=== PATIENT | male | born 1985 | race American Indian/Alaskan Native ===

== ENCOUNTER 2020-08-27 08:36 | Inpatient (IN) | payer MEDICAID ==
[2020-08-27] MEDS ORDERED: IBUPROFEN 800 MG TAB PO ONE (08:54)
[2020-08-27] MEDS ORDERED: ACETAMINOPHEN 500 MG TAB PO ONE (08:55)
[2020-08-27] MEDS ORDERED: cefTRIAXone/NS 2 GM/100 ML 2 GM/100 ML BAG IV ONE (09:49)
[2020-08-27] MEDS ORDERED: AZITHROMYCIN/NS 500 MG/250 ML 500 MG/250 ML BAG IV ONE (09:49)
[2020-08-27] MEDS ORDERED: SODIUM CHLORIDE 0.9% 1000 ML 1,000 ML IV ONE (09:51)
[2020-08-27] MEDS ORDERED: IPRATROPIUM/ALBUTEROL SULFATE 3 ML AMPUL.NEB IH ONE ×2 (10:02→11:16)
--- NOTE | 2020-08-27 10:07 | Emergency Department Report ---
HPI - General Chief Complaint: Dyspnea/Respdistress Time Seen by Provider: 08/27/20 09:49 - HPI HPI: 35-year-old male with no known past medical history presents complaining of 6 days of multiple symptoms including subjective fevers, cough productive of b loody mucus, generalized weakness, decreased appetite and decreased taste. He also feels as if he is wheezing and does not have a history of that. He says he has also been constipated and has not had a bowel movement in 6 days. He says he just drove here from [place] 10 days ago. He has had no recent surgery. He denies any headache, visual change, neck pain, back pain, abdominal pain, nausea/vomiting, dysuria, focal weakness, sensory changes, increased lower extremity swelling, or any other complaints. ED Past Medical Hx - Past Medical History Previous Medical History?: No - Surgical History Past Surgical History?: No ED Review of Systems ROS: Stated complaint: WHEEZING Other details as noted in HPI Constitutional: fever, malaise Eyes: denies: eye pain, vision change ENT: denies: throat pain, congestion Respiratory: cough, shortness of breath, wheezing Cardiovascular: denies: chest pain, palpitations, edema, syncope Gastrointestinal: constipation. denies: abdominal pain, nausea, vomiting Genitourinary: denies: dysuria, frequency Musculoskeletal: denies: back pain, joint swelling Skin: denies: rash Neurological: denies: headache, weakness, numbness, paresthesias Physical Exam - Physical Exam Vital Signs: Vital Signs 08/27/20 08:41 Temperature 103.1 F H Pulse Rate 138 H Respiratory 20 Rate Blood Pressure 144/90 O2 Sat by Pulse 95 Oximetry Physical Exam: GENERAL: Well developed and well nourished. In moderate respiratory distress. HEENT: Normocephalic. No obvious signs of trauma. Dry mucous membranes. EYES: Extraocular movements are intact. Pupils are equal round and reactive to light bilaterally NECK: Supple. Trachea is midline. LUNGS: In moderate respiratory distress with accessory muscle use. Equal chest rise bilaterally. Lung auscultation reveals scattered rales throughout the bilateral lung srinivasan as well as faint end expiratory wheezes. HEART/CARDIOVASCULAR: Tachycardic but with regular rhythm. No murmurs or rubs. VASCULAR: 2+ peripheral pulses. Cap refill < 2 seconds. 1+ pitting edema b/l ABDOMEN: Abdomen distended but soft. There is no significant tenderness, guarding or rebound. SKIN: Skin is warm and dry NEURO: Patient is awake, alert, and oriented. sausage wrapper II-XII grossly intact. No focal deficits. Normal motor and sensory exam throughout. Normal speech. MUSCULOSKELETAL: No obvious deformities. No significant tenderness. Normal ROM throughout. BACK/SPINE: No costovertebral angle tenderness. ED Course Vital Signs 08/27/20 08:41 Temperature 103.1 F H Pulse Rate 138 H Respiratory 20 Rate Blood Pressure 144/90 O2 Sat by Pulse 95 Oximetry ED Medical Decision Making - Lab Data Result diagrams: 08/27/20 11:56 08/27/20 11:56 Lab Results 08/27/20 08/27/20 08/27/20 Range/Units 11:56 11:56 11:56 WBC (4.5-11.0) K/mm3 RBC (3.65-5.03) M/mm3 Hgb (11.8-15.2) gm/dl Hct (35.5-45.6) % MCV (84-94) fl MCH (28-32) pg MCHC (32-34) % RDW (13.2-15.2) % Plt Count (140-440) K/mm3 Lymph % (Auto) (13.4-35.0) % Sunflower % (Auto) (0.0-7.3) % Eos % (Auto) (0.0-4.3) % Baso % (Auto) (0.0-1.8) % Lymph # (Auto) (1.2-5.4) K/mm3 Sunflower # (Auto) (0.0-0.8) K/mm3 Eos # (Auto) (0.0-0.4) K/mm3 Baso # (Auto) (0.0-0.1) K/mm3 Seg Neutrophils % (40.0-70.0) % Seg Neutrophils # (1.8-7.7) K/mm3 D-Dimer 291.43 H (0-234) ng/mlDDU Sodium (137-145) mmol/L Potassium (3.6-5.0) mmol/L Chloride (98-107) mmol/L Carbon Dioxide (22-30) mmol/L Anion Gap mmol/L BUN (9-20) mg/dL Creatinine (0.8-1.3) mg/dL Estimated GFR ml/min BUN/Creatinine Ratio % Glucose (75-100) mg/dL Lactic Acid (0.7-2.0) mmol/L Calcium (8.4-10.2) mg/dL Ferritin (30.0-300.0) ng/mL Total Bilirubin (0.1-1.2) mg/dL AST (5-40) units/L ALT (7-56) units/L Alkaline Phosphatase (35-129) units/L Lactate Dehydrogenase 313 H (91-180) units/L Troponin T < 0.010 (0.00-0.029) ng/mL C-Reactive Protein 4.40 H (0.00-1.30) mg/dL NT-Pro-B Natriuret Pep (0-450) pg/mL Total Protein (6.3-8.2) g/dL Albumin (3.9-5) g/dL Albumin/Globulin Ratio % Procalcitonin 0.09 (<0.15) ng/mL 08/27/20 08/27/20 08/27/20 Range/Units 11:56 11:56 11:56 WBC 6.6 (4.5-11.0) K/mm3 RBC 4.97 (3.65-5.03) M/mm3 Hgb 14.7 (11.8-15.2) gm/dl Hct 43.4 (35.5-45.6) % MCV 87 (84-94) fl MCH 30 (28-32) pg MCHC 34 (32-34) % RDW 13.6 (13.2-15.2) % Plt Count 173 (140-440) K/mm3 Lymph % (Auto) 10.3 L (13.4-35.0) % Sunflower % (Auto) 4.3 (0.0-7.3) % Eos % (Auto) 0.0 (0.0-4.3) % Baso % (Auto) 0.8 (0.0-1.8) % Lymph # (Auto) 0.7 L (1.2-5.4) K/mm3 Sunflower # (Auto) 0.3 (0.0-0.8) K/mm3 Eos # (Auto) 0.0 (0.0-0.4) K/mm3 Baso # (Auto) 0.1 (0.0-0.1) K/mm3 Seg Neutrophils % 84.6 H (40.0-70.0) % Seg Neutrophils # 5.6 (1.8-7.7) K/mm3 D-Dimer (0-234) ng/mlDDU Sodium 139 (137-145) mmol/L Potassium 3.4 L (3.6-5.0) mmol/L Chloride 102.7 (98-107) mmol/L Carbon Dioxide 22 (22-30) mmol/L Anion Gap 18 mmol/L BUN 15 (9-20) mg/dL Creatinine 1.3 (0.8-1.3) mg/dL Estimated GFR > 60 ml/min BUN/Creatinine Ratio 12 % Glucose 125 H (75-100) mg/dL Lactic Acid (0.7-2.0) mmol/L Calcium 8.5 (8.4-10.2) mg/dL Ferritin 572.3 H (30.0-300.0) ng/mL Total Bilirubin 0.40 (0.1-1.2) mg/dL AST 66 H (5-40) units/L ALT 37 (7-56) units/L Alkaline Phosphatase 90 (35-129) units/L Lactate Dehydrogenase (91-180) units/L Troponin T (0.00-0.029) ng/mL C-Reactive Protein (0.00-1.30) mg/dL NT-Pro-B Natriuret Pep (0-450) pg/mL Total Protein 7.2 (6.3-8.2) g/dL Albumin 3.9 (3.9-5) g/dL Albumin/Globulin Ratio 1.2 % Procalcitonin (<0.15) ng/mL 08/27/20 08/27/20 Range/Units 11:56 11:56 WBC (4.5-11.0) K/mm3 RBC (3.65-5.03) M/mm3 Hgb (11.8-15.2) gm/dl Hct (35.5-45.6) % MCV (84-94) fl MCH (28-32) pg MCHC (32-34) % RDW (13.2-15.2) % Plt Count (140-440) K/mm3 Lymph % (Auto) (13.4-35.0) % Sunflower % (Auto) (0.0-7.3) % Eos % (Auto) (0.0-4.3) % Baso % (Auto) (0.0-1.8) % Lymph # (Auto) (1.2-5.4) K/mm3 Sunflower # (Auto) (0.0-0.8) K/mm3 Eos # (Auto) (0.0-0.4) K/mm3 Baso # (Auto) (0.0-0.1) K/mm3 Seg Neutrophils % (40.0-70.0) % Seg Neutrophils # (1.8-7.7) K/mm3 D-Dimer (0-234) ng/mlDDU Sodium (137-145) mmol/L Potassium (3.6-5.0) mmol/L Chloride (98-107) mmol/L Carbon Dioxide (22-30) mmol/L Anion Gap mmol/L BUN (9-20) mg/dL Creatinine (0.8-1.3) mg/dL Estimated GFR ml/min BUN/Creatinine Ratio % Glucose (75-100) mg/dL Lactic Acid 1.10 (0.7-2.0) mmol/L Calcium (8.4-10.2) mg/dL Ferritin (30.0-300.0) ng/mL Total Bilirubin (0.1-1.2) mg/dL AST (5-40) units/L ALT (7-56) units/L Alkaline Phosphatase (35-129) units/L Lactate Dehydrogenase (91-180) units/L Troponin T (0.00-0.029) ng/mL C-Reactive Protein (0.00-1.30) mg/dL NT-Pro-B Natriuret Pep < 5 (0-450) pg/mL Total Protein (6.3-8.2) g/dL Albumin (3.9-5) g/dL Albumin/Globulin Ratio % Procalcitonin (<0.15) ng/mL - EKG Data -: EKG Interpreted by Nv - Radiology Data CHEST 1 VIEW INDICATION / CLINICAL INFORMATION: sepsis. COMPARISON: None available. FINDINGS: SUPPORT DEVICES: None. HEART / MEDIASTINUM: No significant abnormality. LUNGS / PLEURA: There are mild bibasilar pulmonary opacities. No pleural effusion. No pneumothorax. ADDITIONAL FINDINGS: No significant additional findings. IMPRESSION: 1. Mild bibasilar pulmonary opacities are favored to represent subsegmental atelectasis, though developing pneumonia is possible given the provided history of sepsis. Signer Name: Gill Sanchez MD Signed: 08/27/2020 9:33 AM Workstation Name: [id number] CTA CHEST WITH IV CONTRAST INDICATION: Sepsis CONTRAST: 100 cc Omnipaque 350 IV COMPARISON: Portable chest x-ray today Three-plane MIP reconstructions were produced. All CT scans at this location are performed using CT dose [facility] by means of automated exposure control. FINDINGS: No significant axillary or chest wall abnormalities are seen. No mediastinal or hilar masses are noted. No pleural effusions are seen. No pneumothorax or pneumomediastinum are noted. No obvious endobronchial lesions are seen. Views of the lung srinivasan show moderate bilateral atelectatic changes and increased interstitial markings. These are most prominent in the lung bases but also extends well into the upper lobes. Mild consolidation is seen in the lower lobes bilaterally. No discrete nodularity is seen though this background would make detection more difficult. Aorta shows no aneurysmal dilatation or evidence of dissection. Good opacification of the pulmonary arterial system was achieved. There is moderate motion artifact seen in the lung bases, particularly the lower lobes, making interpretation more difficult but I do not see convincing evidence of pulmonary thromboembolism. CT ABDOMEN AND PELVIS WITH CONTRAST INDICATION: Sepsis CONTRAST: 100 cc Omnipaque 350 IV COMPARISON: None available. All CT scans at this location are performed using CT dose reduction for ALARA by means of automated exposure control. FINDINGS: No pneumoperitoneum is seen. Fatty infiltration of the liver is noted without significant focal lesion. Liver is mildly enlarged and has a length of 18.6 cm. Spleen is not enlarged. I see no abnormalities of the gallbladder, bile ducts, pancreas, adrenals, or kidneys. No urinary obstructive changes are noted. No free fluid is seen. No lymphadenopathy is noted. Mild colonic diverticulosis is seen without evidence of diverticulitis. Appendix appears within normal limits no evidence of bowel obstruction is seen. No focal inflammatory changes are noted. No abnormal fluid collections are seen to suggest an abscess. IMPRESSION: 1. Bilateral moderate atelectatic changes and increased interstitial markings which certainly could include pneumonitis. This is most prominent in the lower lobes but is seen in all lobes. 2. No convincing evidence of pulmonary thromboembolism in a mildly limited study 3. No acute abnormalities are seen in the abdomen or pelvis Signer Name: Octavio Sanchez MD Signed: 08/27/2020 1:13 PM Workstation Name: [id number] - Medical Decision Making 35-year-old male with 6 days of subjective fevers, coughing up bloody mucus, generalized weakness and chest tightness. He also reports he has been constipated for the past 6 days. He does report he has decreased taste. He is not vaccinated against the coronavirus. He does say that he just drove from [place] 10 days ago and was in the car for long time. He has had no recent surgeries. He is febrile to 103 and tachycardic in the 120s. His oxygen saturation has hovered around 92 to 94%. On initial assessment, the patient is in moderate respiratory distress. He has dry mucous membranes. He has 1+ pitting edema bilaterally. Lung auscultation reveals scattered rales and faint end expiratory wheezes. His abdomen is distended but soft and nontender. Nonetheless, we will perform broad work-up including the COVID-19 order set. Given hemoptysis we will obtain CTA of the chest and given his 6 days of constipation we will include the abdomen and pelvis as well. We will give IV fluids, broad-spectrum ceftriaxone and azithromycin, and continue to monitor him closely. The sepsis order set was initiated with a full set of labs and cultures. On repeat assessment at 1115 after a breathing treatment, the patient reports that he feels better. He is no longer in respiratory distress. His tachycardia is improved. Lung auscultation reveals greatly improved air movement throughout. Labs have resulted and reveal no significant leukocytosis or anemia. Creatinine is 1.3. Potassium is 3.4 which we will replete. The patient has an elevated D-dimer of 291 as well as elevated inflammatory markers and LDH concerning for COVID-19 pneumonia. CTA of the chest/abdomen/pelvis reveals findings consistent with developing pneumonia and no acute findings in the abdomen. On repeat assessment again at 2:00, the patient's respiratory rate remains improved and he feels better. At 2:21 PM I spoke to Dr. Garcia, the on-call hospitalist regarding the case. He accepts the patient for admission and will assume care. The patient's COVID-19 test came back positive. I alerted the hospitalist, Dr. Garcia and asked whether he would like me to order steroids. He said that he would take care of it. The diagnosis was discussed with the patient along with our plan of management which includes hospitalization for supplemental oxygen and frequent breathing treatments as well as further medications. Critical Care Time: Yes Critical care time in (mins) excluding proc time.: 45 Critical care attestation.: If time is entered above; I have spent that time in minutes in the direct care of this critically ill patient, excluding procedure time. Critical care time was spent in the evaluation, assessment, work-up, and management of critical respiratory failure with hypoxia requiring supplemental oxygen as well as pneumonia requiring IV antibiotics and frequent reassessment breathing treatments. ED Disposition Clinical Impression: Pneumonia due to COVID-19 virus, Acute respiratory failure due to COVID-19, Hypokalemia Disposition: OP ADMIT IP TO THIS HOSP Is pt being admited?: Yes Condition: Fair
--- NOTE | 2020-08-27 10:38 | XRay Report ---
CHEST 1 VIEW INDICATION / CLINICAL INFORMATION: sepsis. COMPARISON: None available. FINDINGS: SUPPORT DEVICES: None. HEART / MEDIASTINUM: No significant abnormality. LUNGS / PLEURA: There are mild bibasilar pulmonary opacities. No pleural effusion. No pneumothorax. ADDITIONAL FINDINGS: No significant additional findings. IMPRESSION: 1. Mild bibasilar pulmonary opacities are favored to represent subsegmental atelectasis, though devel oping pneumonia is possible given the provided history of sepsis. Signer Name: Gill Sanchez MD Signed: 08/27/2020 10:33 AM Workstation Name: [id number]
[2020-08-27 12:28] LABS: Basophils # (Auto) 0.1 K/mm3 (0.0-0.1); Basophils % (Auto) 0.8 % (0.0-1.8); Hematocrit 43.4 % (35.5-45.6); Hemoglobin 14.7 gm/dl (11.8-15.2); Lymphocytes # (Auto) 0.7 K/mm3 (1.2-5.4); Lymphocytes % (Auto) 10.3 % (13.4-35.0); Mean Corpuscular HGB Conc 34 % (32-34); Mean Corpuscular Volume 87 fl (84-94); Monocytes # (Auto) 0.3 K/mm3 (0.0-0.8); Monocytes % (Auto) 4.3 % (0.0-7.3); Platelet Count 173 K/mm3 (140-440); Red Blood Count 4.97 M/mm3 (3.65-5.03); Red Cell Distribution Width 13.6 % (13.2-15.2)
[2020-08-27 12:41] LABS: Alanine Aminotransferase 37 units/L (7-56); Albumin 3.9 g/dL (3.9-5); BUN/Creatinine Ratio 12; Blood Urea Nitrogen 15 mg/dL (9-20); Calcium 8.5 mg/dL (8.4-10.2); Hemolysis Index 5
[2020-08-27] MEDS ORDERED: VANCOMYCIN 1,500 MG in SODIUM CHLORIDE 0.9% 500 ML 500 ML IV ONE (13:21)
--- NOTE | 2020-08-27 14:17 | Cat Scan Report ---
CTA CHEST WITH IV CONTRAST INDICATION: Sepsis CONTRAST: 100 cc Omnipaque 350 IV COMPARISON: Portable chest x-ray today Three-plane MIP reconstructions were produced. All CT scans at this location are performed using CT d ose reduction for ALARA by means of automated exposure control. FINDINGS: No significant axillary or chest wall abnormalities are seen. No mediastinal or hilar mil s are noted. No pleural effusions are seen. No pneumothorax or pneumomediastinum are noted. No obviou s endobronchial lesions are seen. Views of the lung srinivasan show moderate bilateral atelectatic change s and increased interstitial markings. These are most prominent in the lung bases but also extends we ll into the upper lobes. Mild consolidation is seen in the lower lobes bilaterally. No discrete nodul arity is seen though this background would make detection more difficult. Aorta shows no aneurysmal dilatation or evidence of dissection. Good opacification of the pulmonary arterial system was achieved. There is moderate motion artifact s een in the lung bases, particularly the lower lobes, making interpretation more difficult but I do no t see convincing evidence of pulmonary thromboembolism. CT ABDOMEN AND PELVIS WITH CONTRAST INDICATION: Sepsis CONTRAST: 100 cc Omnipaque 350 IV COMPARISON: None available. All CT scans at this location are performed using CT dose reduction for ALARA by means of automated e xposure control. FINDINGS: No pneumoperitoneum is seen. Fatty infiltration of the liver is noted without significant f ocal lesion. Liver is mildly enlarged and has a length of 18.6 cm. Spleen is not enlarged. I see no a bnormalities of the gallbladder, bile ducts, pancreas, adrenals, or kidneys. No urinary obstructive c hanges are noted. No free fluid is seen. No lymphadenopathy is noted. Mild colonic diverticulosis is seen without evidence of diverticulitis. Appendix appears within normal limits no evidence of bowel o bstruction is seen. No focal inflammatory changes are noted. No abnormal fluid collections are seen t o suggest an abscess. IMPRESSION: 1. Bilateral moderate atelectatic changes and increased interstitial markings which certainly could i nclude pneumonitis. This is most prominent in the lower lobes but is seen in all lobes. 2. No convincing evidence of pulmonary thromboembolism in a mildly limited study 3. No acute abnormalities are seen in the abdomen or pelvis Signer Name: Octavio Sanchez MD Signed: 08/27/2020 2:13 PM Workstation Name: [id number]
[2020-08-27] MEDS ORDERED: POTASSIUM CHLORIDE ER 20 MEQ TAB PO ONE (14:25)
--- NOTE | 2020-08-27 16:50 | History and Physical Report ---
History of Present Illness Date of examination: 08/27/20 Date of admission: 08/27/20 14:21 Chief complaint: Fever, body aches, shortness of breath, loss of taste for 6 days History of present illness: 35-year-old male with no known past medical history comes in for fever cough and generalized weakness. Also patient has decreased appetite and decreased taste sensation. Patient has not taken Covid vaccination. Patient has wheezing. No history of asthma. No bowel movement for [address] days[address] He drove into [place] from [place] 10 days ago. No recent surgery. Not sure about exposure to Covid virus. - Past Medical History Previous Medical History?: No - Surgical History Past Surgical History?: No -Family history Htn Social history no smoking/alcohol Review of Systems ROS: Constitutional fever generalized weakness and loss of taste, loss of appetite HEENT no sore throat no post nasal drip no diplopia Neck no neck stiffness no lymph gland enlargement Chest and lungs shortness of breath and wheezing present CVS no chest pain no diaphoresis no palpitations GI no nausea no vomiting no diarrhea Genitourinary system no dysuria no flank pain Musculoskeletal system no muscle pains no joint pains [employer] no syncope no seizures Skin no rash no itching Psychiatric no depression no homicidal or suicidal tendencies Hematologic no lymphedema or bruising Endocrine no polydipsia no polyuria no cold intolerance no heat intolerance Medications and Allergies Allergies Allergy/AdvReac Type Severity Reaction Status Date / Time No Known Allergies Allergy Unverified 08/27/20 08:39 Exam - Constitutional Vitals: Temp Pulse Resp BP Pulse Ox 98.8 F 115 H 18 118/85 97 08/27/20 12:55 08/27/20 13:30 08/27/20 13:44 08/27/20 13:30 08/27/20 13:44 General appearance: Present: mild distress, well-nourished - EENT Eyes: Present: PERRL ENT: hearing intact, clear oral mucosa - Neck Neck: Present: supple, normal ROM - Respiratory Respiratory effort: normal Respiratory: bilateral: CTA, wheezing (Scattered rhonchi) - Cardiovascular Heart rate: 98 Rhythm: regular Heart Sounds: Present: S1 & S2. Absent: rub, click - Extremities Extremities: pulses symmetrical, No edema Peripheral Pulses: within normal limits - Abdominal General gastrointestinal: Present: soft, non-tender, non-distended, normal bowel sounds Male genitourinary: Present: normal - Rectal Rectal Exam: deferred - Integumentary Integumentary: Present: clear, warm, dry - Musculoskeletal Musculoskeletal: gait normal, strength equal bilaterally - Psychiatric Psychiatric: appropriate mood/affect, intact judgment & insight - Neurologic Neurologic: CNII-XII intact, moves all extremities - Allied Health Allied health notes reviewed: nursing, case management HEART Score - HEART Score Troponin: Troponin T < 0.010 ng/mL (0.00-0.029) 08/27/20 11:56 Results - Labs CBC & Chem 7: 08/27/20 11:56 08/27/20 11:56 Labs: Laboratory Last Values WBC 6.6 K/mm3 (4.5-11.0) 08/27/20 11:56 RBC 4.97 M/mm3 (3.65-5.03) 08/27/20 11:56 Hgb 14.7 gm/dl (11.8-15.2) 08/27/20 11:56 Hct 43.4 % (35.5-45.6) 08/27/20 11:56 MCV 87 fl (84-94) 08/27/20 11:56 MCH 30 pg (28-32) 08/27/20 11:56 MCHC 34 % (32-34) 08/27/20 11:56 RDW 13.6 % (13.2-15.2) 08/27/20 11:56 Plt Count 173 K/mm3 (140-440) 08/27/20 11:56 Lymph % (Auto) 10.3 % (13.4-35.0) L 08/27/20 11:56 Dent % (Auto) 4.3 % (0.0-7.3) 08/27/20 11:56 Eos % (Auto) 0.0 % (0.0-4.3) 08/27/20 11:56 Baso % (Auto) 0.8 % (0.0-1.8) 08/27/20 11:56 Lymph # (Auto) 0.7 K/mm3 (1.2-5.4) L 08/27/20 11:56 Dent # (Auto) 0.3 K/mm3 (0.0-0.8) 08/27/20 11:56 Eos # (Auto) 0.0 K/mm3 (0.0-0.4) 08/27/20 11:56 Baso # (Auto) 0.1 K/mm3 (0.0-0.1) 08/27/20 11:56 Seg Neutrophils % 84.6 % (40.0-70.0) H 08/27/20 11:56 Seg Neutrophils # 5.6 K/mm3 (1.8-7.7) 08/27/20 11:56 D-Dimer 291.43 ng/mlDDU (0-234) H 08/27/20 11:56 Sodium 139 mmol/L (137-145) 08/27/20 11:56 Potassium 3.4 mmol/L (3.6-5.0) L 08/27/20 11:56 Chloride 102.7 mmol/L (98-107) 08/27/20 11:56 Carbon Dioxide 22 mmol/L (22-30) 08/27/20 11:56 Anion Gap 18 mmol/L 08/27/20 11:56 BUN 15 mg/dL (9-20) 08/27/20 11:56 Creatinine 1.3 mg/dL (0.8-1.3) 08/27/20 11:56 Estimated GFR > 60 ml/min 08/27/20 11:56 BUN/Creatinine Ratio 12 % 08/27/20 11:56 Glucose 125 mg/dL (75-100) H 08/27/20 11:56 Lactic Acid 1.10 mmol/L (0.7-2.0) 08/27/20 11:56 Calcium 8.5 mg/dL (8.4-10.2) 08/27/20 11:56 Ferritin 572.3 ng/mL (30.0-300.0) H 08/27/20 11:56 Total Bilirubin 0.40 mg/dL (0.1-1.2) 08/27/20 11:56 AST 66 units/L (5-40) H 08/27/20 11:56 ALT 37 units/L (7-56) 08/27/20 11:56 Alkaline Phosphatase 90 units/L (35-129) 08/27/20 11:56 Lactate Dehydrogenase 313 units/L (91-180) H 08/27/20 11:56 Troponin T < 0.010 ng/mL (0.00-0.029) 08/27/20 11:56 C-Reactive Protein 4.40 mg/dL (0.00-1.30) H 08/27/20 11:56 NT-Pro-B Natriuret Pep < 5 pg/mL (0-450) 08/27/20 11:56 Total Protein 7.2 g/dL (6.3-8.2) 08/27/20 11:56 Albumin 3.9 g/dL (3.9-5) 08/27/20 11:56 Albumin/Globulin Ratio 1.2 % 08/27/20 11:56 Procalcitonin 0.09 ng/mL (<0.15) 08/27/20 11:56 Coronavirus (PCR) Positive (Negative) A 08/27/20 Unknown Short CBC 08/27/20 Range/Units 11:56 WBC 6.6 (4.5-11.0) K/mm3 Hgb 14.7 (11.8-15.2) gm/dl Hct 43.4 (35.5-45.6) % Plt Count 173 (140-440) K/mm3 BMP 08/27/20 11:56 Sodium 139 Potassium 3.4 L Chloride 102.7 Carbon Dioxide 22 BUN 15 Creatinine 1.3 Glucose 125 H Calcium 8.5 Cardiac Enzymes 08/27/20 Range/Units 11:56 Troponin T < 0.010 (0.00-0.029) ng/mL Liver Function 08/27/20 Range/Units 11:56 Total Bilirubin 0.40 (0.1-1.2) mg/dL AST 66 H (5-40) units/L ALT 37 (7-56) units/L Alkaline Phosphatase 90 (35-129) units/L Albumin 3.9 (3.9-5) g/dL Urine 08/27/20 Range/Units Unknown Urine Color Kim (Yellow) Urine pH 5.0 (5.0-7.0) Ur Specific [place] 1.040 H (1.003-1.030) Urine Protein >500 (Negative) mg/dL Urine Glucose (UA) Neg (Negative) mg/dL Microbiology: Microbiology 08/27/20 11:56 Peripheral/Venous Blood Culture - Preliminary Culture in Progress 08/27/20 11:56 Peripheral/Venous Blood Culture - Preliminary Culture in Progress - Imaging and Cardiology Chest x-ray: report reviewed Imaging and Cardiology: Chest x-ray Mild bibasilar pulmonary opacities are favored to represent subsegmental atelectasis though developing pneumonia is possible given the provided history of sepsis Abdomen/pelvis CT scanning Bilateral moderate atelectatic changes and increased interstitial markings which certainly could include pneumonitis. This is most prominent in the lower lobes but is seen in all lobes. No convincing evidence of pulmonary thromboembolism and a mildly limited study. No acute abnormalities are seen in the abdomen or pelvis . Chest CTA No convincing evidence of pulmonary thromboembolism Assessment and Plan Advance Directives: Yes (Full code) Plan of care discussed with patient/family: Yes - Patient Problems (1) Acute respiratory failure with hypoxia Current Visit: Yes Status: Acute Plan to address problem: Oxygen supplementation as necessary Possible Covid virus infection Bilateral pneumonia (2) SIRS (systemic inflammatory response syndrome) Current Visit: Yes Status: Acute Plan to address problem: All inflammatory markers are elevated including LDH of 313 and CRP of 4.4 (3) Bilateral pneumonia Current Visit: Yes Status: Acute Plan to address problem: Patient initiated on IV Zithromax and IV Rocephin (4) Pneumonia due to COVID-19 virus Current Visit: Yes Status: Acute Plan to address problem: Coronavirus PCR positive IV Decadron 8 mg every 24 initiated ID consult requested, zinc sulfate, vitamin C and vitamin D added (5) Hypokalemia Current Visit: Yes Status: Acute Plan to address problem: Supplemented (6) DVT prophylaxis Current Visit: Yes Status: Acute Plan to address problem: On Lovenox and GI prophylaxis
[2020-08-27] MEDS ORDERED: IPRATROPIUM/ALBUTEROL SULFATE 3 ML AMPUL.NEB IH PRN (17:13)
[2020-08-27 17:23] LABS: Bilirubin,Urine NEG (Negative); Blood,Urine MOD (Negative); Color,Urine Amber (Yellow); Mucus,Urine 1+ /HPF; Urobilinogen,Urine < 2.0 mg/dL (<2.0)
[2020-08-27 17:25] LABS: Protein,Urine >500 mg/dL (Negative)
[2020-08-27] MEDS ORDERED: dexAMETHasone 4 MG/ML VIAL IV SCH (18:00)
[2020-08-27] MEDS ORDERED: AZITHROMYCIN/NS 500 MG/250 ML 500 MG/250 ML BAG IV SCH (18:00)
[2020-08-27] MEDS: ENOXAPARIN 40 MG/0.4 ML INJ SUB-Q SCH (18:50)
[2020-08-27] MEDS: ASCORBIC ACID 500 MG TAB PO SCH (23:01)
[2020-08-27] MEDS: HYDROmorphone 1 MG/1 ML INJ IV PRN (23:02)
[2020-08-27] MEDS: ZINC SULFATE 220 MG CAP PO SCH (23:02)
[2020-08-27] MEDS: FAMOTIDINE 20 MG TAB PO SCH (23:02)
[2020-08-28] MEDS: HYDROmorphone 1 MG/1 ML INJ IV PRN (07:18)
[2020-08-28 08:57] LABS: Alanine Aminotransferase 41 units/L (7-56); Albumin 4.2 g/dL (3.9-5); BUN/Creatinine Ratio 13; Blood Urea Nitrogen 12 mg/dL (9-20); Calcium 9.2 mg/dL (8.4-10.2); Hemolysis Index 6
[2020-08-28 09:26] LABS: Hematocrit 45.1 % (35.5-45.6); Hemoglobin 15.1 gm/dl (11.8-15.2); Lymphocytes # (Auto) 0.6 K/mm3 (1.2-5.4); Lymphocytes % (Auto) 9.7 % (13.4-35.0); Mean Corpuscular HGB Conc 33 % (32-34); Mean Corpuscular Volume 89 fl (84-94); Monocytes # (Auto) 0.3 K/mm3 (0.0-0.8); Monocytes % (Auto) 5.5 % (0.0-7.3); Platelet Count 172 K/mm3 (140-440); Red Blood Count 5.06 M/mm3 (3.65-5.03); Red Cell Distribution Width 13.8 % (13.2-15.2)
[2020-08-28] MEDS ORDERED: AZITHROMYCIN/NS 500 MG/250 ML 500 MG/250 ML BAG IV SCH (12:00)
[2020-08-28] MEDS ORDERED: cefTRIAXone/NS 2 GM/100 ML 2 GM/100 ML BAG IV SCH (12:00)
--- NOTE | 2020-08-28 12:36 | Progress Note ---
Assessment and Plan Assessment and plan: (1) Acute respiratory failure with hypoxia Current Visit: Yes Status: Acute Plan to address problem: Oxygen supplementation as necessary Possible Covid virus infection Bilateral pneumonia (2) SIRS (systemic inflammatory response syndrome) Current Visit: Yes Status: Acute Plan to address problem: All inflammatory markers are elevated including LDH of 313 and CRP of 4.4 (3) Bilateral pneumonia Current Visit: Yes Status: Acute Plan to address problem: Patient initiated on IV Zithromax and IV Rocephin (4) Pneumonia due to COVID-19 virus Current Visit: Yes Status: Acute Plan to address problem: Coronavirus PCR positive IV Decadron 8 mg every 24 initiated ID consult requested, zinc sulfate, vitamin C and vitamin D added (5) Hypokalemia Current Visit: Yes Status: Acute Plan to address problem: Supplemented (6) DVT prophylaxis Current Visit: Yes Status: Acute Plan to address problem: On Lovenox and GI prophylaxis 08/27/20 Patient with acute resp failure due to bilateral pneumonia from Covid-19 infection. He is on Rocephin, Zithromax, Decadron, Zinc and supplemental Oxygen. Continue Oxygen, now at 4 l/min NC. ID Physician to see. Will also consult Pulm History Interval history: Still having shortness of breath coughing Fever Hospitalist Physical - Physical exam Narrative exam: Gen: Not in acute distress, obese HEENT: Normocephalic, atraumatic Lungs: Bilateral rales, no wheeze Heart:S1 and S2 reg, no murmurs, rubs or gallop Abd: soft, non tender, non distended, normal bowel sounds, Ext: no edema, no clubbing, no cycanosis Neuro: AAO x 3, moves all extremities, no focal neuro signs - Constitutional Vitals: Temp Pulse Resp BP Pulse Ox 98.8 F 127 H 22 130/90 96 08/27/20 12:55 08/27/20 21:00 08/27/20 21:00 08/27/20 21:00 08/28/20 00:13 General appearance: Present: obese HEART Score - HEART Score Troponin: Troponin T < 0.010 ng/mL (0.00-0.029) 08/27/20 11:56 Results - Labs CBC & Chem 7: 08/28/20 07:55 08/28/20 07:55 Labs: Laboratory Last Values WBC 5.7 K/mm3 (4.5-11.0) 08/28/20 07:55 RBC 5.06 M/mm3 (3.65-5.03) H 08/28/20 07:55 Hgb 15.1 gm/dl (11.8-15.2) 08/28/20 07:55 Hct 45.1 % (35.5-45.6) 08/28/20 07:55 MCV 89 fl (84-94) 08/28/20 07:55 MCH 30 pg (28-32) 08/28/20 07:55 MCHC 33 % (32-34) 08/28/20 07:55 RDW 13.8 % (13.2-15.2) 08/28/20 07:55 Plt Count 172 K/mm3 (140-440) 08/28/20 07:55 Lymph % (Auto) 9.7 % (13.4-35.0) L 08/28/20 07:55 [place] % (Auto) 5.5 % (0.0-7.3) 08/28/20 07:55 Eos % (Auto) 0.0 % (0.0-4.3) 08/28/20 07:55 Baso % (Auto) 0.0 % (0.0-1.8) 08/28/20 07:55 Lymph # (Auto) 0.6 K/mm3 (1.2-5.4) L 08/28/20 07:55 [place] # (Auto) 0.3 K/mm3 (0.0-0.8) 08/28/20 07:55 Eos # (Auto) 0.0 K/mm3 (0.0-0.4) 08/28/20 07:55 Baso # (Auto) 0.0 K/mm3 (0.0-0.1) 08/28/20 07:55 Seg Neutrophils % 84.8 % (40.0-70.0) H 08/28/20 07:55 Seg Neutrophils # 4.9 K/mm3 (1.8-7.7) 08/28/20 07:55 D-Dimer 291.43 ng/mlDDU (0-234) H 08/27/20 11:56 Sodium 138 mmol/L (137-145) 08/28/20 07:55 Potassium 4.9 mmol/L (3.6-5.0) D 08/28/20 07:55 Chloride 101.3 mmol/L (98-107) 08/28/20 07:55 Carbon Dioxide 24 mmol/L (22-30) 08/28/20 07:55 Anion Gap 18 mmol/L 08/28/20 07:55 BUN 12 mg/dL (9-20) 08/28/20 07:55 Creatinine 0.9 mg/dL (0.8-1.3) 08/28/20 07:55 Estimated GFR > 60 ml/min 08/28/20 07:55 BUN/Creatinine Ratio 13 % 08/28/20 07:55 Glucose 125 mg/dL (75-100) H 08/28/20 07:55 Hemoglobin A1c 6.4 % (4-6) H 08/28/20 07:55 Lactic Acid 1.60 mmol/L (0.7-2.0) 08/27/20 16:51 Calcium 9.2 mg/dL (8.4-10.2) 08/28/20 07:55 Ferritin 572.3 ng/mL (30.0-300.0) H 08/27/20 11:56 Total Bilirubin 0.30 mg/dL (0.1-1.2) 08/28/20 07:55 AST 80 units/L (5-40) H 08/28/20 07:55 ALT 41 units/L (7-56) 08/28/20 07:55 Alkaline Phosphatase 92 units/L (35-129) 08/28/20 07:55 Lactate Dehydrogenase 313 units/L (91-180) H 08/27/20 11:56 Troponin T < 0.010 ng/mL (0.00-0.029) 08/27/20 11:56 C-Reactive Protein 4.40 mg/dL (0.00-1.30) H 08/27/20 11:56 NT-Pro-B Natriuret Pep < 5 pg/mL (0-450) 08/27/20 11:56 Total Protein 7.7 g/dL (6.3-8.2) 08/28/20 07:55 Albumin 4.2 g/dL (3.9-5) 08/28/20 07:55 Albumin/Globulin Ratio 1.2 % 08/28/20 07:55 Procalcitonin 0.09 ng/mL (<0.15) 08/27/20 11:56 Urine Color Kim (Yellow) 08/27/20 Unknown Urine Turbidity Clear (Clear) 08/27/20 Unknown Urine pH 5.0 (5.0-7.0) 08/27/20 Unknown Ur Specific [place] 1.040 (1.003-1.030) H 08/27/20 Unknown Urine Protein >500 mg/dL (Negative) 08/27/20 Unknown Urine Glucose (UA) Neg mg/dL (Negative) 08/27/20 Unknown Urine Ketones 20 mg/dL (Negative) 08/27/20 Unknown Urine Blood Mod (Negative) 08/27/20 Unknown Urine Nitrite Neg (Negative) 08/27/20 Unknown Urine Bilirubin Neg (Negative) 08/27/20 Unknown Urine Urobilinogen < 2.0 mg/dL (<2.0) 08/27/20 Unknown Ur Leukocyte Esterase Neg (Negative) 08/27/20 Unknown Urine WBC (Auto) 11.0 /HPF (0.0-6.0) H 08/27/20 Unknown Urine RBC (Auto) 2.0 /HPF (0.0-6.0) 08/27/20 Unknown U Epithel Cells (Auto) 1.0 /HPF (0-13.0) 08/27/20 Unknown Urine Mucus 1+ /HPF 08/27/20 Unknown Coronavirus (PCR) Positive (Negative) A 08/27/20 Unknown Microbiology: Microbiology 08/27/20 11:56 Peripheral/Venous Blood Culture - Preliminary NO GROWTH AFTER 24 HOURS 08/27/20 11:56 Peripheral/Venous Blood Culture - Preliminary NO GROWTH AFTER 24 HOURS Traore/IV: Voiding Method Toilet Active Medications - Current Medications Current Medications: Generic Name Dose Route Start Last Admin Trade Name Freq PRN Reason Stop Dose Admin Acetaminophen 650 mg 08/27/20 17:05 Acetaminophen 325 Mg Tab PO Q4H PRN Pain MILD(1-3)/Fever >100.5/JACOBS Albuterol/Ipratropium 1 ampul 08/27/20 17:13 Ipratropium/Albuterol Sulfate 3 Ml Ampul.Neb IH Q3H PRN Wheezing Ascorbic Acid 1,000 mg 08/27/20 22:00 08/27/20 23:01 Ascorbic Acid 500 Mg Tab PO 1,000 mg BID [facility] Administration Cholecalciferol 5,000 unit 08/27/20 18:00 Cholecalciferol (Vit D3) 5,000 Unit Tab PO DAILY [facility] Dexamethasone 8 mg 08/28/20 10:00 Dexamethasone 4 Mg/Ml Vial IV 09/05/20 10:01 Q24HR [facility] Enoxaparin Sodium 40 mg 08/27/20 18:00 08/27/20 18:50 Enoxaparin 40 Mg/0.4 Ml Inj SUB-Q Not Given QDAY [facility] Famotidine 20 mg 08/27/20 22:00 08/27/20 23:02 Famotidine 20 Mg Tab PO 20 mg BID [facility] Administration Hydromorphone HCl 0.5 mg 08/27/20 17:05 08/28/20 07:18 Hydromorphone 1 Mg/1 Ml Inj IV 0.5 mg Q3H PRN Administration Pain , Severe (7-10) Ceftriaxone Sodium 2 gm in 100 mls @ 200 mls/hr 08/28/20 12:00 Rocephin/Ns 2 Gm/100 Ml IV 08/31/20 14:59 Q24H [facility] Protocol Azithromycin 500 mg in 250 mls @ 250 mls/hr 08/28/20 12:00 Zithromax/Ns IV 08/31/20 12:59 Q24H [facility] Ondansetron HCl 4 mg 08/27/20 17:05 Ondansetron 4 Mg/2 Ml Inj IV Q3H PRN Nausea And Vomiting Oxycodone/Acetaminophen 1 tab 08/27/20 17:05 Oxycodone /Acetaminophen 5-325mg Tab PO Q6H PRN Pain, Moderate (4-6) Sodium Chloride 10 ml 08/27/20 22:00 08/27/20 23:19 Sodium Chloride 0.9% 10 Ml Flush Syringe IV 10 ml BID [facility] Administration Sodium Chloride 10 ml 08/27/20 17:05 Sodium Chloride 0.9% 10 Ml Flush Syringe IV PRN PRN LINE FLUSH Zinc Sulfate 220 mg 08/27/20 22:00 08/27/20 23:02 Zinc Sulfate 220 Mg Cap PO 220 mg BID [facility] Administration Nutrition/Malnutrition Assess - Dietary Evaluation Nutrition/Malnutrition Findings: Nutrition Notes Start: 08/28/20 12:26 Freq: Status: Active Protocol: Document 08/28/20 12:26 CW (Rec: 08/28/20 12:32 CW [email or web address]) Nutrition 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 No alonso score available. Skin is intact. Per notes, pt has been expressed poor appetite. Pt did not answer phone for nutritional interview. PO intakes unknown at this time. Burn Absent Trauma Absent GI Symptoms Constipation Minimum of two criteria No physical signs of malnutrition #1 Nutrition Diagnosis Predicted suboptimal energy intake Etiology acute illness - COVID 19 As Evidenced by Signs and Symptoms reports of loss of appetite Is patient on ventilator? No Is Patient Ambulatory and/or Out of Bed No REE-([facility]-confined to bed) 2495.064 Kcal/Kg value to use for calculation 15 Approximate Energy Requirements Using 1728 kcal/Kg Calculation Used for Recommendations Kcal/kg Additional Notes protein needs: 92 - 115g (0.8 - 1g/kgBW) fluid needs: 1 ml/kcal Nutrition Intervention Change Diet Order: Continue current diet as ordered Goal #1 Meet at least 75% of kcal and protein needs via PO Anticipated Discharge Needs: Regular diet Follow-Up By: 08/31/20 Additional Comments F/U for intakes and need for ONS
--- NOTE | 2020-08-28 13:07 | Consultation ---
History of Present Illness - Reason for Consult Consult date: 08/28/20 - History of Present Illness 35-year-old man with medical history presented to the hospital complaining of fevers, cough, weakness. He also notes dysgeusia. He reports not taking Covid vaccination. Recently traveled to [place] from [place]. Febrile to 103.1, tachycardic with a white count of 5.7. Covid PCR positive. Normal. Normal renal function. Blood cultures no growth so far. Currently on ceftriaxone azithromycin as well as dexamethasone. Impression reviewed: Chest CTA: Pneumonitis Review of systems: Deferred to reduce to the risk of transmission of COVID-19 Medications and Allergies Allergies Allergy/AdvReac Type Severity Reaction Status Date / Time No Known Allergies Allergy Unverified 08/27/20 08:39 Active Meds: Active Medications Acetaminophen (Acetaminophen 325 Mg Tab) 650 mg PO Q4H PRN PRN Reason: Pain MILD(1-3)/Fever >100.5/JACOBS Albuterol/Ipratropium (Ipratropium/Albuterol Sulfate 3 Ml Ampul.Neb) 1 ampul IH Q3H PRN PRN Reason: Wheezing Ascorbic Acid (Ascorbic Acid 500 Mg Tab) 1,000 mg PO BID [facility] Last Admin: 08/27/20 23:01 Dose: 1,000 mg Documented by: Cholecalciferol (Cholecalciferol (Vit D3) 5,000 Unit Tab) 5,000 unit PO DAILY [facility] Dexamethasone (Dexamethasone 4 Mg/Ml Vial) 8 mg IV Q24HR [facility] Stop: 09/05/20 10:01 Enoxaparin Sodium (Enoxaparin 40 Mg/0.4 Ml Inj) 40 mg SUB-Q QDAY [facility] Last Admin: 08/27/20 18:50 Dose: Not Given Documented by: Famotidine (Famotidine 20 Mg Tab) 20 mg PO BID [facility] Last Admin: 08/27/20 23:02 Dose: 20 mg Documented by: Guaifenesin (Guaifenesin 100 Mg/5 Ml Oral Liqd) 200 mg PO Q4H PRN PRN Reason: Cough Hydromorphone HCl (Hydromorphone 1 Mg/1 Ml Inj) 0.5 mg IV Q3H PRN PRN Reason: Pain , Severe (7-10) Last Admin: 08/28/20 07:18 Dose: 0.5 mg Documented by: Ceftriaxone Sodium (Rocephin/Ns 2 Gm/100 Ml) 2 gm in 100 mls @ 200 mls/hr IV Q24H [facility]; Protocol Stop: 08/31/20 14:59 Azithromycin (Zithromax/Ns) 500 mg in 250 mls @ 250 mls/hr IV Q24H [facility] Stop: 08/31/20 12:59 Ondansetron HCl (Ondansetron 4 Mg/2 Ml Inj) 4 mg IV Q3H PRN PRN Reason: Nausea And Vomiting Oxycodone/Acetaminophen (Oxycodone /Acetaminophen 5-325mg Tab) 1 tab PO Q6H PRN PRN Reason: Pain, Moderate (4-6) Sodium Chloride (Sodium Chloride 0.9% 10 Ml Flush Syringe) 10 ml IV BID [facility] Last Admin: 08/27/20 23:19 Dose: 10 ml Documented by: Sodium Chloride (Sodium Chloride 0.9% 10 Ml Flush Syringe) 10 ml IV PRN PRN PRN Reason: LINE FLUSH Zinc Sulfate (Zinc Sulfate 220 Mg Cap) 220 mg PO BID [facility] Last Admin: 08/27/20 23:02 Dose: 220 mg Documented by: Physical Examination - Physical Exam Narrative exam: Physical exam deferred to reduce risk of transmission of COVID-19. Please refer to primary team's note. - Constitutional Vitals: Vital Signs Temp Pulse Resp BP Pulse Ox 98.8 F 127 H 22 130/90 96 08/27/20 12:55 08/27/20 21:00 08/27/20 21:00 08/27/20 21:00 08/28/20 00:13 Results - Labs CBC & Chem 7: 08/28/20 07:55 08/28/20 07:55 Labs: Abnormal lab results 08/27/20 08/27/20 08/28/20 Range/Units Unknown Unknown 07:55 RBC 5.06 H (3.65-5.03) M/mm3 Lymph % (Auto) 9.7 L (13.4-35.0) % Lymph # (Auto) 0.6 L (1.2-5.4) K/mm3 Seg Neutrophils % 84.8 H (40.0-70.0) % Glucose (75-100) mg/dL Hemoglobin A1c (4-6) % AST (5-40) units/L Ur Specific [place] 1.040 H (1.003-1.030) Urine WBC (Auto) 11.0 H (0.0-6.0) /HPF Coronavirus (PCR) Positive A (Negative) 08/28/20 08/28/20 Range/Units 07:55 07:55 RBC (3.65-5.03) M/mm3 Lymph % (Auto) (13.4-35.0) % Lymph # (Auto) (1.2-5.4) K/mm3 Seg Neutrophils % (40.0-70.0) % Glucose 125 H (75-100) mg/dL Hemoglobin A1c 6.4 H (4-6) % AST 80 H (5-40) units/L Ur Specific [place] (1.003-1.030) Urine WBC (Auto) (0.0-6.0) /HPF Coronavirus (PCR) (Negative) Assessment and Plan Cultures: Blood culture no growth so far Covid PCR: Positive A/P: 35-year-old man past medical history morbid obesity presented to hospital with COVID-19 #COVID-19 pneumonia: Patient presented with a week of symptoms, chest x-ray with diffuse bilateral infiltrates, admission O2 sats 92% on room air. Inflammatory markers elevated #Morbid obesity: Dru comes with COVID-19 Recs: -Dexamethasone 8 mg daily, agree with higher dosing due to obesity -If patient becomes hypoxic requiring supplemental oxygen would start remdesivir -Obtain q48-72h inflammatory markers - ferritin, Ddimer, CRP, LDH -Stop antibiotics due to normal procalcitonin -Anticoagulation per hospital protocol -Proning as able Thank you for the consult, we will continue to follow. MD Chantel [facility] O: [phone] F: [phone]
[2020-08-28] MEDS: dexAMETHasone 4 MG/ML VIAL IV SCH (13:10)
[2020-08-28] MEDS: ACETAMINOPHEN 325 MG TAB PO PRN ×2 (13:10→21:36)
[2020-08-28] MEDS: ZINC SULFATE 220 MG CAP PO SCH ×2 (13:10→21:37)
[2020-08-28] MEDS: ASCORBIC ACID 500 MG TAB PO SCH ×2 (13:11→21:37)
[2020-08-28] MEDS: CHOLECALCIFEROL (VIT D3) 5,000 UNIT TAB PO SCH ×2 (13:12→13:21)
[2020-08-28] MEDS: ENOXAPARIN 40 MG/0.4 ML INJ SUB-Q SCH (13:13)
[2020-08-28] MEDS: FAMOTIDINE 20 MG TAB PO SCH ×2 (13:14→21:37)
[2020-08-28] MEDS: guaiFENesin 100 MG/5 ML ORAL LIQD PO PRN ×2 (14:04→18:50)
[2020-08-29] MEDS: ACETAMINOPHEN 325 MG TAB PO PRN ×2 (04:56→19:56)
[2020-08-29] MEDS: guaiFENesin 100 MG/5 ML ORAL LIQD PO PRN ×3 (04:56→19:55)
[2020-08-29] MEDS ORDERED: ALPRAZolam 0.25 MG TAB PO ONE (06:20)
[2020-08-29] MEDS ORDERED: FUROSEMIDE 20 MG/2 ML INJ IV NR (11:07)
[2020-08-29] MEDS: dexAMETHasone 4 MG/ML VIAL IV SCH (11:07)
[2020-08-29] MEDS: ENOXAPARIN 40 MG/0.4 ML INJ SUB-Q SCH (11:08)
[2020-08-29] MEDS: FAMOTIDINE 20 MG TAB PO SCH ×2 (11:08→21:42)
[2020-08-29] MEDS: ASCORBIC ACID 500 MG TAB PO SCH ×2 (11:08→21:41)
[2020-08-29] MEDS: CHOLECALCIFEROL (VIT D3) 5,000 UNIT TAB PO SCH (11:08)
[2020-08-29] MEDS: ZINC SULFATE 220 MG CAP PO SCH ×2 (11:08→21:41)
--- NOTE | 2020-08-29 11:13 | Consultation ---
History of Present Illness Consult date: 08/29/20 Requesting physician: ANGELICA VAZQUEZ Reason for consult: hypoxemia, other (COVID 19) History of present illness: 35 y/o male admitted with acute respiratory failure secondary to COVID 19. Currently on 2 liters NC with sats in the high 90's. STill febrile as he was 102.4 this am. Other vitals are stable. Medications and Allergies Allergies Allergy/AdvReac Type Severity Reaction Status Date / Time No Known Allergies Allergy Unverified 08/27/20 08:39 Home Medications Medication Instructions Recorded Confirmed Last Taken Type No Known Home Medications [No 08/28/20 08/28/20 Unknown History Reported Home Medications] Active Meds: Active Medications Acetaminophen (Acetaminophen 325 Mg Tab) 650 mg PO Q4H PRN PRN Reason: Pain MILD(1-3)/Fever >100.5/JACOBS Last Admin: 08/29/20 04:56 Dose: 650 mg Documented by: Albuterol/Ipratropium (Ipratropium/Albuterol Sulfate 3 Ml Ampul.Neb) 1 ampul IH Q3H PRN PRN Reason: Wheezing Last Admin: 08/29/20 06:04 Dose: 1 ampul Documented by: Ascorbic Acid (Ascorbic Acid 500 Mg Tab) 1,000 mg PO BID [facility] Last Admin: 08/29/20 11:08 Dose: 1,000 mg Documented by: Cholecalciferol (Cholecalciferol (Vit D3) 5,000 Unit Tab) 5,000 unit PO DAILY [facility] Last Admin: 08/29/20 11:08 Dose: 5,000 unit Documented by: Dexamethasone (Dexamethasone 4 Mg/Ml Vial) 8 mg IV Q24HR [facility] Stop: 09/05/20 10:01 Last Admin: 08/29/20 11:07 Dose: 8 mg Documented by: Enoxaparin Sodium (Enoxaparin 40 Mg/0.4 Ml Inj) 40 mg SUB-Q QDAY [facility] Last Admin: 08/29/20 11:08 Dose: 40 mg Documented by: Famotidine (Famotidine 20 Mg Tab) 20 mg PO BID [facility] Last Admin: 08/29/20 11:08 Dose: 20 mg Documented by: Furosemide (Furosemide 20 Mg/2 Ml Inj) 20 mg IV ONCE ONE Stop: 08/29/20 11:08 Guaifenesin (Guaifenesin 100 Mg/5 Ml Oral Liqd) 200 mg PO Q4H PRN PRN Reason: Cough Last Admin: 08/29/20 11:07 Dose: 200 mg Documented by: Hydromorphone HCl (Hydromorphone 1 Mg/1 Ml Inj) 0.5 mg IV Q3H PRN PRN Reason: Pain , Severe (7-10) Last Admin: 08/28/20 07:18 Dose: 0.5 mg Documented by: Ondansetron HCl (Ondansetron 4 Mg/2 Ml Inj) 4 mg IV Q3H PRN PRN Reason: Nausea And Vomiting Oxycodone/Acetaminophen (Oxycodone /Acetaminophen 5-325mg Tab) 1 tab PO Q6H PRN PRN Reason: Pain, Moderate (4-6) Sodium Chloride (Sodium Chloride 0.9% 10 Ml Flush Syringe) 10 ml IV BID [facility] Last Admin: 08/28/20 21:37 Dose: 10 ml Documented by: Sodium Chloride (Sodium Chloride 0.9% 10 Ml Flush Syringe) 10 ml IV PRN PRN PRN Reason: LINE FLUSH Zinc Sulfate (Zinc Sulfate 220 Mg Cap) 220 mg PO BID [facility] Last Admin: 08/29/20 11:08 Dose: 220 mg Documented by: Physical Examination Vital signs: Vital Signs Temp Pulse Resp BP Pulse Ox 103.1 F H 138 H 20 144/90 95 08/27/20 08:41 08/27/20 08:41 08/27/20 08:41 08/27/20 08:41 08/27/20 08:41 Results - Laboratory Findings CBC and BMP: 08/28/20 07:55 08/28/20 07:55 PT/INR, D-dimer D-Dimer 291.43 ng/mlDDU (0-234) H 08/27/20 11:56 Abnormal lab findings: Abnormal Labs 08/27/20 08/27/20 08/27/20 11:56 11:56 11:56 RBC Lymph % (Auto) Lymph # (Auto) Seg Neutrophils % D-Dimer 291.43 H Potassium Glucose Hemoglobin A1c Ferritin 572.3 H AST Lactate Dehydrogenase 313 H C-Reactive Protein 4.40 H Ur Specific [place] Urine WBC (Auto) Coronavirus (PCR) 08/27/20 08/27/20 08/27/20 11:56 11:56 Unknown RBC Lymph % (Auto) 10.3 L Lymph # (Auto) 0.7 L Seg Neutrophils % 84.6 H D-Dimer Potassium 3.4 L Glucose 125 H Hemoglobin A1c Ferritin AST 66 H Lactate Dehydrogenase C-Reactive Protein Ur Specific [place] Urine WBC (Auto) Coronavirus (PCR) Positive A 08/27/20 08/28/20 08/28/20 Unknown 07:55 07:55 RBC 5.06 H Lymph % (Auto) 9.7 L Lymph # (Auto) 0.6 L Seg Neutrophils % 84.8 H D-Dimer Potassium Glucose 125 H Hemoglobin A1c Ferritin AST 80 H Lactate Dehydrogenase C-Reactive Protein Ur Specific [place] 1.040 H Urine WBC (Auto) 11.0 H Coronavirus (PCR) 08/28/20 07:55 RBC Lymph % (Auto) Lymph # (Auto) Seg Neutrophils % D-Dimer Potassium Glucose Hemoglobin A1c 6.4 H Ferritin AST Lactate Dehydrogenase C-Reactive Protein Ur Specific [place] Urine WBC (Auto) Coronavirus (PCR) - Diagnostic Findings CT scan - chest: image reviewed Assessment and Plan 35 y/o male with acute respiratory failure secondary to COVID 19 pneumonia. IV steroids Stopped duonebs given nature of disease with concern for spread Lasix 20mg IV x1 today Prone during the day as tolerated and sleep prone at night Guarded prognosis.
--- NOTE | 2020-08-29 11:13 | Progress Note ---
Assessment and Plan Cultures: Blood culture no growth so far Covid PCR: Positive A/P: 35-year-old man past medical history morbid obesity presented to hospital with COVID-19 #COVID-19 pneumonia: Patient presented with a week of symptoms, chest x-ray with diffuse bilateral infiltrates, admission O2 sats 92% on room air. Inflammatory markers elevated #Morbid obesity: worse outcomes with COVID-19 Recs: -Dexamethasone 8 mg daily, agree with higher dosing due to obesity -If patient becomes hypoxic requiring supplemental oxygen would start remdesivir -Obtain q48-72h inflammatory markers - ferritin, Ddimer, CRP, LDH -Stopped antibiotics due to normal procalcitonin -Anticoagulation per hospital protocol -Proning as able Thank you for the consult, we will continue to follow. Sandi Blank MD [facility] ([facility] O: [phone] F: [phone] Subjective Date of service: 08/29/20 Interval history: Remains febrile to 102.4, white count 5.7. Cultures remain negative. Remains on room air. Objective - Exam Narrative Exam: Physical exam deferred to reduce risk of transmission of COVID-19. Please refer to primary team's note. - Constitutional Vitals: Vital Signs Temp Pulse Resp BP Pulse Ox 102.4 F H 105 H 22 133/91 95 08/29/20 04:26 08/29/20 06:05 08/29/20 06:05 08/29/20 03:53 08/29/20 03:53 Temperature -Last 24 Hours Temperature 102.4 F Temperature 101.1 F Temperature 100.6 F Temperature 102.7 F - Labs CBC & Chem 7: 08/28/20 07:55 08/28/20 07:55
--- NOTE | 2020-08-29 12:08 | Progress Note ---
Assessment and Plan Assessment and plan: (1) Acute respiratory failure with hypoxia Current Visit: Yes Status: Acute Plan to address problem: Due to Covid-19 Oxygen supplementation as necessary Bilateral pneumonia (2) SIRS (systemic inflammatory response syndrome) Current Visit: Yes Status: Acute Plan to address problem: All inflammatory markers are elevated including LDH of 313 and CRP of 4.4 (3) Bilateral pneumonia Current Visit: Yes Status: Acute Plan to address problem: Patient initiated on IV Zithromax and IV Rocephin (4) Pneumonia due to COVID-19 virus Current Visit: Yes Status: Acute Plan to address problem: Coronavirus PCR positive IV Decadron 8 mg every 24 initiated ID consult requested, zinc sulfate, vitamin C and vitamin D added (5) Hypokalemia Current Visit: Yes Status: Acute Plan to address problem: Supplemented (6) DVT prophylaxis Current Visit: Yes Status: Acute Plan to address problem: On Lovenox and GI prophylaxis 08/28/20 Patient with acute resp failure due to bilateral pneumonia from Covid-19 infection. He is on Rocephin, Zithromax, Decadron, Zinc and supplemental Oxygen. Continue Oxygen, now at 4 l/min NC. ID Physician to see. Will also consult Pulm 08/29/20 Patient with acute resp failure due to bilateral pneumonia from Covid-19 infection. Still has shortness of breath, still has a fever Tmax 102.7 ID Physician and Pulmonology following. History Interval history: Still having shortness of breath Still coughing Still having Fever Hospitalist Physical - Physical exam Narrative exam: Gen: Not in acute distress, obese HEENT: Normocephalic, atraumatic Lungs: Bilateral rales, no wheeze Heart:S1 and S2 reg, no murmurs, rubs or gallop Abd: soft, non tender, non distended, normal bowel sounds, Ext: no edema, no clubbing, no cycanosis Neuro: AAO x 3, moves all extremities, no focal neuro signs - Constitutional Vitals: Temp Pulse Resp BP Pulse Ox 102.4 F H 105 H 22 133/91 95 08/29/20 04:26 08/29/20 06:05 08/29/20 06:05 08/29/20 03:53 08/29/20 03:53 General appearance: Present: obese HEART Score - HEART Score Troponin: Troponin T < 0.010 ng/mL (0.00-0.029) 08/27/20 11:56 Results - Labs CBC & Chem 7: 08/28/20 07:55 08/28/20 07:55 Labs: Laboratory Last Values WBC 5.7 K/mm3 (4.5-11.0) 08/28/20 07:55 RBC 5.06 M/mm3 (3.65-5.03) H 08/28/20 07:55 Hgb 15.1 gm/dl (11.8-15.2) 08/28/20 07:55 Hct 45.1 % (35.5-45.6) 08/28/20 07:55 MCV 89 fl (84-94) 08/28/20 07:55 MCH 30 pg (28-32) 08/28/20 07:55 MCHC 33 % (32-34) 08/28/20 07:55 RDW 13.8 % (13.2-15.2) 08/28/20 07:55 Plt Count 172 K/mm3 (140-440) 08/28/20 07:55 Lymph % (Auto) 9.7 % (13.4-35.0) L 08/28/20 07:55 [place] % (Auto) 5.5 % (0.0-7.3) 08/28/20 07:55 Eos % (Auto) 0.0 % (0.0-4.3) 08/28/20 07:55 Baso % (Auto) 0.0 % (0.0-1.8) 08/28/20 07:55 Lymph # (Auto) 0.6 K/mm3 (1.2-5.4) L 08/28/20 07:55 [place] # (Auto) 0.3 K/mm3 (0.0-0.8) 08/28/20 07:55 Eos # (Auto) 0.0 K/mm3 (0.0-0.4) 08/28/20 07:55 Baso # (Auto) 0.0 K/mm3 (0.0-0.1) 08/28/20 07:55 Seg Neutrophils % 84.8 % (40.0-70.0) H 08/28/20 07:55 Seg Neutrophils # 4.9 K/mm3 (1.8-7.7) 08/28/20 07:55 D-Dimer 291.43 ng/mlDDU (0-234) H 08/27/20 11:56 Sodium 138 mmol/L (137-145) 08/28/20 07:55 Potassium 4.9 mmol/L (3.6-5.0) D 08/28/20 07:55 Chloride 101.3 mmol/L (98-107) 08/28/20 07:55 Carbon Dioxide 24 mmol/L (22-30) 08/28/20 07:55 Anion Gap 18 mmol/L 08/28/20 07:55 BUN 12 mg/dL (9-20) 08/28/20 07:55 Creatinine 0.9 mg/dL (0.8-1.3) 08/28/20 07:55 Estimated GFR > 60 ml/min 08/28/20 07:55 BUN/Creatinine Ratio 13 % 08/28/20 07:55 Glucose 125 mg/dL (75-100) H 08/28/20 07:55 Hemoglobin A1c 6.4 % (4-6) H 08/28/20 07:55 Lactic Acid 1.60 mmol/L (0.7-2.0) 08/27/20 16:51 Calcium 9.2 mg/dL (8.4-10.2) 08/28/20 07:55 Ferritin 572.3 ng/mL (30.0-300.0) H 08/27/20 11:56 Total Bilirubin 0.30 mg/dL (0.1-1.2) 08/28/20 07:55 AST 80 units/L (5-40) H 08/28/20 07:55 ALT 41 units/L (7-56) 08/28/20 07:55 Alkaline Phosphatase 92 units/L (35-129) 08/28/20 07:55 Lactate Dehydrogenase 313 units/L (91-180) H 08/27/20 11:56 Troponin T < 0.010 ng/mL (0.00-0.029) 08/27/20 11:56 C-Reactive Protein 4.40 mg/dL (0.00-1.30) H 08/27/20 11:56 NT-Pro-B Natriuret Pep < 5 pg/mL (0-450) 08/27/20 11:56 Total Protein 7.7 g/dL (6.3-8.2) 08/28/20 07:55 Albumin 4.2 g/dL (3.9-5) 08/28/20 07:55 Albumin/Globulin Ratio 1.2 % 08/28/20 07:55 Procalcitonin 0.09 ng/mL (<0.15) 08/27/20 11:56 Urine Color Kim (Yellow) 08/27/20 Unknown Urine Turbidity Clear (Clear) 08/27/20 Unknown Urine pH 5.0 (5.0-7.0) 08/27/20 Unknown Ur Specific [place] 1.040 (1.003-1.030) H 08/27/20 Unknown Urine Protein >500 mg/dL (Negative) 08/27/20 Unknown Urine Glucose (UA) Neg mg/dL (Negative) 08/27/20 Unknown Urine Ketones 20 mg/dL (Negative) 08/27/20 Unknown Urine Blood Mod (Negative) 08/27/20 Unknown Urine Nitrite Neg (Negative) 08/27/20 Unknown Urine Bilirubin Neg (Negative) 08/27/20 Unknown Urine Urobilinogen < 2.0 mg/dL (<2.0) 08/27/20 Unknown Ur Leukocyte Esterase Neg (Negative) 08/27/20 Unknown Urine WBC (Auto) 11.0 /HPF (0.0-6.0) H 08/27/20 Unknown Urine RBC (Auto) 2.0 /HPF (0.0-6.0) 08/27/20 Unknown U Epithel Cells (Auto) 1.0 /HPF (0-13.0) 08/27/20 Unknown Urine Mucus 1+ /HPF 08/27/20 Unknown Coronavirus (PCR) Positive (Negative) A 08/27/20 Unknown Microbiology: Microbiology 08/27/20 11:56 Peripheral/Venous Blood Culture - Preliminary NO GROWTH AFTER 24 HOURS 08/27/20 11:56 Peripheral/Venous Blood Culture - Preliminary NO GROWTH AFTER 24 HOURS [place]/IV: Voiding Method Urinal Active Medications - Current Medications Current Medications: Generic Name Dose Route Start Last Admin Trade Name Freq PRN Reason Stop Dose Admin Acetaminophen 650 mg 08/27/20 17:05 08/29/20 04:56 Acetaminophen 325 Mg Tab PO 650 mg Q4H PRN Administration Pain MILD(1-3)/Fever >100.5/JACOBS Ascorbic Acid 1,000 mg 08/27/20 22:00 08/29/20 11:08 Ascorbic Acid 500 Mg Tab PO 1,000 mg BID [place] Administration Cholecalciferol 5,000 unit 08/27/20 18:00 08/29/20 11:08 Cholecalciferol (Vit D3) 5,000 Unit Tab PO 5,000 unit DAILY [place] Administration Dexamethasone 8 mg 08/28/20 10:00 08/29/20 11:07 Dexamethasone 4 Mg/Ml Vial IV 09/05/20 10:01 8 mg Q24HR [facility] Administration Enoxaparin Sodium 40 mg 08/27/20 18:00 08/29/20 11:08 Enoxaparin 40 Mg/0.4 Ml Inj SUB-Q 40 mg QDAY [facility] Administration Famotidine 20 mg 08/27/20 22:00 08/29/20 11:08 Famotidine 20 Mg Tab PO 20 mg BID [facility] Administration Furosemide 20 mg 08/29/20 11:07 Furosemide 20 Mg/2 Ml Inj IV 08/29/20 14:00 ONCE NR Guaifenesin 200 mg 08/28/20 12:50 08/29/20 11:07 Guaifenesin 100 Mg/5 Ml Oral Liqd PO 200 mg Q4H PRN Administration Cough Hydromorphone HCl 0.5 mg 08/27/20 17:05 08/28/20 07:18 Hydromorphone 1 Mg/1 Ml Inj IV 0.5 mg Q3H PRN Administration Pain , Severe (7-10) Ondansetron HCl 4 mg 08/27/20 17:05 Ondansetron 4 Mg/2 Ml Inj IV Q3H PRN Nausea And Vomiting Oxycodone/Acetaminophen 1 tab 08/27/20 17:05 Oxycodone /Acetaminophen 5-325mg Tab PO Q6H PRN Pain, Moderate (4-6) Sodium Chloride 10 ml 08/27/20 22:00 08/29/20 11:09 Sodium Chloride 0.9% 10 Ml Flush Syringe IV 10 ml BID [facility] Administration Sodium Chloride 10 ml 08/27/20 17:05 Sodium Chloride 0.9% 10 Ml Flush Syringe IV PRN PRN LINE FLUSH Zinc Sulfate 220 mg 08/27/20 22:00 08/29/20 11:08 Zinc Sulfate 220 Mg Cap PO 220 mg BID [facility] Administration Nutrition/Malnutrition Assess - Dietary Evaluation Nutrition/Malnutrition Findings: Nutrition Notes Start: 08/28/20 12:26 Freq: Status: Active Protocol: Document 08/28/20 12:26 CW (Rec: 08/28/20 12:32 CW [id number]) Nutrition Notes Need for 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 No alonso score available. Skin is intact. Per notes, pt has been expressed poor appetite. Pt did not answer phone for nutritional interview. PO intakes unknown at this time. Burn Absent Trauma Absent GI Symptoms Constipation Minimum of two criteria No physical signs of malnutrition #1 Nutrition Diagnosis Predicted suboptimal energy intake Etiology acute illness - COVID 19 As Evidenced by Signs and Symptoms reports of loss of appetite Is patient on ventilator? No Is Patient Ambulatory and/or Out of Bed No [facility] 2495.064 Kcal/Kg value to use for calculation 15 Approximate Energy Requirements Using 1728 kcal/Kg Calculation Used for Recommendations Kcal/kg Additional Notes protein needs: 92 - 115g (0.8 - 1g/kgBW) fluid needs: 1 ml/kcal Nutrition Intervention Change Diet Order: Continue current diet as ordered Goal #1 Meet at least 75% of kcal and protein needs via PO Anticipated Discharge Needs: Regular diet Follow-Up By: 08/31/20 Additional Comments F/U for intakes and need for ONS
[2020-08-29] MEDS ORDERED: REMDESIVIR 200 MG in SODIUM CHLORIDE 0.9% 250ML 250 ML IV ONE (16:00)
[2020-08-29] MEDS ORDERED: ALBUTEROL 2.5 MG/3 ML NEBU IH ONE (17:34)
[2020-08-29] MEDS: SODIUM CHLORIDE 0.9% 50 ML IVPB IV SCH ×2 (17:51→21:41)
[2020-08-30 07:25] LABS: Hematocrit 44.6 % (35.5-45.6); Mean Corpuscular HGB Conc 34 % (32-34); Mean Corpuscular Volume 89 fl (84-94); Platelet Count 162 K/mm3 (140-440); Red Blood Count 5.04 M/mm3 (3.65-5.03); Red Cell Distribution Width 13.7 % (13.2-15.2)
[2020-08-30 07:41] LABS: Alanine Aminotransferase 55 units/L (7-56); Albumin 3.8 g/dL (3.9-5); BUN/Creatinine Ratio 23; Blood Urea Nitrogen 18 mg/dL (9-20); Calcium 9.2 mg/dL (8.4-10.2); Hemolysis Index 5
--- NOTE | 2020-08-30 09:27 | Progress Note ---
Assessment and Plan 35 y/o male with acute respiratory failure secondary to COVID 19 pneumonia. 08/30. Proning order is in, very important that patient do this. Lasix again today but this time, 40mg IV. Remdesivir and steroids. Guarded prognosis. Please document if patient is refusing to prone. IV steroids Stopped duonebs given nature of disease with concern for spread Lasix 20mg IV x1 today Prone during the day as tolerated and sleep prone at night Guarded prognosis. Subjective Date of service: 08/30/20 Interval history: Significant worsening of oxygen requirement, now on 15 liter salter. Almost even in regards to I/O's. Tolerated lasix on yesterday and started on Remdesivir. Objective Vital Signs - 12hr 08/29/20 08/30/20 08/30/20 22:25 03:12 04:47 Temperature 99.1 F Pulse Rate 117 H Respiratory 24 Rate Blood Pressure 145/84 O2 Sat by Pulse 93 94 91 Oximetry 08/30/20 08:45 Temperature Pulse Rate Respiratory Rate Blood Pressure O2 Sat by Pulse 94 Oximetry CBC and BMP: 08/30/20 06:51 08/30/20 06:51 ABG, PT/INR, D-dimer: PT/INR, D-dimer D-Dimer 291.43 ng/mlDDU (0-234) H 08/27/20 11:56 Abnormal lab findings: Abnormal Labs 08/27/20 08/27/20 08/27/20 11:56 11:56 11:56 RBC Lymph % (Auto) Lymph # (Auto) Seg Neutrophils % D-Dimer 291.43 H Potassium Glucose Hemoglobin A1c Ferritin 572.3 H AST Lactate Dehydrogenase 313 H C-Reactive Protein 4.40 H Albumin Ur Specific [place] Urine WBC (Auto) Coronavirus (PCR) 08/27/20 08/27/20 08/27/20 11:56 11:56 Unknown RBC Lymph % (Auto) 10.3 L Lymph # (Auto) 0.7 L Seg Neutrophils % 84.6 H D-Dimer Potassium 3.4 L Glucose 125 H Hemoglobin A1c Ferritin AST 66 H Lactate Dehydrogenase C-Reactive Protein Albumin Ur Specific [place] Urine WBC (Auto) Coronavirus (PCR) Positive A 08/27/20 08/28/20 08/28/20 Unknown 07:55 07:55 RBC 5.06 H Lymph % (Auto) 9.7 L Lymph # (Auto) 0.6 L Seg Neutrophils % 84.8 H D-Dimer Potassium Glucose 125 H Hemoglobin A1c Ferritin AST 80 H Lactate Dehydrogenase C-Reactive Protein Albumin Ur Specific [place] 1.040 H Urine WBC (Auto) 11.0 H Coronavirus (PCR) 08/28/20 08/30/20 08/30/20 07:55 06:51 06:51 RBC 5.04 H Lymph % (Auto) Lymph # (Auto) Seg Neutrophils % D-Dimer Potassium Glucose 144 H Hemoglobin A1c 6.4 H Ferritin AST 99 H Lactate Dehydrogenase C-Reactive Protein Albumin 3.8 L Ur Specific [place] Urine WBC (Auto) Coronavirus (PCR)
[2020-08-30] MEDS ORDERED: FUROSEMIDE 40 MG/4 ML INJ IV NR (10:00)
[2020-08-30] MEDS: ZINC SULFATE 220 MG CAP PO SCH ×2 (10:47→21:37)
[2020-08-30] MEDS: dexAMETHasone 4 MG/ML VIAL IV SCH (10:47)
[2020-08-30] MEDS: CHOLECALCIFEROL (VIT D3) 5,000 UNIT TAB PO SCH (10:47)
[2020-08-30] MEDS: ASCORBIC ACID 500 MG TAB PO SCH ×2 (10:47→21:37)
[2020-08-30] MEDS: ENOXAPARIN 40 MG/0.4 ML INJ SUB-Q SCH (10:48)
[2020-08-30] MEDS: FAMOTIDINE 20 MG TAB PO SCH ×2 (10:48→21:37)
--- NOTE | 2020-08-30 13:25 | Progress Note ---
Assessment and Plan Cultures: Blood culture no growth so far Covid PCR: Positive A/P: 35-year-old man past medical history morbid obesity presented to hospital with COVID-19 #Severe COVID-19 pneumonia: Patient presented with a week of symptoms, chest x- ray with diffuse bilateral infiltrates. Inflammatory markers elevated #Acute respiratory failure hypoxic: Worsening now on 10 L seltzer #Morbid obesity: worse outcomes with COVID-19 Elevated LFTs: Likely due to COVID-19/remdesivir Recs: -Pulmonary on board/close monitoring due to worsening hypoxia -Proning position -Continue dexamethasone -Continue remdesivir D2 of 5 -Obtain q48-72h inflammatory markers - ferritin, Ddimer, CRP, LDH, ordered markers today -No indication for antibiotics due to low procalcitonin -Anticoagulation per hospital protocol -Proning as able -Monitor abdominal pain MD [facility] ([facility]) Office [phone] Subjective Date of service: 08/30/20 Principal diagnosis: COVID-19 Interval history: Patient feels about the same, O2 sat dropped, currently on salter O2 15 L. No fever for 12 hours. Objective - Exam Narrative Exam: General appearance: Alert in NAD pleasant Eyes: anicteric sclerae, moist conjunctivae; no lid-lag; PERRLA HENT: Normocephalic, Atraumatic; normal external ears, nares open, oropharynx clear with moist mucous membranes and no oral thrush Neck: supple, tracheal midline, no JVD Lungs: Diminished breath sound bilaterally CV: RRR no murmur Abdomen: Soft, mild tenderness diffusely Extremities: no edema, no cyanosis Skin: No rash. Psych: no agitated Neuro: alert and oriented x 3. Moving all extermities - Constitutional Vitals: Vital Signs Temp Pulse Resp BP Pulse Ox 99.1 F 124 H 24 145/84 92 08/30/20 04:47 08/30/20 11:11 08/30/20 04:47 08/30/20 04:47 08/30/20 11:11 Temperature -Last 24 Hours Temperature 99.1 F Temperature 100.7 F - Labs CBC & Chem 7: 08/30/20 06:51 08/30/20 06:51 Labs: Abnormal lab results 08/30/20 08/30/20 Range/Units 06:51 06:51 RBC 5.04 H (3.65-5.03) M/mm3 Glucose 144 H (75-100) mg/dL AST 99 H (5-40) units/L Albumin 3.8 L (3.9-5) g/dL
[2020-08-30 15:13] LABS: C-Reactive Protein 5.9 mg/dL (0.00-1.30)
--- NOTE | 2020-08-30 15:13 | Progress Note ---
Assessment and Plan Assessment and plan: (1) Acute respiratory failure with hypoxia Current Visit: Yes Status: Acute Plan to address problem: Due to Covid-19 Oxygen supplementation as necessary Bilateral pneumonia (2) SIRS (systemic inflammatory response syndrome) Current Visit: Yes Status: Acute Plan to address problem: All inflammatory markers are elevated including LDH of 313 and CRP of 4.4 (3) Bilateral pneumonia Current Visit: Yes Status: Acute Plan to address problem: Patient initiated on IV Zithromax and IV Rocephin (4) Pneumonia due to COVID-19 virus Current Visit: Yes Status: Acute Plan to address problem: Coronavirus PCR positive IV Decadron 8 mg every 24 initiated ID consult requested, zinc sulfate, vitamin C and vitamin D added (5) Hypokalemia Current Visit: Yes Status: Acute Plan to address problem: Supplemented (6) DVT prophylaxis Current Visit: Yes Status: Acute Plan to address problem: On Lovenox and GI prophylaxis 08/28/20 Patient with acute resp failure due to bilateral pneumonia from Covid-19 infection. He is on Rocephin, Zithromax, Decadron, Zinc and supplemental Oxygen. Continue Oxygen, now at 4 l/min NC. ID Physician to see. Will also consult Pulm 08/29/20 Patient with acute resp failure due to bilateral pneumonia from Covid-19 infection. Still has shortness of breath, still has a fever Tmax 102.7 ID Physician and Pulmonology following. 08/30/20 Patient with acute respiratory failure due to bilateral pneumonia from Covid-19 infection. patient still very ill, still has fever, shortness of breath and cough. He is now on Oxygen at 15 l/min. He was on 4 l/min yesterday Continue Remdesivir, Decadron, Zinc, Vit C Pulmonology and ID Physician following History Interval history: Still having shortness of breath Still coughing Still having Fever. Temp 100.7 last night Hospitalist Physical - Physical exam Narrative exam: Gen: Not in acute distress, obese, On Oxygen HEENT: Normocephalic, atraumatic Lungs: Bilateral rales, no wheeze Heart:S1 and S2 reg, no murmurs, rubs or gallop Abd: soft, non tender, non distended, normal bowel sounds, Ext: no edema, no clubbing, no cycanosis Neuro: AAO x 3, moves all extremities, no focal neuro signs - Constitutional Vitals: Temp Pulse Resp BP Pulse Ox 99.1 F 124 H 24 145/84 92 08/30/20 04:47 08/30/20 11:11 08/30/20 04:47 08/30/20 04:47 08/30/20 11:11 General appearance: Present: obese HEART Score - HEART Score Troponin: Troponin T < 0.010 ng/mL (0.00-0.029) 08/27/20 11:56 Results - Labs CBC & Chem 7: 08/30/20 06:51 08/30/20 06:51 Labs: Laboratory Last Values WBC 7.8 K/mm3 (4.5-11.0) 08/30/20 06:51 RBC 5.04 M/mm3 (3.65-5.03) H 08/30/20 06:51 Hgb 15.0 gm/dl (11.8-15.2) 08/30/20 06:51 Hct 44.6 % (35.5-45.6) 08/30/20 06:51 MCV 89 fl (84-94) 08/30/20 06:51 MCH 30 pg (28-32) 08/30/20 06:51 MCHC 34 % (32-34) 08/30/20 06:51 RDW 13.7 % (13.2-15.2) 08/30/20 06:51 Plt Count 162 K/mm3 (140-440) 08/30/20 06:51 Lymph % (Auto) 9.7 % (13.4-35.0) L 08/28/20 07:55 [place] % (Auto) 5.5 % (0.0-7.3) 08/28/20 07:55 Eos % (Auto) 0.0 % (0.0-4.3) 08/28/20 07:55 Baso % (Auto) 0.0 % (0.0-1.8) 08/28/20 07:55 Lymph # (Auto) 0.6 K/mm3 (1.2-5.4) L 08/28/20 07:55 [place] # (Auto) 0.3 K/mm3 (0.0-0.8) 08/28/20 07:55 Eos # (Auto) 0.0 K/mm3 (0.0-0.4) 08/28/20 07:55 Baso # (Auto) 0.0 K/mm3 (0.0-0.1) 08/28/20 07:55 Seg Neutrophils % 84.8 % (40.0-70.0) H 08/28/20 07:55 Seg Neutrophils # 4.9 K/mm3 (1.8-7.7) 08/28/20 07:55 D-Dimer 221.49 ng/mlDDU (0-234) 08/30/20 14:18 Sodium 142 mmol/L (137-145) 08/30/20 06:51 Potassium 4.4 mmol/L (3.6-5.0) 08/30/20 06:51 Chloride 103.8 mmol/L (98-107) 08/30/20 06:51 Carbon Dioxide 28 mmol/L (22-30) 08/30/20 06:51 Anion Gap 15 mmol/L 08/30/20 06:51 BUN 18 mg/dL (9-20) 08/30/20 06:51 Creatinine 0.8 mg/dL (0.8-1.3) 08/30/20 06:51 Estimated GFR > 60 ml/min 08/30/20 06:51 BUN/Creatinine Ratio 23 % 08/30/20 06:51 Glucose 144 mg/dL (75-100) H 08/30/20 06:51 Hemoglobin A1c 6.4 % (4-6) H 08/28/20 07:55 Lactic Acid 1.60 mmol/L (0.7-2.0) 08/27/20 16:51 Calcium 9.2 mg/dL (8.4-10.2) 08/30/20 06:51 Ferritin 572.3 ng/mL (30.0-300.0) H 08/27/20 11:56 Total Bilirubin 0.50 mg/dL (0.1-1.2) 08/30/20 06:51 AST 99 units/L (5-40) H 08/30/20 06:51 ALT 55 units/L (7-56) 08/30/20 06:51 Alkaline Phosphatase 72 units/L (35-129) 08/30/20 06:51 Lactate Dehydrogenase 313 units/L (91-180) H 08/27/20 11:56 Troponin T < 0.010 ng/mL (0.00-0.029) 08/27/20 11:56 C-Reactive Protein 4.40 mg/dL (0.00-1.30) H 08/27/20 11:56 NT-Pro-B Natriuret Pep < 5 pg/mL (0-450) 08/27/20 11:56 Total Protein 7.4 g/dL (6.3-8.2) 08/30/20 06:51 Albumin 3.8 g/dL (3.9-5) L 08/30/20 06:51 Albumin/Globulin Ratio 1.1 % 08/30/20 06:51 Procalcitonin 0.09 ng/mL (<0.15) 08/27/20 11:56 Urine Color Kim (Yellow) 08/27/20 Unknown Urine Turbidity Clear (Clear) 08/27/20 Unknown Urine pH 5.0 (5.0-7.0) 08/27/20 Unknown Ur Specific [place] 1.040 (1.003-1.030) H 08/27/20 Unknown Urine Protein >500 mg/dL (Negative) 08/27/20 Unknown Urine Glucose (UA) Neg mg/dL (Negative) 08/27/20 Unknown Urine Ketones 20 mg/dL (Negative) 08/27/20 Unknown Urine Blood Mod (Negative) 08/27/20 Unknown Urine Nitrite Neg (Negative) 08/27/20 Unknown Urine Bilirubin Neg (Negative) 08/27/20 Unknown Urine Urobilinogen < 2.0 mg/dL (<2.0) 08/27/20 Unknown Ur Leukocyte Esterase Neg (Negative) 08/27/20 Unknown Urine WBC (Auto) 11.0 /HPF (0.0-6.0) H 08/27/20 Unknown Urine RBC (Auto) 2.0 /HPF (0.0-6.0) 08/27/20 Unknown U Epithel Cells (Auto) 1.0 /HPF (0-13.0) 08/27/20 Unknown Urine Mucus 1+ /HPF 08/27/20 Unknown Coronavirus (PCR) Positive (Negative) A 08/27/20 Unknown Microbiology: Microbiology 08/27/20 11:56 Peripheral/Venous Blood Culture - Preliminary NO GROWTH AFTER 72 HOURS 08/27/20 11:56 Peripheral/Venous Blood Culture - Preliminary NO GROWTH AFTER 72 HOURS 08/27/20 Unknown Urine,Clean Catch Urine Culture - Final NO GROWTH AFTER 48 HOURS Traore/IV: Voiding Method Toilet Active Medications - Current Medications Current Medications: Generic Name Dose Route Start Last Admin Trade Name Freq PRN Reason Stop Dose Admin Acetaminophen 650 mg 08/27/20 17:05 08/29/20 19:56 Acetaminophen 325 Mg Tab PO 650 mg Q4H PRN Administration Pain MILD(1-3)/Fever >100.5/JACOBS Ascorbic Acid 1,000 mg 08/27/20 22:00 08/30/20 10:47 Ascorbic Acid 500 Mg Tab PO 1,000 mg BID WESTON Administration Cholecalciferol 5,000 unit 08/27/20 18:00 08/30/20 10:47 Cholecalciferol (Vit D3) 5,000 Unit Tab PO 5,000 unit DAILY WESTON Administration Dexamethasone 8 mg 08/28/20 10:00 08/30/20 10:47 Dexamethasone 4 Mg/Ml Vial IV 09/05/20 10:01 8 mg Q24HR WESTON Administration Enoxaparin Sodium 40 mg 08/27/20 18:00 08/30/20 10:48 Enoxaparin 40 Mg/0.4 Ml Inj SUB-Q 40 mg QDAY WESTON Administration Famotidine 20 mg 08/27/20 22:00 08/30/20 10:48 Famotidine 20 Mg Tab PO 20 mg BID WESTON Administration Guaifenesin 200 mg 08/28/20 12:50 08/29/20 19:55 Guaifenesin 100 Mg/5 Ml Oral Liqd PO 200 mg Q4H PRN Administration Cough Hydromorphone HCl 0.5 mg 08/27/20 17:05 08/28/20 07:18 Hydromorphone 1 Mg/1 Ml Inj IV 0.5 mg Q3H PRN Administration Pain , Severe (7-10) REMDESIVIR 100 mg/ Sodium 250 mls @ 500 mls/hr 08/30/20 21:00 Chloride IV 09/02/20 21:29 Q24HR@2100 WESTON Ondansetron HCl 4 mg 08/27/20 17:05 Ondansetron 4 Mg/2 Ml Inj IV Q3H PRN Nausea And Vomiting Oxycodone/Acetaminophen 1 tab 08/27/20 17:05 Oxycodone /Acetaminophen 5-325mg Tab PO Q6H PRN Pain, Moderate (4-6) Sodium Chloride 10 ml 08/27/20 22:00 08/30/20 10:48 Sodium Chloride 0.9% 10 Ml Flush Syringe IV 10 ml BID WESTON Administration Sodium Chloride 10 ml 08/27/20 17:05 Sodium Chloride 0.9% 10 Ml Flush Syringe IV PRN PRN LINE FLUSH Sodium Chloride 50 ml 08/29/20 16:00 08/29/20 21:41 Sodium Chloride 0.9% 50 Ml Ivpb IV 09/01/20 21:01 50 ml Q24HR@2100 WESTON Administration Zinc Sulfate 220 mg 08/27/20 22:00 08/30/20 10:47 Zinc Sulfate 220 Mg Cap PO 220 mg BID WESTON Administration Nutrition/Malnutrition Assess - Dietary Evaluation Nutrition/Malnutrition Findings: Nutrition Notes Start: 08/28/20 1 2:26 Freq: Status: Active Protocol: Document 08/28/20 12:26 CW (Rec: 08/28/20 12:32 CW [id number]) 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 No alonso score available. Skin is intact. Per notes, pt has been expressed poor appetite. Pt did not answer phone for nutritional interview. PO intakes unknown at this time. Burn Absent Trauma Absent GI Symptoms Constipation Minimum of two criteria No physical signs of malnutrition #1 Nutrition Diagnosis Predicted suboptimal energy intake Etiology acute illness - COVID 19 As Evidenced by Signs and Symptoms reports of loss of appetite Is patient on ventilator? No Is Patient Ambulatory and/or Out of Bed No REE-([place]conf[facility] bed) 2495.064 Kcal/Kg value to use for calculation 15 Approximate Energy Requirements Using 1728 kcal/Kg Calculation Used for Recommendations Kcal/kg Additional Notes protein needs: 92 - 115g (0.8 - 1g/kgBW) fluid needs: 1 ml/kcal Nutrition Intervention Change Diet Order: Continue current diet as ordered Goal #1 Meet at least 75% of kcal and protein needs via PO Anticipated Discharge Needs: Regular diet Follow-Up By: 08/31/20 Additional Comments F/U for intakes and need for ONS
[2020-08-30] MEDS: REMDESIVIR 100 MG in SODIUM CHLORIDE 0.9% 250ML 250 ML IV SCH (21:37)
[2020-08-30] MEDS: SODIUM CHLORIDE 0.9% 50 ML IVPB IV SCH (21:38)
[2020-08-31 06:44] LABS: Alanine Aminotransferase 55 units/L (7-56); Albumin 3.3 g/dL (3.9-5); Blood Urea Nitrogen 25 mg/dL (9-20); Calcium 9.4 mg/dL (8.4-10.2); Hemolysis Index 184
[2020-08-31 06:45] LABS: BUN/Creatinine Ratio 36
--- NOTE | 2020-08-31 08:58 | Progress Note ---
Assessment and Plan 35 y/o male with acute respiratory failure secondary to COVID 19 pneumonia. 08/31/20: Still no documentation of proning. Lasix again today and ordered strict I/O. Follow up ID recs. Will ask if Actemra is still being used. Guarded prognosis. 08/30. Proning order is in, very important that patient do this. Lasix again today but this time, 40mg IV. Remdesivir and steroids. Guarded prognosis. Please document if patient is refusing to prone. IV steroids Stopped duonebs given nature of disease with concern for spread Lasix 20mg IV x1 today Prone during the day as tolerated and sleep prone at night Guarded prognosis. Subjective Date of service: 08/31/20 Principal diagnosis: COVID-19 Interval history: no acute events. Still on 15 liters with sats in the low to mid 90's. I/O showing still positive fluid balance. No documentation of proning. Objective Vital Signs - 12hr 08/30/20 08/30/20 08/31/20 21:13 21:45 04:51 Temperature 99.1 F 98.1 F Pulse Rate 126 H 119 H Respiratory 24 20 Rate Blood Pressure 143/98 145/93 O2 Sat by Pulse 90 93 91 Oximetry CBC and BMP: 08/30/20 06:51 08/31/20 05:43 ABG, PT/INR, D-dimer: PT/INR, D-dimer D-Dimer 221.49 ng/mlDDU (0-234) 08/30/20 14:18 Abnormal lab findings: Abnormal Labs 08/27/20 08/27/20 08/27/20 11:56 11:56 11:56 RBC Lymph % (Auto) Lymph # (Auto) Seg Neutrophils % D-Dimer 291.43 H Potassium Carbon Dioxide BUN Creatinine Glucose Hemoglobin A1c Ferritin 572.3 H AST Lactate Dehydrogenase 313 H C-Reactive Protein 4.40 H Albumin Ur Specific [place] Urine WBC (Auto) Coronavirus (PCR) 08/27/20 08/27/20 08/27/20 11:56 11:56 Unknown RBC Lymph % (Auto) 10.3 L Lymph # (Auto) 0.7 L Seg Neutrophils % 84.6 H D-Dimer Potassium 3.4 L Carbon Dioxide BUN Creatinine Glucose 125 H Hemoglobin A1c Ferritin AST 66 H Lactate Dehydrogenase C-Reactive Protein Albumin Ur Specific [place] Urine WBC (Auto) Coronavirus (PCR) Positive A 08/27/20 08/28/20 08/28/20 Unknown 07:55 07:55 RBC 5.06 H Lymph % (Auto) 9.7 L Lymph # (Auto) 0.6 L Seg Neutrophils % 84.8 H D-Dimer Potassium Carbon Dioxide BUN Creatinine Glucose 125 H Hemoglobin A1c Ferritin AST 80 H Lactate Dehydrogenase C-Reactive Protein Albumin Ur Specific [place] 1.040 H Urine WBC (Auto) 11.0 H Coronavirus (PCR) 08/28/20 08/30/20 08/30/20 07:55 06:51 06:51 RBC 5.04 H Lymph % (Auto) Lymph # (Auto) Seg Neutrophils % D-Dimer Potassium Carbon Dioxide BUN Creatinine Glucose 144 H Hemoglobin A1c 6.4 H Ferritin AST 99 H Lactate Dehydrogenase C-Reactive Protein Albumin 3.8 L Ur Specific [place] Urine WBC (Auto) Coronavirus (PCR) 08/30/20 08/30/20 08/31/20 14:18 14:18 05:43 RBC Lymph % (Auto) Lymph # (Auto) Seg Neutrophils % D-Dimer Potassium 5.1 H Carbon Dioxide 20 L D BUN 25 H Creatinine 0.7 L Glucose 158 H Hemoglobin A1c Ferritin 1166.0 H AST 75 H Lactate Dehydrogenase 529 H C-Reactive Protein 5.90 H Albumin 3.3 L Ur Specific [place] Urine WBC (Auto) Coronavirus (PCR)
[2020-08-31] MEDS ORDERED: FUROSEMIDE 40 MG/4 ML INJ IV NR (09:00)
--- NOTE | 2020-08-31 09:07 | Electrocardiograph Report ---
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
[2020-08-31] MEDS: dexAMETHasone 4 MG/ML VIAL IV SCH (10:28)
[2020-08-31] MEDS: ASCORBIC ACID 500 MG TAB PO SCH ×2 (10:29→21:53)
[2020-08-31] MEDS: FAMOTIDINE 20 MG TAB PO SCH ×2 (10:29→21:54)
[2020-08-31] MEDS: ENOXAPARIN 40 MG/0.4 ML INJ SUB-Q SCH (10:29)
[2020-08-31] MEDS: CHOLECALCIFEROL (VIT D3) 5,000 UNIT TAB PO SCH (10:30)
[2020-08-31] MEDS: ZINC SULFATE 220 MG CAP PO SCH ×2 (10:33→21:54)
[2020-08-31] MEDS ORDERED: HYDROcodone/HOMATROPINE 5-1.5MG /5 ML ORAL LIQD UNIT DOSE PO PRN (11:16)
--- NOTE | 2020-08-31 13:50 | Progress Note ---
Assessment and Plan Assessment and plan: 35-year-old male with no known past medical history comes in for fever cough and generalized weakness. Also patient has decreased appetite and decreased taste sensation. Patient has not taken Covid vaccination. Patient has wheezing. No history of asthma. No bowel movement for [address] into [place] from [place] 10 days ago. No recent surgery. Not sure about exposure to Covid virus. (1) Acute respiratory failure with hypoxia Current Visit: Yes Status: Acute Plan to address problem: Due to Covid-19 Oxygen supplementation as necessary Bilateral pneumonia (2) SIRS (systemic inflammatory response syndrome) Current Visit: Yes Status: Acute Plan to address problem: All inflammatory markers are elevated including LDH of 313 and CRP of 4.4 (3) Bilateral pneumonia Current Visit: Yes Status: Acute Plan to address problem: Patient initiated on IV Zithromax and IV Rocephin (4) Pneumonia due to COVID-19 virus Current Visit: Yes Status: Acute Plan to address problem: Coronavirus PCR positive IV Decadron 8 mg every 24 initiated ID consult requested, zinc sulfate, vitamin C and vitamin D added (5) Hypokalemia- Hyperkalemia Current Visit: Yes Status: Acute Plan to address problem: Supplemented (6) DVT prophylaxis Current Visit: Yes Status: Acute Plan to address problem: On Lovenox and GI prophylaxis 08/28/20 Patient with acute resp failure due to bilateral pneumonia from Covid-19 infection. He is on Rocephin, Zithromax, Decadron, Zinc and supplemental Oxygen. Continue Oxygen, now at 4 l/min NC. ID Physician to see. Will also consult Pulm 08/29/20 Patient with acute resp failure due to bilateral pneumonia from Covid-19 infection. Still has shortness of breath, still has a fever Tmax 102.7 ID Physician and Pulmonology following. 08/30/20 Patient with acute respiratory failure due to bilateral pneumonia from Covid-19 infection. patient still very ill, still has fever, shortness of breath and cough. He is now on Oxygen at 15 l/min. He was on 4 l/min yesterday Continue Remdesivir, Decadron, Zinc, Vit C Pulmonology and ID Physician following 08/31: Agree with intermittent Lasix. Continue to wean high flow oxygen. ID and pulmonary following. Patient unfortunately did not receive the Covid vaccine but states he will get it this acute illness is resolved and will follow the recommended guidelines. Hyperkalemia, expected to resolved with the lasix, will recheck. History Interval history: Patient seen and examined remains with mild shortness of breath, still on 15 liters, shallow breathing Hospitalist Physical - Physical exam Narrative exam: Gen: Not in acute distress, obese, On Oxygen-high flow, anxious HEENT: Normocephalic, atraumatic Lungs: Bilateral rales, no wheeze, shallow breathing not rapid Heart:S1 and S2 reg, no murmurs, rubs or gallop Abd: soft, non tender, non distended, normal bowel sounds, Ext: no edema, no clubbing, no cycanosis Neuro: AAO x 3, moves all extremities, no focal neuro signs - Constitutional Vitals: Temp Pulse Resp BP Pulse Ox 98.1 F 124 H 20 145/93 87 08/31/20 04:51 08/31/20 11:23 08/31/20 04:51 08/31/20 04:51 08/31/20 11:23 General appearance: Present: obese HEART Score - HEART Score Troponin: Troponin T < 0.010 ng/mL (0.00-0.029) 08/27/20 11:56 Results - Labs CBC & Chem 7: 08/30/20 06:51 08/31/20 05:43 Labs: Laboratory Last Values WBC 7.8 K/mm3 (4.5-11.0) 08/30/20 06:51 RBC 5.04 M/mm3 (3.65-5.03) H 08/30/20 06:51 Hgb 15.0 gm/dl (11.8-15.2) 08/30/20 06:51 Hct 44.6 % (35.5-45.6) 08/30/20 06:51 MCV 89 fl (84-94) 08/30/20 06:51 MCH 30 pg (28-32) 08/30/20 06:51 MCHC 34 % (32-34) 08/30/20 06:51 RDW 13.7 % (13.2-15.2) 08/30/20 06:51 Plt Count 162 K/mm3 (140-440) 08/30/20 06:51 Lymph % (Auto) 9.7 % (13.4-35.0) L 08/28/20 07:55 [place] % (Auto) 5.5 % (0.0-7.3) 08/28/20 07:55 Eos % (Auto) 0.0 % (0.0-4.3) 08/28/20 07:55 Baso % (Auto) 0.0 % (0.0-1.8) 08/28/20 07:55 Lymph # (Auto) 0.6 K/mm3 (1.2-5.4) L 08/28/20 07:55 [place] # (Auto) 0.3 K/mm3 (0.0-0.8) 08/28/20 07:55 Eos # (Auto) 0.0 K/mm3 (0.0-0.4) 08/28/20 07:55 Baso # (Auto) 0.0 K/mm3 (0.0-0.1) 08/28/20 07:55 Seg Neutrophils % 84.8 % (40.0-70.0) H 08/28/20 07:55 Seg Neutrophils # 4.9 K/mm3 (1.8-7.7) 08/28/20 07:55 D-Dimer 221.49 ng/mlDDU (0-234) 08/30/20 14:18 Sodium 138 mmol/L (137-145) 08/31/20 05:43 Potassium 5.1 mmol/L (3.6-5.0) H 08/31/20 05:43 Chloride 103.9 mmol/L (98-107) 08/31/20 05:43 Carbon Dioxide 20 mmol/L (22-30) L D 08/31/20 05:43 Anion Gap 19 mmol/L 08/31/20 05:43 BUN 25 mg/dL (9-20) H 08/31/20 05:43 Creatinine 0.7 mg/dL (0.8-1.3) L 08/31/20 05:43 Estimated GFR > 60 ml/min 08/31/20 05:43 BUN/Creatinine Ratio 36 % 08/31/20 05:43 Glucose 158 mg/dL (75-100) H 08/31/20 05:43 Hemoglobin A1c 6.4 % (4-6) H 08/28/20 07:55 Lactic Acid 1.60 mmol/L (0.7-2.0) 08/27/20 16:51 Calcium 9.4 mg/dL (8.4-10.2) 08/31/20 05:43 Ferritin 1166.0 ng/mL (30.0-300.0) H 08/30/20 14:18 Total Bilirubin 0.70 mg/dL (0.1-1.2) 08/31/20 05:43 AST 75 units/L (5-40) H 08/31/20 05:43 ALT 55 units/L (7-56) 08/31/20 05:43 Alkaline Phosphatase 69 units/L (35-129) 08/31/20 05:43 Lactate Dehydrogenase 529 units/L (91-180) H 08/30/20 14:18 Troponin T < 0.010 ng/mL (0.00-0.029) 08/27/20 11:56 C-Reactive Protein 5.90 mg/dL (0.00-1.30) H 08/30/20 14:18 NT-Pro-B Natriuret Pep < 5 pg/mL (0-450) 08/27/20 11:56 Total Protein 7.8 g/dL (6.3-8.2) 08/31/20 05:43 Albumin 3.3 g/dL (3.9-5) L 08/31/20 05:43 Albumin/Globulin Ratio 0.7 % 08/31/20 05:43 Procalcitonin 0.09 ng/mL (<0.15) 08/27/20 11:56 Urine Color Kim (Yellow) 08/27/20 Unknown Urine Turbidity Clear (Clear) 08/27/20 Unknown Urine pH 5.0 (5.0-7.0) 08/27/20 Unknown Ur Specific [place] 1.040 (1.003-1.030) H 08/27/20 Unknown Urine Protein >500 mg/dL (Negative) 08/27/20 Unknown Urine Glucose (UA) Neg mg/dL (Negative) 08/27/20 Unknown Urine Ketones 20 mg/dL (Negative) 08/27/20 Unknown Urine Blood Mod (Negative) 08/27/20 Unknown Urine Nitrite Neg (Negative) 08/27/20 Unknown Urine Bilirubin Neg (Negative) 08/27/20 Unknown Urine Urobilinogen < 2.0 mg/dL (<2.0) 08/27/20 Unknown Ur Leukocyte Esterase Neg (Negative) 08/27/20 Unknown Urine WBC (Auto) 11.0 /HPF (0.0-6.0) H 08/27/20 Unknown Urine RBC (Auto) 2.0 /HPF (0.0-6.0) 08/27/20 Unknown U Epithel Cells (Auto) 1.0 /HPF (0-13.0) 08/27/20 Unknown Urine Mucus 1+ /HPF 08/27/20 Unknown Coronavirus (PCR) Positive (Negative) A 08/27/20 Unknown Microbiology: Microbiology 08/27/20 11:56 Peripheral/Venous Blood Culture - Preliminary NO GROWTH AFTER 4 DAYS 08/27/20 11:56 Peripheral/Venous Blood Culture - Preliminary NO GROWTH AFTER 4 DAYS 08/27/20 Unknown Urine,Clean Catch Urine Culture - Final NO GROWTH AFTER 48 HOURS Traore/IV: Voiding Method Urinal Active Medications - Current Medications Current Medications: Generic Name Dose Route Start Last Admin Trade Name Freq PRN Reason Stop Dose Admin Acetaminophen 650 mg 08/27/20 17:05 08/29/20 19:56 Acetaminophen 325 Mg Tab PO 650 mg Q4H PRN Administration Pain MILD(1-3)/Fever >100.5/JACOBS Ascorbic Acid 1,000 mg 08/27/20 22:00 08/31/20 10:29 Ascorbic Acid 500 Mg Tab PO 1,000 mg BID WESTON Administration Cholecalciferol 5,000 unit 08/27/20 18:00 08/31/20 10:30 Cholecalciferol (Vit D3) 5,000 Unit Tab PO 5,000 unit DAILY WESTON Administration Dexamethasone 8 mg 08/28/20 10:00 08/31/20 10:28 Dexamethasone 4 Mg/Ml Vial IV 09/05/20 10:01 8 mg Q24HR WESTON Administration Enoxaparin Sodium 40 mg 08/27/20 18:00 08/31/20 10:29 Enoxaparin 40 Mg/0.4 Ml Inj SUB-Q 40 mg QDAY [place] Administration Famotidine 20 mg 08/27/20 22:00 08/31/20 10:29 Famotidine 20 Mg Tab PO 20 mg BID [place] Administration Guaifenesin 200 mg 08/28/20 12:50 08/29/20 19:55 Guaifenesin 100 Mg/5 Ml Oral Liqd PO 200 mg Q4H PRN Administration Cough Hydrocodone Bit/Homatropine Methylb 10 ml 08/31/20 11:16 Hydrocodone/Homatropine 5-1.5mg /5 Ml Oral Liqd Unit Dose PO Q6H PRN Cough Hydromorphone HCl 0.5 mg 08/27/20 17:05 08/28/20 07:18 Hydromorphone 1 Mg/1 Ml Inj IV 0.5 mg Q3H PRN Administration Pain , Severe (7-10) REMDESIVIR 100 mg/ Sodium 250 mls @ 500 mls/hr 08/30/20 21:00 08/30/20 21:37 Chloride IV 09/02/20 21:29 500 mls/hr Q24HR@2100 WESTON Administration Ondansetron HCl 4 mg 08/27/20 17:05 Ondansetron 4 Mg/2 Ml Inj IV Q3H PRN Nausea And Vomiting Oxycodone/Acetaminophen 1 tab 08/27/20 17:05 Oxycodone /Acetaminophen 5-325mg Tab PO Q6H PRN Pain, Moderate (4-6) Sodium Chloride 10 ml 08/27/20 22:00 08/31/20 10:30 Sodium Chloride 0.9% 10 Ml Flush Syringe IV 10 ml BID WESTON Administration Sodium Chloride 10 ml 08/27/20 17:05 Sodium Chloride 0.9% 10 Ml Flush Syringe IV PRN PRN LINE FLUSH Sodium Chloride 50 ml 08/29/20 16:00 08/30/20 21:38 Sodium Chloride 0.9% 50 Ml Ivpb IV 09/01/20 21:01 50 ml Q24HR@2100 WESTON Administration Zinc Sulfate 220 mg 08/27/20 22:00 08/31/20 10:33 Zinc Sulfate 220 Mg Cap PO 220 mg BID WESTON Administration Nutrition/Malnutrition Assess - Dietary Evaluation Nutrition/Malnutrition Findings: Nutrition Notes Start: 08/28/20 12:26 Freq: Status: Active Protocol: Document 08/31/20 09:02 CARLI (Rec: 08/31/20 09:09 CARLI [id number]) Nutrition Notes Initial or Follow up Reassessment Other Pertinent Diagnosis COVID-19 (+), bilat pneu, SIRS Current Diet Regular Labs/Tests K 5.1 BUN 25 BG 158 Pertinent Medications Lasix Height 5 ft 9 in Weight 105 kg [place] Body Weight (kg) 72.72 BMI 34.2 Weight change and time frame Wt change noted Weight Status Obese Subjective/Other Information Pt has consumed 58% of three recorded meals. Jose score is 19. Percent of energy/protein needs met: 63% energy 73% pro Burn Absent Trauma Absent Current % PO Fair (50-74%) #1 Nutrition Diagnosis Predicted suboptimal energy intake,Inadequate protein- energy intake Comments: CHANGED Etiology COVID-19 As Evidenced by Signs and Symptoms PO intake meeting <75% energy and pro needs Is patient on ventilator? No Is Patient Ambulatory and/or Out of Bed Yes REE-([place]-amb[facility]/OOB) [ 2567.994 [id number]] Kcal/Kg value to use for calculation 20 Approximate Energy Requirements Using 2100 kcal/Kg Calculation Used for Recommendations Kcal/kg Additional Notes Pro needs 0.8-1g/kg adjBW: 71- 89g/day Fluid needs 1ml/kcal Nutrition Intervention Change Diet Order: Continue current diet order Add Supplement/Snack (indicate name/kcal Ensure Enlive BID /protein ) Provides kCal: 700 Provides Protein (gm) 40 Goal #1 PO intake of meals plus ONS to meet at least 75% energy and pro needs Follow-Up By: 09/02/20 Additional Comments F/U: intakes (meals, ONS)
--- NOTE | 2020-08-31 15:59 | Progress Note ---
Assessment and Plan Cultures: Blood culture no growth so far Covid PCR: Positive A/P: 35-year-old man past medical history morbid obesity presented to hospital with COVID-19 #Severe COVID-19 pneumonia: Patient presented with a week of symptoms, chest x- ray with diffuse bilateral infiltrates. Inflammatory markers elevated, ferritin worsening, D-dimer/CRP better #Acute respiratory failure hypoxic: Worsening now on 15 L salter #Morbid obesity: worse outcomes with COVID-19 Elevated LFTs: Likely due to COVID-19/remdesivir Recs: -Pulmonary on board/close monitoring due to worsening hypoxia -Proning position -Continue dexamethasone -Continue remdesivir D3 of 5 -Obtain q48-72h inflammatory markers - ferritin, Ddimer, CRP, LDH, order for tomorrow -No indication for antibiotics due to low procalcitonin -Anticoagulation per hospital protocol -Proning as able -No indication for Tocilizumab as patient CRP is <7 and currently on [place] nasal cannula oxygen Tish Woo MD [facility] ([facility]) Office [phone] Subjective Date of service: 08/31/20 Principal diagnosis: COVID-19 Interval history: Patient feels a little bit better, O2 sat dropped to 80s, placed back on 15 L. No fever. Objective - Exam Narrative Exam: General appearance: Alert in NAD pleasant Eyes: anicteric sclerae, moist conjunctivae; no lid-lag; PERRLA HENT: Normocephalic, Atraumatic; normal external ears, nares open, oropharynx clear Lungs: Bilateral wheezing CV: Tachycardic Abdomen: Soft, mild tenderness diffusely Extremities: no edema, no cyanosis Skin: No rash. Psych: no agitated Neuro: alert and oriented x 3. Moving all extermities - Constitutional Vitals: Vital Signs Temp Pulse Resp BP Pulse Ox 98.1 F 124 H 20 145/93 87 08/31/20 04:51 08/31/20 11:23 08/31/20 04:51 08/31/20 04:51 08/31/20 11:23 Temperature -Last 24 Hours Temperature 98.1 F Temperature 99.1 F - Labs CBC & Chem 7: 08/30/20 06:51 08/31/20 05:43 Labs: Abnormal lab results 08/31/20 Range/Units 05:43 Potassium 5.1 H (3.6-5.0) mmol/L Carbon Dioxide 20 L D (22-30) mmol/L BUN 25 H (9-20) mg/dL Creatinine 0.7 L (0.8-1.3) mg/dL Glucose 158 H (75-100) mg/dL AST 75 H (5-40) units/L Albumin 3.3 L (3.9-5) g/dL
[2020-08-31] MEDS: IPRATROPIUM/ALBUTEROL SULFATE 3 ML AMPUL.NEB IH SCH (19:58)
[2020-08-31] MEDS: REMDESIVIR 100 MG in SODIUM CHLORIDE 0.9% 250ML 250 ML IV SCH (21:54)
[2020-08-31] MEDS: SODIUM CHLORIDE 0.9% 50 ML IVPB IV SCH (21:54)
[2020-09-01] MEDS: IPRATROPIUM/ALBUTEROL SULFATE 3 ML AMPUL.NEB IH SCH ×3 (02:00→13:15)
[2020-09-01 07:04] LABS: Hematocrit 45.1 % (35.5-45.6); Hemoglobin 14.9 gm/dl (11.8-15.2); Mean Corpuscular HGB Conc 33 % (32-34); Mean Corpuscular Volume 88 fl (84-94); Platelet Count 264 K/mm3 (140-440); Red Blood Count 5.11 M/mm3 (3.65-5.03)
[2020-09-01 07:26] LABS: Alanine Aminotransferase 69 units/L (7-56); Albumin 3.7 g/dL (3.9-5); BUN/Creatinine Ratio 34; Blood Urea Nitrogen 27 mg/dL (9-20); Calcium 9.5 mg/dL (8.4-10.2); Hemolysis Index 2
--- NOTE | 2020-09-01 08:02 | Progress Note ---
Assessment and Plan 35 y/o male with acute respiratory failure secondary to COVID 19 pneumonia. 09/01/20: Documented proning this am with improvement in Sats and oxygen requirement. Lasix again today. Strict I/O. reviewed ID note and appreciate them answering the Actemra inquiry. Guarded prognosis, will continue to follow. 08/31/20: Still no documentation of proning. Lasix again today and ordered strict I/O. Follow up ID recs. Will ask if Actemra is still being used. Guarded prognosis. 08/30. Proning order is in, very important that patient do this. Lasix again today but this time, 40mg IV. Remdesivir and steroids. Guarded prognosis. Pl ease document if patient is refusing to prone. IV steroids Stopped duonebs given nature of disease with concern for spread Lasix 20mg IV x1 today Prone during the day as tolerated and sleep prone at night Guarded prognosis. Subjective Date of service: 09/01/20 Principal diagnosis: COVID-19 Interval history: No acute events. Down to 10 liters on the salter, but still positive fluid balance. Objective Vital Signs - 12hr 08/31/20 08/31/20 08/31/20 19:59 20:00 22:12 Temperature 98.6 F Pulse Rate 128 H Pulse Rate [ 109 H Throughout] Respiratory 22 Rate Respiratory 22 Rate [ Throughout] Blood Pressure 146/91 O2 Sat by Pulse 98 89 Oximetry 09/01/20 09/01/20 09/01/20 05:00 05:25 07:43 Temperature 98.3 F Pulse Rate 121 H Pulse Rate [ Throughout] Respiratory 20 Rate Respiratory Rate [ Throughout] Blood Pressure 134/80 O2 Sat by Pulse 93 93 96 Oximetry 09/01/20 07:45 Temperature Pulse Rate Pulse Rate [ 124 H Throughout] Respiratory Rate Respiratory 20 Rate [ Throughout] Blood Pressure O2 Sat by Pulse Oximetry CBC and BMP: 09/01/20 06:11 09/01/20 06:11 ABG, PT/INR, D-dimer: PT/INR, D-dimer D-Dimer 221.49 ng/mlDDU (0-234) 08/30/20 14:18 Abnormal lab findings: Abnormal Labs 08/27/20 08/27/20 08/27/20 11:56 11:56 11:56 RBC Lymph % (Auto) Lymph # (Auto) Seg Neutrophils % D-Dimer 291.43 H Potassium Carbon Dioxide BUN Creatinine Glucose Hemoglobin A1c Ferritin 572.3 H AST ALT Lactate Dehydrogenase 313 H C-Reactive Protein 4.40 H Albumin Ur Specific [place] Urine WBC (Auto) Coronavirus (PCR) 08/27/20 08/27/20 08/27/20 11:56 11:56 Unknown RBC Lymph % (Auto) 10.3 L Lymph # (Auto) 0.7 L Seg Neutrophils % 84.6 H D-Dimer Potassium 3.4 L Carbon Dioxide BUN Creatinine Glucose 125 H Hemoglobin A1c Ferritin AST 66 H ALT Lactate Dehydrogenase C-Reactive Protein Albumin Ur Specific [place] Urine WBC (Auto) Coronavirus (PCR) Positive A 08/27/20 08/28/20 08/28/20 Unknown 07:55 07:55 RBC 5.06 H Lymph % (Auto) 9.7 L Lymph # (Auto) 0.6 L Seg Neutrophils % 84.8 H D-Dimer Potassium Carbon Dioxide BUN Creatinine Glucose 125 H Hemoglobin A1c Ferritin AST 80 H ALT Lactate Dehydrogenase C-Reactive Protein Albumin Ur Specific [place] 1.040 H Urine WBC (Auto) 11.0 H Coronavirus (PCR) 08/28/20 08/30/20 08/30/20 07:55 06:51 06:51 RBC 5.04 H Lymph % (Auto) Lymph # (Auto) Seg Neutrophils % D-Dimer Potassium Carbon Dioxide BUN Creatinine Glucose 144 H Hemoglobin A1c 6.4 H Ferritin AST 99 H ALT Lactate Dehydrogenase C-Reactive Protein Albumin 3.8 L Ur Specific [place] Urine WBC (Auto) Coronavirus (PCR) 08/30/20 08/30/20 08/31/20 14:18 14:18 05:43 RBC Lymph % (Auto) Lymph # (Auto) Seg Neutrophils % D-Dimer Potassium 5.1 H Carbon Dioxide 20 L D BUN 25 H Creatinine 0.7 L Glucose 158 H Hemoglobin A1c Ferritin 1166.0 H AST 75 H ALT Lactate Dehydrogenase 529 H C-Reactive Protein 5.90 H Albumin 3.3 L Ur Specific [place] Urine WBC (Auto) Coronavirus (PCR) 09/01/20 09/01/20 06:11 06:11 RBC 5.11 H Lymph % (Auto) Lymph # (Auto) Seg Neutrophils % D-Dimer Potassium Carbon Dioxide BUN 27 H Creatinine Glucose 151 H Hemoglobin A1c Ferritin AST 67 H ALT 69 H Lactate Dehydrogenase C-Reactive Protein Albumin 3.7 L Ur Specific [place] Urine WBC (Auto) Coronavirus (PCR)
[2020-09-01] MEDS ORDERED: ALBUTEROL 2.5 MG/3 ML NEBU IH PRN (08:04)
[2020-09-01] MEDS: ARFORMOTEROL 15 MCG/2 ML NEBU IH SCH ×2 (08:30→19:31)
[2020-09-01] MEDS: BUDESONIDE 0.5 MG/2 ML NEBU IH SCH ×2 (08:30→19:31)
[2020-09-01] MEDS ORDERED: FUROSEMIDE 40 MG/4 ML INJ IV NR (08:30)
[2020-09-01] MEDS: dexAMETHasone 4 MG/ML VIAL IV SCH (10:52)
[2020-09-01] MEDS: ZINC SULFATE 220 MG CAP PO SCH ×3 (10:53→22:12)
[2020-09-01] MEDS: ASCORBIC ACID 500 MG TAB PO SCH ×3 (10:53→22:00)
[2020-09-01] MEDS: FAMOTIDINE 20 MG TAB PO SCH ×2 (10:53→21:12)
[2020-09-01] MEDS: CHOLECALCIFEROL (VIT D3) 5,000 UNIT TAB PO SCH (10:53)
[2020-09-01] MEDS: ENOXAPARIN 40 MG/0.4 ML INJ SUB-Q SCH (10:53)
--- NOTE | 2020-09-01 10:54 | Progress Note ---
Assessment and Plan Assessment and plan: 35-year-old male with no known past medical history comes in for fever cough and generalized weakness. Also patient has decreased appetite and decreased taste sensation. Patient has not taken Covid vaccination. Patient has wheezing. No history of asthma. No bowel movement for [address] days[address] drove into [place] from [place] 10 days ago. No recent surgery. Not sure about exposure to Covid virus. (1) Acute respiratory failure with hypoxia Current Visit: Yes Status: Acute Plan to address problem: Due to Covid-19 Oxygen supplementation as necessary Bilateral pneumonia (2) SIRS (systemic inflammatory response syndrome) Current Visit: Yes Status: Acute Plan to address problem: All inflammatory markers are elevated including LDH of 313 and CRP of 4.4 (3) Bilateral pneumonia Current Visit: Yes Status: Acute Plan to address problem: Patient initiated on IV Zithromax and IV Rocephin (4) Pneumonia due to COVID-19 virus Current Visit: Yes Status: Acute Plan to address problem: Coronavirus PCR positive IV Decadron 8 mg every 24 initiated ID consult requested, zinc sulfate, vitamin C and vitamin D added (5) Hypokalemia- Hyperkalemia Current Visit: Yes Status: Acute Plan to address problem: Supplemented (6) DVT prophylaxis Current Visit: Yes Status: Acute Plan to address problem: On Lovenox and GI prophylaxis 08/28/20 Patient with acute resp failure due to bilateral pneumonia from Covid-19 infection. He is on Rocephin, Zithromax, Decadron, Zinc and supplemental Oxygen. Continue Oxygen, now at 4 l/min NC. ID Physician to see. Will also consult Pulm 08/29/20 Patient with acute resp failure due to bilateral pneumonia from Covid-19 infection. Still has shortness of breath, still has a fever Tmax 102.7 ID Physician and Pulmonology following. 08/30/20 Patient with acute respiratory failure due to bilateral pneumonia from Covid-19 infection. patient still very ill, still has fever, shortness of breath and cough. He is now on Oxygen at 15 l/min. He was on 4 l/min yesterday Continue Remdesivir, Decadron, Zinc, Vit C Pulmonology and ID Physician following 08/31: Agree with intermittent Lasix. Continue to wean high flow oxygen. ID and pulmonary following. Patient unfortunately did not receive the Covid vaccine but states he will get it this acute illness is resolved and will follow the recommended guidelines. Hyperkalemia, expected to resolved with the lasix, will recheck. 09/01: Patient this am noted with proned position, some improvement in saturation. Per Pulmonary, "Lasix again today. Strict I/O. reviewed ID note and appreciate them answering the Actemra inquiry. Guarded prognosis, will continue to follow" Continue supportive care. History Interval history: Patient seen and examined remains with mild shortness of breath, down to 10 liters, shallow breathing, was noted prone today Hospitalist Physical - Physical exam Narrative exam: Gen: Not in acute distress, obese, On Oxygen-high flow, anxious, PRONE on exam HEENT: Normocephalic, atraumatic Lungs: Bilateral rales, no wheeze, shallow breathing not rapid Heart:S1 and S2 reg, no murmurs, rubs or gallop Abd: soft, non tender, non distended, normal bowel sounds, Ext: no edema, no clubbing, no cycanosis Neuro: AAO x 3, moves all extremities, no focal neuro signs - Constitutional Vitals: Temp Pulse Resp BP Pulse Ox 98.3 F 124 H 20 134/80 96 09/01/20 05:25 09/01/20 07:45 09/01/20 07:45 09/01/20 05:25 09/01/20 08:03 General appearance: Present: obese HEART Score - HEART Score Troponin: Troponin T < 0.010 ng/mL (0.00-0.029) 08/27/20 11:56 Results - Labs CBC & Chem 7: 09/01/20 06:11 09/01/20 06:11 Labs: Laboratory Last Values WBC 9.7 K/mm3 (4.5-11.0) 09/01/20 06:11 RBC 5.11 M/mm3 (3.65-5.03) H 09/01/20 06:11 Hgb 14.9 gm/dl (11.8-15.2) 09/01/20 06:11 Hct 45.1 % (35.5-45.6) 09/01/20 06:11 MCV 88 fl (84-94) 09/01/20 06:11 MCH 29 pg (28-32) 09/01/20 06:11 MCHC 33 % (32-34) 09/01/20 06:11 RDW 14.0 % (13.2-15.2) 09/01/20 06:11 Plt Count 264 K/mm3 (140-440) 09/01/20 06:11 Lymph % (Auto) 9.7 % (13.4-35.0) L 08/28/20 07:55 [place] % (Auto) 5.5 % (0.0-7.3) 08/28/20 07:55 Eos % (Auto) 0.0 % (0.0-4.3) 08/28/20 07:55 Baso % (Auto) 0.0 % (0.0-1.8) 08/28/20 07:55 Lymph # (Auto) 0.6 K/mm3 (1.2-5.4) L 08/28/20 07:55 [place] # (Auto) 0.3 K/mm3 (0.0-0.8) 08/28/20 07:55 Eos # (Auto) 0.0 K/mm3 (0.0-0.4) 08/28/20 07:55 Baso # (Auto) 0.0 K/mm3 (0.0-0.1) 08/28/20 07:55 Seg Neutrophils % 84.8 % (40.0-70.0) H 08/28/20 07:55 Seg Neutrophils # 4.9 K/mm3 (1.8-7.7) 08/28/20 07:55 D-Dimer 221.49 ng/mlDDU (0-234) 08/30/20 14:18 Sodium 145 mmol/L (137-145) D 09/01/20 06:11 Potassium 4.2 mmol/L (3.6-5.0) 09/01/20 06:11 Chloride 106.5 mmol/L (98-107) 09/01/20 06:11 Carbon Dioxide 24 mmol/L (22-30) 09/01/20 06:11 Anion Gap 19 mmol/L 09/01/20 06:11 BUN 27 mg/dL (9-20) H 09/01/20 06:11 Creatinine 0.8 mg/dL (0.8-1.3) 09/01/20 06:11 Estimated GFR > 60 ml/min 09/01/20 06:11 BUN/Creatinine Ratio 34 % 09/01/20 06:11 Glucose 151 mg/dL (75-100) H 09/01/20 06:11 Hemoglobin A1c 6.4 % (4-6) H 08/28/20 07:55 Lactic Acid 1.60 mmol/L (0.7-2.0) 08/27/20 16:51 Calcium 9.5 mg/dL (8.4-10.2) 09/01/20 06:11 Ferritin 1166.0 ng/mL (30.0-300.0) H 08/30/20 14:18 Total Bilirubin 0.90 mg/dL (0.1-1.2) 09/01/20 06:11 AST 67 units/L (5-40) H 09/01/20 06:11 ALT 69 units/L (7-56) H 09/01/20 06:11 Alkaline Phosphatase 67 units/L (35-129) 09/01/20 06:11 Lactate Dehydrogenase 529 units/L (91-180) H 08/30/20 14:18 Troponin T < 0.010 ng/mL (0.00-0.029) 08/27/20 11:56 C-Reactive Protein 5.90 mg/dL (0.00-1.30) H 08/30/20 14:18 NT-Pro-B Natriuret Pep < 5 pg/mL (0-450) 08/27/20 11:56 Total Protein 7.6 g/dL (6.3-8.2) 09/01/20 06:11 Albumin 3.7 g/dL (3.9-5) L 09/01/20 06:11 Albumin/Globulin Ratio 0.9 % 09/01/20 06:11 Procalcitonin 0.09 ng/mL (<0.15) 08/27/20 11:56 Urine Color Kim (Yellow) 08/27/20 Unknown Urine Turbidity Clear (Clear) 08/27/20 Unknown Urine pH 5.0 (5.0-7.0) 08/27/20 Unknown Ur Specific [place] 1.040 (1.003-1.030) H 08/27/20 Unknown Urine Protein >500 mg/dL (Negative) 08/27/20 Unknown Urine Glucose (UA) Neg mg/dL (Negative) 08/27/20 Unknown Urine Ketones 20 mg/dL (Negative) 08/27/20 Unknown Urine Blood Mod (Negative) 08/27/20 Unknown Urine Nitrite Neg (Negative) 08/27/20 Unknown Urine Bilirubin Neg (Negative) 08/27/20 Unknown Urine Urobilinogen < 2.0 mg/dL (<2.0) 08/27/20 Unknown Ur Leukocyte Esterase Neg (Negative) 08/27/20 Unknown Urine WBC (Auto) 11.0 /HPF (0.0-6.0) H 08/27/20 Unknown Urine RBC (Auto) 2.0 /HPF (0.0-6.0) 08/27/20 Unknown U Epithel Cells (Auto) 1.0 /HPF (0-13.0) 08/27/20 Unknown Urine Mucus 1+ /HPF 08/27/20 Unknown Coronavirus (PCR) Positive (Negative) A 08/27/20 Unknown Microbiology: Microbiology 08/27/20 11:56 Peripheral/Venous Blood Culture - Preliminary NO GROWTH AFTER 4 DAYS 08/27/20 11:56 Peripheral/Venous Blood Culture - Preliminary NO GROWTH AFTER 4 DAYS [place]/IV: Voiding Method Toilet Active Medications - Current Medications Current Medications: Generic Name Dose Route Start Last Admin Trade Name Freq PRN Reason Stop Dose Admin Acetaminophen 650 mg 08/27/20 17:05 08/29/20 19:56 Acetaminophen 325 Mg Tab PO 650 mg Q4H PRN Administration Pain MILD(1-3)/Fever >100.5/JACOBS Albuterol 2.5 mg 09/01/20 08:04 Albuterol 2.5 Mg/3 Ml Nebu IH Q4HRT PRN Shortness Of Breath Albuterol/Ipratropium 1 ampul 09/01/20 14:00 Ipratropium/Albuterol Sulfate 3 Ml Ampul.Neb IH TIDRT [place] Arformoterol Tartrate 15 mcg 09/01/20 08:30 09/01/20 08:30 Arformoterol 15 Mcg/2 Ml Nebu IH Not Given Q12HRT [place] Ascorbic Acid 1,000 mg 08/27/20 22:00 09/01/20 10:53 Ascorbic Acid 500 Mg Tab PO 1,000 mg BID [place] Administration Budesonide 0.5 mg 09/01/20 08:30 09/01/20 08:30 Budesonide 0.5 Mg/2 Ml Nebu IH Not Given Q12HRT [place] Cholecalciferol 5,000 unit 08/27/20 18:00 09/01/20 10:53 Cholecalciferol (Vit D3) 5,000 Unit Tab PO 5,000 unit DAILY [place] Administration Dexamethasone 8 mg 08/28/20 10:00 09/01/20 10:52 Dexamethasone 4 Mg/Ml Vial IV 09/05/20 10:01 8 mg Q24HR [place] Administration Enoxaparin Sodium 40 mg 08/27/20 18:00 09/01/20 10:53 Enoxaparin 40 Mg/0.4 Ml Inj SUB-Q 40 mg QDAY [place] Administration Famotidine 20 mg 08/27/20 22:00 09/01/20 10:53 Famotidine 20 Mg Tab PO 20 mg BID [place] Administration Furosemide 40 mg 09/01/20 08:30 09/01/20 10:52 Furosemide 40 Mg/4 Ml Inj IV 09/01/20 12:00 40 mg ONCE@0830 NR Administration Guaifenesin 200 mg 08/28/20 12:50 08/29/20 19:55 Guaifenesin 100 Mg/5 Ml Oral Liqd PO 200 mg Q4H PRN Administration Cough Hydrocodone Bit/Homatropine Methylb 10 ml 08/31/20 11:16 08/31/20 15:10 Hydrocodone/Homatropine 5-1.5mg /5 Ml Oral Liqd Unit Dose PO 10 ml Q6H PRN Administration Cough Hydromorphone HCl 0.5 mg 08/27/20 17:05 08/28/20 07:18 Hydromorphone 1 Mg/1 Ml Inj IV 0.5 mg Q3H PRN Administration Pain , Severe (7-10) REMDESIVIR 100 mg/ Sodium 250 mls @ 500 mls/hr 08/30/20 21:00 08/31/20 21:54 Chloride IV 09/02/20 21:29 500 mls/hr Q24HR@2100 [place] Administration Ondansetron HCl 4 mg 08/27/20 17:05 Ondansetron 4 Mg/2 Ml Inj IV Q3H PRN Nausea And Vomiting Oxycodone/Acetaminophen 1 tab 08/27/20 17:05 Oxycodone /Acetaminophen 5-325mg Tab PO Q6H PRN Pain, Moderate (4-6) Sodium Chloride 10 ml 08/27/20 22:00 09/01/20 10:53 Sodium Chloride 0.9% 10 Ml Flush Syringe IV 10 ml BID [place] Administration Sodium Chloride 10 ml 08/27/20 17:05 Sodium Chloride 0.9% 10 Ml Flush Syringe IV PRN PRN LINE FLUSH Sodium Chloride 50 ml 08/29/20 16:00 08/31/20 21:54 Sodium Chloride 0.9% 50 Ml Ivpb IV 09/01/20 21:01 50 ml Q24HR@2100 [place] Administration Zinc Sulfate 220 mg 08/27/20 22:00 09/01/20 10:53 Zinc Sulfate 220 Mg Cap PO 220 mg BID [place] Administration Nutrition/Malnutrition Assess - Dietary Evaluation Nutrition/Malnutrition Findings: Nutrition Notes Start: 08/28/20 12:26 Freq: Status: Active Protocol: Document 08/31/20 09:02 CARLI (Rec: 08/31/20 09:09 [facility] [id number]) Nutrition Notes Initial or Follow up Reassessment Other Pertinent Diagnosis COVID-19 (+), bilat pneu, SIRS Current Diet Regular Labs/Tests K 5.1 BUN 25 BG 158 Pertinent Medications Lasix Height 5 ft 9 in Weight 105 kg [place] Body Weight (kg) 72.72 BMI 34.2 Weight change and time frame Wt change noted Weight Status Obese Subjective/Other Information Pt has consumed 58% of three recorded meals. Jose score is 19. Percent of energy/protein needs met: 63% energy 73% pro Burn Absent Trauma Absent Current % PO Fair (50-74%) #1 Nutrition Diagnosis Predicted suboptimal energy intake,Inadequate protein- energy intake Comments: CHANGED Etiology COVID-19 As Evidenced by Signs and Symptoms PO intake meeting <75% energy and pro needs Is patient on ventilator? No Is Patient Ambulatory and/or Out of Bed Yes REE-([place]-St. Jeor-ambulatory/OOB) [ 2567.994 NUTR.[id number]] Kcal/Kg value to use for calculation 20 Approximate Energy Requirements Using 2100 kcal/Kg Calculation Used for Recommendations Kcal/kg Additional Notes Pro needs 0.8-1g/kg adjBW: 71- 89g/day Fluid needs 1ml/kcal Nutrition Intervention Change Diet Order: Continue current diet order Add Supplement/Snack (indicate name/kcal Ensure Enlive BID /protein ) Provides kCal: 700 Provides Protein (gm) 40 Goal #1 PO intake of meals plus ONS to meet at least 75% energy and pro needs Follow-Up By: 09/02/20 Additional Comments F/U: intakes (meals, ONS)
--- NOTE | 2020-09-01 16:21 | Progress Note ---
Assessment and Plan Cultures: Blood culture no growth so far Covid PCR: Positive A/P: 35-year-old man past medical history morbid obesity presented to hospital with COVID-19 #Severe COVID-19 pneumonia: Patient presented with a week of symptoms, chest x- ray with diffuse bilateral infiltrates. Inflammatory markers elevated, ferritin worsening, D-dimer/CRP better #Acute respiratory failure hypoxic: Improving on 10 L [place] oxygen #Morbid obesity: worse outcomes with COVID-19 Elevated LFTs: Likely due to COVID-19/remdesivir Recs: -Pulmonary on board/close monitoring due to worsening hypoxia -Proning position -Continue dexamethasone total 10 days -Continue remdesivir D4 of 5 -Obtain q48-72h inflammatory markers - ferritin, Ddimer, CRP, LDH, ordered today -No indication for antibiotics due to low procalcitonin -Anticoagulation per hospital protocol -Proning as able -No indication for Tocilizumab as patient CRP is <7 and currently on [place] nasal cannula oxygen Tish Woo MD [facility] ([facility]) Office [phone] Subjective Date of service: 09/01/20 Principal diagnosis: COVID-19 Interval history: Patient feels better. No fever for 48 hours. Shortness of breath improving. Currently on [place] O2 10 L. Objective - Exam Narrative Exam: General appearance: Alert in NAD pleasant prone position Eyes: anicteric sclerae, moist conjunctivae; no lid-lag; PERRLA HENT: Normocephalic, Atraumatic; normal external ears, nares open, oropharynx clear Lungs: Diminished breath sound bilateral LE CV: Tachycardic Abdomen: Soft, mild tenderness diffusely Extremities: no edema, no cyanosis Skin: No rash. Psych: no agitated Neuro: alert and oriented x 3. Moving all extermities - Constitutional Vitals: Vital Signs Temp Pulse Resp BP Pulse Ox 97.4 F L 122 H 20 145/81 95 09/01/20 11:43 09/01/20 13:16 09/01/20 13:16 09/01/20 11:43 09/01/20 13:20 Temperature -Last 24 Hours Temperature 97.4 F Temperature 98.3 F Temperature 98.6 F - Labs CBC & Chem 7: 09/01/20 06:11 09/01/20 06:11 Labs: Abnormal lab results 09/01/20 09/01/20 Range/Units 06:11 06:11 RBC 5.11 H (3.65-5.03) M/mm3 BUN 27 H (9-20) mg/dL Glucose 151 H (75-100) mg/dL AST 67 H (5-40) units/L ALT 69 H (7-56) units/L Albumin 3.7 L (3.9-5) g/dL
[2020-09-01 20:33] LABS: C-Reactive Protein 1.5 mg/dL (0.00-1.30)
[2020-09-01] MEDS: guaiFENesin 100 MG/5 ML ORAL LIQD PO PRN (21:11)
[2020-09-01] MEDS: SODIUM CHLORIDE 0.9% 50 ML IVPB IV SCH (21:12)
[2020-09-01] MEDS: REMDESIVIR 100 MG in SODIUM CHLORIDE 0.9% 250ML 250 ML IV SCH (21:13)
[2020-09-02] MEDS: IPRATROPIUM/ALBUTEROL SULFATE 3 ML AMPUL.NEB IH SCH (05:17)
[2020-09-02] MEDS: FAMOTIDINE 20 MG TAB PO SCH ×3 (06:09→21:41)
--- NOTE | 2020-09-02 07:40 | Progress Note ---
Assessment and Plan Assessment and plan: 35-year-old male with no known past medical history comes in for fever cough and generalized weakness. Also patient has decreased appetite and decreased taste sensation. Patient has not taken Covid vaccination. Patient has wheezing. No history of asthma. No bowel movement for 6 days[address] into [place] from [place] 10 days ago. No recent surgery. Not sure about exposure to Covid virus. (1) Acute respiratory failure with hypoxia Current Visit: Yes Status: Acute Plan to address problem: Due to Covid-19 Oxygen supplementation as necessary Bilateral pneumonia (2) SIRS (systemic inflammatory response syndrome) Current Visit: Yes Status: Acute Plan to address problem: All inflammatory markers are elevated including LDH of 313 and CRP of 4.4 (3) Bilateral pneumonia Current Visit: Yes Status: Acute Plan to address problem: Patient initiated on IV Zithromax and IV Rocephin (4) Pneumonia due to COVID-19 virus Current Visit: Yes Status: Acute Plan to address problem: Coronavirus PCR positive IV Decadron 8 mg every 24 initiated ID consult requested, zinc sulfate, vitamin C and vitamin D added (5) Hypokalemia- Hyperkalemia Current Visit: Yes Status: Acute Plan to address problem: Supplemented (6) DVT prophylaxis Current Visit: Yes Status: Acute Plan to address problem: On Lovenox and GI prophylaxis 08/28/20 Patient with acute resp failure due to bilateral pneumonia from Covid-19 infection. He is on Rocephin, Zithromax, Decadron, Zinc and supplemental Oxygen. Continue Oxygen, now at 4 l/min NC. ID Physician to see. Will also consult Pulm 08/29/20 Patient with acute resp failure due to bilateral pneumonia from Covid-19 infection. Still has shortness of breath, still has a fever Tmax 102.7 ID Physician and Pulmonology following. 08/30/20 Patient with acute respiratory failure due to bilateral pneumonia from Covid-19 infection. patient still very ill, still has fever, shortness of breath and cough. He is now on Oxygen at 15 l/min. He was on 4 l/min yesterday Continue Remdesivir, Decadron, Zinc, Vit C Pulmonology and ID Physician following 08/31: Agree with intermittent Lasix. Continue to wean high flow oxygen. ID and pulmonary following. Patient unfortunately did not receive the Covid vaccine but states he will get it this acute illness is resolved and will follow the recommended guidelines. Hyperkalemia, expected to resolved with the lasix, will recheck. 09/01: Patient this am noted with proned position, some improvement in saturation. Per Pulmonary, "Lasix again today. Strict I/O. reviewed ID note and appreciate them answering the Actemra inquiry. Guarded prognosis, will continue to follow" Continue supportive care. 09/02: Continue supportive care at this time. In addition to the Lasix today we will add incentive spirometer. Continue to encourage proning at night and during the day as much as feasible. Condition remains guarded wean oxygen as tolerated. History Interval history: Patient seen and examined remains with mild shortness of breath, sitting up t linda continues to 10 L still with. States that he has been performing Hospitalist Physical - Physical exam Narrative exam: Gen: Not in acute distress, obese, On Oxygen-high flow, anxious, sitting up on exam HEENT: Normocephalic, atraumatic Lungs: bilateral rales, no wheeze, shallow breathing not rapid Heart:S1 and S2 reg, no murmurs, rubs or gallop Abd: soft, non tender, non distended, normal bowel sounds, Ext: no edema, no clubbing, no cycanosis Neuro: AAO x 3, moves all extremities, no focal neuro signs - Constitutional Vitals: Temp Pulse Resp BP Pulse Ox 97.8 F 106 H 22 123/83 92 09/02/20 04:16 09/02/20 04:16 09/02/20 04:16 09/02/20 04:16 09/02/20 04:16 General appearance: Present: obese HEART Score - HEART Score Troponin: Troponin T < 0.010 ng/mL (0.00-0.029) 08/27/20 11:56 Results - Labs CBC & Chem 7: 09/01/20 06:11 09/01/20 06:11 Labs: Laboratory Last Values WBC 9.7 K/mm3 (4.5-11.0) 09/01/20 06:11 RBC 5.11 M/mm3 (3.65-5.03) H 09/01/20 06:11 Hgb 14.9 gm/dl (11.8-15.2) 09/01/20 06:11 Hct 45.1 % (35.5-45.6) 09/01/20 06:11 MCV 88 fl (84-94) 09/01/20 06:11 MCH 29 pg (28-32) 09/01/20 06:11 MCHC 33 % (32-34) 09/01/20 06:11 RDW 14.0 % (13.2-15.2) 09/01/20 06:11 Plt Count 264 K/mm3 (140-440) 09/01/20 06:11 Lymph % (Auto) 9.7 % (13.4-35.0) L 08/28/20 07:55 [place] % (Auto) 5.5 % (0.0-7.3) 08/28/20 07:55 Eos % (Auto) 0.0 % (0.0-4.3) 08/28/20 07:55 Baso % (Auto) 0.0 % (0.0-1.8) 08/28/20 07:55 Lymph # (Auto) 0.6 K/mm3 (1.2-5.4) L 08/28/20 07:55 [place] # (Auto) 0.3 K/mm3 (0.0-0.8) 08/28/20 07:55 Eos # (Auto) 0.0 K/mm3 (0.0-0.4) 08/28/20 07:55 Baso # (Auto) 0.0 K/mm3 (0.0-0.1) 08/28/20 07:55 Seg Neutrophils % 84.8 % (40.0-70.0) H 08/28/20 07:55 Seg Neutrophils # 4.9 K/mm3 (1.8-7.7) 08/28/20 07:55 D-Dimer 217.69 ng/mlDDU (0-234) 09/01/20 19:48 Sodium 145 mmol/L (137-145) D 09/01/20 06:11 Potassium 4.2 mmol/L (3.6-5.0) 09/01/20 06:11 Chloride 106.5 mmol/L (98-107) 09/01/20 06:11 Carbon Dioxide 24 mmol/L (22-30) 09/01/20 06:11 Anion Gap 19 mmol/L 09/01/20 06:11 BUN 27 mg/dL (9-20) H 09/01/20 06:11 Creatinine 0.8 mg/dL (0.8-1.3) 09/01/20 06:11 Estimated GFR > 60 ml/min 09/01/20 06:11 BUN/Creatinine Ratio 34 % 09/01/20 06:11 Glucose 151 mg/dL (75-100) H 09/01/20 06:11 Hemoglobin A1c 6.4 % (4-6) H 08/28/20 07:55 Lactic Acid 1.60 mmol/L (0.7-2.0) 08/27/20 16:51 Calcium 9.5 mg/dL (8.4-10.2) 09/01/20 06:11 Ferritin 1859.0 ng/mL (30.0-300.0) H 09/01/20 19:48 Total Bilirubin 0.90 mg/dL (0.1-1.2) 09/01/20 06:11 AST 67 units/L (5-40) H 09/01/20 06:11 ALT 69 units/L (7-56) H 09/01/20 06:11 Alkaline Phosphatase 67 units/L (35-129) 09/01/20 06:11 Lactate Dehydrogenase 558 units/L (91-180) H 09/01/20 19:48 Troponin T < 0.010 ng/mL (0.00-0.029) 08/27/20 11:56 C-Reactive Protein 1.50 mg/dL (0.00-1.30) H 09/01/20 19:48 NT-Pro-B Natriuret Pep < 5 pg/mL (0-450) 08/27/20 11:56 Total Protein 7.6 g/dL (6.3-8.2) 09/01/20 06:11 Albumin 3.7 g/dL (3.9-5) L 09/01/20 06:11 Albumin/Globulin Ratio 0.9 % 09/01/20 06:11 Procalcitonin 0.09 ng/mL (<0.15) 08/27/20 11:56 Urine Color Kim (Yellow) 08/27/20 Unknown Urine Turbidity Clear (Clear) 08/27/20 Unknown Urine pH 5.0 (5.0-7.0) 08/27/20 Unknown Ur Specific [place] 1.040 (1.003-1.030) H 08/27/20 Unknown Urine Protein >500 mg/dL (Negative) 08/27/20 Unknown Urine Glucose (UA) Neg mg/dL (Negative) 08/27/20 Unknown Urine Ketones 20 mg/dL (Negative) 08/27/20 Unknown Urine Blood Mod (Negative) 08/27/20 Unknown Urine Nitrite Neg (Negative) 08/27/20 Unknown Urine Bilirubin Neg (Negative) 08/27/20 Unknown Urine Urobilinogen < 2.0 mg/dL (<2.0) 08/27/20 Unknown Ur Leukocyte Esterase Neg (Negative) 08/27/20 Unknown Urine WBC (Auto) 11.0 /HPF (0.0-6.0) H 08/27/20 Unknown Urine RBC (Auto) 2.0 /HPF (0.0-6.0) 08/27/20 Unknown U Epithel Cells (Auto) 1.0 /HPF (0-13.0) 08/27/20 Unknown Urine Mucus 1+ /HPF 08/27/20 Unknown Coronavirus (PCR) Positive (Negative) A 08/27/20 Unknown Microbiology: Microbiology 08/27/20 11:56 Peripheral/Venous Blood Culture - Final NO GROWTH AFTER 5 DAYS 08/27/20 11:56 Peripheral/Venous Blood Culture - Final NO GROWTH AFTER 5 DAYS [place]/IV: Voiding Method Urinal Active Medications - Current Medications Current Medications: Generic Name Dose Route Start Last Admin Trade Name Freq PRN Reason Stop Dose Admin Acetaminophen 650 mg 08/27/20 17:05 08/29/20 19:56 Acetaminophen 325 Mg Tab PO 650 mg Q4H PRN Administration Pain MILD(1-3)/Fever >100.5/JACOBS Albuterol 2.5 mg 09/01/20 08:04 Albuterol 2.5 Mg/3 Ml Nebu IH Q4HRT PRN Shortness Of Breath Arformoterol Tartrate 15 mcg 09/01/20 08:30 09/01/20 19:31 Arformoterol 15 Mcg/2 Ml Nebu IH 15 mcg Q12HRT [place] Administration Ascorbic Acid 1,000 mg 08/27/20 22:00 09/01/20 22:00 Ascorbic Acid 500 Mg Tab PO Not Given BID [place] Budesonide 0.5 mg 09/01/20 08:30 09/01/20 19:31 Budesonide 0.5 Mg/2 Ml Nebu IH 0.5 mg Q12HRT [place] Administration Cholecalciferol 5,000 unit 08/27/20 18:00 09/01/20 10:53 Cholecalciferol (Vit D3) 5,000 Unit Tab PO 5,000 unit DAILY [place] Administration Dexamethasone 8 mg 08/28/20 10:00 09/01/20 10:52 Dexamethasone 4 Mg/Ml Vial IV 09/05/20 10:01 8 mg Q24HR [place] Administration Enoxaparin Sodium 40 mg 08/27/20 18:00 09/01/20 10:53 Enoxaparin 40 Mg/0.4 Ml Inj SUB-Q 40 mg QDAY [place] Administration Famotidine 20 mg 08/27/20 22:00 09/02/20 06:09 Famotidine 20 Mg Tab PO Not Given BID [place] Guaifenesin 200 mg 08/28/20 12:50 09/01/20 21:11 Guaifenesin 100 Mg/5 Ml Oral Liqd PO 200 mg Q4H PRN Administration Cough Hydrocodone Bit/Homatropine Methylb 10 ml 08/31/20 11:16 08/31/20 15:10 Hydrocodone/Homatropine 5-1.5mg /5 Ml Oral Liqd Unit Dose PO 10 ml Q6H PRN Administration Cough Hydromorphone HCl 0.5 mg 08/27/20 17:05 08/28/20 07:18 Hydromorphone 1 Mg/1 Ml Inj IV 0.5 mg Q3H PRN Administration Pain , Severe (7-10) REMDESIVIR 100 mg/ Sodium 250 mls @ 500 mls/hr 08/30/20 21:00 09/02/20 06:11 Chloride IV 09/02/20 21:29 Infused Q24HR@2100 [facility] Infusion Ondansetron HCl 4 mg 08/27/20 17:05 Ondansetron 4 Mg/2 Ml Inj IV Q3H PRN Nausea And Vomiting Oxycodone/Acetaminophen 1 tab 08/27/20 17:05 Oxycodone /Acetaminophen 5-325mg Tab PO Q6H PRN Pain, Moderate (4-6) Sodium Chloride 10 ml 08/27/20 22:00 09/01/20 22:11 Sodium Chloride 0.9% 10 Ml Flush Syringe IV 10 ml BID [place] Administration Sodium Chloride 10 ml 08/27/20 17:05 Sodium Chloride 0.9% 10 Ml Flush Syringe IV PRN PRN LINE FLUSH Zinc Sulfate 220 mg 08/27/20 22:00 09/01/20 22:12 Zinc Sulfate 220 Mg Cap PO Not Given BID [place] Nutrition/Malnutrition Assess - Dietary Evaluation Nutrition/Malnutrition Findings: Nutrition Notes Start: 08/28/20 12:26 Freq: Status: Active Protocol: Document 08/31/20 09:02 HARLEYNIGEL (Rec: 08/31/20 09:09 NHALL [email or web address]) Nutrition Notes Initial or Follow up Reassessment Other Pertinent Diagnosis COVID-19 (+), bilat pneu, SIRS Current Diet Regular Labs/Tests K 5.1 BUN 25 BG 158 Pertinent Medications Lasix Height 5 ft 9 in Weight 105 kg [place] Body Weight (kg) 72.72 BMI 34.2 Weight change and time frame Wt change noted Weight Status Obese Subjective/Other Information Pt has consumed 58% of three recorded meals. Jose score is 19. Percent of energy/protein needs met: 63% energy 73% pro Burn Absent Trauma Absent Current % PO Fair (50-74%) #1 Nutrition Diagnosis Predicted suboptimal energy intake,Inadequate protein- energy intake Comments: CHANGED Etiology COVID-19 As Evidenced by Signs and Symptoms PO intake meeting <75% energy and pro needs Is patient on ventilator? No Is Patient Ambulatory and/or Out of Bed Yes REE-([place]-ambulatory/OOB) [ 2567.994 NUTR.MSJOOB] Kcal/Kg value to use for calculation 20 Approximate Energy Requirements Using 2100 kcal/Kg Calculation Used for Recommendations Kcal/kg Additional Notes Pro needs 0.8-1g/kg adjBW: 71- 89g/day Fluid needs 1ml/kcal Nutrition Intervention Change Diet Order: Continue current diet order Add Supplement/Snack (indicate name/kcal Ensure Enlive BID /protein ) Provides kCal: 700 Provides Protein (gm) 40 Goal #1 PO intake of meals plus ONS to meet at least 75% energy and pro needs Follow-Up By: 09/02/20 Additional Comments F/U: intakes (meals, ONS)
[2020-09-02] MEDS: ENOXAPARIN 40 MG/0.4 ML INJ SUB-Q SCH (09:31)
[2020-09-02] MEDS: ZINC SULFATE 220 MG CAP PO SCH ×2 (09:31→21:41)
[2020-09-02] MEDS: ASCORBIC ACID 500 MG TAB PO SCH ×2 (09:32→21:41)
[2020-09-02] MEDS: dexAMETHasone 4 MG/ML VIAL IV SCH (09:32)
[2020-09-02] MEDS: CHOLECALCIFEROL (VIT D3) 5,000 UNIT TAB PO SCH (09:32)
--- NOTE | 2020-09-02 09:46 | Progress Note ---
Assessment and Plan 35 y/o male with acute respiratory failure secondary to COVID 19 pneumonia. 09/02/20: Continue proning at night and during the day as well if possible. Lasix 40 again today. Would check BMP tomorrow. Wean FiO2 and flow for sats >88%. Prognosis still remains guarded. 09/01/20: Documented proning this am with improvement in Sats and oxygen requirement. Lasix again today. Strict I/O. reviewed ID note and appreciate them answering the Actemra inquiry. Guarded prognosis, will continue to follow. 08/31/20: Still no documentation of proning. Lasix again today and ordered strict I/O. Follow up ID recs. Will ask if Actemra is still being used. Guarded prognosis. 08/30. Proning order is in, very important that patient do this. Lasix again today but this time, 40mg IV. Remdesivir and steroids. Guarded prognosis. Please document if patient is refusing to prone. IV steroids Stopped duonebs given nature of disease with concern for spread Lasix 20mg IV x1 today Prone during the day as tolerated and sleep prone at night Guarded prognosis. Subjective Date of service: 09/02/20 Principal diagnosis: COVID-19 Interval history: Still on 10 liters with good sats. Did prone last night. Refused PO meds but steroids are given IV. Remainder is negative. Still positive if I/O is accurate. Objective Vital Signs - 12hr 09/02/20 04:16 Temperature 97.8 F Pulse Rate 106 H Respiratory 22 Rate Blood Pressure 123/83 [Left] O2 Sat by Pulse 92 Oximetry CBC and BMP: 09/01/20 06:11 09/01/20 06:11 ABG, PT/INR, D-dimer: PT/INR, D-dimer D-Dimer 217.69 ng/mlDDU (0-234) 09/01/20 19:48 Abnormal lab findings: Abnormal Labs 08/27/20 08/27/20 08/27/20 11:56 11:56 11:56 RBC Lymph % (Auto) Lymph # (Auto) Seg Neutrophils % D-Dimer 291.43 H Potassium Carbon Dioxide BUN Creatinine Glucose Hemoglobin A1c Ferritin 572.3 H AST ALT Lactate Dehydrogenase 313 H C-Reactive Protein 4.40 H Albumin Ur Specific [place] Urine WBC (Auto) Coronavirus (PCR) 08/27/20 08/27/20 08/27/20 11:56 11:56 Unknown RBC Lymph % (Auto) 10.3 L Lymph # (Auto) 0.7 L Seg Neutrophils % 84.6 H D-Dimer Potassium 3.4 L Carbon Dioxide BUN Creatinine Glucose 125 H Hemoglobin A1c Ferritin AST 66 H ALT Lactate Dehydrogenase C-Reactive Protein Albumin Ur Specific [place] Urine WBC (Auto) Coronavirus (PCR) Positive A 08/27/20 08/28/20 08/28/20 Unknown 07:55 07:55 RBC 5.06 H Lymph % (Auto) 9.7 L Lymph # (Auto) 0.6 L Seg Neutrophils % 84.8 H D-Dimer Potassium Carbon Dioxide BUN Creatinine Glucose 125 H Hemoglobin A1c Ferritin AST 80 H ALT Lactate Dehydrogenase C-Reactive Protein Albumin Ur Specific [place] 1.040 H Urine WBC (Auto) 11.0 H Coronavirus (PCR) 08/28/20 08/30/20 08/30/20 07:55 06:51 06:51 RBC 5.04 H Lymph % (Auto) Lymph # (Auto) Seg Neutrophils % D-Dimer Potassium Carbon Dioxide BUN Creatinine Glucose 144 H Hemoglobin A1c 6.4 H Ferritin AST 99 H ALT Lactate Dehydrogenase C-Reactive Protein Albumin 3.8 L Ur Specific [place] Urine WBC (Auto) Coronavirus (PCR) 08/30/20 08/30/20 08/31/20 14:18 14:18 05:43 RBC Lymph % (Auto) Lymph # (Auto) Seg Neutrophils % D-Dimer Potassium 5.1 H Carbon Dioxide 20 L D BUN 25 H Creatinine 0.7 L Glucose 158 H Hemoglobin A1c Ferritin 1166.0 H AST 75 H ALT Lactate Dehydrogenase 529 H C-Reactive Protein 5.90 H Albumin 3.3 L Ur Specific [place] Urine WBC (Auto) Coronavirus (PCR) 09/01/20 09/01/20 09/01/20 06:11 06:11 19:48 RBC 5.11 H Lymph % (Auto) Lymph # (Auto) Seg Neutrophils % D-Dimer Potassium Carbon Dioxide BUN 27 H Creatinine Glucose 151 H Hemoglobin A1c Ferritin 1859.0 H AST 67 H ALT 69 H Lactate Dehydrogenase C-Reactive Protein Albumin 3.7 L Ur Specific [place] Urine WBC (Auto) Coronavirus (PCR) 09/01/20 19:48 RBC Lymph % (Auto) Lymph # (Auto) Seg Neutrophils % D-Dimer Potassium Carbon Dioxide BUN Creatinine Glucose Hemoglobin A1c Ferritin AST ALT Lactate Dehydrogenase 558 H C-Reactive Protein 1.50 H Albumin Ur Specific [place] Urine WBC (Auto) Coronavirus (PCR)
[2020-09-02] MEDS: BUDESONIDE 0.5 MG/2 ML NEBU IH SCH ×2 (09:56→19:56)
[2020-09-02] MEDS: ARFORMOTEROL 15 MCG/2 ML NEBU IH SCH ×2 (09:56→19:57)
[2020-09-02] MEDS ORDERED: FUROSEMIDE 40 MG/4 ML INJ IV NR (10:00)
--- NOTE | 2020-09-02 10:48 | XRay Report ---
CHEST 1 VIEW 09/02/2020 9:39 AM INDICATION / CLINICAL INFORMATION: SHORTNESS OF BREATH. COMPARISON: 08/27/20. FINDINGS: SUPPORT DEVICES: None. HEART / MEDIASTINUM: Unchanged. LUNGS / PLEURA: There are mild patchy parenchymal opacities in both mid to lower lung zones, mildly i ncreased in the mid lung zones compared to the prior study. The findings in the lung bases may be sli ghtly improved. No pleural effusion. No pneumothorax. ADDITIONAL FINDINGS: No significant additional findings. IMPRESSION: Changing appearance of patchy parenchymal opacities in both mid to lower lung zones, like ly inflammatory. Atypical causes of pneumonia, including viral pneumonia, should be considered. Signer Name: Paddy Hester MD Signed: 09/02/2020 10:44 AM Workstation Name: [id number]
--- NOTE | 2020-09-02 17:38 | Progress Note ---
Assessment and Plan Cultures: Blood culture no growth so far Covid PCR: Positive A/P: 35-year-old man past medical history morbid obesity presented to hospital with COVID-19 #Severe COVID-19 pneumonia: Patient presented with a week of symptoms, chest x- ray with diffuse bilateral infiltrates. Inflammatory markers elevated, ferritin worsening, D-dimer/CRP continues to improve. #Acute respiratory failure hypoxic: Improving now on 8 L nasal cannula #Morbid obesity: worse outcomes with COVID-19 Elevated LFTs: Likely due to COVID-19/remdesivir Recs: -Evaluation for home O2 tomorrow -Proning position -Continue dexamethasone total 10 days -Continue remdesivir D5 of 5 -Obtain q48-72h inflammatory markers - ferritin, Ddimer, CRP, LDH -No indication for antibiotics due to low procalcitonin -Anticoagulation per hospital protocol -Proning as able -No indication for Tocilizumab as patient CRP is <7 and currently on [place] nasal cannula oxygen Okay to discharge tomorrow if oxygenation is better considering home O2 if okay with pulmonary MD [facility] ([facility]) Office [phone] Subjective Date of service: 09/02/20 Principal diagnosis: COVID-19 Interval history: Patient feeling better, now on [place] O2 8 L. Objective - Exam Narrative Exam: General appearance: Alert in NAD pleasant prone position Eyes: anicteric sclerae, moist conjunctivae; no lid-lag; PERRLA HENT: Normocephalic, Atraumatic; normal external ears, nares open, oropharynx clear Lungs: Diminished breath sound bilateral LE CV: RRR Abdomen: Soft, mild tenderness diffusely Extremities: no edema, no cyanosis Skin: No rash. Psych: no agitated Neuro: alert and oriented x 3. Moving all extermities - Constitutional Vitals: Vital Signs Temp Pulse Resp BP Pulse Ox 97.8 F 117 H 22 123/83 93 09/02/20 04:16 09/02/20 09:56 09/02/20 09:56 09/02/20 04:16 09/02/20 10:39 Temperature -Last 24 Hours Temperature 97.8 F - Labs CBC & Chem 7: 09/01/20 06:11 09/01/20 06:11 Labs: Abnormal lab results 09/01/20 09/01/20 Range/Units 19:48 19:48 Ferritin 1859.0 H (30.0-300.0) ng/mL Lactate Dehydrogenase 558 H (91-180) units/L C-Reactive Protein 1.50 H (0.00-1.30) mg/dL
[2020-09-02] MEDS: REMDESIVIR 100 MG in SODIUM CHLORIDE 0.9% 250ML 250 ML IV SCH (21:41)
[2020-09-02] MEDS ORDERED: ALBUTEROL 8.5 GM MDI INHALATION IH PRN (22:51)
[2020-09-02] MEDS: ONDANSETRON 4 MG/2 ML INJ IV PRN (23:41)
[2020-09-02] MEDS: oxyCODONE /ACETAMINOPHEN 5-325MG TAB PO PRN (23:41)
[2020-09-03 07:44] LABS: C-Reactive Protein 1.7 mg/dL (0.00-1.30)
[2020-09-03] MEDS: ARFORMOTEROL 15 MCG/2 ML NEBU IH SCH ×2 (08:02→20:57)
[2020-09-03] MEDS: BUDESONIDE 0.5 MG/2 ML NEBU IH SCH ×2 (08:02→20:57)
--- NOTE | 2020-09-03 08:24 | Progress Note ---
Assessment and Plan Assessment and plan: 35-year-old male with no known past medical history comes in for fever cough and generalized weakness. Also patient has decreased appetite and decreased taste sensation. Patient has not taken Covid vaccination. Patient has wheezing. No history of asthma. No bowel movement for 6 days. He drove into [place] from [place] 10 days ago. No recent surgery. Not sure about exposure to Covid virus. (1) Acute respiratory failure with hypoxia Current Visit: Yes Status: Acute Plan to address problem: Due to Covid-19 Oxygen supplementation as necessary Bilateral pneumonia (2) SIRS (systemic inflammatory response syndrome) Current Visit: Yes Status: Acute Plan to address problem: All inflammatory markers are elevated including LDH of 313 and CRP of 4.4 (3) Bilateral pneumonia Current Visit: Yes Status: Acute Plan to address problem: Patient initiated on IV Zithromax and IV Rocephin (4) Pneumonia due to COVID-19 virus Current Visit: Yes Status: Acute Plan to address problem: Coronavirus PCR positive IV Decadron 8 mg every 24 initiated ID consult requested, zinc sulfate, vitamin C and vitamin D added (5) Hypokalemia- Hyperkalemia Current Visit: Yes Status: Acute Plan to address problem: Supplemented (6) DVT prophylaxis Current Visit: Yes Status: Acute Plan to address problem: On Lovenox and GI prophylaxis 08/28/20 Patient with acute resp failure due to bilateral pneumonia from Covid-19 infection. He is on Rocephin, Zithromax, Decadron, Zinc and supplemental Oxygen. Continue Oxygen, now at 4 l/min NC. ID Physician to see. Will also consult Pulm 08/29/20 Patient with acute resp failure due to bilateral pneumonia from Covid-19 infection. Still has shortness of breath, still has a fever Tmax 102.7 ID Physician and Pulmonology following. 08/30/20 Patient with acute respiratory failure due to bilateral pneumonia from Covid-19 infection. patient still very ill, still has fever, shortness of breath and cough. He is now on Oxygen at 15 l/min. He was on 4 l/min yesterday Continue Remdesivir, Decadron, Zinc, Vit C Pulmonology and ID Physician following 08/31: Agree with intermittent Lasix. Continue to wean high flow oxygen. ID and pulmonary following. Patient unfortunately did not receive the Covid vaccine but states he will get it this acute illness is resolved and will follow the recommended guidelines. Hyperkalemia, expected to resolved with the lasix, will recheck. 09/01: Patient this am noted with proned position, some improvement in saturation. Per Pulmonary, "Lasix again today. Strict I/O. reviewed ID note and appreciate them answering the Actemra inquiry. Guarded prognosis, will continue to follow" Continue supportive care. 09/02: Continue supportive care at this time. In addition to the Lasix today we will add incentive spirometer. Continue to encourage proning at night and during the day as much as feasible. Condition remains guarded wean oxygen as tolerated. 09/03: Continues to show gradual clinical improvement. We will continue to monitor continue to encourage prone positioning. Encouraged to sit up as much as possible during the day and during hours of sleep. Continue pulmonary exercise. Will change to PPI IV. History Interval history: Patient seen and examined remains with mild shortness of breath, still with 10 L. Clinically showing some improvement but still with cough. Reports that drinking or eating bothers her stomach. Hospitalist Physical - Physical exam Narrative exam: Gen: Not in acute distress, obese, On Oxygen-high flow, not as anxious as yesterday. Sitting up on exam HEENT: Normocephalic, atraumatic Lungs: bilateral rales, no wheeze, shallow breathing not rapid Heart:S1 and S2 reg, no murmurs, rubs or gallop Abd: soft, non tender, non distended, normal bowel sounds, Ext: no edema, no clubbing, no cycanosis Neuro: AAO x 3, moves all extremities, no focal neuro signs - Constitutional Vitals: Temp Pulse Resp BP Pulse Ox 98.5 F 123 H 20 140/86 95 09/03/20 04:28 09/03/20 08:17 09/03/20 08:17 09/03/20 04:28 09/03/20 08:03 General appearance: Present: obese HEART Score - HEART Score Troponin: Troponin T < 0.010 ng/mL (0.00-0.029) 08/27/20 11:56 Results - Labs CBC & Chem 7: 09/01/20 06:11 09/03/20 09:32 Labs: Laboratory Last Values WBC 9.7 K/mm3 (4.5-11.0) 09/01/20 06:11 RBC 5.11 M/mm3 (3.65-5.03) H 09/01/20 06:11 Hgb 14.9 gm/dl (11.8-15.2) 09/01/20 06:11 Hct 45.1 % (35.5-45.6) 09/01/20 06:11 MCV 88 fl (84-94) 09/01/20 06:11 MCH 29 pg (28-32) 09/01/20 06:11 MCHC 33 % (32-34) 09/01/20 06:11 RDW 14.0 % (13.2-15.2) 09/01/20 06:11 Plt Count 264 K/mm3 (140-440) 09/01/20 06:11 Lymph % (Auto) 9.7 % (13.4-35.0) L 08/28/20 07:55 [place] % (Auto) 5.5 % (0.0-7.3) 08/28/20 07:55 Eos % (Auto) 0.0 % (0.0-4.3) 08/28/20 07:55 Baso % (Auto) 0.0 % (0.0-1.8) 08/28/20 07:55 Lymph # (Auto) 0.6 K/mm3 (1.2-5.4) L 08/28/20 07:55 [place] # (Auto) 0.3 K/mm3 (0.0-0.8) 08/28/20 07:55 Eos # (Auto) 0.0 K/mm3 (0.0-0.4) 08/28/20 07:55 Baso # (Auto) 0.0 K/mm3 (0.0-0.1) 08/28/20 07:55 Seg Neutrophils % 84.8 % (40.0-70.0) H 08/28/20 07:55 Seg Neutrophils # 4.9 K/mm3 (1.8-7.7) 08/28/20 07:55 D-Dimer 566.54 ng/mlDDU (0-234) H 09/03/20 06:17 Sodium 145 mmol/L (137-145) D 09/01/20 06:11 Potassium 4.2 mmol/L (3.6-5.0) 09/01/20 06:11 Chloride 106.5 mmol/L (98-107) 09/01/20 06:11 Carbon Dioxide 24 mmol/L (22-30) 09/01/20 06:11 Anion Gap 19 mmol/L 09/01/20 06:11 BUN 27 mg/dL (9-20) H 09/01/20 06:11 Creatinine 0.8 mg/dL (0.8-1.3) 09/01/20 06:11 Estimated GFR > 60 ml/min 09/01/20 06:11 BUN/Creatinine Ratio 34 % 09/01/20 06:11 Glucose 149 mg/dL (75-100) H 09/03/20 06:17 Hemoglobin A1c 6.4 % (4-6) H 08/28/20 07:55 Lactic Acid 1.60 mmol/L (0.7-2.0) 08/27/20 16:51 Calcium 9.5 mg/dL (8.4-10.2) 09/01/20 06:11 Ferritin 1194.0 ng/mL (30.0-300.0) H 09/03/20 06:17 Total Bilirubin 0.90 mg/dL (0.1-1.2) 09/01/20 06:11 AST 67 units/L (5-40) H 09/01/20 06:11 ALT 69 units/L (7-56) H 09/01/20 06:11 Alkaline Phosphatase 67 units/L (35-129) 09/01/20 06:11 Lactate Dehydrogenase 350 units/L (91-180) H 09/03/20 06:17 Troponin T < 0.010 ng/mL (0.00-0.029) 08/27/20 11:56 C-Reactive Protein 1.70 mg/dL (0.00-1.30) H 09/03/20 06:17 NT-Pro-B Natriuret Pep < 5 pg/mL (0-450) 08/27/20 11:56 Total Protein 7.6 g/dL (6.3-8.2) 09/01/20 06:11 Albumin 3.7 g/dL (3.9-5) L 09/01/20 06:11 Albumin/Globulin Ratio 0.9 % 09/01/20 06:11 Procalcitonin 0.09 ng/mL (<0.15) 08/27/20 11:56 Urine Color [place] (Yellow) 08/27/20 Unknown Urine Turbidity Clear (Clear) 08/27/20 Unknown Urine pH 5.0 (5.0-7.0) 08/27/20 Unknown Ur Specific [place] 1.040 (1.003-1.030) H 08/27/20 Unknown Urine Protein >500 mg/dL (Negative) 08/27/20 Unknown Urine Glucose (UA) Neg mg/dL (Negative) 08/27/20 Unknown Urine Ketones 20 mg/dL (Negative) 08/27/20 Unknown Urine Blood Mod (Negative) 08/27/20 Unknown Urine Nitrite Neg (Negative) 08/27/20 Unknown Urine Bilirubin Neg (Negative) 08/27/20 Unknown Urine Urobilinogen < 2.0 mg/dL (<2.0) 08/27/20 Unknown Ur Leukocyte Esterase Neg (Negative) 08/27/20 Unknown Urine WBC (Auto) 11.0 /HPF (0.0-6.0) H 08/27/20 Unknown Urine RBC (Auto) 2.0 /HPF (0.0-6.0) 08/27/20 Unknown U Epithel Cells (Auto) 1.0 /HPF (0-13.0) 08/27/20 Unknown Urine Mucus 1+ /HPF 08/27/20 Unknown Coronavirus (PCR) Positive (Negative) A 08/27/20 Unknown [place]/IV: Voiding Method Urinal Active Medications - Current Medications Current Medications: Generic Name Dose Route Start Last Admin Trade Name Freq PRN Reason Stop Dose Admin Acetaminophen 650 mg 08/27/20 17:05 08/29/20 19:56 Acetaminophen 325 Mg Tab PO 650 mg Q4H PRN Administration Pain MILD(1-3)/Fever >100.5/JACOBS Albuterol 2 puff 09/02/20 22:51 Albuterol 8.5 Gm Mdi Inhalation IH Q4HRT PRN Shortness Of Breath Arformoterol Tartrate 15 mcg 09/01/20 08:30 09/03/20 08:02 Arformoterol 15 Mcg/2 Ml Nebu IH 15 mcg Q12HRT [place] Administration Ascorbic Acid 1,000 mg 08/27/20 22:00 09/02/20 21:41 Ascorbic Acid 500 Mg Tab PO 1,000 mg BID [place] Administration Budesonide 0.5 mg 09/01/20 08:30 09/03/20 08:02 Budesonide 0.5 Mg/2 Ml Nebu IH 0.5 mg Q12HRT [place] Administration Cholecalciferol 5,000 unit 08/27/20 18:00 09/02/20 09:32 Cholecalciferol (Vit D3) 5,000 Unit Tab PO 5,000 unit DAILY [place] Administration Dexamethasone 8 mg 08/28/20 10:00 09/02/20 09:32 Dexamethasone 4 Mg/Ml Vial IV 09/05/20 10:01 8 mg Q24HR [place] Administration Enoxaparin Sodium 40 mg 08/27/20 18:00 09/02/20 09:31 Enoxaparin 40 Mg/0.4 Ml Inj SUB-Q 40 mg QDAY [place] Administration Famotidine 20 mg 08/27/20 22:00 09/02/20 21:41 Famotidine 20 Mg Tab PO 20 mg BID [place] Administration Guaifenesin 200 mg 08/28/20 12:50 09/01/20 21:11 Guaifenesin 100 Mg/5 Ml Oral Liqd PO 200 mg Q4H PRN Administration Cough Hydrocodone Bit/Homatropine Methylb 10 ml 08/31/20 11:16 08/31/20 15:10 Hydrocodone/Homatropine 5-1.5mg /5 Ml Oral Liqd Unit Dose PO 10 ml Q6H PRN Administration Cough Ondansetron HCl 4 mg 08/27/20 17:05 09/02/20 23:41 Ondansetron 4 Mg/2 Ml Inj IV 4 mg Q3H PRN Administration Nausea And Vomiting Oxycodone/Acetaminophen 1 tab 08/27/20 17:05 09/02/20 23:41 Oxycodone /Acetaminophen 5-325mg Tab PO 1 tab Q6H PRN Administration Pain, Moderate (4-6) Sodium Chloride 10 ml 08/27/20 22:00 09/02/20 21:42 Sodium Chloride 0.9% 10 Ml Flush Syringe IV 10 ml BID [place] Administration Sodium Chloride 10 ml 08/27/20 17:05 Sodium Chloride 0.9% 10 Ml Flush Syringe IV PRN PRN LINE FLUSH Zinc Sulfate 220 mg 08/27/20 22:00 09/02/20 21:41 Zinc Sulfate 220 Mg Cap PO 220 mg BID [place] Administration Nutrition/Malnutrition Assess - Dietary Evaluation Nutrition/Malnutrition Findings: Nutrition Notes Start: 08/28/20 12:26 Freq: Status: Active Protocol: Document 09/02/20 09:33 CARLI (Rec: 09/02/20 09:35 [facility] [id number]) Nutrition Notes Initial or Follow up Brief Note Current Diet Regular + Ensure Enlive BID Subjective/Other Information Pt did not consume any meals yesterday. RN been encouraging him to at least drink ONS. Pt in prone position as much as possible. Nutrition Intervention Follow-Up By: 09/07/20 Additional Comments F/U: intakes (meals, ONS), wt
[2020-09-03 11:03] LABS: BUN/Creatinine Ratio 35; Blood Urea Nitrogen 28 mg/dL (9-20); Calcium 9.6 mg/dL (8.4-10.2); Hemolysis Index 6
[2020-09-03] MEDS: ENOXAPARIN 100 MG/1 ML INJ SUB-Q SCH ×2 (11:07→21:42)
[2020-09-03] MEDS: CHOLECALCIFEROL (VIT D3) 5,000 UNIT TAB PO SCH (11:07)
[2020-09-03] MEDS: ASCORBIC ACID 500 MG TAB PO SCH ×2 (11:07→21:42)
[2020-09-03] MEDS: dexAMETHasone 4 MG/ML VIAL IV SCH (11:08)
[2020-09-03] MEDS: FAMOTIDINE 20 MG TAB PO SCH ×2 (11:08→21:41)
[2020-09-03] MEDS: ZINC SULFATE 220 MG CAP PO SCH ×2 (11:08→21:41)
[2020-09-03] MEDS ORDERED: FUROSEMIDE 40 MG/4 ML INJ IV ONE ×2 (11:43→20:00)
--- NOTE | 2020-09-03 11:46 | Progress Note ---
Assessment and Plan 35 y/o male with acute respiratory failure secondary to COVID 19 pneumonia. 09/03/20: Lasix 40 now and then will order another dose for 2000 tonight. BMP is stable. Wean FiO2 for sats >88%. Continue to prone nightly and PRN. Finished Remdesivir, still on steroids. 09/02/20: Continue proning at night and during the day as well if possible. Lasix 40 again today. Would check BMP tomorrow. Wean FiO2 and flow for sats >88%. Prognosis still remains guarded. 09/01/20: Documented proning this am with improvement in Sats and oxygen requirement. Lasix again today. Strict I/O. reviewed ID note and appreciate them answering the Actemra inquiry. Guarded prognosis, will continue to follow. 08/31/20: Still no documentation of proning. Lasix again today and ordered strict I/O. Follow up ID recs. Will ask if Actemra is still being used. Guarded prognosis. 08/30. Proning order is in, very important that patient do this. Lasix again today but this time, 40mg IV. Remdesivir and steroids. Guarded prognosis. Please document if patient is refusing to prone. IV steroids Stopped duonebs given nature of disease with concern for spread Lasix 20mg IV x1 today Prone during the day as tolerated and sleep prone at night Guarded prognosis. Subjective Date of service: 09/03/20 Principal diagnosis: COVID-19 Interval history: Still on 10 liters but last sat documented at 95. BP stable. Still positive fluid balance. Objective Vital Signs - 12hr 09/03/20 09/03/20 09/03/20 03:29 04:28 04:37 Temperature 98.5 F Pulse Rate 120 H Pulse Rate [ Throughout] Respiratory 32 H Rate Respiratory Rate [ Throughout] Blood Pressure 140/86 O2 Sat by Pulse 100 100 95 Oximetry 09/03/20 09/03/20 08:03 08:17 Temperature Pulse Rate Pulse Rate [ 123 H Throughout] Respiratory Rate Respiratory 20 Rate [ Throughout] Blood Pressure O2 Sat by Pulse 95 Oximetry CBC and BMP: 09/01/20 06:11 09/03/20 09:32 ABG, PT/INR, D-dimer: PT/INR, D-dimer D-Dimer 566.54 ng/mlDDU (0-234) H 09/03/20 06:17 Abnormal lab findings: Abnormal Labs 08/27/20 08/27/20 08/27/20 11:56 11:56 11:56 RBC Lymph % (Auto) Lymph # (Auto) Seg Neutrophils % D-Dimer 291.43 H Potassium Carbon Dioxide BUN Creatinine Glucose Hemoglobin A1c Ferritin 572.3 H AST ALT Lactate Dehydrogenase 313 H C-Reactive Protein 4.40 H Albumin Ur Specific [place] Urine WBC (Auto) Coronavirus (PCR) 08/27/20 08/27/20 08/27/20 11:56 11:56 Unknown RBC Lymph % (Auto) 10.3 L Lymph # (Auto) 0.7 L Seg Neutrophils % 84.6 H D-Dimer Potassium 3.4 L Carbon Dioxide BUN Creatinine Glucose 125 H Hemoglobin A1c Ferritin AST 66 H ALT Lactate Dehydrogenase C-Reactive Protein Albumin Ur Specific [place] Urine WBC (Auto) Coronavirus (PCR) Positive A 08/27/20 08/28/20 08/28/20 Unknown 07:55 07:55 RBC 5.06 H Lymph % (Auto) 9.7 L Lymph # (Auto) 0.6 L Seg Neutrophils % 84.8 H D-Dimer Potassium Carbon Dioxide BUN Creatinine Glucose 125 H Hemoglobin A1c Ferritin AST 80 H ALT Lactate Dehydrogenase C-Reactive Protein Albumin Ur Specific [place] 1.040 H Urine WBC (Auto) 11.0 H Coronavirus (PCR) 08/28/20 08/30/20 08/30/20 07:55 06:51 06:51 RBC 5.04 H Lymph % (Auto) Lymph # (Auto) Seg Neutrophils % D-Dimer Potassium Carbon Dioxide BUN Creatinine Glucose 144 H Hemoglobin A1c 6.4 H Ferritin AST 99 H ALT Lactate Dehydrogenase C-Reactive Protein Albumin 3.8 L Ur Specific [place] Urine WBC (Auto) Coronavirus (PCR) 08/30/20 08/30/20 08/31/20 14:18 14:18 05:43 RBC Lymph % (Auto) Lymph # (Auto) Seg Neutrophils % D-Dimer Potassium 5.1 H Carbon Dioxide 20 L D BUN 25 H Creatinine 0.7 L Glucose 158 H Hemoglobin A1c Ferritin 1166.0 H AST 75 H ALT Lactate Dehydrogenase 529 H C-Reactive Protein 5.90 H Albumin 3.3 L Ur Specific [place] Urine WBC (Auto) Coronavirus (PCR) 09/01/20 09/01/20 09/01/20 06:11 06:11 19:48 RBC 5.11 H Lymph % (Auto) Lymph # (Auto) Seg Neutrophils % D-Dimer Potassium Carbon Dioxide BUN 27 H Creatinine Glucose 151 H Hemoglobin A1c Ferritin 1859.0 H AST 67 H ALT 69 H Lactate Dehydrogenase C-Reactive Protein Albumin 3.7 L Ur Specific [place] Urine WBC (Auto) Coronavirus (PCR) 09/01/20 09/03/20 09/03/20 19:48 06:17 06:17 RBC Lymph % (Auto) Lymph # (Auto) Seg Neutrophils % D-Dimer 566.54 H Potassium Carbon Dioxide BUN Creatinine Glucose 149 H Hemoglobin A1c Ferritin AST ALT Lactate Dehydrogenase 558 H 350 H C-Reactive Protein 1.50 H 1.70 H Albumin Ur Specific [place] Urine WBC (Auto) Coronavirus (PCR) 09/03/20 09/03/20 06:17 09:32 RBC Lymph % (Auto) Lymph # (Auto) Seg Neutrophils % D-Dimer Potassium Carbon Dioxide BUN 28 H Creatinine Glucose 172 H Hemoglobin A1c Ferritin 1194.0 H AST ALT Lactate Dehydrogenase C-Reactive Protein Albumin Ur Specific [place] Urine WBC (Auto) Coronavirus (PCR)
[2020-09-03] MEDS: oxyCODONE /ACETAMINOPHEN 5-325MG TAB PO PRN ×2 (16:58→22:32)
[2020-09-03] MEDS: ONDANSETRON 4 MG/2 ML INJ IV PRN (16:58)
[2020-09-03] MEDS: ACETAMINOPHEN 325 MG TAB PO PRN (21:41)
[2020-09-04] MEDS: ARFORMOTEROL 15 MCG/2 ML NEBU IH SCH ×2 (07:45→21:14)
[2020-09-04] MEDS: BUDESONIDE 0.5 MG/2 ML NEBU IH SCH ×2 (07:45→21:14)
[2020-09-04] MEDS: dexAMETHasone 4 MG/ML VIAL IV SCH (10:23)
[2020-09-04] MEDS: ENOXAPARIN 100 MG/1 ML INJ SUB-Q SCH ×2 (10:23→21:48)
[2020-09-04] MEDS: FAMOTIDINE 20 MG TAB PO SCH ×2 (10:23→21:48)
[2020-09-04] MEDS: ASCORBIC ACID 500 MG TAB PO SCH ×2 (10:23→21:48)
[2020-09-04] MEDS: ZINC SULFATE 220 MG CAP PO SCH (10:23)
[2020-09-04] MEDS: CHOLECALCIFEROL (VIT D3) 5,000 UNIT TAB PO SCH (10:24)
--- NOTE | 2020-09-04 11:12 | Progress Note ---
Assessment and Plan Assessment and plan: 35-year-old male with no known past medical history comes in for fever cough and generalized weakness. Also patient has decreased appetite and decreased taste sensation. Patient has not taken Covid vaccination. Patient has wheezing. No history of asthma. No bowel movement for [address] days[address] drove into [place] from [place] 10 days ago. No recent surgery. Not sure about exposure to Covid virus. (1) Acute respiratory failure with hypoxia Current Visit: Yes Status: Acute Plan to address problem: Due to Covid-19 Oxygen supplementation as necessary Bilateral pneumonia (2) SIRS (systemic inflammatory response syndrome) Current Visit: Yes Status: Acute Plan to address problem: All inflammatory markers are elevated including LDH of 313 and CRP of 4.4 (3) Bilateral pneumonia Current Visit: Yes Status: Acute Plan to address problem: Patient initiated on IV Zithromax and IV Rocephin (4) Pneumonia due to COVID-19 virus Current Visit: Yes Status: Acute Plan to address problem: Coronavirus PCR positive IV Decadron 8 mg every 24 initiated ID consult requested, zinc sulfate, vitamin C and vitamin D added (5) Hypokalemia- Hyperkalemia Current Visit: Yes Status: Acute Plan to address problem: Supplemented (6) DVT prophylaxis Current Visit: Yes Status: Acute Plan to address problem: On Lovenox and GI prophylaxis 08/28/20 Patient with acute resp failure due to bilateral pneumonia from Covid-19 infection. He is on Rocephin, Zithromax, Decadron, Zinc and supplemental Oxygen. Continue Oxygen, now at 4 l/min NC. ID Physician to see. Will also consult Pulm 08/29/20 Patient with acute resp failure due to bilateral pneumonia from Covid-19 infection. Still has shortness of breath, still has a fever Tmax 102.7 ID Physician and Pulmonology following. 08/30/20 Patient with acute respiratory failure due to bilateral pneumonia from Covid-19 infection. patient still very ill, still has fever, shortness of breath and cough. He is now on Oxygen at 15 l/min. He was on 4 l/min yesterday Continue Remdesivir, Decadron, Zinc, Vit C Pulmonology and ID Physician following 08/31: Agree with intermittent Lasix. Continue to wean high flow oxygen. ID and pulmonary following. Patient unfortunately did not receive the Covid vaccine but states he will get it this acute illness is resolved and will follow the recommended guidelines. Hyperkalemia, expected to resolved with the lasix, will recheck. 09/01: Patient this am noted with proned position, some improvement in saturation. Per Pulmonary, "Lasix again today. Strict I/O. reviewed ID note and appreciate them answering the Actemra inquiry. Guarded prognosis, will continue to follow" Continue supportive care. 09/02: Continue supportive care at this time. In addition to the Lasix today we will add incentive spirometer. Continue to encourage proning at night and during the day as much as feasible. Condition remains guarded wean oxygen as tolerated. 09/03: Continues to show gradual clinical improvement. We will continue to monitor continue to encourage prone positioning. Encouraged to sit up as much as possible during the day and during hours of sleep. Continue pulmonary exercise. Will change to PPI IV. 09/04: Continue supportive care continue to wean oxygen as tolerated we will give additional Lasix today again and check BMP in a.m.. Adjusted the multiple vitamins and will reevaluate in the morning. Still on 7 L of oxygen prognosis is still guarded. Continue to encourage prone positioning History Interval history: Patient seen and examined remains with mild shortness of breath, down to 7 L. Clinically showing some improvement but still with cough. Reports that drinking or eating bothers her stomach. Started multiple vitamins made his stomach queasy. Hospitalist Physical - Physical exam Narrative exam: Gen: Not in acute distress, obese, On Oxygen-high flow, Sitting up on exam HEENT: Normocephalic, atraumatic Lungs: bilateral rales, no wheeze, shallow breathing not rapid Heart:S1 and S2 reg, no murmurs, rubs or gallop Abd: soft, non tender, non distended, normal bowel sounds, Ext: no edema, no clubbing, no cycanosis Neuro: AAO x 3, moves all extremities, no focal neuro signs - Constitutional Vitals: Temp Pulse Resp BP Pulse Ox 97.7 F 122 H 20 130/88 94 09/04/20 04:45 09/04/20 08:05 09/04/20 08:05 09/04/20 04:45 09/04/20 07:47 General appearance: Present: obese HEART Score - HEART Score Troponin: Troponin T < 0.010 ng/mL (0.00-0.029) 08/27/20 11:56 Results - Labs CBC & Chem 7: 09/01/20 06:11 09/03/20 09:32 Labs: Laboratory Last Values WBC 9.7 K/mm3 (4.5-11.0) 09/01/20 06:11 RBC 5.11 M/mm3 (3.65-5.03) H 09/01/20 06:11 Hgb 14.9 gm/dl (11.8-15.2) 09/01/20 06:11 Hct 45.1 % (35.5-45.6) 09/01/20 06:11 MCV 88 fl (84-94) 09/01/20 06:11 MCH 29 pg (28-32) 09/01/20 06:11 MCHC 33 % (32-34) 09/01/20 06:11 RDW 14.0 % (13.2-15.2) 09/01/20 06:11 Plt Count 264 K/mm3 (140-440) 09/01/20 06:11 Lymph % (Auto) 9.7 % (13.4-35.0) L 08/28/20 07:55 Clarke % (Auto) 5.5 % (0.0-7.3) 08/28/20 07:55 Eos % (Auto) 0.0 % (0.0-4.3) 08/28/20 07:55 Baso % (Auto) 0.0 % (0.0-1.8) 08/28/20 07:55 Lymph # (Auto) 0.6 K/mm3 (1.2-5.4) L 08/28/20 07:55 [place] # (Auto) 0.3 K/mm3 (0.0-0.8) 08/28/20 07:55 Eos # (Auto) 0.0 K/mm3 (0.0-0.4) 08/28/20 07:55 Baso # (Auto) 0.0 K/mm3 (0.0-0.1) 08/28/20 07:55 Seg Neutrophils % 84.8 % (40.0-70.0) H 08/28/20 07:55 Seg Neutrophils # 4.9 K/mm3 (1.8-7.7) 08/28/20 07:55 D-Dimer 566.54 ng/mlDDU (0-234) H 09/03/20 06:17 Sodium 144 mmol/L (137-145) 09/03/20 09:32 Potassium 4.3 mmol/L (3.6-5.0) 09/03/20 09:32 Chloride 104.0 mmol/L (98-107) 09/03/20 09:32 Carbon Dioxide 26 mmol/L (22-30) 09/03/20 09:32 Anion Gap 18 mmol/L 09/03/20 09:32 BUN 28 mg/dL (9-20) H 09/03/20 09:32 Creatinine 0.8 mg/dL (0.8-1.3) 09/03/20 09:32 Estimated GFR > 60 ml/min 09/03/20 09:32 BUN/Creatinine Ratio 35 % 09/03/20 09:32 Glucose 172 mg/dL (75-100) H 09/03/20 09:32 Hemoglobin A1c 6.4 % (4-6) H 08/28/20 07:55 Lactic Acid 1.60 mmol/L (0.7-2.0) 08/27/20 16:51 Calcium 9.6 mg/dL (8.4-10.2) 09/03/20 09:32 Ferritin 1194.0 ng/mL (30.0-300.0) H 09/03/20 06:17 Total Bilirubin 0.90 mg/dL (0.1-1.2) 09/01/20 06:11 AST 67 units/L (5-40) H 09/01/20 06:11 ALT 69 units/L (7-56) H 09/01/20 06:11 Alkaline Phosphatase 67 units/L (35-129) 09/01/20 06:11 Lactate Dehydrogenase 350 units/L (91-180) H 09/03/20 06:17 Troponin T < 0.010 ng/mL (0.00-0.029) 08/27/20 11:56 C-Reactive Protein 1.70 mg/dL (0.00-1.30) H 09/03/20 06:17 NT-Pro-B Natriuret Pep < 5 pg/mL (0-450) 08/27/20 11:56 Total Protein 7.6 g/dL (6.3-8.2) 09/01/20 06:11 Albumin 3.7 g/dL (3.9-5) L 09/01/20 06:11 Albumin/Globulin Ratio 0.9 % 09/01/20 06:11 Procalcitonin 0.09 ng/mL (<0.15) 08/27/20 11:56 Urine Color Kim (Yellow) 08/27/20 Unknown Urine Turbidity Clear (Clear) 08/27/20 Unknown Urine pH 5.0 (5.0-7.0) 08/27/20 Unknown Ur Specific [place] 1.040 (1.003-1.030) H 08/27/20 Unknown Urine Protein >500 mg/dL (Negative) 08/27/20 Unknown Urine Glucose (UA) Neg mg/dL (Negative) 08/27/20 Unknown Urine Ketones 20 mg/dL (Negative) 08/27/20 Unknown Urine Blood Mod (Negative) 08/27/20 Unknown Urine Nitrite Neg (Negative) 08/27/20 Unknown Urine Bilirubin Neg (Negative) 08/27/20 Unknown Urine Urobilinogen < 2.0 mg/dL (<2.0) 08/27/20 Unknown Ur Leukocyte Esterase Neg (Negative) 08/27/20 Unknown Urine WBC (Auto) 11.0 /HPF (0.0-6.0) H 08/27/20 Unknown Urine RBC (Auto) 2.0 /HPF (0.0-6.0) 08/27/20 Unknown U Epithel Cells (Auto) 1.0 /HPF (0-13.0) 08/27/20 Unknown Urine Mucus 1+ /HPF 08/27/20 Unknown Coronavirus (PCR) Positive (Negative) A 08/27/20 Unknown Traore/IV: Voiding Method Urinal Active Medications - Current Medications Current Medications: Generic Name Dose Route Start Last Admin Trade Name Freq PRN Reason Stop Dose Admin Acetaminophen 650 mg 08/27/20 17:05 09/03/20 21:41 Acetaminophen 325 Mg Tab PO 650 mg Q4H PRN Administration Pain MILD(1-3)/Fever >100.5/JACOBS Albuterol 2 puff 09/02/20 22:51 Albuterol 8.5 Gm Mdi Inhalation IH Q4HRT PRN Shortness Of Breath Arformoterol Tartrate 15 mcg 09/01/20 08:30 07/24/21 07:45 Arformoterol 15 Mcg/2 Ml Nebu IH 15 mcg Q12HRT [place] Administration Ascorbic Acid 1,000 mg 08/27/20 22:00 09/04/20 10:23 Ascorbic Acid 500 Mg Tab PO 1,000 mg BID [place] Administration Budesonide 0.5 mg 09/01/20 08:30 09/04/20 07:45 Budesonide 0.5 Mg/2 Ml Nebu IH 0.5 mg Q12HRT [place] Administration Cholecalciferol 5,000 unit 08/27/20 18:00 09/04/20 10:24 Cholecalciferol (Vit D3) 5,000 Unit Tab PO 5,000 unit DAILY [place] Administration Dexamethasone 8 mg 08/28/20 10:00 09/04/20 10:23 Dexamethasone 4 Mg/Ml Vial IV 09/05/20 10:01 8 mg Q24HR [place] Administration Enoxaparin Sodium 100 mg 09/03/20 10:00 09/04/20 10:23 Enoxaparin 100 Mg/1 Ml Inj 1 mg/kg (100 mg) 100 mg SUB-Q Administration Q12HR [facility] Protocol Famotidine 20 mg 08/27/20 22:00 09/04/20 10:23 Famotidine 20 Mg Tab PO 20 mg BID [place] Administration Guaifenesin 200 mg 08/28/20 12:50 09/01/20 21:11 Guaifenesin 100 Mg/5 Ml Oral Liqd PO 200 mg Q4H PRN Administration Cough Hydrocodone Bit/Homatropine Methylb 10 ml 08/31/20 11:16 08/31/20 15:10 Hydrocodone/Homatropine 5-1.5mg /5 Ml Oral Liqd Unit Dose PO 10 ml Q6H PRN Administration Cough Ondansetron HCl 4 mg 08/27/20 17:05 09/03/20 16:58 Ondansetron 4 Mg/2 Ml Inj IV 4 mg Q3H PRN Administration Nausea And Vomiting Oxycodone/Acetaminophen 1 tab 08/27/20 17:05 09/03/20 22:32 Oxycodone /Acetaminophen 5-325mg Tab PO 1 tab Q6H PRN Administration Pain, Moderate (4-6) Sodium Chloride 10 ml 08/27/20 22:00 09/04/20 10:24 Sodium Chloride 0.9% 10 Ml Flush Syringe IV 10 ml BID [place] Administration Sodium Chloride 10 ml 08/27/20 17:05 Sodium Chloride 0.9% 10 Ml Flush Syringe IV PRN PRN LINE FLUSH Zinc Sulfate 220 mg 08/27/20 22:00 09/04/20 10:23 Zinc Sulfate 220 Mg Cap PO 220 mg BID [place] Administration Nutrition/Malnutrition Assess - Dietary Evaluation Nutrition/Malnutrition Findings: Nutrition Notes Start: 08/28/20 12:26 Freq: Status: Active Protocol: Document 09/02/20 09:33 [facility] (Rec: 09/02/20 09:35 [facility] [id number]) Nutrition Notes Initial or Follow up Brief Note Current Diet Regular + Ensure Enlive BID Subjective/Other Information Pt did not consume any meals yesterday. RN been encouraging him to at least drink ONS. Pt in prone position as much as possible. Nutrition Intervention Follow-Up By: 09/07/20 Additional Comments F/U: intakes (meals, ONS), wt
--- NOTE | 2020-09-04 12:38 | Progress Note ---
Assessment and Plan Cultures: Blood culture no growth so far Covid PCR: Positive A/P: 35-year-old man past medical history morbid obesity presented to hospital with COVID-19 #Severe COVID-19 pneumonia: Patient presented with a week of symptoms, chest x- ray with diffuse bilateral infiltrates. Inflammatory markers elevated, ferritin worsening, D-dimer/CRP continues to improve. #Acute respiratory failure hypoxic: better on 7L [place] #Morbid obesity: worse outcomes with COVID-19 Elevated LFTs: Likely due to COVID-19/remdesivir Recs: -Evaluation for home O2 when stable -Proning position -Continue dexamethasone total 10 days -Completed remdesivir D5 of 5 -Obtain q48-72h inflammatory markers - ferritin, Ddimer, CRP, LDH -No indication for antibiotics due to low procalcitonin -Anticoagulation per hospital protocol -Proning as able -No indication for Tocilizumab as patient CRP is <7 and currently on [place] nasal cannula oxygen Okay to discharge tomorrow if oxygenation is better considering home O2 if okay with pulmonary MD [facility] ([facility]) Office [phone] Subjective Date of service: 09/04/20 Principal diagnosis: COVID-19 Interval history: Feels good, no complaints. On [place] 7 L Objective - Exam Narrative Exam: General appearance: Alert in NAD pleasant prone position Eyes: anicteric sclerae, moist conjunctivae; no lid-lag; PERRLA HENT: Normocephalic, Atraumatic; normal external ears, nares open, oropharynx clear Lungs: Diminished breath sound bilateral LE CV: RRR Abdomen: Soft, mild tenderness diffusely Extremities: no edema, no cyanosis Skin: No rash. Psych: no agitated Neuro: alert and oriented x 3. Moving all extermities - Constitutional Vitals: Vital Signs Temp Pulse Resp BP Pulse Ox 97.7 F 122 H 20 130/88 94 09/04/20 04:45 09/04/20 08:05 09/04/20 08:05 09/04/20 04:45 09/04/20 07:47 Temperature -Last 24 Hours Temperature 97.7 F Temperature 99.3 F Temperature 98.0 F - Labs CBC & Chem 7: 09/01/20 06:11 09/03/20 09:32
[2020-09-04] MEDS ORDERED: FUROSEMIDE 40 MG/4 ML INJ IV ONE (13:31)
--- NOTE | 2020-09-04 14:58 | Progress Note ---
Assessment and Plan ronnie and Plan 35 y/o male with acute respiratory failure secondary to COVID 19 pneumonia. 09/04/2020: Patient continued to improve with improving oxygenation. Oxygenation has improved with oxygen requirement has decreased to 7 L [place]. We will continue to wean FiO2 as tolerated. Will consider discharge once oxygen requirement is down to 2 to 4 L 09/03/20: Lasix 40 now and then will order another dose for 2000 tonight. BMP is stable. Wean FiO2 for sats >88%. Continue to prone nightly and PRN. Finished Remdesivir, still on steroids. 09/02/20: Continue proning at night and during the day as well if possible. Lasix 40 again today. Would check BMP tomorrow. Wean FiO2 and flow for sats >88%. Prognosis still remains guarded. 09/01/20: Documented proning this am with improvement in Sats and oxygen requirement. Lasix again today. Strict I/O. reviewed ID note and appreciate them answering the Actemra inquiry. Guarded prognosis, will continue to follow. 08/31/20: Still no documentation of proning. Lasix again today and ordered strict I/O. Follow up ID recs. Will ask if Actemra is still being used. Guarded prognosis. 08/30. Proning order is in, very important that patient do this. Lasix again today but this time, 40mg IV. Remdesivir and steroids. Guarded prognosis. Please document if patient is refusing to prone. IV steroids Stopped duonebs given nature of disease with concern for spread Lasix 20mg IV x1 today Prone during the day as tolerated and sleep prone at night Guarded prognosis. Subjective Date of service: 09/04/20 Principal diagnosis: COVID-19 Interval history: Patient continued to improve with improved breathing. Objective Vital Signs - 12hr 09/04/20 09/04/20 09/04/20 04:45 07:47 08:05 Temperature 97.7 F Pulse Rate 112 H Pulse Rate [ 122 H Throughout] Respiratory 24 Rate Respiratory 20 Rate [ Throughout] Blood Pressure 130/88 O2 Sat by Pulse 91 94 Oximetry Constitutional: no acute distress ENT: oropharynx moist Neck: supple Ascultation: Bilateral: clear Cardiovascular: regular rate and rhythm Gastrointestinal: normoactive bowel sounds, soft, non-tender Integumentary: normal Extremities: no cyanosis Neurologic: normal mental status Psychiatric: mood appropriate CBC and BMP: 09/01/20 06:11 09/03/20 09:32 ABG, PT/INR, D-dimer: PT/INR, D-dimer D-Dimer 566.54 ng/mlDDU (0-234) H 09/03/20 06:17 Abnormal lab findings: Abnormal Labs 08/27/20 08/27/20 08/27/20 11:56 11:56 11:56 RBC Lymph % (Auto) Lymph # (Auto) Seg Neutrophils % D-Dimer 291.43 H Potassium Carbon Dioxide BUN Creatinine Glucose Hemoglobin A1c Ferritin 572.3 H AST ALT Lactate Dehydrogenase 313 H C-Reactive Protein 4.40 H Albumin Ur Specific [place] Urine WBC (Auto) Coronavirus (PCR) 08/27/20 08/27/20 08/27/20 11:56 11:56 Unknown RBC Lymph % (Auto) 10.3 L Lymph # (Auto) 0.7 L Seg Neutrophils % 84.6 H D-Dimer Potassium 3.4 L Carbon Dioxide BUN Creatinine Glucose 125 H Hemoglobin A1c Ferritin AST 66 H ALT Lactate Dehydrogenase C-Reactive Protein Albumin Ur Specific [place] Urine WBC (Auto) Coronavirus (PCR) Positive A 08/27/20 08/28/20 08/28/20 Unknown 07:55 07:55 RBC 5.06 H Lymph % (Auto) 9.7 L Lymph # (Auto) 0.6 L Seg Neutrophils % 84.8 H D-Dimer Potassium Carbon Dioxide BUN Creatinine Glucose 125 H Hemoglobin A1c Ferritin AST 80 H ALT Lactate Dehydrogenase C-Reactive Protein Albumin Ur Specific [place] 1.040 H Urine WBC (Auto) 11.0 H Coronavirus (PCR) 08/28/20 08/30/20 08/30/20 07:55 06:51 06:51 RBC 5.04 H Lymph % (Auto) Lymph # (Auto) Seg Neutrophils % D-Dimer Potassium Carbon Dioxide BUN Creatinine Glucose 144 H Hemoglobin A1c 6.4 H Ferritin AST 99 H ALT Lactate Dehydrogenase C-Reactive Protein Albumin 3.8 L Ur Specific [place] Urine WBC (Auto) Coronavirus (PCR) 08/30/20 08/30/20 08/31/20 14:18 14:18 05:43 RBC Lymph % (Auto) Lymph # (Auto) Seg Neutrophils % D-Dimer Potassium 5.1 H Carbon Dioxide 20 L D BUN 25 H Creatinine 0.7 L Glucose 158 H Hemoglobin A1c Ferritin 1166.0 H AST 75 H ALT Lactate Dehydrogenase 529 H C-Reactive Protein 5.90 H Albumin 3.3 L Ur Specific [place] Urine WBC (Auto) Coronavirus (PCR) 09/01/20 09/01/20 09/01/20 06:11 06:11 19:48 RBC 5.11 H Lymph % (Auto) Lymph # (Auto) Seg Neutrophils % D-Dimer Potassium Carbon Dioxide BUN 27 H Creatinine Glucose 151 H Hemoglobin A1c Ferritin 1859.0 H AST 67 H ALT 69 H Lactate Dehydrogenase C-Reactive Protein Albumin 3.7 L Ur Specific [place] Urine WBC (Auto) Coronavirus (PCR) 09/01/20 09/03/20 09/03/20 19:48 06:17 06:17 RBC Lymph % (Auto) Lymph # (Auto) Seg Neutrophils % D-Dimer 566.54 H Potassium Carbon Dioxide BUN Creatinine Glucose 149 H Hemoglobin A1c Ferritin AST ALT Lactate Dehydrogenase 558 H 350 H C-Reactive Protein 1.50 H 1.70 H Albumin Ur Specific [place] Urine WBC (Auto) Coronavirus (PCR) 09/03/20 09/03/20 06:17 09:32 RBC Lymph % (Auto) Lymph # (Auto) Seg Neutrophils % D-Dimer Potassium Carbon Dioxide BUN 28 H Creatinine Glucose 172 H Hemoglobin A1c Ferritin 1194.0 H AST ALT Lactate Dehydrogenase C-Reactive Protein Albumin Ur Specific [place] Urine WBC (Auto) Coronavirus (PCR)
[2020-09-04] MEDS: oxyCODONE /ACETAMINOPHEN 5-325MG TAB PO PRN (22:58)
[2020-09-05 07:39] LABS: Hematocrit 49.5 % (35.5-45.6); Hemoglobin 16.1 gm/dl (11.8-15.2); Mean Corpuscular HGB Conc 33 % (32-34); Mean Corpuscular Volume 90 fl (84-94); Platelet Count 345 K/mm3 (140-440); Red Blood Count 5.48 M/mm3 (3.65-5.03); Red Cell Distribution Width 13.7 % (13.2-15.2)
[2020-09-05 08:02] LABS: Alanine Aminotransferase 170 units/L (7-56); Albumin 3.5 g/dL (3.9-5); Blood Urea Nitrogen 26 mg/dL (9-20); Calcium 9.9 mg/dL (8.4-10.2); Hemolysis Index 26
[2020-09-05 08:08] LABS: BUN/Creatinine Ratio 37
[2020-09-05] MEDS: BUDESONIDE 0.5 MG/2 ML NEBU IH SCH ×2 (10:15→22:18)
[2020-09-05] MEDS: ARFORMOTEROL 15 MCG/2 ML NEBU IH SCH ×2 (10:15→22:18)
[2020-09-05] MEDS: FAMOTIDINE 20 MG TAB PO SCH ×2 (11:31→20:03)
[2020-09-05] MEDS: ASCORBIC ACID 500 MG TAB PO SCH ×2 (11:31→20:02)
[2020-09-05] MEDS: CHOLECALCIFEROL (VIT D3) 5,000 UNIT TAB PO SCH (11:31)
[2020-09-05] MEDS: ZINC SULFATE 220 MG CAP PO SCH (11:31)
[2020-09-05] MEDS: dexAMETHasone 4 MG/ML VIAL IV SCH (11:32)
[2020-09-05] MEDS: ENOXAPARIN 100 MG/1 ML INJ SUB-Q SCH ×2 (11:32→20:03)
[2020-09-05] MEDS: ONDANSETRON 4 MG/2 ML INJ IV PRN (11:40)
[2020-09-05] MEDS: MORPHINE 2 MG/1 ML INJ IV PRN ×2 (11:51→20:02)
--- NOTE | 2020-09-05 12:37 | Progress Note ---
Assessment and Plan ronnie and Plan 35 y/o male with acute respiratory failure secondary to COVID 19 pneumonia. 09/05/2020. Continued to improve with oxygen requirement down to 5 L. If he continued improves possible discharge in next 24 to 48 hours. 09/04/2020: Patient continued to improve with improving oxygenation. Oxygenation has improved with oxygen requirement has decreased to 7 L [place]. We will continue to wean FiO2 as tolerated. Will consider discharge once oxygen requirement is down to 2 to 4 L 09/03/20: Lasix 40 now and then will order another dose for 2000 tonight. BMP is stable. Wean FiO2 for sats >88%. Continue to prone nightly and PRN. Finished Remdesivir, still on steroids. 09/02/20: Continue proning at night and during the day as well if possible. Lasix 40 again today. Would check BMP tomorrow. Wean FiO2 and flow for sats >88%. Prognosis still remains guarded. 09/01/20: Documented proning this am with improvement in Sats and oxygen requirement. Lasix again today. Strict I/O. reviewed ID note and appreciate t hem answering the Actemra inquiry. Guarded prognosis, will continue to follow. 08/31/20: Still no documentation of proning. Lasix again today and ordered strict I/O. Follow up ID recs. Will ask if Actemra is still being used. Guarded prognosis. 08/30. Proning order is in, very important that patient do this. Lasix again today but this time, 40mg IV. Remdesivir and steroids. Guarded prognosis. Please document if patient is refusing to prone. IV steroids Stopped duonebs given nature of disease with concern for spread Lasix 20mg IV x1 today Prone during the day as tolerated and sleep prone at night Guarded prognosis. Subjective Date of service: 09/05/20 Principal diagnosis: COVID-19 Interval history: Patient continued to improve with improved breathing. Now down to 5 L nasal cannula oxygen Objective Vital Signs - 12hr 09/05/20 09/05/20 03:18 10:20 Temperature 98.3 F Pulse Rate 108 H Respiratory 18 Rate Blood Pressure 141/95 O2 Sat by Pulse 94 94 Oximetry Constitutional: no acute distress ENT: oropharynx moist Neck: supple Ascultation: Bilateral: clear Cardiovascular: regular rate and rhythm Gastrointestinal: normoactive bowel sounds, soft, non-tender Integumentary: normal Extremities: no cyanosis Neurologic: normal mental status Psychiatric: mood appropriate CBC and BMP: 09/05/20 07:13 09/05/20 07:13 ABG, PT/INR, D-dimer: PT/INR, D-dimer D-Dimer 295.00 ng/mlDDU (0-234) H 09/05/20 07:13 Abnormal lab findings: Abnormal Labs 08/27/20 08/27/20 08/27/20 11:56 11:56 11:56 WBC RBC Hgb Hct Lymph % (Auto) Lymph # (Auto) Seg Neutrophils % D-Dimer 291.43 H Potassium Carbon Dioxide BUN Creatinine Glucose Hemoglobin A1c Ferritin 572.3 H AST ALT Lactate Dehydrogenase 313 H C-Reactive Protein 4.40 H Albumin Ur Specific [place] Urine WBC (Auto) Coronavirus (PCR) 08/27/20 08/27/20 08/27/20 11:56 11:56 Unknown WBC RBC Hgb Hct Lymph % (Auto) 10.3 L Lymph # (Auto) 0.7 L Seg Neutrophils % 84.6 H D-Dimer Potassium 3.4 L Carbon Dioxide BUN Creatinine Glucose 125 H Hemoglobin A1c Ferritin AST 66 H ALT Lactate Dehydrogenase C-Reactive Protein Albumin Ur Specific [place] Urine WBC (Auto) Coronavirus (PCR) Positive A 08/27/20 08/28/20 08/28/20 Unknown 07:55 07:55 WBC RBC 5.06 H Hgb Hct Lymph % (Auto) 9.7 L Lymph # (Auto) 0.6 L Seg Neutrophils % 84.8 H D-Dimer Potassium Carbon Dioxide BUN Creatinine Glucose 125 H Hemoglobin A1c Ferritin AST 80 H ALT Lactate Dehydrogenase C-Reactive Protein Albumin Ur Specific [place] 1.040 H Urine WBC (Auto) 11.0 H Coronavirus (PCR) 08/28/20 08/30/20 08/30/20 07:55 06:51 06:51 WBC RBC 5.04 H Hgb Hct Lymph % (Auto) Lymph # (Auto) Seg Neutrophils % D-Dimer Potassium Carbon Dioxide BUN Creatinine Glucose 144 H Hemoglobin A1c 6.4 H Ferritin AST 99 H ALT Lactate Dehydrogenase C-Reactive Protein Albumin 3.8 L Ur Specific [place] Urine WBC (Auto) Coronavirus (PCR) 08/30/20 08/30/20 08/31/20 14:18 14:18 05:43 WBC RBC Hgb Hct Lymph % (Auto) Lymph # (Auto) Seg Neutrophils % D-Dimer Potassium 5.1 H Carbon Dioxide 20 L D BUN 25 H Creatinine 0.7 L Glucose 158 H Hemoglobin A1c Ferritin 1166.0 H AST 75 H ALT Lactate Dehydrogenase 529 H C-Reactive Protein 5.90 H Albumin 3.3 L Ur Specific [place] Urine WBC (Auto) Coronavirus (PCR) 09/01/20 09/01/20 09/01/20 06:11 06:11 19:48 WBC RBC 5.11 H Hgb Hct Lymph % (Auto) Lymph # (Auto) Seg Neutrophils % D-Dimer Potassium Carbon Dioxide BUN 27 H Creatinine Glucose 151 H Hemoglobin A1c Ferritin 1859.0 H AST 67 H ALT 69 H Lactate Dehydrogenase C-Reactive Protein Albumin 3.7 L Ur Specific [place] Urine WBC (Auto) Coronavirus (PCR) 09/01/20 09/03/20 09/03/20 19:48 06:17 06:17 WBC RBC Hgb Hct Lymph % (Auto) Lymph # (Auto) Seg Neutrophils % D-Dimer 566.54 H Potassium Carbon Dioxide BUN Creatinine Glucose 149 H Hemoglobin A1c Ferritin AST ALT Lactate Dehydrogenase 558 H 350 H C-Reactive Protein 1.50 H 1.70 H Albumin Ur Specific [place] Urine WBC (Auto) Coronavirus (PCR) 09/03/20 09/03/20 09/05/20 06:17 09:32 07:13 WBC RBC Hgb Hct Lymph % (Auto) Lymph # (Auto) Seg Neutrophils % D-Dimer 295.00 H Potassium Carbon Dioxide BUN 28 H Creatinine Glucose 172 H Hemoglobin A1c Ferritin 1194.0 H AST ALT Lactate Dehydrogenase C-Reactive Protein Albumin Ur Specific [place] Urine WBC (Auto) Coronavirus (PCR) 09/05/20 09/05/20 09/05/20 07:13 07:13 07:13 WBC 19.6 H RBC 5.48 H Hgb 16.1 H Hct 49.5 H Lymph % (Auto) Lymph # (Auto) Seg Neutrophils % D-Dimer Potassium Carbon Dioxide BUN 26 H Creatinine 0.7 L Glucose 140 H Hemoglobin A1c Ferritin 1051.0 H AST 61 H ALT 170 H Lactate Dehydrogenase 399 H C-Reactive Protein 2.30 H Albumin 3.5 L Ur Specific [place] Urine WBC (Auto) Coronavirus (PCR)
--- NOTE | 2020-09-05 12:46 | Progress Note ---
Assessment and Plan Assessment and plan: 35-year-old male with no known past medical history comes in for fever cough and generalized weakness. Also patient has decreased appetite and decreased taste sensation. Patient has not taken Covid vaccination. Patient has wheezing. No history of asthma. No bowel movement for [address] days[address] drove into [place] from [place] 10 days ago. No recent surgery. Not sure about exposure to Covid virus. (1) Acute respiratory failure with hypoxia Current Visit: Yes Status: Acute Plan to address problem: Due to Covid-19 Oxygen supplementation as necessary Bilateral pneumonia (2) SIRS (systemic inflammatory response syndrome) Current Visit: Yes Status: Acute Plan to address problem: All inflammatory markers are elevated including LDH of 313 and CRP of 4.4 (3) Bilateral pneumonia Current Visit: Yes Status: Acute Plan to address problem: Patient initiated on IV Zithromax and IV Rocephin (4) Pneumonia due to COVID-19 virus Current Visit: Yes Status: Acute Plan to address problem: Coronavirus PCR positive IV Decadron 8 mg every 24 initiated ID consult requested, zinc sulfate, vitamin C and vitamin D added (5) Hypokalemia- Hyperkalemia Current Visit: Yes Status: Acute Plan to address problem: Supplemented (6) DVT prophylaxis Current Visit: Yes Status: Acute Plan to address problem: On Lovenox and GI prophylaxis 08/28/20 Patient with acute resp failure due to bilateral pneumonia from Covid-19 infection. He is on Rocephin, Zithromax, Decadron, Zinc and supplemental Oxygen. Continue Oxygen, now at 4 l/min NC. ID Physician to see. Will also consult Pulm 08/29/20 Patient with acute resp failure due to bilateral pneumonia from Covid-19 infection. Still has shortness of breath, still has a fever Tmax 102.7 ID Physician and Pulmonology following. 08/30/20 Patient with acute respiratory failure due to bilateral pneumonia from Covid-19 infection. patient still very ill, still has fever, shortness of breath and cough. He is now on Oxygen at 15 l/min. He was on 4 l/min yesterday Continue Remdesivir, Decadron, Zinc, Vit C Pulmonology and ID Physician following 08/31: Agree with intermittent Lasix. Continue to wean high flow oxygen. ID and pulmonary following. Patient unfortunately did not receive the Covid vaccine but states he will get it this acute illness is resolved and will follow the recommended guidelines. Hyperkalemia, expected to resolved with the lasix, will recheck. 09/01: Patient this am noted with proned position, some improvement in saturation. Per Pulmonary, "Lasix again today. Strict I/O. reviewed ID note and appreciate them answering the Actemra inquiry. Guarded prognosis, will continue to follow" Continue supportive care. 09/02: Continue supportive care at this time. In addition to the Lasix today we will add incentive spirometer. Continue to encourage proning at night and during the day as much as feasible. Condition remains guarded wean oxygen as tolerated. 09/03: Continues to show gradual clinical improvement. We will continue to monitor continue to encourage prone positioning. Encouraged to sit up as much as possible during the day and during hours of sleep. Continue pulmonary exercise. Will change to PPI IV. 09/04: Continue supportive care continue to wean oxygen as tolerated we will give additional Lasix today again and check BMP in a.m.. Adjusted the multiple vitamins and will reevaluate in the morning. Still on 7 L of oxygen prognosis is still guarded. Continue to encourage prone positioning 09/05: Continue supportive care wean down to 5 L of oxygen and continue to monitor. We will hold off on additional Lasix today. Reevaluate in a.m. History Interval history: Patient seen and examined remains with mild shortness of breath, still on 7 L satting 95% will decrease to 5 L and reevaluate in 24-48 hrs. He did complain of abdominal pain and wanted some IV pain medicine says antibiotics giving him upset stomach Rates it a 5/10 intensity generalized. Hospitalist Physical - Physical exam Narrative exam: Gen: Not in acute distress, obese, 7 L of nasal salter nasal cannula looks clinically better sitting up on exam HEENT: Normocephalic, atraumatic Lungs: bilateral rales, no wheeze, shallow breathing not rapid Heart:S1 and S2 reg, no murmurs, rubs or gallop Abd: soft, non tender, non distended, normal bowel sounds, Ext: no edema, no clubbing, no cycanosis Neuro: AAO x 3, moves all extremities, no focal neuro signs - Constitutional Vitals: Temp Pulse Resp BP Pulse Ox 98.3 F 108 H 18 141/95 94 09/05/20 03:18 09/05/20 03:18 09/05/20 03:18 09/05/20 03:18 09/05/20 10:20 General appearance: Present: obese HEART Score - HEART Score Troponin: Troponin T < 0.010 ng/mL (0.00-0.029) 08/27/20 11:56 Results - Labs CBC & Chem 7: 09/05/20 07:13 09/05/20 07:13 Labs: Laboratory Last Values WBC 19.6 K/mm3 (4.5-11.0) H 09/05/20 07:13 RBC 5.48 M/mm3 (3.65-5.03) H 09/05/20 07:13 Hgb 16.1 gm/dl (11.8-15.2) H 09/05/20 07:13 Hct 49.5 % (35.5-45.6) H 09/05/20 07:13 MCV 90 fl (84-94) 09/05/20 07:13 MCH 29 pg (28-32) 09/05/20 07:13 MCHC 33 % (32-34) 09/05/20 07:13 RDW 13.7 % (13.2-15.2) 09/05/20 07:13 Plt Count 345 K/mm3 (140-440) 09/05/20 07:13 Lymph % (Auto) 9.7 % (13.4-35.0) L 08/28/20 07:55 [place] % (Auto) 5.5 % (0.0-7.3) 08/28/20 07:55 Eos % (Auto) 0.0 % (0.0-4.3) 08/28/20 07:55 Baso % (Auto) 0.0 % (0.0-1.8) 08/28/20 07:55 Lymph # (Auto) 0.6 K/mm3 (1.2-5.4) L 08/28/20 07:55 [place] # (Auto) 0.3 K/mm3 (0.0-0.8) 08/28/20 07:55 Eos # (Auto) 0.0 K/mm3 (0.0-0.4) 08/28/20 07:55 Baso # (Auto) 0.0 K/mm3 (0.0-0.1) 08/28/20 07:55 Seg Neutrophils % 84.8 % (40.0-70.0) H 08/28/20 07:55 Seg Neutrophils # 4.9 K/mm3 (1.8-7.7) 08/28/20 07:55 D-Dimer 295.00 ng/mlDDU (0-234) H 09/05/20 07:13 Sodium 143 mmol/L (137-145) 09/05/20 07:13 Potassium 4.1 mmol/L (3.6-5.0) 09/05/20 07:13 Chloride 99.6 mmol/L (98-107) 09/05/20 07:13 Carbon Dioxide 29 mmol/L (22-30) 09/05/20 07:13 Anion Gap 19 mmol/L 09/05/20 07:13 BUN 26 mg/dL (9-20) H 09/05/20 07:13 Creatinine 0.7 mg/dL (0.8-1.3) L 09/05/20 07:13 Estimated GFR > 60 ml/min 09/05/20 07:13 BUN/Creatinine Ratio 37 % 09/05/20 07:13 Glucose 140 mg/dL (75-100) H 09/05/20 07:13 Hemoglobin A1c 6.4 % (4-6) H 08/28/20 07:55 Lactic Acid 1.60 mmol/L (0.7-2.0) 08/27/20 16:51 Calcium 9.9 mg/dL (8.4-10.2) 09/05/20 07:13 Ferritin 1051.0 ng/mL (30.0-300.0) H 09/05/20 07:13 Total Bilirubin 0.90 mg/dL (0.1-1.2) 09/05/20 07:13 AST 61 units/L (5-40) H 09/05/20 07:13 ALT 170 units/L (7-56) H 09/05/20 07:13 Alkaline Phosphatase 79 units/L (35-129) 09/05/20 07:13 Lactate Dehydrogenase 399 units/L (91-180) H 09/05/20 07:13 Troponin T < 0.010 ng/mL (0.00-0.029) 08/27/20 11:56 C-Reactive Protein 2.30 mg/dL (0.00-1.30) H 09/05/20 07:13 NT-Pro-B Natriuret Pep < 5 pg/mL (0-450) 08/27/20 11:56 Total Protein 7.8 g/dL (6.3-8.2) 09/05/20 07:13 Albumin 3.5 g/dL (3.9-5) L 09/05/20 07:13 Albumin/Globulin Ratio 0.8 % 09/05/20 07:13 Procalcitonin 0.09 ng/mL (<0.15) 08/27/20 11:56 Urine Color Kim (Yellow) 08/27/20 Unknown Urine Turbidity Clear (Clear) 08/27/20 Unknown Urine pH 5.0 (5.0-7.0) 08/27/20 Unknown Ur Specific [place] 1.040 (1.003-1.030) H 08/27/20 Unknown Urine Protein >500 mg/dL (Negative) 08/27/20 Unknown Urine Glucose (UA) Neg mg/dL (Negative) 08/27/20 Unknown Urine Ketones 20 mg/dL (Negative) 08/27/20 Unknown Urine Blood Mod (Negative) 08/27/20 Unknown Urine Nitrite Neg (Negative) 08/27/20 Unknown Urine Bilirubin Neg (Negative) 08/27/20 Unknown Urine Urobilinogen < 2.0 mg/dL (<2.0) 08/27/20 Unknown Ur Leukocyte Esterase Neg (Negative) 08/27/20 Unknown Urine WBC (Auto) 11.0 /HPF (0.0-6.0) H 08/27/20 Unknown Urine RBC (Auto) 2.0 /HPF (0.0-6.0) 08/27/20 Unknown U Epithel Cells (Auto) 1.0 /HPF (0-13.0) 08/27/20 Unknown Urine Mucus 1+ /HPF 08/27/20 Unknown Coronavirus (PCR) Positive (Negative) A 08/27/20 Unknown [place]/IV: Voiding Method Urinal Active Medications - Current Medications Current Medications: Generic Name Dose Route Start Last Admin Trade Name Freq PRN Reason Stop Dose Admin Acetaminophen 650 mg 08/27/20 17:05 09/03/20 21:41 Acetaminophen 325 Mg Tab PO 650 mg Q4H PRN Administration Pain MILD(1-3)/Fever >100.5/JACOBS Albuterol 2 puff 09/02/20 22:51 Albuterol 8.5 Gm Mdi Inhalation IH Q4HRT PRN Shortness Of Breath Arformoterol Tartrate 15 mcg 09/01/20 08:30 09/05/20 10:15 Arformoterol 15 Mcg/2 Ml Nebu IH 15 mcg Q12HRT [place] Administration Ascorbic Acid 1,000 mg 08/27/20 22:00 09/05/20 11:31 Ascorbic Acid 500 Mg Tab PO 1,000 mg BID [place] Administration Budesonide 0.5 mg 09/01/20 08:30 09/05/20 10:15 Budesonide 0.5 Mg/2 Ml Nebu IH 0.5 mg Q12HRT [place] Administration Cholecalciferol 5,000 unit 08/27/20 18:00 09/05/20 11:31 Cholecalciferol (Vit D3) 5,000 Unit Tab PO 5,000 unit DAILY [place] Administration Enoxaparin Sodium 100 mg 09/03/20 10:00 09/05/20 11:32 Enoxaparin 100 Mg/1 Ml Inj 1 mg/kg (100 mg) 100 mg SUB-Q Administration Q12HR [facility] Protocol Famotidine 20 mg 08/27/20 22:00 09/05/20 11:31 Famotidine 20 Mg Tab PO 20 mg BID [place] Administration Guaifenesin 200 mg 08/28/20 12:50 09/01/20 21:11 Guaifenesin 100 Mg/5 Ml Oral Liqd PO 200 mg Q4H PRN Administration Cough Morphine Sulfate 2 mg 09/05/20 11:44 09/05/20 11:51 Morphine 2 Mg/1 Ml Inj IV 2 mg Q4H PRN Administration Pain, Moderate (4-6) Ondansetron HCl 4 mg 08/27/20 17:05 09/05/20 11:40 Ondansetron 4 Mg/2 Ml Inj IV 4 mg Q3H PRN Administration Nausea And Vomiting Oxycodone/Acetaminophen 1 tab 08/27/20 17:05 09/04/20 22:58 Oxycodone /Acetaminophen 5-325mg Tab PO 1 tab Q6H PRN Administration Pain, Moderate (4-6) Sodium Chloride 10 ml 08/27/20 22:00 09/05/20 11:32 Sodium Chloride 0.9% 10 Ml Flush Syringe IV 10 ml BID [place] Administration Sodium Chloride 10 ml 08/27/20 17:05 Sodium Chloride 0.9% 10 Ml Flush Syringe IV PRN PRN LINE FLUSH Zinc Sulfate 220 mg 09/05/20 10:00 09/05/20 11:31 Zinc Sulfate 220 Mg Cap PO 220 mg QDAY [place] Administration Nutrition/Malnutrition Assess - Dietary Evaluation Nutrition/Malnutrition Findings: Nutrition Notes Start: 08/28/20 12:26 Freq: Status: Active Protocol: Document 09/02/20 09:33 [facility] (Rec: 09/02/20 09:35 [facility] [id number]) Nutrition Notes Initial or Follow up Brief Note Current Diet Regular + Ensure Enlive BID Subjective/Other Information Pt did not consume any meals yesterday. RN been encouraging him to at least drink ONS. Pt in prone position as much as possible. Nutrition Intervention Follow-Up By: 09/07/20 Additional Comments F/U: intakes (meals, ONS), wt
[2020-09-06] MEDS: ENOXAPARIN 100 MG/1 ML INJ SUB-Q SCH ×3 (00:45→22:56)
[2020-09-06] MEDS: ASCORBIC ACID 500 MG TAB PO SCH ×3 (00:46→22:56)
[2020-09-06] MEDS: FAMOTIDINE 20 MG TAB PO SCH ×3 (00:46→22:56)
[2020-09-06] MEDS: ARFORMOTEROL 15 MCG/2 ML NEBU IH SCH (08:43)
[2020-09-06] MEDS: BUDESONIDE 0.5 MG/2 ML NEBU IH SCH (08:43)
[2020-09-06] MEDS: ZINC SULFATE 220 MG CAP PO SCH (10:20)
[2020-09-06] MEDS: CHOLECALCIFEROL (VIT D3) 5,000 UNIT TAB PO SCH (10:20)
[2020-09-06 11:03] LABS: Basophils % (Auto) 0.2 % (0.0-1.8); Eosinophils # (Auto) 0.1 K/mm3 (0.0-0.4); Hematocrit 44.2 % (35.5-45.6); Hemoglobin 14.8 gm/dl (11.8-15.2); Lymphocytes # (Auto) 1.5 K/mm3 (1.2-5.4); Lymphocytes % (Auto) 10.2 % (13.4-35.0); Mean Corpuscular HGB Conc 33 % (32-34); Mean Corpuscular Volume 89 fl (84-94); Monocytes # (Auto) 1.7 K/mm3 (0.0-0.8); Monocytes % (Auto) 12.2 % (0.0-7.3); Platelet Count 327 K/mm3 (140-440); Red Blood Count 4.97 M/mm3 (3.65-5.03); Red Cell Distribution Width 13.2 % (13.2-15.2)
[2020-09-06 11:05] LABS: Alanine Aminotransferase 118 units/L (7-56); Albumin 3.1 g/dL (3.9-5); Blood Urea Nitrogen 22 mg/dL (9-20); Calcium 9.3 mg/dL (8.4-10.2); Hemolysis Index 22
[2020-09-06 11:06] LABS: BUN/Creatinine Ratio 37
--- NOTE | 2020-09-06 11:15 | Progress Note ---
Assessment and Plan 35 y/o male with acute respiratory failure secondary to COVID 19 pneumonia. 09/06/20: Will give lasix now. Put back on steroids but this IV 40q8. Wean FiO2 for sats > 88% and stress the importance of proning. 09/03/20: Lasix 40 now and then will order another dose for 2000 tonight. BMP is stable. Wean FiO2 for sats >88%. Continue to prone nightly and PRN. Finished Remdesivir, still on steroids. 09/02/20: Continue proning at night and during the day as well if possible. Lasix 40 again today. Would check BMP tomorrow. Wean FiO2 and flow for sats >88%. Prognosis still remains guarded. 09/01/20: Documented proning this am with improvement in Sats and oxygen requirement. Lasix again today. Strict I/O. reviewed ID note and appreciate them answering the Actemra inquiry. Guarded prognosis, will continue to follow. 08/31/20: Still no documentation of proning. Lasix again today and ordered strict I/O. Follow up ID recs. Will ask if Actemra is still being used. Guarded prognosis. 08/30. Proning order is in, very important that patient do this. Lasix again today but this time, 40mg IV. Remdesivir and steroids. Guarded prognosis. Please document if patient is refusing to prone. IV steroids Stopped duonebs given nature of disease with concern for spread Lasix 20mg IV x1 today Prone during the day as tolerated and sleep prone at night Guarded prognosis. Subjective Date of service: 09/06/20 Principal diagnosis: COVID-19 Interval history: patient was down to 5 liters but has since been increased back up to 10. Steroids have fallen off APR. Objective Vital Signs - 12hr 09/06/20 02:00 O2 Sat by Pulse 96 Oximetry Constitutional: no acute distress ENT: oropharynx moist Neck: supple Ascultation: Bilateral: clear Cardiovascular: regular rate and rhythm Gastrointestinal: normoactive bowel sounds, soft, non-tender Integumentary: normal Extremities: no cyanosis Neurologic: normal mental status Psychiatric: mood appropriate CBC and BMP: 09/06/20 10:20 09/06/20 10:20 ABG, PT/INR, D-dimer: PT/INR, D-dimer D-Dimer 295.00 ng/mlDDU (0-234) H 09/05/20 07:13 Abnormal lab findings: Abnormal Labs 08/27/20 08/27/20 08/27/20 11:56 11:56 11:56 WBC RBC Hgb Hct Lymph % (Auto) [place] % (Auto) Lymph # (Auto) [place] # (Auto) Seg Neutrophils % Seg Neutrophils # D-Dimer 291.43 H Sodium Potassium Chloride Carbon Dioxide BUN Creatinine Glucose Hemoglobin A1c Ferritin 572.3 H AST ALT Lactate Dehydrogenase 313 H C-Reactive Protein 4.40 H Albumin Ur Specific [place] Urine WBC (Auto) Coronavirus (PCR) 08/27/20 08/27/20 08/27/20 11:56 11:56 Unknown WBC RBC Hgb Hct Lymph % (Auto) 10.3 L [place] % (Auto) Lymph # (Auto) 0.7 L [place] # (Auto) Seg Neutrophils % 84.6 H Seg Neutrophils # D-Dimer Sodium Potassium 3.4 L Chloride Carbon Dioxide BUN Creatinine Glucose 125 H Hemoglobin A1c Ferritin AST 66 H ALT Lactate Dehydrogenase C-Reactive Protein Albumin Ur Specific [place] Urine WBC (Auto) Coronavirus (PCR) Positive A 08/27/20 08/28/20 08/28/20 Unknown 07:55 07:55 WBC RBC 5.06 H Hgb Hct Lymph % (Auto) 9.7 L [place] % (Auto) Lymph # (Auto) 0.6 L [place] # (Auto) Seg Neutrophils % 84.8 H Seg Neutrophils # D-Dimer Sodium Potassium Chloride Carbon Dioxide BUN Creatinine Glucose 125 H Hemoglobin A1c Ferritin AST 80 H ALT Lactate Dehydrogenase C-Reactive Protein Albumin Ur Specific [place] 1.040 H Urine WBC (Auto) 11.0 H Coronavirus (PCR) 08/28/20 08/30/20 08/30/20 07:55 06:51 06:51 WBC RBC 5.04 H Hgb Hct Lymph % (Auto) [place] % (Auto) Lymph # (Auto) [place] # (Auto) Seg Neutrophils % Seg Neutrophils # D-Dimer Sodium Potassium Chloride Carbon Dioxide BUN Creatinine Glucose 144 H Hemoglobin A1c 6.4 H Ferritin AST 99 H ALT Lactate Dehydrogenase C-Reactive Protein Albumin 3.8 L Ur Specific [place] Urine WBC (Auto) Coronavirus (PCR) 08/30/20 08/30/20 08/31/20 14:18 14:18 05:43 WBC RBC Hgb Hct Lymph % (Auto) [place] % (Auto) Lymph # (Auto) [place] # (Auto) Seg Neutrophils % Seg Neutrophils # D-Dimer Sodium Potassium 5.1 H Chloride Carbon Dioxide 20 L D BUN 25 H Creatinine 0.7 L Glucose 158 H Hemoglobin A1c Ferritin 1166.0 H AST 75 H ALT Lactate Dehydrogenase 529 H C-Reactive Protein 5.90 H Albumin 3.3 L Ur Specific [place] Urine WBC (Auto) Coronavirus (PCR) 09/01/20 09/01/20 09/01/20 06:11 06:11 19:48 WBC RBC 5.11 H Hgb Hct Lymph % (Auto) [place] % (Auto) Lymph # (Auto) [place] # (Auto) Seg Neutrophils % Seg Neutrophils # D-Dimer Sodium Potassium Chloride Carbon Dioxide BUN 27 H Creatinine Glucose 151 H Hemoglobin A1c Ferritin 1859.0 H AST 67 H ALT 69 H Lactate Dehydrogenase C-Reactive Protein Albumin 3.7 L Ur Specific [place] Urine WBC (Auto) Coronavirus (PCR) 09/01/20 09/03/20 09/03/20 19:48 06:17 06:17 WBC RBC Hgb Hct Lymph % (Auto) [place] % (Auto) Lymph # (Auto) [place] # (Auto) Seg Neutrophils % Seg Neutrophils # D-Dimer 566.54 H Sodium Potassium Chloride Carbon Dioxide BUN Creatinine Glucose 149 H Hemoglobin A1c Ferritin AST ALT Lactate Dehydrogenase 558 H 350 H C-Reactive Protein 1.50 H 1.70 H Albumin Ur Specific [place] Urine WBC (Auto) Coronavirus (PCR) 09/03/20 09/03/20 09/05/20 06:17 09:32 07:13 WBC RBC Hgb Hct Lymph % (Auto) [place] % (Auto) Lymph # (Auto) [place] # (Auto) Seg Neutrophils % Seg Neutrophils # D-Dimer 295.00 H Sodium Potassium Chloride Carbon Dioxide BUN 28 H Creatinine Glucose 172 H Hemoglobin A1c Ferritin 1194.0 H AST ALT Lactate Dehydrogenase C-Reactive Protein Albumin Ur Specific [place] Urine WBC (Auto) Coronavirus (PCR) 09/05/20 09/05/20 09/05/20 07:13 07:13 07:13 WBC 19.6 H RBC 5.48 H Hgb 16.1 H Hct 49.5 H Lymph % (Auto) [place] % (Auto) Lymph # (Auto) [place] # (Auto) Seg Neutrophils % Seg Neutrophils # D-Dimer Sodium Potassium Chloride Carbon Dioxide BUN 26 H Creatinine 0.7 L Glucose 140 H Hemoglobin A1c Ferritin 1051.0 H AST 61 H ALT 170 H Lactate Dehydrogenase 399 H C-Reactive Protein 2.30 H Albumin 3.5 L Ur Specific [place] Urine WBC (Auto) Coronavirus (PCR) 09/06/20 09/06/20 10:20 10:20 WBC 14.3 H RBC Hgb Hct Lymph % (Auto) 10.2 L [place] % (Auto) 12.2 H Lymph # (Auto) [place] # (Auto) 1.7 H Seg Neutrophils % 76.4 H Seg Neutrophils # 10.9 H D-Dimer Sodium 133 L D Potassium 3.5 L Chloride 93.3 L Carbon Dioxide BUN 22 H Creatinine 0.6 L Glucose 147 H Hemoglobin A1c Ferritin AST ALT 118 H Lactate Dehydrogenase C-Reactive Protein Albumin 3.1 L Ur Specific [place] Urine WBC (Auto) Coronavirus (PCR)
--- NOTE | 2020-09-06 11:50 | Progress Note ---
Assessment and Plan Assessment and plan: 35-year-old male with no known past medical history comes in for fever cough and generalized weakness. Also patient has decreased appetite and decreased taste sensation. Patient has not taken Covid vaccination. Patient has wheezing. No history of asthma. No bowel movement for 6 days. He drove into [place] from [place] 10 days ago. No recent surgery. Not sure about exposure to Covid virus. (1) Acute respiratory failure with hypoxia Current Visit: Yes Status: Acute Plan to address problem: Due to Covid-19 Oxygen supplementation as necessary Bilateral pneumonia (2) SIRS (systemic inflammatory response syndrome) Current Visit: Yes Status: Acute Plan to address problem: All inflammatory markers are elevated including LDH of 313 and CRP of 4.4 (3) Bilateral pneumonia Current Visit: Yes Status: Acute Plan to address problem: Patient initiated on IV Zithromax and IV Rocephin (4) Pneumonia due to COVID-19 virus Current Visit: Yes Status: Acute Plan to address problem: Coronavirus PCR positive IV Decadron 8 mg every 24 initiated ID consult requested, zinc sulfate, vitamin C and vitamin D added (5) Hypokalemia- Hyperkalemia Current Visit: Yes Status: Acute Plan to address problem: Supplemented (6) DVT prophylaxis Current Visit: Yes Status: Acute Plan to address problem: On Lovenox and GI prophylaxis 08/28/20 Patient with acute resp failure due to bilateral pneumonia from Covid-19 infection. He is on Rocephin, Zithromax, Decadron, Zinc and supplemental Oxygen. Continue Oxygen, now at 4 l/min NC. ID Physician to see. Will also consult Pulm 08/29/20 Patient with acute resp failure due to bilateral pneumonia from Covid-19 infection. Still has shortness of breath, still has a fever Tmax 102.7 ID Physician and Pulmonology following. 08/30/20 Patient with acute respiratory failure due to bilateral pneumonia from Covid-19 infection. patient still very ill, still has fever, shortness of breath and cough. He is now on Oxygen at 15 l/min. He was on 4 l/min yesterday Continue Remdesivir, Decadron, Zinc, Vit C Pulmonology and ID Physician following 08/31: Agree with intermittent Lasix. Continue to wean high flow oxygen. ID and pulmonary following. Patient unfortunately did not receive the Covid vaccine but states he will get it this acute illness is resolved and will follow the recommended guidelines. Hyperkalemia, expected to resolved with the lasix, will recheck. 09/01: Patient this am noted with proned position, some improvement in saturation. Per Pulmonary, "Lasix again today. Strict I/O. reviewed ID note and appreciate them answering the Actemra inquiry. Guarded prognosis, will continue to follow" Continue supportive care. 09/02: Continue supportive care at this time. In addition to the Lasix today we will add incentive spirometer. Continue to encourage proning at night and during the day as much as feasible. Condition remains guarded wean oxygen as tolerated. 09/03: Continues to show gradual clinical improvement. We will continue to monitor continue to encourage prone positioning. Encouraged to sit up as much as possible during the day and during hours of sleep. Continue pulmonary exercise. Will change to PPI IV. 09/04: Continue supportive care continue to wean oxygen as tolerated we will give additional Lasix today again and check BMP in a.m.. Adjusted the multiple vitamins and will reevaluate in the morning. Still on 7 L of oxygen prognosis is still guarded. Continue to encourage prone positioning 09/05: Continue supportive care wean down to 5 L of oxygen and continue to monitor. We will hold off on additional Lasix today. Reevaluate in a.m. 09/06: Brief summary 35-year-old male admitted with COVID-19 and hypoxic respiratory failure related to COVID-19. Had been improving but yesterday had a decline as he desatted following weaning off oxygen down to the low 80s. He has been placed on 70% 35 L high flow and is improving. He did report that he felt some wheezing as a result he has been switched to Solu-Medrol IV at this time. Lasix has been ordered by social media content specialist we will continue to follow and see how he improves we will continue to encourage prone positioning he verbalized understanding. The high probability of a clinically significant, sudden or life threatening deterioration of the [pulmonary] system(s) required my full and direct attention, intervention and personal management. The aggregate critical care time was [35] minutes. This time is in addition to time spent performing reported procedures but includes the following: [X] Data Review and interpretation [X] Patient assessment and monitoring of vital signs [X] Documentation [X] Medication orders and management History Interval history: Patient seen and examined remains shortness of breath desatted yesterday requiring put back on high flow at 70%. Hospitalist Physical - Physical exam Narrative exam: Gen: Not in acute distress, obese, on high flow oxygen 35 L, 70% HEENT: Normocephalic, atraumatic Lungs: bilateral rales, no wheeze, shallow breathing not rapid Heart:S1 and S2 reg, no murmurs, rubs or gallop Abd: soft, non tender, non distended, normal bowel sounds, Ext: no edema, no clubbing, no cycanosis Neuro: AAO x 3, moves all extremities, no focal neuro signs - Constitutional Vitals: Temp Pulse Resp BP Pulse Ox 98.2 F 128 H 20 121/78 96 09/05/20 22:25 09/06/20 08:43 09/06/20 08:43 09/05/20 22:25 09/06/20 09:00 General appearance: Present: obese HEART Score - HEART Score Troponin: Troponin T < 0.010 ng/mL (0.00-0.029) 08/27/20 11:56 Results - Labs CBC & Chem 7: 09/06/20 10:20 09/06/20 10:20 Labs: Laboratory Last Values WBC 14.3 K/mm3 (4.5-11.0) H 09/06/20 10:20 RBC 4.97 M/mm3 (3.65-5.03) 09/06/20 10:20 Hgb 14.8 gm/dl (11.8-15.2) 09/06/20 10:20 Hct 44.2 % (35.5-45.6) 09/06/20 10:20 MCV 89 fl (84-94) 09/06/20 10:20 MCH 30 pg (28-32) 09/06/20 10:20 MCHC 33 % (32-34) 09/06/20 10:20 RDW 13.2 % (13.2-15.2) 09/06/20 10:20 Plt Count 327 K/mm3 (140-440) 09/06/20 10:20 Lymph % (Auto) 10.2 % (13.4-35.0) L 09/06/20 10:20 Giles % (Auto) 12.2 % (0.0-7.3) H 09/06/20 10:20 Eos % (Auto) 1.0 % (0.0-4.3) 09/06/20 10:20 Baso % (Auto) 0.2 % (0.0-1.8) 09/06/20 10:20 Lymph # (Auto) 1.5 K/mm3 (1.2-5.4) 09/06/20 10:20 Giles # (Auto) 1.7 K/mm3 (0.0-0.8) H 09/06/20 10:20 Eos # (Auto) 0.1 K/mm3 (0.0-0.4) 09/06/20 10:20 Baso # (Auto) 0.0 K/mm3 (0.0-0.1) 09/06/20 10:20 Seg Neutrophils % 76.4 % (40.0-70.0) H 09/06/20 10:20 Seg Neutrophils # 10.9 K/mm3 (1.8-7.7) H 09/06/20 10:20 D-Dimer 295.00 ng/mlDDU (0-234) H 09/05/20 07:13 Sodium 133 mmol/L (137-145) L D 09/06/20 10:20 Potassium 3.5 mmol/L (3.6-5.0) L 09/06/20 10:20 Chloride 93.3 mmol/L (98-107) L 09/06/20 10:20 Carbon Dioxide 28 mmol/L (22-30) 09/06/20 10:20 Anion Gap 15 mmol/L 09/06/20 10:20 BUN 22 mg/dL (9-20) H 09/06/20 10:20 Creatinine 0.6 mg/dL (0.8-1.3) L 09/06/20 10:20 Estimated GFR > 60 ml/min 09/06/20 10:20 BUN/Creatinine Ratio 37 % 09/06/20 10:20 Glucose 147 mg/dL (75-100) H 09/06/20 10:20 Hemoglobin A1c 6.4 % (4-6) H 08/28/20 07:55 Lactic Acid 1.60 mmol/L (0.7-2.0) 08/27/20 16:51 Calcium 9.3 mg/dL (8.4-10.2) 09/06/20 10:20 Ferritin 1051.0 ng/mL (30.0-300.0) H 09/05/20 07:13 Total Bilirubin 0.80 mg/dL (0.1-1.2) 09/06/20 10:20 AST 38 units/L (5-40) 09/06/20 10:20 ALT 118 units/L (7-56) H 09/06/20 10:20 Alkaline Phosphatase 72 units/L (35-129) 09/06/20 10:20 Lactate Dehydrogenase 399 units/L (91-180) H 09/05/20 07:13 Troponin T < 0.010 ng/mL (0.00-0.029) 08/27/20 11:56 C-Reactive Protein 2.30 mg/dL (0.00-1.30) H 09/05/20 07:13 NT-Pro-B Natriuret Pep < 5 pg/mL (0-450) 08/27/20 11:56 Total Protein 6.9 g/dL (6.3-8.2) 09/06/20 10:20 Albumin 3.1 g/dL (3.9-5) L 09/06/20 10:20 Albumin/Globulin Ratio 0.8 % 09/06/20 10:20 Procalcitonin 0.09 ng/mL (<0.15) 08/27/20 11:56 Urine Color Kim (Yellow) 08/27/20 Unknown Urine Turbidity Clear (Clear) 08/27/20 Unknown Urine pH 5.0 (5.0-7.0) 08/27/20 Unknown Ur Specific Zanoni 1.040 (1.003-1.030) H 08/27/20 Unknown Urine Protein >500 mg/dL (Negative) 08/27/20 Unknown Urine Glucose (UA) Neg mg/dL (Negative) 08/27/20 Unknown Urine Ketones 20 mg/dL (Negative) 08/27/20 Unknown Urine Blood Mod (Negative) 08/27/20 Unknown Urine Nitrite Neg (Negative) 08/27/20 Unknown Urine Bilirubin Neg (Negative) 08/27/20 Unknown Urine Urobilinogen < 2.0 mg/dL (<2.0) 08/27/20 Unknown Ur Leukocyte Esterase Neg (Negative) 08/27/20 Unknown Urine WBC (Auto) 11.0 /HPF (0.0-6.0) H 08/27/20 Unknown Urine RBC (Auto) 2.0 /HPF (0.0-6.0) 08/27/20 Unknown U Epithel Cells (Auto) 1.0 /HPF (0-13.0) 08/27/20 Unknown Urine Mucus 1+ /HPF 08/27/20 Unknown Coronavirus (PCR) Positive (Negative) A 08/27/20 Unknown Traore/IV: Voiding Method Urinal Active Medications - Current Medications Current Medications: Generic Name Dose Route Start Last Admin Trade Name Freq PRN Reason Stop Dose Admin Acetaminophen 650 mg 08/27/20 17:05 09/03/20 21:41 Acetaminophen 325 Mg Tab PO 650 mg Q4H PRN Administration Pain MILD(1-3)/Fever >100.5/JACOBS Albuterol 2 puff 09/02/20 22:51 Albuterol 8.5 Gm Mdi Inhalation IH Q4HRT PRN Shortness Of Breath Ascorbic Acid 1,000 mg 08/27/20 22:00 09/06/20 10:18 Ascorbic Acid 500 Mg Tab PO 1,000 mg BID [facility] Administration Cholecalciferol 5,000 unit 08/27/20 18:00 09/06/20 10:20 Cholecalciferol (Vit D3) 5,000 Unit Tab PO 5,000 unit DAILY [facility] Administration Enoxaparin Sodium 100 mg 09/03/20 10:00 09/06/20 10:20 Enoxaparin 100 Mg/1 Ml Inj 1 mg/kg (100 mg) 100 mg SUB-Q Administration Q12HR [facility] Protocol Famotidine 20 mg 08/27/20 22:00 09/06/20 10:19 Famotidine 20 Mg Tab PO 20 mg BID [place] Administration Furosemide 40 mg 09/06/20 12:00 Furosemide 40 Mg/4 Ml Inj IV 09/06/20 15:00 ONCE@1200 NR Guaifenesin 200 mg 08/28/20 12:50 09/01/20 21:11 Guaifenesin 100 Mg/5 Ml Oral Liqd PO 200 mg Q4H PRN Administration Cough Methylprednisolone Sodium Succinate 40 mg 09/06/20 12:00 Methylprednisolone Sod Succinate 40 Mg/1 Ml Inj IV Q8HR [facility] Morphine Sulfate 2 mg 09/05/20 11:44 09/05/20 20:02 Morphine 2 Mg/1 Ml Inj IV 2 mg Q4H PRN Administration Pain, Moderate (4-6) Ondansetron HCl 4 mg 08/27/20 17:05 09/05/20 11:40 Ondansetron 4 Mg/2 Ml Inj IV 4 mg Q3H PRN Administration Nausea And Vomiting Oxycodone/Acetaminophen 1 tab 08/27/20 17:05 09/04/20 22:58 Oxycodone /Acetaminophen 5-325mg Tab PO 1 tab Q6H PRN Administration Pain, Moderate (4-6) Sodium Chloride 10 ml 08/27/20 22:00 09/06/20 10:20 Sodium Chloride 0.9% 10 Ml Flush Syringe IV 10 ml BID [facility] Administration Sodium Chloride 10 ml 08/27/20 17:05 Sodium Chloride 0.9% 10 Ml Flush Syringe IV PRN PRN LINE FLUSH Zinc Sulfate 220 mg 09/05/20 10:00 09/06/20 10:20 Zinc Sulfate 220 Mg Cap PO 220 mg QDAY [facility] Administration Nutrition/Malnutrition Assess - Dietary Evaluation Nutrition/Malnutrition Findings: Nutrition Notes Start: 08/28/20 12:26 Freq: Status: Active Protocol: Document 09/02/20 09:33 CARLI (Rec: 09/02/20 09:35 CARLI [id number]) Nutrition Notes Initial or Follow up Brief Note Current Diet Regular + Ensure Enlive BID Subjective/Other Information Pt did not consume any meals yesterday. RN been encouraging him to at least drink ONS. Pt in prone position as much as possible. Nutrition Intervention Follow-Up By: 09/07/20 Additional Comments F/U: intakes (meals, ONS), wt
[2020-09-06] MEDS ORDERED: FUROSEMIDE 40 MG/4 ML INJ IV NR (12:00)
[2020-09-06] MEDS ORDERED: FUROSEMIDE 40 MG/4 ML INJ IV ONE (12:00)
[2020-09-06] MEDS: methylPREDNISolone Sod Succinate 40 MG/1 ML INJ IV SCH ×2 (12:13→22:56)
--- NOTE | 2020-09-06 14:27 | Progress Note ---
Assessment and Plan Cultures: Blood culture no growth so far Covid PCR: Positive A/P: 35-year-old man past medical history morbid obesity presented to hospital with COVID-19 #Severe COVID-19 pneumonia: Patient presented with a week of symptoms, chest x- ray with diffuse bilateral infiltrates. Inflammatory markers elevated, ferritin worsening, D-dimer/CRP continues to improve. #Acute respiratory failure hypoxic: remains on [place] NC. #Morbid obesity: worse outcomes with COVID-19 Elevated LFTs: Likely due to COVID-19/remdesivir. Improving. Recs: Continue steroids per pulmonary Completed remdesivir Anticoagulation per protocol Oxygen weaning Sharlene Hernandez MD, FACP [facility] O: [phone] F: [phone] Subjective Date of service: 09/06/20 Principal diagnosis: COVID-19 Interval history: No fever. Continues to have some wheezing, shortness of breath. Remains on oxygen. Objective - Exam Narrative Exam: Physical Exam: Constitutional: Alert, cooperative. No acute distress Head, Ears, Nose: Normocephalic, atraumatic. External ears, nose normal Eyes: Conjunctivae/corneas clear. No icterus. No ptosis. Neck: Supple, no meningeal signs Cardiovascular: S1, S2 normal. Respiratory: few wheeze b/l GI: Soft, non-tender; bowel sounds normal. No peritoneal signs Musculoskeletal: No pedal edema, no cyanosis. Skin: No rash or abscess Hem/Lymphatic: No palpable cervical or supraclavicular nodes. No lymphangitis Psych: Mood ok. Affect normal Neurological: Awake, alert, oriented. No gross abnormality - Constitutional Vitals: Vital Signs Temp Pulse Resp BP Pulse Ox 98.2 F 128 H 20 121/78 97 09/05/20 22:25 09/06/20 08:43 09/06/20 08:43 09/05/20 22:25 09/06/20 10:00 Temperature -Last 24 Hours Temperature 98.2 F - Labs CBC & Chem 7: 09/06/20 10:20 09/06/20 10:20 Labs: Abnormal lab results 09/06/20 09/06/20 Range/Units 10:20 10:20 WBC 14.3 H (4.5-11.0) K/mm3 Lymph % (Auto) 10.2 L (13.4-35.0) % Cook % (Auto) 12.2 H (0.0-7.3) % Cook # (Auto) 1.7 H (0.0-0.8) K/mm3 Seg Neutrophils % 76.4 H (40.0-70.0) % Seg Neutrophils # 10.9 H (1.8-7.7) K/mm3 Sodium 133 L D (137-145) mmol/L Potassium 3.5 L (3.6-5.0) mmol/L Chloride 93.3 L (98-107) mmol/L BUN 22 H (9-20) mg/dL Creatinine 0.6 L (0.8-1.3) mg/dL Glucose 147 H (75-100) mg/dL ALT 118 H (7-56) units/L Albumin 3.1 L (3.9-5) g/dL
[2020-09-06] MEDS: MORPHINE 2 MG/1 ML INJ IV PRN (17:21)
[2020-09-07] MEDS: methylPREDNISolone Sod Succinate 40 MG/1 ML INJ IV SCH ×3 (06:32→22:29)
--- NOTE | 2020-09-07 07:50 | Progress Note ---
Assessment and Plan Assessment and plan: 35-year-old male with no known past medical history comes in for fever cough and generalized weakness. Also patient has decreased appetite and decreased taste sensation. Patient has not taken Covid vaccination. Patient has wheezing. No history of asthma. No bowel movement for 6 days. [address] drove into [place] from [place] 10 days ago. No recent surgery. Not sure about exposure to Covid virus. (1) Acute respiratory failure with hypoxia Current Visit: Yes Status: Acute Plan to address problem: Due to Covid-19 Oxygen supplementation as necessary Bilateral pneumonia (2) SIRS (systemic inflammatory response syndrome) Current Visit: Yes Status: Acute Plan to address problem: All inflammatory markers are elevated including LDH of 313 and CRP of 4.4 (3) Bilateral pneumonia Current Visit: Yes Status: Acute Plan to address problem: Patient initiated on IV Zithromax and IV Rocephin (4) Pneumonia due to COVID-19 virus Current Visit: Yes Status: Acute Plan to address problem: Coronavirus PCR positive IV Decadron 8 mg every 24 initiated ID consult requested, zinc sulfate, vitamin C and vitamin D added (5) Hypokalemia- Hyperkalemia Current Visit: Yes Status: Acute Plan to address problem: Supplemented (6) DVT prophylaxis Current Visit: Yes Status: Acute Plan to address problem: On Lovenox and GI prophylaxis 08/28/20 Patient with acute resp failure due to bilateral pneumonia from Covid-19 infection. He is on Rocephin, Zithromax, Decadron, Zinc and supplemental Oxygen. Continue Oxygen, now at 4 l/min NC. ID Physician to see. Will also consult Pulm 08/29/20 Patient with acute resp failure due to bilateral pneumonia from Covid-19 infection. Still has shortness of breath, still has a fever Tmax 102.7 ID Physician and Pulmonology following. 08/30/20 Patient with acute respiratory failure due to bilateral pneumonia from Covid-19 infection. patient still very ill, still has fever, shortness of breath and cough. He is now on Oxygen at 15 l/min. He was on 4 l/min yesterday Continue Remdesivir, Decadron, Zinc, Vit C Pulmonology and ID Physician following 08/31: Agree with intermittent Lasix. Continue to wean high flow oxygen. ID and pulmonary following. Patient unfortunately did not receive the Covid vaccine but states he will get it this acute illness is resolved and will follow the recommended guidelines. Hyperkalemia, expected to resolved with the lasix, will recheck. 09/01: Patient this am noted with proned position, some improvement in saturation. Per Pulmonary, "Lasix again today. Strict I/O. reviewed ID note and appreciate them answering the Actemra inquiry. Guarded prognosis, will continue to follow" Continue supportive care. 09/02: Continue supportive care at this time. In addition to the Lasix today we will add incentive spirometer. Continue to encourage proning at night and during the day as much as feasible. Condition remains guarded wean oxygen as tolerated. 09/03: Continues to show gradual clinical improvement. We will continue to monitor continue to encourage prone positioning. Encouraged to sit up as much as possible during the day and during hours of sleep. Continue pulmonary exercise. Will change to PPI IV. 09/04: Continue supportive care continue to wean oxygen as tolerated we will give additional Lasix today again and check BMP in a.m.. Adjusted the multiple vitamins and will reevaluate in the morning. Still on 7 L of oxygen prognosis is still guarded. Continue to encourage prone positioning 09/05: Continue supportive care wean down to 5 L of oxygen and continue to monitor. We will hold off on additional Lasix today. Reevaluate in a.m. 09/06: Brief summary 35-year-old male admitted with COVID-19 and hypoxic respiratory failure related to COVID-19. Had been improving but yesterday had a decline as he desatted following weaning off oxygen down to the low 80s. He has been placed on 70% 35 L high flow and is improving. He did report that he felt some wheezing as a result he has been switched to Solu-Medrol IV at this time. Lasix has been ordered by helper shear operator we will continue to follow and see how he improves we will continue to encourage prone positioning he verbalized understanding. 09/07; patient is on 25 L of high flow oxygen. Patient admitted for Covid p neumonia and was treated with IV remdesivir and now continue with Solu-Medrol. Continue proning. Pulmonary consult appreciated. Encourage proning. Patient is complaining wheezing but I could not heard on auscultation. History Interval history: Patient was seen and evaluated this morning Patient was on 25 L of high flow oxygen Patient is complaining wheezing Hospitalist Physical - Physical exam Narrative exam: Patient was on 25 L of high flow oxygen. The patient appeared well nourished and normally developed. Vital signs as documented. Head exam is unremarkable. No scleral icterus . Neck is without jugular venous distension, thyromegaly, or carotid bruits. Lungs are clear to auscultation. No wheezing. Cardiac exam reveals regular rate and Rhythm. Abdominal exam reveals normal bowel sounds, nontender, no organomegaly. Extremities are nonedematous and both femoral and pedal pulses are normal. CLOTH [place]ER: Alert and oriented 3. No focal weakness. - Constitutional Vitals: Temp Pulse Resp BP Pulse Ox 98.0 F 122 H 20 145/90 96 09/06/20 22:04 09/06/20 22:04 09/06/20 08:43 09/06/20 22:04 09/07/20 02:17 General appearance: Present: obese HEART Score - HEART Score Troponin: Troponin T < 0.010 ng/mL (0.00-0.029) 08/27/20 11:56 Results - Labs CBC & Chem 7: 09/06/20 10:20 09/07/20 07:59 Labs: Laboratory Last Values WBC 14.3 K/mm3 (4.5-11.0) H 09/06/20 10:20 RBC 4.97 M/mm3 (3.65-5.03) 09/06/20 10:20 Hgb 14.8 gm/dl (11.8-15.2) 09/06/20 10:20 Hct 44.2 % (35.5-45.6) 09/06/20 10:20 MCV 89 fl (84-94) 09/06/20 10:20 MCH 30 pg (28-32) 09/06/20 10:20 MCHC 33 % (32-34) 09/06/20 10:20 RDW 13.2 % (13.2-15.2) 09/06/20 10:20 Plt Count 327 K/mm3 (140-440) 09/06/20 10:20 Lymph % (Auto) 10.2 % (13.4-35.0) L 09/06/20 10:20 [place] % (Auto) 12.2 % (0.0-7.3) H 09/06/20 10:20 Eos % (Auto) 1.0 % (0.0-4.3) 09/06/20 10:20 Baso % (Auto) 0.2 % (0.0-1.8) 09/06/20 10:20 Lymph # (Auto) 1.5 K/mm3 (1.2-5.4) 09/06/20 10:20 [place] # (Auto) 1.7 K/mm3 (0.0-0.8) H 09/06/20 10:20 Eos # (Auto) 0.1 K/mm3 (0.0-0.4) 09/06/20 10:20 Baso # (Auto) 0.0 K/mm3 (0.0-0.1) 09/06/20 10:20 Seg Neutrophils % 76.4 % (40.0-70.0) H 09/06/20 10:20 Seg Neutrophils # 10.9 K/mm3 (1.8-7.7) H 09/06/20 10:20 D-Dimer 295.00 ng/mlDDU (0-234) H 09/05/20 07:13 Sodium 133 mmol/L (137-145) L D 09/06/20 10:20 Potassium 3.5 mmol/L (3.6-5.0) L 09/06/20 10:20 Chloride 93.3 mmol/L (98-107) L 09/06/20 10:20 Carbon Dioxide 28 mmol/L (22-30) 09/06/20 10:20 Anion Gap 15 mmol/L 09/06/20 10:20 BUN 22 mg/dL (9-20) H 09/06/20 10:20 Creatinine 0.6 mg/dL (0.8-1.3) L 09/06/20 10:20 Estimated GFR > 60 ml/min 09/06/20 10:20 BUN/Creatinine Ratio 37 % 09/06/20 10:20 Glucose 147 mg/dL (75-100) H 09/06/20 10:20 Hemoglobin A1c 6.4 % (4-6) H 08/28/20 07:55 Lactic Acid 1.60 mmol/L (0.7-2.0) 08/27/20 16:51 Calcium 9.3 mg/dL (8.4-10.2) 09/06/20 10:20 Ferritin 1051.0 ng/mL (30.0-300.0) H 09/05/20 07:13 Total Bilirubin 0.80 mg/dL (0.1-1.2) 09/06/20 10:20 AST 38 units/L (5-40) 09/06/20 10:20 ALT 118 units/L (7-56) H 09/06/20 10:20 Alkaline Phosphatase 72 units/L (35-129) 09/06/20 10:20 Lactate Dehydrogenase 399 units/L (91-180) H 09/05/20 07:13 Troponin T < 0.010 ng/mL (0.00-0.029) 08/27/20 11:56 C-Reactive Protein 2.30 mg/dL (0.00-1.30) H 09/05/20 07:13 NT-Pro-B Natriuret Pep < 5 pg/mL (0-450) 08/27/20 11:56 Total Protein 6.9 g/dL (6.3-8.2) 09/06/20 10:20 Albumin 3.1 g/dL (3.9-5) L 09/06/20 10:20 Albumin/Globulin Ratio 0.8 % 09/06/20 10:20 Procalcitonin 0.09 ng/mL (<0.15) 08/27/20 11:56 Urine Color Kim (Yellow) 08/27/20 Unknown Urine Turbidity Clear (Clear) 08/27/20 Unknown Urine pH 5.0 (5.0-7.0) 08/27/20 Unknown Ur Specific [place] 1.040 (1.003-1.030) H 08/27/20 Unknown Urine Protein >500 mg/dL (Negative) 08/27/20 Unknown Urine Glucose (UA) Neg mg/dL (Negative) 08/27/20 Unknown Urine Ketones 20 mg/dL (Negative) 08/27/20 Unknown Urine Blood Mod (Negative) 08/27/20 Unknown Urine Nitrite Neg (Negative) 08/27/20 Unknown Urine Bilirubin Neg (Negative) 08/27/20 Unknown Urine Urobilinogen < 2.0 mg/dL (<2.0) 08/27/20 Unknown Ur Leukocyte Esterase Neg (Negative) 08/27/20 Unknown Urine WBC (Auto) 11.0 /HPF (0.0-6.0) H 08/27/20 Unknown Urine RBC (Auto) 2.0 /HPF (0.0-6.0) 08/27/20 Unknown U Epithel Cells (Auto) 1.0 /HPF (0-13.0) 08/27/20 Unknown Urine Mucus 1+ /HPF 08/27/20 Unknown Coronavirus (PCR) Positive (Negative) A 08/27/20 Unknown Traore/IV: Voiding Method Urinal Active Medications - Current Medications Current Medications: Generic Name Dose Route Start Last Admin Trade Name Freq PRN Reason Stop Dose Admin Acetaminophen 650 mg 08/27/20 17:05 09/03/20 21:41 Acetaminophen 325 Mg Tab PO 650 mg Q4H PRN Administration Pain MILD(1-3)/Fever >100.5/JACOBS Albuterol 2 puff 09/02/20 22:51 Albuterol 8.5 Gm Mdi Inhalation IH Q4HRT PRN Shortness Of Breath Ascorbic Acid 1,000 mg 08/27/20 22:00 09/06/20 22:56 Ascorbic Acid 500 Mg Tab PO 1,000 mg BID WE[place]ON Administration Cholecalciferol 5,000 unit 08/27/20 18:00 09/06/20 10:20 Cholecalciferol (Vit D3) 5,000 Unit Tab PO 5,000 unit DAILY WE[place]ON Administration Enoxaparin Sodium 100 mg 09/03/20 10:00 09/06/20 22:56 Enoxaparin 100 Mg/1 Ml Inj 1 mg/kg (100 mg) 100 mg SUB-Q Administration Q12HR [facility] Protocol Famotidine 20 mg 08/27/20 22:00 09/06/20 22:56 Famotidine 20 Mg Tab PO 20 mg BID [place] Administration Guaifenesin 200 mg 08/28/20 12:50 09/01/20 21:11 Guaifenesin 100 Mg/5 Ml Oral Liqd PO 200 mg Q4H PRN Administration Cough Methylprednisolone Sodium Succinate 40 mg 09/06/20 12:00 09/07/20 06:32 Methylprednisolone Sod Succinate 40 Mg/1 Ml Inj IV 40 mg Q8HR [place] Administration Morphine Sulfate 2 mg 09/05/20 11:44 09/06/20 17:21 Morphine 2 Mg/1 Ml Inj IV 2 mg Q4H PRN Administration Pain, Moderate (4-6) Ondansetron HCl 4 mg 08/27/20 17:05 09/05/20 11:40 Ondansetron 4 Mg/2 Ml Inj IV 4 mg Q3H PRN Administration Nausea And Vomiting Oxycodone/Acetaminophen 1 tab 08/27/20 17:05 09/04/20 22:58 Oxycodone /Acetaminophen 5-325mg Tab PO 1 tab Q6H PRN Administration Pain, Moderate (4-6) Sodium Chloride 10 ml 08/27/20 22:00 09/06/20 22:56 Sodium Chloride 0.9% 10 Ml Flush Syringe IV 10 ml BID [place] Administration Sodium Chloride 10 ml 08/27/20 17:05 Sodium Chloride 0.9% 10 Ml Flush Syringe IV PRN PRN LINE FLUSH Zinc Sulfate 220 mg 09/05/20 10:00 09/06/20 10:20 Zinc Sulfate 220 Mg Cap PO 220 mg QDAY [place] Administration Nutrition/Malnutrition Assess - Dietary Evaluation Nutrition/Malnutrition Findings: Nutrition Notes Start: 08/28/20 12:26 Freq: Status: Active Protocol: Document 09/02/20 09:33 CARLI (Rec: 09/02/20 09:35 DENIGEL [id number]) Nutrition Notes Initial or Follow up Brief Note Current Diet Regular + Ensure Enlive BID Subjective/Other Information Pt did not consume any meals yesterday. RN been encouraging him to at least drink ONS. Pt in prone position as much as possible. Nutrition Intervention Follow-Up By: 09/07/20 Additional Comments F/U: intakes (meals, ONS), wt
[2020-09-07 08:35] LABS: Blood Urea Nitrogen 22 mg/dL (9-20); Calcium 9.8 mg/dL (8.4-10.2); Hemolysis Index 4
[2020-09-07 08:42] LABS: BUN/Creatinine Ratio 37
[2020-09-07] MEDS: ENOXAPARIN 100 MG/1 ML INJ SUB-Q SCH ×2 (09:18→22:28)
[2020-09-07] MEDS: CHOLECALCIFEROL (VIT D3) 5,000 UNIT TAB PO SCH (09:19)
[2020-09-07] MEDS: ASCORBIC ACID 500 MG TAB PO SCH ×2 (09:19→22:30)
[2020-09-07] MEDS: ZINC SULFATE 220 MG CAP PO SCH (09:19)
[2020-09-07] MEDS: FAMOTIDINE 20 MG TAB PO SCH ×2 (09:19→22:29)
--- NOTE | 2020-09-07 09:39 | Progress Note ---
Assessment and Plan 35 y/o male with acute respiratory failure secondary to COVID 19 pneumonia. 09/07/20: Lasix again today. Continue IV solumedrol. Proning. Repeat CXR today. 09/06/20: Will give lasix now. Put back on steroids but this IV 40q8. Wean F iO2 for sats > 88% and stress the importance of proning. 09/03/20: Lasix 40 now and then will order another dose for 2000 tonight. BMP is stable. Wean FiO2 for sats >88%. Continue to prone nightly and PRN. Finished Remdesivir, still on steroids. 09/02/20: Continue proning at night and during the day as well if possible. Lasix 40 again today. Would check BMP tomorrow. Wean FiO2 and flow for sats >88%. Prognosis still remains guarded. 09/01/20: Documented proning this am with improvement in Sats and oxygen requirement. Lasix again today. Strict I/O. reviewed ID note and appreciate them answering the Actemra inquiry. Guarded prognosis, will continue to follow. 08/31/20: Still no documentation of proning. Lasix again today and ordered strict I/O. Follow up ID recs. Will ask if Actemra is still being used. Guarded prognosis. 08/30. Proning order is in, very important that patient do this. Lasix again today but this time, 40mg IV. Remdesivir and steroids. Guarded prognosis. Please document if patient is refusing to prone. IV steroids Stopped duonebs given nature of disease with concern for spread Lasix 20mg IV x1 today Prone during the day as tolerated and sleep prone at night Guarded prognosis. Subjective Date of service: 09/07/20 Principal diagnosis: COVID-19 Interval history: Oxygen got increased yesterday afternoon but now weaning back down again. needs repeat CXR. Objective Vital Signs - 12hr 09/06/20 09/06/20 09/06/20 21:57 22:00 22:04 Temperature 98.0 F Pulse Rate 122 H Respiratory Rate Blood Pressure 145/90 O2 Sat by Pulse 96 97 94 Oximetry 09/07/20 09/07/20 02:17 08:50 Temperature Pulse Rate Respiratory 20 Rate Blood Pressure O2 Sat by Pulse 96 95 Oximetry Constitutional: no acute distress ENT: oropharynx moist Neck: supple Ascultation: Bilateral: clear Cardiovascular: regular rate and rhythm Gastrointestinal: normoactive bowel sounds, soft, non-tender Integumentary: normal Extremities: no cyanosis Neurologic: normal mental status Psychiatric: mood appropriate CBC and BMP: 09/06/20 10:20 09/07/20 07:59 ABG, PT/INR, D-dimer: PT/INR, D-dimer D-Dimer 171.18 ng/mlDDU (0-234) 09/07/20 07:37 Abnormal lab findings: Abnormal Labs 08/27/20 08/27/20 08/27/20 11:56 11:56 11:56 WBC RBC Hgb Hct Lymph % (Auto) [place] % (Auto) Lymph # (Auto) [place] # (Auto) Seg Neutrophils % Seg Neutrophils # D-Dimer 291.43 H Sodium Potassium Chloride Carbon Dioxide BUN Creatinine Glucose Hemoglobin A1c Ferritin 572.3 H AST ALT Lactate Dehydrogenase 313 H C-Reactive Protein 4.40 H Albumin Ur Specific [place] Urine WBC (Auto) Coronavirus (PCR) 08/27/20 08/27/20 08/27/20 11:56 11:56 Unknown WBC RBC Hgb Hct Lymph % (Auto) 10.3 L [place] % (Auto) Lymph # (Auto) 0.7 L [place] # (Auto) Seg Neutrophils % 84.6 H Seg Neutrophils # D-Dimer Sodium Potassium 3.4 L Chloride Carbon Dioxide BUN Creatinine Glucose 125 H Hemoglobin A1c Ferritin AST 66 H ALT Lactate Dehydrogenase C-Reactive Protein Albumin Ur Specific [place] Urine WBC (Auto) Coronavirus (PCR) Positive A 08/27/20 08/28/20 08/28/20 Unknown 07:55 07:55 WBC RBC 5.06 H Hgb Hct Lymph % (Auto) 9.7 L [place] % (Auto) Lymph # (Auto) 0.6 L [place] # (Auto) Seg Neutrophils % 84.8 H Seg Neutrophils # D-Dimer Sodium Potassium Chloride Carbon Dioxide BUN Creatinine Glucose 125 H Hemoglobin A1c Ferritin AST 80 H ALT Lactate Dehydrogenase C-Reactive Protein Albumin Ur Specific [place] 1.040 H Urine WBC (Auto) 11.0 H Coronavirus (PCR) 08/28/20 08/30/20 08/30/20 07:55 06:51 06:51 WBC RBC 5.04 H Hgb Hct Lymph % (Auto) [place] % (Auto) Lymph # (Auto) [place] # (Auto) Seg Neutrophils % Seg Neutrophils # D-Dimer Sodium Potassium Chloride Carbon Dioxide BUN Creatinine Glucose 144 H Hemoglobin A1c 6.4 H Ferritin AST 99 H ALT Lactate Dehydrogenase C-Reactive Protein Albumin 3.8 L Ur Specific [place] Urine WBC (Auto) Coronavirus (PCR) 08/30/20 08/30/20 08/31/20 14:18 14:18 05:43 WBC RBC Hgb Hct Lymph % (Auto) [place] % (Auto) Lymph # (Auto) [place] # (Auto) Seg Neutrophils % Seg Neutrophils # D-Dimer Sodium Potassium 5.1 H Chloride Carbon Dioxide 20 L D BUN 25 H Creatinine 0.7 L Glucose 158 H Hemoglobin A1c Ferritin 1166.0 H AST 75 H ALT Lactate Dehydrogenase 529 H C-Reactive Protein 5.90 H Albumin 3.3 L Ur Specific [place] Urine WBC (Auto) Coronavirus (PCR) 09/01/20 09/01/20 09/01/20 06:11 06:11 19:48 WBC RBC 5.11 H Hgb Hct Lymph % (Auto) [place] % (Auto) Lymph # (Auto) [place] # (Auto) Seg Neutrophils % Seg Neutrophils # D-Dimer Sodium Potassium Chloride Carbon Dioxide BUN 27 H Creatinine Glucose 151 H Hemoglobin A1c Ferritin 1859.0 H AST 67 H ALT 69 H Lactate Dehydrogenase C-Reactive Protein Albumin 3.7 L Ur Specific [place] Urine WBC (Auto) Coronavirus (PCR) 09/01/20 09/03/20 09/03/20 19:48 06:17 06:17 WBC RBC Hgb Hct Lymph % (Auto) [place] % (Auto) Lymph # (Auto) [place] # (Auto) Seg Neutrophils % Seg Neutrophils # D-Dimer 566.54 H Sodium Potassium Chloride Carbon Dioxide BUN Creatinine Glucose 149 H Hemoglobin A1c Ferritin AST ALT Lactate Dehydrogenase 558 H 350 H C-Reactive Protein 1.50 H 1.70 H Albumin Ur Specific [place] Urine WBC (Auto) Coronavirus (PCR) 09/03/20 09/03/20 09/05/20 06:17 09:32 07:13 WBC RBC Hgb Hct Lymph % (Auto) [place] % (Auto) Lymph # (Auto) [place] # (Auto) Seg Neutrophils % Seg Neutrophils # D-Dimer 295.00 H Sodium Potassium Chloride Carbon Dioxide BUN 28 H Creatinine Glucose 172 H Hemoglobin A1c Ferritin 1194.0 H AST ALT Lactate Dehydrogenase C-Reactive Protein Albumin Ur Specific [place] Urine WBC (Auto) Coronavirus (PCR) 09/05/20 09/05/20 09/05/20 07:13 07:13 07:13 WBC 19.6 H RBC 5.48 H Hgb 16.1 H Hct 49.5 H Lymph % (Auto) [place] % (Auto) Lymph # (Auto) [place] # (Auto) Seg Neutrophils % Seg Neutrophils # D-Dimer Sodium Potassium Chloride Carbon Dioxide BUN 26 H Creatinine 0.7 L Glucose 140 H Hemoglobin A1c Ferritin 1051.0 H AST 61 H ALT 170 H Lactate Dehydrogenase 399 H C-Reactive Protein 2.30 H Albumin 3.5 L Ur Specific [place] Urine WBC (Auto) Coronavirus (PCR) 09/06/20 09/06/20 09/07/20 10:20 10:20 07:37 WBC 14.3 H RBC Hgb Hct Lymph % (Auto) 10.2 L [place] % (Auto) 12.2 H Lymph # (Auto) [place] # (Auto) 1.7 H Seg Neutrophils % 76.4 H Seg Neutrophils # 10.9 H D-Dimer Sodium 133 L D Potassium 3.5 L Chloride 93.3 L Carbon Dioxide BUN 22 H Creatinine 0.6 L Glucose 147 H Hemoglobin A1c Ferritin 786.5 H AST ALT 118 H Lactate Dehydrogenase C-Reactive Protein Albumin 3.1 L Ur Specific [place] Urine WBC (Auto) Coronavirus (PCR) 09/07/20 07:59 WBC RBC Hgb Hct Lymph % (Auto) [place] % (Auto) Lymph # (Auto) [place] # (Auto) Seg Neutrophils % Seg Neutrophils # D-Dimer Sodium 135 L Potassium Chloride 93.6 L Carbon Dioxide BUN 22 H Creatinine 0.6 L Glucose 156 H Hemoglobin A1c Ferritin AST ALT Lactate Dehydrogenase 265 H C-Reactive Protein Albumin Ur Specific [place] Urine WBC (Auto) Coronavirus (PCR)
[2020-09-07] MEDS ORDERED: FUROSEMIDE 40 MG/4 ML INJ IV NR (10:00)
--- NOTE | 2020-09-07 14:09 | Progress Note ---
Assessment and Plan Cultures: Blood culture no growth so far Covid PCR: Positive A/P: 35-year-old man past medical history morbid obesity presented to hospital with COVID-19 #Severe COVID-19 pneumonia: Patient presented with a week of symptoms, chest x- ray with diffuse bilateral infiltrates. D-dimer/CRP continue to improve. Co mpleted remdesivir. On steroids. #Acute respiratory failure hypoxic: remains on oxygen. #Morbid obesity: worse outcomes with COVID-19 #Elevated LFTs: Likely due to COVID-19/remdesivir. Improving. Recs: Continue steroids per pulmonary Completed remdesivir d-dimer, CRP continue to improve Sharlene Hernandez MD, FACP [facility] O: [phone] F: [phone] Subjective Date of service: 09/07/20 Principal diagnosis: COVID-19 Interval history: No fever. Remains on oxygen. Objective - Exam Narrative Exam: Physical Exam: Constitutional: Alert, cooperative. No acute distress Head, Ears, Nose: Normocephalic, atraumatic. External ears, nose normal Eyes: Conjunctivae/corneas clear. No icterus. No ptosis. Neck: Supple, no meningeal signs Cardiovascular: S1, S2 normal. Respiratory: occasional wheeze b/l GI: Soft, non-tender; bowel sounds normal. No peritoneal signs Musculoskeletal: No pedal edema, no cyanosis. Skin: No rash or abscess Hem/Lymphatic: No palpable cervical or supraclavicular nodes. No lymphangitis Psych: Mood ok. Affect normal Neurological: Awake, alert, oriented. No gross abnormality - Constitutional Vitals: Vital Signs Temp Pulse Resp BP Pulse Ox 98.0 F 122 H 20 145/90 95 09/06/20 22:04 09/06/20 22:04 09/07/20 08:50 09/06/20 22:04 09/07/20 08:50 Temperature -Last 24 Hours Temperature 98.0 F - Labs CBC & Chem 7: 09/06/20 10:20 09/07/20 07:59 Labs: Abnormal lab results 09/07/20 09/07/20 Range/Units 07:37 07:59 Sodium 135 L (137-145) mmol/L Chloride 93.6 L (98-107) mmol/L BUN 22 H (9-20) mg/dL Creatinine 0.6 L (0.8-1.3) mg/dL Glucose 156 H (75-100) mg/dL Ferritin 786.5 H (30.0-300.0) ng/mL Lactate Dehydrogenase 265 H (91-180) units/L
[2020-09-08] MEDS: methylPREDNISolone Sod Succinate 40 MG/1 ML INJ IV SCH ×3 (06:26→22:22)
--- NOTE | 2020-09-08 07:37 | Progress Note ---
Assessment and Plan Assessment and plan: 35-year-old male with no known past medical history comes in for fever cough and generalized weakness. Also patient has decreased appetite and decreased taste sensation. Patient has not taken Covid vaccination. Patient has wheezing. No history of asthma. No bowel movement for 6 days[address] He drove into [place] from [place] 10 days ago. No recent surgery. Not sure about exposure to Covid virus. (1) Acute respiratory failure with hypoxia Current Visit: Yes Status: Acute Plan to address problem: Due to Covid-19 Oxygen supplementation as necessary Bilateral pneumonia (2) SIRS (systemic inflammatory response syndrome) Current Visit: Yes Status: Acute Plan to address problem: All inflammatory markers are elevated including LDH of 313 and CRP of 4.4 (3) Bilateral pneumonia Current Visit: Yes Status: Acute Plan to address problem: Patient initiated on IV Zithromax and IV Rocephin (4) Pneumonia due to COVID-19 virus Current Visit: Yes Status: Acute Plan to address problem: Coronavirus PCR positive IV Decadron 8 mg every 24 initiated ID consult requested, zinc sulfate, vitamin C and vitamin D added (5) Hypokalemia- Hyperkalemia Current Visit: Yes Status: Acute Plan to address problem: Supplemented (6) DVT prophylaxis Current Visit: Yes Status: Acute Plan to address problem: On Lovenox and GI prophylaxis 08/28/20 Patient with acute resp failure due to bilateral pneumonia from Covid-19 infection. He is on Rocephin, Zithromax, Decadron, Zinc and supplemental Oxygen. Continue Oxygen, now at 4 l/min NC. ID Physician to see. Will also consult Pulm 08/29/20 Patient with acute resp failure due to bilateral pneumonia from Covid-19 infection. Still has shortness of breath, still has a fever Tmax 102.7 ID Physician and Pulmonology following. 08/30/20 Patient with acute respiratory failure due to bilateral pneumonia from Covid-19 infection. patient still very ill, still has fever, shortness of breath and cough. He is now on Oxygen at 15 l/min. He was on 4 l/min yesterday Continue Remdesivir, Decadron, Zinc, Vit C Pulmonology and ID Physician following 08/31: Agree with intermittent Lasix. Continue to wean high flow oxygen. ID and pulmonary following. Patient unfortunately did not receive the Covid vaccine but states he will get it this acute illness is resolved and will follow the recommended guidelines. Hyperkalemia, expected to resolved with the lasix, will recheck. 09/01: Patient this am noted with proned position, some improvement in saturation. Per Pulmonary, "Lasix again today. Strict I/O. reviewed ID note and appreciate them answering the Actemra inquiry. Guarded prognosis, will continue to follow" Continue supportive care. 09/02: Continue supportive care at this time. In addition to the Lasix today we will add incentive spirometer. Continue to encourage proning at night and during the day as much as feasible. Condition remains guarded wean oxygen as tolerated. 09/03: Continues to show gradual clinical improvement. We will continue to monitor continue to encourage prone positioning. Encouraged to sit up as much as possible during the day and during hours of sleep. Continue pulmonary exercise. Will change to PPI IV. 09/04: Continue supportive care continue to wean oxygen as tolerated we will give additional Lasix today again and check BMP in a.m.. Adjusted the multiple vitamins and will reevaluate in the morning. Still on 7 L of oxygen prognosis is still guarded. Continue to encourage prone positioning 09/05: Continue supportive care wean down to 5 L of oxygen and continue to monitor. We will hold off on additional Lasix today. Reevaluate in a.m. 09/06: Brief summary 35-year-old male admitted with COVID-19 and hypoxic respiratory failure related to COVID-19. Had been improving but yesterday had a decline as he desatted following weaning off oxygen down to the low 80s. He has been placed on 70% 35 L high flow and is improving. He did report that he felt some wheezing as a result he has been switched to Solu-Medrol IV at this time. Lasix has been ordered by heel gouger we will continue to follow and see how he improves we will continue to encourage prone positioning he verbalized understanding. 09/07; patient is on 25 L of high flow oxygen. Patient admitted for Covid p neumonia and was treated with IV remdesivir and now continue with Solu-Medrol. Continue proning. Pulmonary consult appreciated. Encourage proning. Patient is complaining wheezing but I could not heard on auscultation. 09/08; patient is on 25 L of high flow oxygen. Continue with Decadron. Encou rage proning. He was given Lasix today. History Interval history: Patient was seen and evaluated this morning Patient was on 25 L of high flow oxygen Patient said no wheezing today Hospitalist Physical - Physical exam Narrative exam: Patient was on 25 L of high flow oxygen. The patient appeared well nourished and normally developed. Vital signs as documented. Head exam is unremarkable. No scleral icterus . Neck is without jugular venous distension, thyromegaly, or carotid bruits. Lungs are clear to auscultation. No wheezing. Cardiac exam reveals regular rate and Rhythm. Abdominal exam reveals normal bowel sounds, nontender, no organomegaly. Extremities are nonedematous and both femoral and pedal pulses are normal. CRISIS SPECIALIST: Alert and oriented 3. No focal weakness. - Constitutional Vitals: Temp Pulse Resp BP Pulse Ox 98.3 F 111 H 18 128/83 94 09/08/20 04:20 09/08/20 04:20 09/08/20 04:20 09/08/20 04:20 09/08/20 04:20 General appearance: Present: obese HEART Score - HEART Score Troponin: Troponin T < 0.010 ng/mL (0.00-0.029) 08/27/20 11:56 Results - Labs CBC & Chem 7: 09/06/20 10:20 09/08/20 08:22 Labs: Laboratory Last Values WBC 14.3 K/mm3 (4.5-11.0) H 09/06/20 10:20 RBC 4.97 M/mm3 (3.65-5.03) 09/06/20 10:20 Hgb 14.8 gm/dl (11.8-15.2) 09/06/20 10:20 Hct 44.2 % (35.5-45.6) 09/06/20 10:20 MCV 89 fl (84-94) 09/06/20 10:20 MCH 30 pg (28-32) 09/06/20 10:20 MCHC 33 % (32-34) 09/06/20 10:20 RDW 13.2 % (13.2-15.2) 09/06/20 10:20 Plt Count 327 K/mm3 (140-440) 09/06/20 10:20 Lymph % (Auto) 10.2 % (13.4-35.0) L 09/06/20 10:20 [place] % (Auto) 12.2 % (0.0-7.3) H 09/06/20 10:20 Eos % (Auto) 1.0 % (0.0-4.3) 09/06/20 10:20 Baso % (Auto) 0.2 % (0.0-1.8) 09/06/20 10:20 Lymph # (Auto) 1.5 K/mm3 (1.2-5.4) 09/06/20 10:20 [place] # (Auto) 1.7 K/mm3 (0.0-0.8) H 09/06/20 10:20 Eos # (Auto) 0.1 K/mm3 (0.0-0.4) 09/06/20 10:20 Baso # (Auto) 0.0 K/mm3 (0.0-0.1) 09/06/20 10:20 Seg Neutrophils % 76.4 % (40.0-70.0) H 09/06/20 10:20 Seg Neutrophils # 10.9 K/mm3 (1.8-7.7) H 09/06/20 10:20 D-Dimer 171.18 ng/mlDDU (0-234) 09/07/20 07:37 Sodium 135 mmol/L (137-145) L 09/07/20 07:59 Potassium 4.0 mmol/L (3.6-5.0) 09/07/20 07:59 Chloride 93.6 mmol/L (98-107) L 09/07/20 07:59 Carbon Dioxide 29 mmol/L (22-30) 09/07/20 07:59 Anion Gap 16 mmol/L 09/07/20 07:59 BUN 22 mg/dL (9-20) H 09/07/20 07:59 Creatinine 0.6 mg/dL (0.8-1.3) L 09/07/20 07:59 Estimated GFR > 60 ml/min 09/07/20 07:59 BUN/Creatinine Ratio 37 % 09/07/20 07:59 Glucose 156 mg/dL (75-100) H 09/07/20 07:59 Hemoglobin A1c 6.4 % (4-6) H 08/28/20 07:55 Lactic Acid 1.60 mmol/L (0.7-2.0) 08/27/20 16:51 Calcium 9.8 mg/dL (8.4-10.2) 09/07/20 07:59 Ferritin 786.5 ng/mL (30.0-300.0) H 09/07/20 07:37 Total Bilirubin 0.80 mg/dL (0.1-1.2) 09/06/20 10:20 AST 38 units/L (5-40) 09/06/20 10:20 ALT 118 units/L (7-56) H 09/06/20 10:20 Alkaline Phosphatase 72 units/L (35-129) 09/06/20 10:20 Lactate Dehydrogenase 265 units/L (91-180) H 09/07/20 07:59 Troponin T < 0.010 ng/mL (0.00-0.029) 08/27/20 11:56 C-Reactive Protein 1.30 mg/dL (0.00-1.30) 09/07/20 07:59 NT-Pro-B Natriuret Pep < 5 pg/mL (0-450) 08/27/20 11:56 Total Protein 6.9 g/dL (6.3-8.2) 09/06/20 10:20 Albumin 3.1 g/dL (3.9-5) L 09/06/20 10:20 Albumin/Globulin Ratio 0.8 % 09/06/20 10:20 Procalcitonin 0.09 ng/mL (<0.15) 08/27/20 11:56 Urine Color Kim (Yellow) 08/27/20 Unknown Urine Turbidity Clear (Clear) 08/27/20 Unknown Urine pH 5.0 (5.0-7.0) 08/27/20 Unknown Ur Specific [place] 1.040 (1.003-1.030) H 08/27/20 Unknown Urine Protein >500 mg/dL (Negative) 08/27/20 Unknown Urine Glucose (UA) Neg mg/dL (Negative) 08/27/20 Unknown Urine Ketones 20 mg/dL (Negative) 08/27/20 Unknown Urine Blood Mod (Negative) 08/27/20 Unknown Urine Nitrite Neg (Negative) 08/27/20 Unknown Urine Bilirubin Neg (Negative) 08/27/20 Unknown Urine Urobilinogen < 2.0 mg/dL (<2.0) 08/27/20 Unknown Ur Leukocyte Esterase Neg (Negative) 08/27/20 Unknown Urine WBC (Auto) 11.0 /HPF (0.0-6.0) H 08/27/20 Unknown Urine RBC (Auto) 2.0 /HPF (0.0-6.0) 08/27/20 Unknown U Epithel Cells (Auto) 1.0 /HPF (0-13.0) 08/27/20 Unknown Urine Mucus 1+ /HPF 08/27/20 Unknown Coronavirus (PCR) Positive (Negative) A 08/27/20 Unknown [place]ore/IV: Voiding Method Urinal Active Medications - Current Medications Current Medications: Generic Name Dose Route Start Last Admin Trade Name Freq PRN Reason Stop Dose Admin Acetaminophen 650 mg 08/27/20 17:05 09/03/20 21:41 Acetaminophen 325 Mg Tab PO 650 mg Q4H PRN Administration Pain MILD(1-3)/Fever >100.5/JACOBS Albuterol 2 puff 09/02/20 22:51 Albuterol 8.5 Gm Mdi Inhalation IH Q4HRT PRN Shortness Of Breath Ascorbic Acid 1,000 mg 08/27/20 22:00 09/07/20 22:30 Ascorbic Acid 500 Mg Tab PO 1,000 mg BID [place] Administration Cholecalciferol 5,000 unit 08/27/20 18:00 09/07/20 09:19 Cholecalciferol (Vit D3) 5,000 Unit Tab PO 5,000 unit DAILY [place] Administration Enoxaparin Sodium 100 mg 09/03/20 10:00 09/07/20 22:28 Enoxaparin 100 Mg/1 Ml Inj 1 mg/kg (100 mg) 100 mg SUB-Q Administration Q12HR [facility] Protocol Famotidine 20 mg 08/27/20 22:00 09/07/20 22:29 Famotidine 20 Mg Tab PO 20 mg BID [place] Administration Guaifenesin 200 mg 08/28/20 12:50 09/01/20 21:11 Guaifenesin 100 Mg/5 Ml Oral Liqd PO 200 mg Q4H PRN Administration Cough Methylprednisolone Sodium Succinate 40 mg 09/06/20 12:00 09/08/20 06:26 Methylprednisolone Sod Succinate 40 Mg/1 Ml Inj IV 40 mg Q8HR [place] Administration Morphine Sulfate 2 mg 09/05/20 11:44 09/06/20 17:21 Morphine 2 Mg/1 Ml Inj IV 2 mg Q4H PRN Administration Pain, Moderate (4-6) Ondansetron HCl 4 mg 08/27/20 17:05 09/05/20 11:40 Ondansetron 4 Mg/2 Ml Inj IV 4 mg Q3H PRN Administration Nausea And Vomiting Oxycodone/Acetaminophen 1 tab 08/27/20 17:05 09/04/20 22:58 Oxycodone /Acetaminophen 5-325mg Tab PO 1 tab Q6H PRN Administration Pain, Moderate (4-6) Sodium Chloride 10 ml 08/27/20 22:00 09/07/20 22:29 Sodium Chloride 0.9% 10 Ml Flush Syringe IV 10 ml BID [place] Administration Sodium Chloride 10 ml 08/27/20 17:05 Sodium Chloride 0.9% 10 Ml Flush Syringe IV PRN PRN LINE FLUSH Zinc Sulfate 220 mg 09/05/20 10:00 09/07/20 09:19 Zinc Sulfate 220 Mg Cap PO 220 mg QDAY [place] Administration Nutrition/Malnutrition Assess - Dietary Evaluation Nutrition/Malnutrition Findings: Nutrition Notes Start: 08/28/20 12:26 Freq: Status: Active Protocol: Document 09/07/20 16:43 CW (Rec: 09/07/20 16:45 CW [id number]) Nutrition Notes Initial or Follow up Brief Note Current Diagnosis Hypertension,Respiratory Failure Other Pertinent Diagnosis COVID-19 (+), bilat pneu, SIRS Current Diet Regular + Ensure Enlive BID Weight Status Obese Subjective/Other Information Pt did not answer phone to discuss intake. RN and EMISSION SPECIALIST unavailable. No PO intakes recorded in chart Nutrition Intervention Follow-Up By: 09/08/20 Additional Comments intakes (meals, ONS), wt
[2020-09-08 09:13] LABS: BUN/Creatinine Ratio 30; Blood Urea Nitrogen 24 mg/dL (9-20); Calcium 9.6 mg/dL (8.4-10.2); Hemolysis Index 4
--- NOTE | 2020-09-08 09:44 | Progress Note ---
Assessment and Plan 35 y/o male with acute respiratory failure secondary to COVID 19 pneumonia. 09/08/20: CXR is slightly better. Continue solumedrol at current dosing. Continue to prone. Lasix again today as he still has a positive fluid balance. 09/07/20: Lasix again today. Continue IV solumedrol. Proning. Repeat CXR today. 09/06/20: Will give lasix now. Put back on steroids but this IV 40q8. Wean FiO2 for sats > 88% and stress the importance of proning. 09/03/20: Lasix 40 now and then will order another dose for 2000 tonight. BMP is stable. Wean FiO2 for sats >88%. Continue to prone nightly and PRN. Finished Remdesivir, still on steroids. 09/02/20: Continue proning at night and during the day as well if possible. Lasix 40 again today. Would check BMP tomorrow. Wean FiO2 and flow for sats >88%. Prognosis still remains guarded. 09/01/20: Documented proning this am with improvement in Sats and oxygen requirement. Lasix again today. Strict I/O. reviewed ID note and appreciate them answering the Actemra inquiry. Guarded prognosis, will continue to follow. 08/31/20: Still no documentation of proning. Lasix again today and ordered strict I/O. Follow up ID recs. Will ask if Actemra is still being used. Guarded prognosis. 08/30. Proning order is in, very important that patient do this. Lasix again today but this time, 40mg IV. Remdesivir and steroids. Guarded prognosis. Please document if patient is refusing to prone. IV steroids Stopped duonebs given nature of disease with concern for spread Lasix 20mg IV x1 today Prone during the day as tolerated and sleep prone at night Guarded prognosis. Subjective Date of service: 09/08/20 Principal diagnosis: COVID-19 Interval history: Good sats, but not weaned from current settings the last 48 hours. Labs stable. Still with positive fluid balance. Objective Vital Signs - 12hr 09/08/20 04:20 Temperature 98.3 F Pulse Rate 111 H Respiratory 18 Rate Blood Pressure 128/83 O2 Sat by Pulse 94 Oximetry Constitutional: no acute distress ENT: oropharynx moist Neck: supple Ascultation: Bilateral: clear Cardiovascular: regular rate and rhythm Gastrointestinal: normoactive bowel sounds, soft, non-tender Integumentary: normal Extremities: no cyanosis Neurologic: normal mental status Psychiatric: mood appropriate CBC and BMP: 09/06/20 10:20 09/08/20 08:22 ABG, PT/INR, D-dimer: PT/INR, D-dimer D-Dimer 171.18 ng/mlDDU (0-234) 09/07/20 07:37 Abnormal lab findings: Abnormal Labs 08/27/20 08/27/20 08/27/20 11:56 11:56 11:56 WBC RBC Hgb Hct Lymph % (Auto) [facility] % (Auto) Lymph # (Auto) [facility] # (Auto) Seg Neutrophils % Seg Neutrophils # D-Dimer 291.43 H Sodium Potassium Chloride Carbon Dioxide BUN Creatinine Glucose Hemoglobin A1c Ferritin 572.3 H AST ALT Lactate Dehydrogenase 313 H C-Reactive Protein 4.40 H Albumin Ur Specific [place] Urine WBC (Auto) Coronavirus (PCR) 08/27/20 08/27/20 08/27/20 11:56 11:56 Unknown WBC RBC Hgb Hct Lymph % (Auto) 10.3 L [facility] % (Auto) Lymph # (Auto) 0.7 L [facility] # (Auto) Seg Neutrophils % 84.6 H Seg Neutrophils # D-Dimer Sodium Potassium 3.4 L Chloride Carbon Dioxide BUN Creatinine Glucose 125 H Hemoglobin A1c Ferritin AST 66 H ALT Lactate Dehydrogenase C-Reactive Protein Albumin Ur Specific [place] Urine WBC (Auto) Coronavirus (PCR) Positive A 08/27/20 08/28/20 08/28/20 Unknown 07:55 07:55 WBC RBC 5.06 H Hgb Hct Lymph % (Auto) 9.7 L [facility] % (Auto) Lymph # (Auto) 0.6 L [facility] # (Auto) Seg Neutrophils % 84.8 H Seg Neutrophils # D-Dimer Sodium Potassium Chloride Carbon Dioxide BUN Creatinine Glucose 125 H Hemoglobin A1c Ferritin AST 80 H ALT Lactate Dehydrogenase C-Reactive Protein Albumin Ur Specific [place] 1.040 H Urine WBC (Auto) 11.0 H Coronavirus (PCR) 08/28/20 08/30/20 08/30/20 07:55 06:51 06:51 WBC RBC 5.04 H Hgb Hct Lymph % (Auto) [facility] % (Auto) Lymph # (Auto) [facility] # (Auto) Seg Neutrophils % Seg Neutrophils # D-Dimer Sodium Potassium Chloride Carbon Dioxide BUN Creatinine Glucose 144 H Hemoglobin A1c 6.4 H Ferritin AST 99 H ALT Lactate Dehydrogenase C-Reactive Protein Albumin 3.8 L Ur Specific [place] Urine WBC (Auto) Coronavirus (PCR) 08/30/20 08/30/20 08/31/20 14:18 14:18 05:43 WBC RBC Hgb Hct Lymph % (Auto) [facility] % (Auto) Lymph # (Auto) [facility] # (Auto) Seg Neutrophils % Seg Neutrophils # D-Dimer Sodium Potassium 5.1 H Chloride Carbon Dioxide 20 L D BUN 25 H Creatinine 0.7 L Glucose 158 H Hemoglobin A1c Ferritin 1166.0 H AST 75 H ALT Lactate Dehydrogenase 529 H C-Reactive Protein 5.90 H Albumin 3.3 L Ur Specific [place] Urine WBC (Auto) Coronavirus (PCR) 09/01/20 09/01/20 09/01/20 06:11 06:11 19:48 WBC RBC 5.11 H Hgb Hct Lymph % (Auto) [facility] % (Auto) Lymph # (Auto) [facility] # (Auto) Seg Neutrophils % Seg Neutrophils # D-Dimer Sodium Potassium Chloride Carbon Dioxide BUN 27 H Creatinine Glucose 151 H Hemoglobin A1c Ferritin 1859.0 H AST 67 H ALT 69 H Lactate Dehydrogenase C-Reactive Protein Albumin 3.7 L Ur Specific [place] Urine WBC (Auto) Coronavirus (PCR) 09/01/20 09/03/20 09/03/20 19:48 06:17 06:17 WBC RBC Hgb Hct Lymph % (Auto) [facility] % (Auto) Lymph # (Auto) [facility] # (Auto) Seg Neutrophils % Seg Neutrophils # D-Dimer 566.54 H Sodium Potassium Chloride Carbon Dioxide BUN Creatinine Glucose 149 H Hemoglobin A1c Ferritin AST ALT Lactate Dehydrogenase 558 H 350 H C-Reactive Protein 1.50 H 1.70 H Albumin Ur Specific [place] Urine WBC (Auto) Coronavirus (PCR) 09/03/20 09/03/20 09/05/20 06:17 09:32 07:13 WBC RBC Hgb Hct Lymph % (Auto) [facility] % (Auto) Lymph # (Auto) [facility] # (Auto) Seg Neutrophils % Seg Neutrophils # D-Dimer 295.00 H Sodium Potassium Chloride Carbon Dioxide BUN 28 H Creatinine Glucose 172 H Hemoglobin A1c Ferritin 1194.0 H AST ALT Lactate Dehydrogenase C-Reactive Protein Albumin Ur Specific [place] Urine WBC (Auto) Coronavirus (PCR) 09/05/20 09/05/20 09/05/20 07:13 07:13 07:13 WBC 19.6 H RBC 5.48 H Hgb 16.1 H Hct 49.5 H Lymph % (Auto) [facility] % (Auto) Lymph # (Auto) [facility] # (Auto) Seg Neutrophils % Seg Neutrophils # D-Dimer Sodium Potassium Chloride Carbon Dioxide BUN 26 H Creatinine 0.7 L Glucose 140 H Hemoglobin A1c Ferritin 1051.0 H AST 61 H ALT 170 H Lactate Dehydrogenase 399 H C-Reactive Protein 2.30 H Albumin 3.5 L Ur Specific [place] Urine WBC (Auto) Coronavirus (PCR) 09/06/20 09/06/20 09/07/20 10:20 10:20 07:37 WBC 14.3 H RBC Hgb Hct Lymph % (Auto) 10.2 L [facility] % (Auto) 12.2 H Lymph # (Auto) [facility] # (Auto) 1.7 H Seg Neutrophils % 76.4 H Seg Neutrophils # 10.9 H D-Dimer Sodium 133 L D Potassium 3.5 L Chloride 93.3 L Carbon Dioxide BUN 22 H Creatinine 0.6 L Glucose 147 H Hemoglobin A1c Ferritin 786.5 H AST ALT 118 H Lactate Dehydrogenase C-Reactive Protein Albumin 3.1 L Ur Specific [place] Urine WBC (Auto) Coronavirus (PCR) 09/07/20 09/08/20 07:59 08:22 WBC RBC Hgb Hct Lymph % (Auto) [facility] % (Auto) Lymph # (Auto) [facility] # (Auto) Seg Neutrophils % Seg Neutrophils # D-Dimer Sodium 135 L 133 L Potassium Chloride 93.6 L 93.2 L Carbon Dioxide 31 H BUN 22 H 24 H Creatinine 0.6 L Glucose 156 H 157 H Hemoglobin A1c Ferritin AST ALT Lactate Dehydrogenase 265 H C-Reactive Protein Albumin Ur Specific [place] Urine WBC (Auto) Coronavirus (PCR)
[2020-09-08] MEDS: ENOXAPARIN 100 MG/1 ML INJ SUB-Q SCH ×2 (09:53→22:22)
[2020-09-08] MEDS: FAMOTIDINE 20 MG TAB PO SCH ×2 (09:53→22:22)
[2020-09-08] MEDS: ASCORBIC ACID 500 MG TAB PO SCH ×2 (09:53→22:22)
[2020-09-08] MEDS: CHOLECALCIFEROL (VIT D3) 5,000 UNIT TAB PO SCH (09:54)
[2020-09-08] MEDS: ZINC SULFATE 220 MG CAP PO SCH (09:59)
[2020-09-08] MEDS ORDERED: FUROSEMIDE 20 MG/2 ML INJ IV NR (10:00)
--- NOTE | 2020-09-08 13:04 | Progress Note ---
Assessment and Plan Cultures: Blood culture no growth so far Covid PCR: Positive A/P: 35-year-old man past medical history morbid obesity presented to hospital with COVID-19 #Severe COVID-19 pneumonia: Patient presented with a week of symptoms, chest x- ray with diffuse bilateral infiltrates. D-dimer/CRP continue to improve. Co mpleted remdesivir. On steroids. #Acute respiratory failure hypoxic: remains on oxygen. #Morbid obesity: worse outcomes with COVID-19 #Elevated LFTs: Likely due to COVID-19/remdesivir. Improving. Recs: Continue steroids, lasix per pulmonary oxygen weaning ID will sign off. Please call with questions. Sharlene Hernandez MD, FACP [facility] ([facility] O: [phone] F: [phone] Subjective Date of service: 09/08/20 Principal diagnosis: COVID-19 Interval history: No fever. Remains on oxygen. On lasix and steroids, per pulmonary. Objective - Exam Narrative Exam: Physical Exam deferred to minimize transmission risk - Constitutional Vitals: Vital Signs Temp Pulse Resp BP Pulse Ox 98.3 F 111 H 18 128/83 94 09/08/20 04:20 09/08/20 04:20 09/08/20 04:20 09/08/20 04:20 09/08/20 04:20 Temperature -Last 24 Hours Temperature 98.3 F Temperature 98.8 F - Labs CBC & Chem 7: 09/06/20 10:20 09/08/20 08:22 Labs: Abnormal lab results 09/08/20 Range/Units 08:22 Sodium 133 L (137-145) mmol/L Chloride 93.2 L (98-107) mmol/L Carbon Dioxide 31 H (22-30) mmol/L BUN 24 H (9-20) mg/dL Glucose 157 H (75-100) mg/dL
[2020-09-08] MEDS: guaiFENesin 100 MG/5 ML ORAL LIQD PO PRN ×2 (16:41→22:33)
[2020-09-08] MEDS: oxyCODONE /ACETAMINOPHEN 5-325MG TAB PO PRN (16:42)
[2020-09-09] MEDS: methylPREDNISolone Sod Succinate 40 MG/1 ML INJ IV SCH ×3 (05:55→21:17)
--- NOTE | 2020-09-09 07:01 | XRay Report ---
CHEST 1 VIEW 09/07/2020 10:23 AM INDICATION / CLINICAL INFORMATION: COVID, worsening hypoxemia.. COMPARISON: One view of the chest from 09/02/2020 FINDINGS: SUPPORT DEVICES: None. HEART / MEDIASTINUM: No significant abnormality. LUNGS / PLEURA: Bilateral airspace opacities have worsened. No significant pleural effusion. No pneum othorax. ADDITIONAL FINDINGS: No significant additional findings. IMPRESSION: Worsening of bilateral airspace opacities. No other acute findings. Signer Name: Costa Caraballo MD Signed: 09/09/2020 6:56 AM Workstation Name: [id number]
--- NOTE | 2020-09-09 07:38 | Progress Note ---
Assessment and Plan Assessment and plan: 35-year-old male with no known past medical history comes in for fever cough and generalized weakness. Also patient has decreased appetite and decreased taste sensation. Patient has not taken Covid vaccination. Patient has wheezing. No history of asthma. No bowel movement for 6 days. [address] drove into [place] from [place] 10 days ago. No recent surgery. Not sure about exposure to Covid virus. (1) Acute respiratory failure with hypoxia Current Visit: Yes Status: Acute Plan to address problem: Due to Covid-19 Oxygen supplementation as necessary Bilateral pneumonia (2) SIRS (systemic inflammatory response syndrome) Current Visit: Yes Status: Acute Plan to address problem: All inflammatory markers are elevated including LDH of 313 and CRP of 4.4 (3) Bilateral pneumonia Current Visit: Yes Status: Acute Plan to address problem: Patient initiated on IV Zithromax and IV Rocephin (4) Pneumonia due to COVID-19 virus Current Visit: Yes Status: Acute Plan to address problem: Coronavirus PCR positive IV Decadron 8 mg every 24 initiated ID consult requested, zinc sulfate, vitamin C and vitamin D added (5) Hypokalemia- Hyperkalemia Current Visit: Yes Status: Acute Plan to address problem: Supplemented (6) DVT prophylaxis Current Visit: Yes Status: Acute Plan to address problem: On Lovenox and GI prophylaxis 08/28/20 Patient with acute resp failure due to bilateral pneumonia from Covid-19 infection. He is on Rocephin, Zithromax, Decadron, Zinc and supplemental Oxygen. Continue Oxygen, now at 4 l/min NC. ID Physician to see. Will also consult Pulm 08/29/20 Patient with acute resp failure due to bilateral pneumonia from Covid-19 infection. Still has shortness of breath, still has a fever Tmax 102.7 ID Physician and Pulmonology following. 08/30/20 Patient with acute respiratory failure due to bilateral pneumonia from Covid-19 infection. patient still very ill, still has fever, shortness of breath and cough. He is now on Oxygen at 15 l/min. He was on 4 l/min yesterday Continue Remdesivir, Decadron, Zinc, Vit C Pulmonology and ID Physician following 08/31: Agree with intermittent Lasix. Continue to wean high flow oxygen. ID and pulmonary following. Patient unfortunately did not receive the Covid vaccine but states he will get it this acute illness is resolved and will follow the recommended guidelines. Hyperkalemia, expected to resolved with the lasix, will recheck. 09/01: Patient this am noted with proned position, some improvement in saturation. Per Pulmonary, "Lasix again today. Strict I/O. reviewed ID note and appreciate them answering the Actemra inquiry. Guarded prognosis, will continue to follow" Continue supportive care. 09/02: Continue supportive care at this time. In addition to the Lasix today we will add incentive spirometer. Continue to encourage proning at night and during the day as much as feasible. Condition remains guarded wean oxygen as tolerated. 09/03: Continues to show gradual clinical improvement. We will continue to monitor continue to encourage prone positioning. Encouraged to sit up as much as possible during the day and during hours of sleep. Continue pulmonary exercise. Will change to PPI IV. 09/04: Continue supportive care continue to wean oxygen as tolerated we will give additional Lasix today again and check BMP in a.m.. Adjusted the multiple vitamins and will reevaluate in the morning. Still on 7 L of oxygen prognosis is still guarded. Continue to encourage prone positioning 09/05: Continue supportive care wean down to 5 L of oxygen and continue to monitor. We will hold off on additional Lasix today. Reevaluate in a.m. 09/06: Brief summary 35-year-old male admitted with COVID-19 and hypoxic respiratory failure related to COVID-19. Had been improving but yesterday had a decline as he desatted following weaning off oxygen down to the low 80s. He has been placed on 70% 35 L high flow and is improving. He did report that he felt some wheezing as a result he has been switched to Solu-Medrol IV at this time. Lasix has been ordered by clinical assistant we will continue to follow and see how he improves we will continue to encourage prone positioning he verbalized understanding. 09/07; patient is on 25 L of high flow oxygen. Patient admitted for Covid p neumonia and was treated with IV remdesivir and now continue with Solu-Medrol. Continue proning. Pulmonary consult appreciated. Encourage proning. Patient is complaining wheezing but I could not heard on auscultation. 09/08; patient is on 25 L of high flow oxygen. Continue with Decadron. Encou rage proning. He was given Lasix today. 09/09; patient was on 30 L of high flow oxygen. Patient is on IV Solu-Medrol 40 mg 3 times daily. Patient finished remdesivir. Proning. Patient has negative fluid balance. Pulmonary is following and give him Lasix. Discussed with case management for possible discharge to LTAC. History Interval history: Patient was seen and evaluated this morning Patient was on 30 L of high flow oxygen Patient said no wheezing today Hospitalist Physical - Physical exam Narrative exam: Patient was on 25 L of high flow oxygen. The patient appeared well nourished and normally developed. Vital signs as documented. Head exam is unremarkable. No scleral icterus . Neck is without jugular venous distension, thyromegaly, or carotid bruits. Lungs are clear to auscultation. No wheezing. Cardiac exam reveals regular rate and Rhythm. Abdominal exam reveals normal bowel sounds, nontender, no organomegaly. Extremities are nonedematous and both femoral and pedal pulses are normal. 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 No focal weakness. - Constitutional Vitals: Temp Pulse Resp BP Pulse Ox 98.7 F 106 H 22 126/89 93 09/09/20 05:07 09/09/20 05:07 09/09/20 05:07 09/09/20 05:07 09/09/20 05:07 General appearance: Present: obese HEART Score - HEART Score Troponin: Troponin T < 0.010 ng/mL (0.00-0.029) 08/27/20 11:56 Results - Labs CBC & Chem 7: 09/06/20 10:20 09/09/20 08:22 Labs: Laboratory Last Values WBC 14.3 K/mm3 (4.5-11.0) H 09/06/20 10:20 RBC 4.97 M/mm3 (3.65-5.03) 09/06/20 10:20 Hgb 14.8 gm/dl (11.8-15.2) 09/06/20 10:20 Hct 44.2 % (35.5-45.6) 09/06/20 10:20 MCV 89 fl (84-94) 09/06/20 10:20 MCH 30 pg (28-32) 09/06/20 10:20 MCHC 33 % (32-34) 09/06/20 10:20 RDW 13.2 % (13.2-15.2) 09/06/20 10:20 Plt Count 327 K/mm3 (140-440) 09/06/20 10:20 Lymph % (Auto) 10.2 % (13.4-35.0) L 09/06/20 10:20 [place] % (Auto) 12.2 % (0.0-7.3) H 09/06/20 10:20 Eos % (Auto) 1.0 % (0.0-4.3) 09/06/20 10:20 Baso % (Auto) 0.2 % (0.0-1.8) 09/06/20 10:20 Lymph # (Auto) 1.5 K/mm3 (1.2-5.4) 09/06/20 10:20 [place] # (Auto) 1.7 K/mm3 (0.0-0.8) H 09/06/20 10:20 Eos # (Auto) 0.1 K/mm3 (0.0-0.4) 09/06/20 10:20 Baso # (Auto) 0.0 K/mm3 (0.0-0.1) 09/06/20 10:20 Seg Neutrophils % 76.4 % (40.0-70.0) H 09/06/20 10:20 Seg Neutrophils # 10.9 K/mm3 (1.8-7.7) H 09/06/20 10:20 D-Dimer 171.18 ng/mlDDU (0-234) 09/07/20 07:37 Sodium 133 mmol/L (137-145) L 09/08/20 08:22 Potassium 4.1 mmol/L (3.6-5.0) 09/08/20 08:22 Chloride 93.2 mmol/L (98-107) L 09/08/20 08:22 Carbon Dioxide 31 mmol/L (22-30) H 09/08/20 08:22 Anion Gap 13 mmol/L 09/08/20 08:22 BUN 24 mg/dL (9-20) H 09/08/20 08:22 Creatinine 0.8 mg/dL (0.8-1.3) 09/08/20 08:22 Estimated GFR > 60 ml/min 09/08/20 08:22 BUN/Creatinine Ratio 30 % 09/08/20 08:22 Glucose 157 mg/dL (75-100) H 09/08/20 08:22 Hemoglobin A1c 6.4 % (4-6) H 08/28/20 07:55 Lactic Acid 1.60 mmol/L (0.7-2.0) 08/27/20 16:51 Calcium 9.6 mg/dL (8.4-10.2) 09/08/20 08:22 Ferritin 786.5 ng/mL (30.0-300.0) H 09/07/20 07:37 Total Bilirubin 0.80 mg/dL (0.1-1.2) 09/06/20 10:20 AST 38 units/L (5-40) 09/06/20 10:20 ALT 118 units/L (7-56) H 09/06/20 10:20 Alkaline Phosphatase 72 units/L (35-129) 09/06/20 10:20 Lactate Dehydrogenase 265 units/L (91-180) H 09/07/20 07:59 Troponin T < 0.010 ng/mL (0.00-0.029) 08/27/20 11:56 C-Reactive Protein 1.30 mg/dL (0.00-1.30) 09/07/20 07:59 NT-Pro-B Natriuret Pep < 5 pg/mL (0-450) 08/27/20 11:56 Total Protein 6.9 g/dL (6.3-8.2) 09/06/20 10:20 Albumin 3.1 g/dL (3.9-5) L 09/06/20 10:20 Albumin/Globulin Ratio 0.8 % 09/06/20 10:20 Procalcitonin 0.09 ng/mL (<0.15) 08/27/20 11:56 Urine Color Kim (Yellow) 08/27/20 Unknown Urine Turbidity Clear (Clear) 08/27/20 Unknown Urine pH 5.0 (5.0-7.0) 08/27/20 Unknown Ur Specific [place] 1.040 (1.003-1.030) H 08/27/20 Unknown Urine Protein >500 mg/dL (Negative) 08/27/20 Unknown Urine Glucose (UA) Neg mg/dL (Negative) 08/27/20 Unknown Urine Ketones 20 mg/dL (Negative) 08/27/20 Unknown Urine Blood Mod (Negative) 08/27/20 Unknown Urine Nitrite Neg (Negative) 08/27/20 Unknown Urine Bilirubin Neg (Negative) 08/27/20 Unknown Urine Urobilinogen < 2.0 mg/dL (<2.0) 08/27/20 Unknown Ur Leukocyte Esterase Neg (Negative) 08/27/20 Unknown Urine WBC (Auto) 11.0 /HPF (0.0-6.0) H 08/27/20 Unknown Urine RBC (Auto) 2.0 /HPF (0.0-6.0) 08/27/20 Unknown U Epithel Cells (Auto) 1.0 /HPF (0-13.0) 08/27/20 Unknown Urine Mucus 1+ /HPF 08/27/20 Unknown Coronavirus (PCR) Positive (Negative) A 08/27/20 Unknown Traore/IV: Voiding Method Urinal Active Medications - Current Medications Current Medications: Generic Name Dose Route Start Last Admin Trade Name Freq PRN Reason Stop Dose Admin Acetaminophen 650 mg 08/27/20 17:05 09/03/20 21:41 Acetaminophen 325 Mg Tab PO 650 mg Q4H PRN Administration Pain MILD(1-3)/Fever >100.5/JACOBS Albuterol 2 puff 09/02/20 22:51 Albuterol 8.5 Gm Mdi Inhalation IH Q4HRT PRN Shortness Of Breath Ascorbic Acid 1,000 mg 08/27/20 22:00 09/08/20 22:22 Ascorbic Acid 500 Mg Tab PO 1,000 mg BID [place] Administration Cholecalciferol 5,000 unit 08/27/20 18:00 09/08/20 09:54 Cholecalciferol (Vit D3) 5,000 Unit Tab PO 5,000 unit DAILY [place] Administration Enoxaparin Sodium 100 mg 09/03/20 10:00 09/08/20 22:22 Enoxaparin 100 Mg/1 Ml Inj 1 mg/kg (100 mg) 100 mg SUB-Q Administration Q12HR [facility] Protocol Famotidine 20 mg 08/27/20 22:00 09/08/20 22:22 Famotidine 20 Mg Tab PO 20 mg BID [place] Administration Guaifenesin 200 mg 08/28/20 12:50 09/08/20 22:33 Guaifenesin 100 Mg/5 Ml Oral Liqd PO 200 mg Q4H PRN Administration Cough Methylprednisolone Sodium Succinate 40 mg 09/06/20 12:00 09/09/20 05:55 Methylprednisolone Sod Succinate 40 Mg/1 Ml Inj IV 40 mg Q8HR [place] Administration Morphine Sulfate 2 mg 09/05/20 11:44 09/06/20 17:21 Morphine 2 Mg/1 Ml Inj IV 2 mg Q4H PRN Administration Pain, Moderate (4-6) Ondansetron HCl 4 mg 08/27/20 17:05 09/05/20 11:40 Ondansetron 4 Mg/2 Ml Inj IV 4 mg Q3H PRN Administration Nausea And Vomiting Oxycodone/Acetaminophen 1 tab 08/27/20 17:05 09/08/20 16:42 Oxycodone /Acetaminophen 5-325mg Tab PO 1 tab Q6H PRN Administration Pain, Moderate (4-6) Sodium Chloride 10 ml 08/27/20 22:00 09/08/20 22:23 Sodium Chloride 0.9% 10 Ml Flush Syringe IV 10 ml BID [place] Administration Sodium Chloride 10 ml 08/27/20 17:05 Sodium Chloride 0.9% 10 Ml Flush Syringe IV PRN PRN LINE FLUSH Zinc Sulfate 220 mg 09/05/20 10:00 09/08/20 09:59 Zinc Sulfate 220 Mg Cap PO 220 mg QDAY [place] Administration Nutrition/Malnutrition Assess - Dietary Evaluation Nutrition/Malnutrition Findings: Nutrition Notes Start: 08/28/20 12:26 Freq: Status: Active Protocol: Document 09/08/20 13:55 (Rec: 09/08/20 13:56 [id number]) Nutrition Notes Initial or Follow up Brief Note Current Diagnosis Hypertension,Respiratory Failure Other Pertinent Diagnosis COVID-19 (+), bilat pneu, SIRS Current Diet Regular + Ensure Enlive BID Subjective/Other Information Pt hung up phone. Per chart, pt eating 100% of meals yesterday. Nutrition Intervention Follow-Up By: 09/13/20 Additional Comments F/U: intakes (meals, ONS)
[2020-09-09] MEDS: ENOXAPARIN 100 MG/1 ML INJ SUB-Q SCH ×2 (09:22→21:17)
[2020-09-09] MEDS: ZINC SULFATE 220 MG CAP PO SCH (09:22)
[2020-09-09] MEDS: CHOLECALCIFEROL (VIT D3) 5,000 UNIT TAB PO SCH (09:22)
[2020-09-09] MEDS: FAMOTIDINE 20 MG TAB PO SCH ×2 (09:22→21:18)
[2020-09-09] MEDS: ASCORBIC ACID 500 MG TAB PO SCH ×2 (09:22→21:18)
[2020-09-09 09:43] LABS: Blood Urea Nitrogen 21 mg/dL (9-20); Calcium 9.7 mg/dL (8.4-10.2); Hemolysis Index 4
[2020-09-09 09:44] LABS: BUN/Creatinine Ratio 35
[2020-09-09] MEDS ORDERED: FUROSEMIDE 40 MG/4 ML INJ IV ONE (11:44)
--- NOTE | 2020-09-09 11:44 | Progress Note ---
Assessment and Plan 35 y/o male with acute respiratory failure secondary to COVID 19 pneumonia. 09/09/20: More lasix today. Labs stable. Continue proning and steroids. Agree with LTACH referral. Already on anticoagulation. Guarded prognosis. 09/08/20: CXR is slightly better. Continue solumedrol at current dosing. Continue to prone. Lasix again today as he still has a positive fluid balance. 09/07/20: Lasix again today. Continue IV solumedrol. Proning. Repeat CXR today. 09/06/20: Will give lasix now. Put back on steroids but this IV 40q8. Wean FiO2 for sats > 88% and stress the importance of proning. 09/03/20: Lasix 40 now and then will order another dose for 2000 tonight. BMP is stable. Wean FiO2 for sats >88%. Continue to prone nightly and PRN. Finished Remdesivir, still on steroids. 09/02/20: Continue proning at night and during the day as well if possible. Lasix 40 again today. Would check BMP tomorrow. Wean FiO2 and flow for sats >88%. Prognosis still remains guarded. 09/01/20: Documented proning this am with improvement in Sats and oxygen requirement. Lasix again today. Strict I/O. reviewed ID note and appreciate them answering the Actemra inquiry. Guarded prognosis, will continue to follow. 08/31/20: Still no documentation of proning. Lasix again today and ordered strict I/O. Follow up ID recs. Will ask if Actemra is still being used. Guarded prognosis. 08/30. Proning order is in, very important that patient do this. Lasix again today but this time, 40mg IV. Remdesivir and steroids. Guarded prognosis. Please document if patient is refusing to prone. IV steroids Stopped duonebs given nature of disease with concern for spread Lasix 20mg IV x1 today Prone during the day as tolerated and sleep prone at night Guarded prognosis. Subjective Date of service: 09/09/20 Principal diagnosis: COVID-19 Interval history: Finally net negative but HFNC was increased to 30 and 60. Not sure why. No doc umentation of desaturation Objective Vital Signs - 12hr 09/09/20 05:07 Temperature 98.7 F Pulse Rate 106 H Respiratory 22 Rate Blood Pressure 126/89 O2 Sat by Pulse 93 Oximetry Constitutional: no acute distress ENT: oropharynx moist Neck: supple Ascultation: Bilateral: clear Cardiovascular: regular rate and rhythm Gastrointestinal: normoactive bowel sounds, soft, non-tender Integumentary: normal Extremities: no cyanosis Neurologic: normal mental status Psychiatric: mood appropriate CBC and BMP: 09/06/20 10:20 09/09/20 08:22 ABG, PT/INR, D-dimer: PT/INR, D-dimer D-Dimer 171.18 ng/mlDDU (0-234) 09/07/20 07:37 Abnormal lab findings: Abnormal Labs 08/27/20 08/27/20 08/27/20 11:56 11:56 11:56 WBC RBC Hgb Hct Lymph % (Auto) [place] % (Auto) Lymph # (Auto) [place] # (Auto) Seg Neutrophils % Seg Neutrophils # D-Dimer 291.43 H Sodium Potassium Chloride Carbon Dioxide BUN Creatinine Glucose Hemoglobin A1c Ferritin 572.3 H AST ALT Lactate Dehydrogenase 313 H C-Reactive Protein 4.40 H Albumin Ur Specific [place] Urine WBC (Auto) Coronavirus (PCR) 08/27/20 08/27/20 08/27/20 11:56 11:56 Unknown WBC RBC Hgb Hct Lymph % (Auto) 10.3 L [place] % (Auto) Lymph # (Auto) 0.7 L [place] # (Auto) Seg Neutrophils % 84.6 H Seg Neutrophils # D-Dimer Sodium Potassium 3.4 L Chloride Carbon Dioxide BUN Creatinine Glucose 125 H Hemoglobin A1c Ferritin AST 66 H ALT Lactate Dehydrogenase C-Reactive Protein Albumin Ur Specific [place] Urine WBC (Auto) Coronavirus (PCR) Positive A 08/27/20 08/28/20 08/28/20 Unknown 07:55 07:55 WBC RBC 5.06 H Hgb Hct Lymph % (Auto) 9.7 L [place] % (Auto) Lymph # (Auto) 0.6 L [place] # (Auto) Seg Neutrophils % 84.8 H Seg Neutrophils # D-Dimer Sodium Potassium Chloride Carbon Dioxide BUN Creatinine Glucose 125 H Hemoglobin A1c Ferritin AST 80 H ALT Lactate Dehydrogenase C-Reactive Protein Albumin Ur Specific [place] 1.040 H Urine WBC (Auto) 11.0 H Coronavirus (PCR) 08/28/20 08/30/20 08/30/20 07:55 06:51 06:51 WBC RBC 5.04 H Hgb Hct Lymph % (Auto) [place] % (Auto) Lymph # (Auto) [place] # (Auto) Seg Neutrophils % Seg Neutrophils # D-Dimer Sodium Potassium Chloride Carbon Dioxide BUN Creatinine Glucose 144 H Hemoglobin A1c 6.4 H Ferritin AST 99 H ALT Lactate Dehydrogenase C-Reactive Protein Albumin 3.8 L Ur Specific [place] Urine WBC (Auto) Coronavirus (PCR) 08/30/20 08/30/20 08/31/20 14:18 14:18 05:43 WBC RBC Hgb Hct Lymph % (Auto) [place] % (Auto) Lymph # (Auto) [place] # (Auto) Seg Neutrophils % Seg Neutrophils # D-Dimer Sodium Potassium 5.1 H Chloride Carbon Dioxide 20 L D BUN 25 H Creatinine 0.7 L Glucose 158 H Hemoglobin A1c Ferritin 1166.0 H AST 75 H ALT Lactate Dehydrogenase 529 H C-Reactive Protein 5.90 H Albumin 3.3 L Ur Specific [place] Urine WBC (Auto) Coronavirus (PCR) 09/01/20 09/01/20 09/01/20 06:11 06:11 19:48 WBC RBC 5.11 H Hgb Hct Lymph % (Auto) [place] % (Auto) Lymph # (Auto) [place] # (Auto) Seg Neutrophils % Seg Neutrophils # D-Dimer Sodium Potassium Chloride Carbon Dioxide BUN 27 H Creatinine Glucose 151 H Hemoglobin A1c Ferritin 1859.0 H AST 67 H ALT 69 H Lactate Dehydrogenase C-Reactive Protein Albumin 3.7 L Ur Specific [place] Urine WBC (Auto) Coronavirus (PCR) 09/01/20 09/03/20 09/03/20 19:48 06:17 06:17 WBC RBC Hgb Hct Lymph % (Auto) [place] % (Auto) Lymph # (Auto) [place] # (Auto) Seg Neutrophils % Seg Neutrophils # D-Dimer 566.54 H Sodium Potassium Chloride Carbon Dioxide BUN Creatinine Glucose 149 H Hemoglobin A1c Ferritin AST ALT Lactate Dehydrogenase 558 H 350 H C-Reactive Protein 1.50 H 1.70 H Albumin Ur Specific [place] Urine WBC (Auto) Coronavirus (PCR) 09/03/20 09/03/20 09/05/20 06:17 09:32 07:13 WBC RBC Hgb Hct Lymph % (Auto) [place] % (Auto) Lymph # (Auto) [place] # (Auto) Seg Neutrophils % Seg Neutrophils # D-Dimer 295.00 H Sodium Potassium Chloride Carbon Dioxide BUN 28 H Creatinine Glucose 172 H Hemoglobin A1c Ferritin 1194.0 H AST ALT Lactate Dehydrogenase C-Reactive Protein Albumin Ur Specific [place] Urine WBC (Auto) Coronavirus (PCR) 09/05/20 09/05/20 09/05/20 07:13 07:13 07:13 WBC 19.6 H RBC 5.48 H Hgb 16.1 H Hct 49.5 H Lymph % (Auto) [place] % (Auto) Lymph # (Auto) [place] # (Auto) Seg Neutrophils % Seg Neutrophils # D-Dimer Sodium Potassium Chloride Carbon Dioxide BUN 26 H Creatinine 0.7 L Glucose 140 H Hemoglobin A1c Ferritin 1051.0 H AST 61 H ALT 170 H Lactate Dehydrogenase 399 H C-Reactive Protein 2.30 H Albumin 3.5 L Ur Specific [place] Urine WBC (Auto) Coronavirus (PCR) 09/06/20 09/06/20 09/07/20 10:20 10:20 07:37 WBC 14.3 H RBC Hgb Hct Lymph % (Auto) 10.2 L [place] % (Auto) 12.2 H Lymph # (Auto) [place] # (Auto) 1.7 H Seg Neutrophils % 76.4 H Seg Neutrophils # 10.9 H D-Dimer Sodium 133 L D Potassium 3.5 L Chloride 93.3 L Carbon Dioxide BUN 22 H Creatinine 0.6 L Glucose 147 H Hemoglobin A1c Ferritin 786.5 H AST ALT 118 H Lactate Dehydrogenase C-Reactive Protein Albumin 3.1 L Ur Specific [place] Urine WBC (Auto) Coronavirus (PCR) 09/07/20 09/08/20 09/09/20 07:59 08:22 08:22 WBC RBC Hgb Hct Lymph % (Auto) [place] % (Auto) Lymph # (Auto) [place] # (Auto) Seg Neutrophils % Seg Neutrophils # D-Dimer Sodium 135 L 133 L Potassium Chloride 93.6 L 93.2 L 94.3 L Carbon Dioxide 31 H 33 H BUN 22 H 24 H 21 H Creatinine 0.6 L 0.6 L Glucose 156 H 157 H 158 H Hemoglobin A1c Ferritin AST ALT Lactate Dehydrogenase 265 H C-Reactive Protein Albumin Ur Specific [place] Urine WBC (Auto) Coronavirus (PCR)
[2020-09-09] MEDS: oxyCODONE /ACETAMINOPHEN 5-325MG TAB PO PRN (18:03)
[2020-09-09] MEDS ORDERED: FUROSEMIDE 20 MG/2 ML INJ IV ONE (20:00)
[2020-09-10] MEDS: methylPREDNISolone Sod Succinate 40 MG/1 ML INJ IV SCH ×3 (06:22→22:12)
--- NOTE | 2020-09-10 08:19 | Progress Note ---
Assessment and Plan Assessment and plan: 35-year-old male with no known past medical history comes in for fever cough and generalized weakness. Also patient has decreased appetite and decreased taste sensation. Patient has not taken Covid vaccination. Patient has wheezing. No history of asthma. No bowel movement for 6 days[address] drove into [place] from [place] 10 days ago. No recent surgery. Not sure about exposure to Covid virus. (1) Acute respiratory failure with hypoxia Current Visit: Yes Status: Acute Plan to address problem: Due to Covid-19 Oxygen supplementation as necessary Bilateral pneumonia (2) SIRS (systemic inflammatory response syndrome) Current Visit: Yes Status: Acute Plan to address problem: All inflammatory markers are elevated including LDH of 313 and CRP of 4.4 (3) Bilateral pneumonia Current Visit: Yes Status: Acute Plan to address problem: Patient initiated on IV Zithromax and IV Rocephin (4) Pneumonia due to COVID-19 virus Current Visit: Yes Status: Acute Plan to address problem: Coronavirus PCR positive IV Decadron 8 mg every 24 initiated ID consult requested, zinc sulfate, vitamin C and vitamin D added (5) Hypokalemia- Hyperkalemia Current Visit: Yes Status: Acute Plan to address problem: Supplemented (6) DVT prophylaxis Current Visit: Yes Status: Acute Plan to address problem: On Lovenox and GI prophylaxis 08/28/20 Patient with acute resp failure due to bilateral pneumonia from Covid-19 infection. He is on Rocephin, Zithromax, Decadron, Zinc and supplemental Oxygen. Continue Oxygen, now at 4 l/min NC. ID Physician to see. Will also consult Pulm 08/29/20 Patient with acute resp failure due to bilateral pneumonia from Covid-19 infection. Still has shortness of breath, still has a fever Tmax 102.7 ID Physician and Pulmonology following. 08/30/20 Patient with acute respiratory failure due to bilateral pneumonia from Covid-19 infection. patient still very ill, still has fever, shortness of breath and cough. He is now on Oxygen at 15 l/min. He was on 4 l/min yesterday Continue Remdesivir, Decadron, Zinc, Vit C Pulmonology and ID Physician following 08/31: Agree with intermittent Lasix. Continue to wean high flow oxygen. ID and pulmonary following. Patient unfortunately did not receive the Covid vaccine but states he will get it this acute illness is resolved and will follow the recommended guidelines. Hyperkalemia, expected to resolved with the lasix, will recheck. 09/01: Patient this am noted with proned position, some improvement in saturation. Per Pulmonary, "Lasix again today. Strict I/O. reviewed ID note and appreciate them answering the Actemra inquiry. Guarded prognosis, will continue to follow" Continue supportive care. 09/02: Continue supportive care at this time. In addition to the Lasix today we will add incentive spirometer. Continue to encourage proning at night and during the day as much as feasible. Condition remains guarded wean oxygen as tolerated. 09/03: Continues to show gradual clinical improvement. We will continue to monitor continue to encourage prone positioning. Encouraged to sit up as much as possible during the day and during hours of sleep. Continue pulmonary exercise. Will change to PPI IV. 09/04: Continue supportive care continue to wean oxygen as tolerated we will give additional Lasix today again and check BMP in a.m.. Adjusted the multiple vitamins and will reevaluate in the morning. Still on 7 L of oxygen prognosis is still guarded. Continue to encourage prone positioning 09/05: Continue supportive care wean down to 5 L of oxygen and continue to monitor. We will hold off on additional Lasix today. Reevaluate in a.m. 09/06: Brief summary 35-year-old male admitted with COVID-19 and hypoxic respiratory failure related to COVID-19. Had been improving but yesterday had a decline as he desatted following weaning off oxygen down to the low 80s. He has been placed on 70% 35 L high flow and is improving. He did report that he felt some wheezing as a result he has been switched to Solu-Medrol IV at this time. Lasix has been ordered by csm consultant we will continue to follow and see how he improves we will continue to encourage prone positioning he verbalized understanding. 09/07; patient is on 25 L of high flow oxygen. Patient admitted for Covid p neumonia and was treated with IV remdesivir and now continue with Solu-Medrol. Continue proning. Pulmonary consult appreciated. Encourage proning. Patient is complaining wheezing but I could not heard on auscultation. 09/08; patient is on 25 L of high flow oxygen. Continue with Decadron. Encou rage proning. He was given Lasix today. 09/09; patient was on 30 L of high flow oxygen. Patient is on IV Solu-Medrol 40 mg 3 times daily. Patient finished remdesivir. Proning. Patient has negative fluid balance. Pulmonary is following and give him Lasix. Discussed with case management for possible discharge to LTAC. 09/10; patient is on 30 L of high flow oxygen. Continues IV Solu-Medrol. Patient was given Lasix yesterday and has a negative fluid balance of 1.2 L. Follow-up with LTAC referrals. History Interval history: Patient was seen and evaluated this morning Patient was on 30 L of high flow oxygen Hospitalist Physical - Physical exam Narrative exam: Patient was on 25 L of high flow oxygen. The patient appeared well nourished and normally developed. Vital signs as documented. Head exam is unremarkable. No scleral icterus . Neck is without jugular venous distension, thyromegaly, or carotid bruits. Lungs are clear to auscultation. No wheezing. Cardiac exam reveals regular rate and Rhythm. Abdominal exam reveals normal bowel sounds, nontender, no organomegaly. Extremities are nonedematous and both femoral and pedal pulses are normal. 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 No focal weakness. - Constitutional Vitals: Temp Pulse Resp BP Pulse Ox 98.4 F 103 H 18 138/84 96 09/09/20 19:53 09/09/20 19:53 09/09/20 22:00 09/09/20 19:53 09/10/20 02:14 General appearance: Present: obese HEART Score - HEART Score Troponin: Troponin T < 0.010 ng/mL (0.00-0.029) 08/27/20 11:56 Results - Labs CBC & Chem 7: 09/06/20 10:20 09/10/20 09:47 Labs: Laboratory Last Values WBC 14.3 K/mm3 (4.5-11.0) H 09/06/20 10:20 RBC 4.97 M/mm3 (3.65-5.03) 09/06/20 10:20 Hgb 14.8 gm/dl (11.8-15.2) 09/06/20 10:20 Hct 44.2 % (35.5-45.6) 09/06/20 10:20 MCV 89 fl (84-94) 09/06/20 10:20 MCH 30 pg (28-32) 09/06/20 10:20 MCHC 33 % (32-34) 09/06/20 10:20 RDW 13.2 % (13.2-15.2) 09/06/20 10:20 Plt Count 327 K/mm3 (140-440) 09/06/20 10:20 Lymph % (Auto) 10.2 % (13.4-35.0) L 09/06/20 10:20 [place] % (Auto) 12.2 % (0.0-7.3) H 09/06/20 10:20 Eos % (Auto) 1.0 % (0.0-4.3) 09/06/20 10:20 Baso % (Auto) 0.2 % (0.0-1.8) 09/06/20 10:20 Lymph # (Auto) 1.5 K/mm3 (1.2-5.4) 09/06/20 10:20 [place] # (Auto) 1.7 K/mm3 (0.0-0.8) H 09/06/20 10:20 Eos # (Auto) 0.1 K/mm3 (0.0-0.4) 09/06/20 10:20 Baso # (Auto) 0.0 K/mm3 (0.0-0.1) 09/06/20 10:20 Seg Neutrophils % 76.4 % (40.0-70.0) H 09/06/20 10:20 Seg Neutrophils # 10.9 K/mm3 (1.8-7.7) H 09/06/20 10:20 D-Dimer 171.18 ng/mlDDU (0-234) 09/07/20 07:37 Sodium 137 mmol/L (137-145) 09/09/20 08:22 Potassium 3.9 mmol/L (3.6-5.0) 09/09/20 08:22 Chloride 94.3 mmol/L (98-107) L 09/09/20 08:22 Carbon Dioxide 33 mmol/L (22-30) H 09/09/20 08:22 Anion Gap 14 mmol/L 09/09/20 08:22 BUN 21 mg/dL (9-20) H 09/09/20 08:22 Creatinine 0.6 mg/dL (0.8-1.3) L 09/09/20 08:22 Estimated GFR > 60 ml/min 09/09/20 08:22 BUN/Creatinine Ratio 35 % 09/09/20 08:22 Glucose 158 mg/dL (75-100) H 09/09/20 08:22 Hemoglobin A1c 6.4 % (4-6) H 08/28/20 07:55 Lactic Acid 1.60 mmol/L (0.7-2.0) 08/27/20 16:51 Calcium 9.7 mg/dL (8.4-10.2) 09/09/20 08:22 Ferritin 786.5 ng/mL (30.0-300.0) H 09/07/20 07:37 Total Bilirubin 0.80 mg/dL (0.1-1.2) 09/06/20 10:20 AST 38 units/L (5-40) 09/06/20 10:20 ALT 118 units/L (7-56) H 09/06/20 10:20 Alkaline Phosphatase 72 units/L (35-129) 09/06/20 10:20 Lactate Dehydrogenase 265 units/L (91-180) H 09/07/20 07:59 Troponin T < 0.010 ng/mL (0.00-0.029) 08/27/20 11:56 C-Reactive Protein 1.30 mg/dL (0.00-1.30) 09/07/20 07:59 NT-Pro-B Natriuret Pep < 5 pg/mL (0-450) 08/27/20 11:56 Total Protein 6.9 g/dL (6.3-8.2) 09/06/20 10:20 Albumin 3.1 g/dL (3.9-5) L 09/06/20 10:20 Albumin/Globulin Ratio 0.8 % 09/06/20 10:20 Procalcitonin 0.09 ng/mL (<0.15) 08/27/20 11:56 Urine Color Kim (Yellow) 08/27/20 Unknown Urine Turbidity Clear (Clear) 08/27/20 Unknown Urine pH 5.0 (5.0-7.0) 08/27/20 Unknown Ur Specific [place] 1.040 (1.003-1.030) H 08/27/20 Unknown Urine Protein >500 mg/dL (Negative) 08/27/20 Unknown Urine Glucose (UA) Neg mg/dL (Negative) 08/27/20 Unknown Urine Ketones 20 mg/dL (Negative) 08/27/20 Unknown Urine Blood Mod (Negative) 08/27/20 Unknown Urine Nitrite Neg (Negative) 08/27/20 Unknown Urine Bilirubin Neg (Negative) 08/27/20 Unknown Urine Urobilinogen < 2.0 mg/dL (<2.0) 08/27/20 Unknown Ur Leukocyte Esterase Neg (Negative) 08/27/20 Unknown Urine WBC (Auto) 11.0 /HPF (0.0-6.0) H 08/27/20 Unknown Urine RBC (Auto) 2.0 /HPF (0.0-6.0) 08/27/20 Unknown U Epithel Cells (Auto) 1.0 /HPF (0-13.0) 08/27/20 Unknown Urine Mucus 1+ /HPF 08/27/20 Unknown Coronavirus (PCR) Positive (Negative) A 08/27/20 Unknown [place]/IV: Voiding Method Urinal Active Medications - Current Medications Current Medications: Generic Name Dose Route Start Last Admin Trade Name Freq PRN Reason Stop Dose Admin Acetaminophen 650 mg 08/27/20 17:05 09/03/20 21:41 Acetaminophen 325 Mg Tab PO 650 mg Q4H PRN Administration Pain MILD(1-3)/Fever >100.5/JACOBS Albuterol 2 puff 09/02/20 22:51 Albuterol 8.5 Gm Mdi Inhalation IH Q4HRT PRN Shortness Of Breath Ascorbic Acid 1,000 mg 08/27/20 22:00 09/09/20 21:18 Ascorbic Acid 500 Mg Tab PO 1,000 mg BID [place] Administration Cholecalciferol 5,000 unit 08/27/20 18:00 09/09/20 09:22 Cholecalciferol (Vit D3) 5,000 Unit Tab PO 5,000 unit DAILY [place] Administration Enoxaparin Sodium 100 mg 09/03/20 10:00 09/09/20 21:17 Enoxaparin 100 Mg/1 Ml Inj 1 mg/kg (100 mg) 100 mg SUB-Q Administration Q12HR [facility] Protocol Famotidine 20 mg 08/27/20 22:00 09/09/20 21:18 Famotidine 20 Mg Tab PO 20 mg BID [place] Administration Guaifenesin 200 mg 08/28/20 12:50 09/08/20 22:33 Guaifenesin 100 Mg/5 Ml Oral Liqd PO 200 mg Q4H PRN Administration Cough Methylprednisolone Sodium Succinate 40 mg 09/06/20 12:00 09/10/20 06:22 Methylprednisolone Sod Succinate 40 Mg/1 Ml Inj IV 40 mg Q8HR [place] Administration Morphine Sulfate 2 mg 09/05/20 11:44 09/06/20 17:21 Morphine 2 Mg/1 Ml Inj IV 2 mg Q4H PRN Administration Pain, Moderate (4-6) Ondansetron HCl 4 mg 08/27/20 17:05 09/05/20 11:40 Ondansetron 4 Mg/2 Ml Inj IV 4 mg Q3H PRN Administration Nausea And Vomiting Oxycodone/Acetaminophen 1 tab 08/27/20 17:05 09/09/20 18:03 Oxycodone /Acetaminophen 5-325mg Tab PO 1 tab Q6H PRN Administration Pain, Moderate (4-6) Sodium Chloride 10 ml 08/27/20 22:00 09/09/20 21:20 Sodium Chloride 0.9% 10 Ml Flush Syringe IV 10 ml BID [place] Administration Sodium Chloride 10 ml 08/27/20 17:05 Sodium Chloride 0.9% 10 Ml Flush Syringe IV PRN PRN LINE FLUSH Zinc Sulfate 220 mg 09/05/20 10:00 09/09/20 09:22 Zinc Sulfate 220 Mg Cap PO 220 mg QDAY [place] Administration Nutrition/Malnutrition Assess - Dietary Evaluation Nutrition/Malnutrition Findings: Nutrition Notes Start: 08/28/20 12:26 Freq: Status: Active Protocol: Document 09/08/20 13:55 (Rec: 09/08/20 13:56 [email or web address]) Nutrition Notes Initial or Follow up Brief Note Current Diagnosis Hypertension,Respiratory Failure Other Pertinent Diagnosis COVID-19 (+), bilat pneu, SIRS Current Diet Regular + Ensure Enlive BID Subjective/Other Information Pt hung up phone. Per chart, pt eating 100% of meals yesterday. Nutrition Intervention Follow-Up By: 09/13/20 Additional Comments F/U: intakes (meals, ONS)
[2020-09-10] MEDS: CHOLECALCIFEROL (VIT D3) 5,000 UNIT TAB PO SCH (09:48)
[2020-09-10] MEDS: ASCORBIC ACID 500 MG TAB PO SCH ×2 (09:48→22:11)
[2020-09-10] MEDS: FAMOTIDINE 20 MG TAB PO SCH ×2 (09:49→22:12)
[2020-09-10] MEDS: ZINC SULFATE 220 MG CAP PO SCH (09:49)
[2020-09-10] MEDS: ENOXAPARIN 100 MG/1 ML INJ SUB-Q SCH ×2 (09:49→22:11)
[2020-09-10 10:53] LABS: BUN/Creatinine Ratio 31; Blood Urea Nitrogen 25 mg/dL (9-20); Calcium 9.6 mg/dL (8.4-10.2); Hemolysis Index 4
--- NOTE | 2020-09-10 11:59 | Progress Note ---
Assessment and Plan 35 y/o male with acute respiratory failure secondary to COVID 19 pneumonia. 09/10/20: Unable to order lasix until recent vitals placed. Labs are stable. Per CM [place] reviewing clinical. Needs to prone. Took two doses of lasix to achieve net negative state yesterday and would like to do again today if vitals can be confirmed. 09/09/20: More lasix today. Labs stable. Continue proning and steroids. Agree with LTACH referral. Already on anticoagulation. Guarded prognosis. 09/08/20: CXR is slightly better. Continue solumedrol at current dosing. Continue to prone. Lasix again today as he still has a positive fluid balance. 09/07/20: Lasix again today. Continue IV solumedrol. Proning. Repeat CXR today. 09/06/20: Will give lasix now. Put back on steroids but this IV 40q8. Wean FiO2 for sats > 88% and stress the importance of proning. 09/03/20: Lasix 40 now and then will order another dose for 2000 tonight. BMP is stable. Wean FiO2 for sats >88%. Continue to prone nightly and PRN. Finished Remdesivir, still on steroids. 09/02/20: Continue proning at night and during the day as well if possible. Lasix 40 again today. Would check BMP tomorrow. Wean FiO2 and flow for sats >88%. Prognosis still remains guarded. 09/01/20: Documented proning this am with improvement in Sats and oxygen requirement. Lasix again today. Strict I/O. reviewed ID note and appreciate them answering the Actemra inquiry. Guarded prognosis, will continue to follow. 08/31/20: Still no documentation of proning. Lasix again today and ordered strict I/O. Follow up ID recs. Will ask if Actemra is still being used. Anya rded prognosis. 08/30. Proning order is in, very important that patient do this. Lasix again today but this time, 40mg IV. Remdesivir and steroids. Guarded prognosis. Please document if patient is refusing to prone. IV steroids Stopped duonebs given nature of disease with concern for spread Lasix 20mg IV x1 today Prone during the day as tolerated and sleep prone at night Guarded prognosis. Subjective Date of service: 09/10/20 Principal diagnosis: COVID-19 Interval history: No acute events. HFNC not weaned. Good sats. Finally a negative fluid balance achieved. No recent vitals documented. Objective Vital Signs - 12hr 09/10/20 09/10/20 02:14 08:00 O2 Sat by Pulse 96 96 Oximetry Constitutional: no acute distress ENT: oropharynx moist Neck: supple Ascultation: Bilateral: clear Cardiovascular: regular rate and rhythm Gastrointestinal: normoactive bowel sounds, soft, non-tender Integumentary: normal Extremities: no cyanosis Neurologic: normal mental status Psychiatric: mood appropriate CBC and BMP: 09/06/20 10:20 09/10/20 09:47 ABG, PT/INR, D-dimer: PT/INR, D-dimer D-Dimer 171.18 ng/mlDDU (0-234) 09/07/20 07:37 Abnormal lab findings: Abnormal Labs 08/27/20 08/27/20 08/27/20 11:56 11:56 11:56 WBC RBC Hgb Hct Lymph % (Auto) [place] % (Auto) Lymph # (Auto) [place] # (Auto) Seg Neutrophils % Seg Neutrophils # D-Dimer 291.43 H Sodium Potassium Chloride Carbon Dioxide BUN Creatinine Glucose Hemoglobin A1c Ferritin 572.3 H AST ALT Lactate Dehydrogenase 313 H C-Reactive Protein 4.40 H Albumin Ur Specific [place] Urine WBC (Auto) Coronavirus (PCR) 08/27/20 08/27/20 08/27/20 11:56 11:56 Unknown WBC RBC Hgb Hct Lymph % (Auto) 10.3 L [place] % (Auto) Lymph # (Auto) 0.7 L [place] # (Auto) Seg Neutrophils % 84.6 H Seg Neutrophils # D-Dimer Sodium Potassium 3.4 L Chloride Carbon Dioxide BUN Creatinine Glucose 125 H Hemoglobin A1c Ferritin AST 66 H ALT Lactate Dehydrogenase C-Reactive Protein Albumin Ur Specific [place] Urine WBC (Auto) Coronavirus (PCR) Positive A 08/27/20 08/28/20 08/28/20 Unknown 07:55 07:55 WBC RBC 5.06 H Hgb Hct Lymph % (Auto) 9.7 L [place] % (Auto) Lymph # (Auto) 0.6 L [place] # (Auto) Seg Neutrophils % 84.8 H Seg Neutrophils # D-Dimer Sodium Potassium Chloride Carbon Dioxide BUN Creatinine Glucose 125 H Hemoglobin A1c Ferritin AST 80 H ALT Lactate Dehydrogenase C-Reactive Protein Albumin Ur Specific [place] 1.040 H Urine WBC (Auto) 11.0 H Coronavirus (PCR) 08/28/20 08/30/20 08/30/20 07:55 06:51 06:51 WBC RBC 5.04 H Hgb Hct Lymph % (Auto) [place] % (Auto) Lymph # (Auto) [place] # (Auto) Seg Neutrophils % Seg Neutrophils # D-Dimer Sodium Potassium Chloride Carbon Dioxide BUN Creatinine Glucose 144 H Hemoglobin A1c 6.4 H Ferritin AST 99 H ALT Lactate Dehydrogenase C-Reactive Protein Albumin 3.8 L Ur Specific [place] Urine WBC (Auto) Coronavirus (PCR) 08/30/20 08/30/20 08/31/20 14:18 14:18 05:43 WBC RBC Hgb Hct Lymph % (Auto) [place] % (Auto) Lymph # (Auto) [place] # (Auto) Seg Neutrophils % Seg Neutrophils # D-Dimer Sodium Potassium 5.1 H Chloride Carbon Dioxide 20 L D BUN 25 H Creatinine 0.7 L Glucose 158 H Hemoglobin A1c Ferritin 1166.0 H AST 75 H ALT Lactate Dehydrogenase 529 H C-Reactive Protein 5.90 H Albumin 3.3 L Ur Specific [place] Urine WBC (Auto) Coronavirus (PCR) 09/01/20 09/01/20 09/01/20 06:11 06:11 19:48 WBC RBC 5.11 H Hgb Hct Lymph % (Auto) [place] % (Auto) Lymph # (Auto) [place] # (Auto) Seg Neutrophils % Seg Neutrophils # D-Dimer Sodium Potassium Chloride Carbon Dioxide BUN 27 H Creatinine Glucose 151 H Hemoglobin A1c Ferritin 1859.0 H AST 67 H ALT 69 H Lactate Dehydrogenase C-Reactive Protein Albumin 3.7 L Ur Specific [place] Urine WBC (Auto) Coronavirus (PCR) 09/01/20 09/03/20 09/03/20 19:48 06:17 06:17 WBC RBC Hgb Hct Lymph % (Auto) [place] % (Auto) Lymph # (Auto) [place] # (Auto) Seg Neutrophils % Seg Neutrophils # D-Dimer 566.54 H Sodium Potassium Chloride Carbon Dioxide BUN Creatinine Glucose 149 H Hemoglobin A1c Ferritin AST ALT Lactate Dehydrogenase 558 H 350 H C-Reactive Protein 1.50 H 1.70 H Albumin Ur Specific [place] Urine WBC (Auto) Coronavirus (PCR) 09/03/20 09/03/20 09/05/20 06:17 09:32 07:13 WBC RBC Hgb Hct Lymph % (Auto) [place] % (Auto) Lymph # (Auto) [place] # (Auto) Seg Neutrophils % Seg Neutrophils # D-Dimer 295.00 H Sodium Potassium Chloride Carbon Dioxide BUN 28 H Creatinine Glucose 172 H Hemoglobin A1c Ferritin 1194.0 H AST ALT Lactate Dehydrogenase C-Reactive Protein Albumin Ur Specific [place] Urine WBC (Auto) Coronavirus (PCR) 09/05/20 09/05/20 09/05/20 07:13 07:13 07:13 WBC 19.6 H RBC 5.48 H Hgb 16.1 H Hct 49.5 H Lymph % (Auto) [place] % (Auto) Lymph # (Auto) [place] # (Auto) Seg Neutrophils % Seg Neutrophils # D-Dimer Sodium Potassium Chloride Carbon Dioxide BUN 26 H Creatinine 0.7 L Glucose 140 H Hemoglobin A1c Ferritin 1051.0 H AST 61 H ALT 170 H Lactate Dehydrogenase 399 H C-Reactive Protein 2.30 H Albumin 3.5 L Ur Specific [place] Urine WBC (Auto) Coronavirus (PCR) 09/06/20 09/06/20 09/07/20 10:20 10:20 07:37 WBC 14.3 H RBC Hgb Hct Lymph % (Auto) 10.2 L [place] % (Auto) 12.2 H Lymph # (Auto) [place] # (Auto) 1.7 H Seg Neutrophils % 76.4 H Seg Neutrophils # 10.9 H D-Dimer Sodium 133 L D Potassium 3.5 L Chloride 93.3 L Carbon Dioxide BUN 22 H Creatinine 0.6 L Glucose 147 H Hemoglobin A1c Ferritin 786.5 H AST ALT 118 H Lactate Dehydrogenase C-Reactive Protein Albumin 3.1 L Ur Specific [place] Urine WBC (Auto) Coronavirus (PCR) 09/07/20 09/08/20 09/09/20 07:59 08:22 08:22 WBC RBC Hgb Hct Lymph % (Auto) [place] % (Auto) Lymph # (Auto) [place] # (Auto) Seg Neutrophils % Seg Neutrophils # D-Dimer Sodium 135 L 133 L Potassium Chloride 93.6 L 93.2 L 94.3 L Carbon Dioxide 31 H 33 H BUN 22 H 24 H 21 H Creatinine 0.6 L 0.6 L Glucose 156 H 157 H 158 H Hemoglobin A1c Ferritin AST ALT Lactate Dehydrogenase 265 H C-Reactive Protein Albumin Ur Specific [place] Urine WBC (Auto) Coronavirus (PCR) 09/10/20 09:47 WBC RBC Hgb Hct Lymph % (Auto) [place] % (Auto) Lymph # (Auto) [place] # (Auto) Seg Neutrophils % Seg Neutrophils # D-Dimer Sodium 136 L Potassium Chloride 91.9 L Carbon Dioxide BUN 25 H Creatinine Glucose 245 H Hemoglobin A1c Ferritin AST ALT Lactate Dehydrogenase C-Reactive Protein Albumin Ur Specific [place] Urine WBC (Auto) Coronavirus (PCR)
[2020-09-11] MEDS: methylPREDNISolone Sod Succinate 40 MG/1 ML INJ IV SCH ×3 (05:28→22:37)
[2020-09-11] MEDS: ASCORBIC ACID 500 MG TAB PO SCH ×2 (09:33→22:37)
[2020-09-11] MEDS: ENOXAPARIN 100 MG/1 ML INJ SUB-Q SCH ×2 (09:34→22:38)
[2020-09-11] MEDS: ZINC SULFATE 220 MG CAP PO SCH (09:34)
[2020-09-11] MEDS: CHOLECALCIFEROL (VIT D3) 5,000 UNIT TAB PO SCH (09:34)
[2020-09-11] MEDS: FAMOTIDINE 20 MG TAB PO SCH ×2 (09:34→22:37)
--- NOTE | 2020-09-11 12:06 | Progress Note ---
Assessment and Plan - Patient Problems (1) Acute respiratory failure with hypoxia Current Visit: Yes Status: Acute Plan to address problem: Supplemental oxygen, pulse oximetry, nebulizer therapy, treat coronavirus infection. (2) Coronavirus infection Current Visit: Yes Status: Acute Plan to address problem: Coronavirus protocol: IV antibiotic therapy, IV steroid therapy, vitamin C therapy, vitamin D therapy, zinc therapy, full course remdesivir therapy (3) Obesity hypoventilation syndrome Current Visit: Yes Status: Acute Plan to address problem: Balanced diet, increase physical activity at discharge, outpatient pulmonary follow-up for sleep study. (4) Bilateral pneumonia Current Visit: Yes Status: Acute Plan to address problem: Pneumonia protocol: Chest x-ray, CBC, CMP, IV antibiotic therapy, supplemental oxygen, pulse oximetry, (5) SIRS (systemic inflammatory response syndrome) Current Visit: Yes Status: Acute Plan to address problem: IV antibiotic therapy, supportive care, CBC in a.m. (6) DVT prophylaxis Current Visit: Yes Status: Acute Plan to address problem: SCD to bilateral lower extremities while in bed, continue prophylactic anticoagulation History Interval history: 35 YO Male with Obesity Hypoventilation Syndrome, pneumonia, coronavirus infection, systemic inflammatory response syndrome. Patient knowledges continued shortness of breath. Patient denies pain. No reported nursing events. Patient counseled regarding prone positioning while in bed. Hospitalist Physical - Constitutional Vitals: Temp Pulse Resp BP Pulse Ox 98.2 F 107 H 18 122/78 92 09/11/20 02:07 09/11/20 02:07 09/11/20 02:07 09/11/20 02:07 09/11/20 11:37 General appearance: Present: obese - EENT Eyes: Present: PERRL ENT: hearing intact - Neck Neck: Present: supple - Respiratory Respiratory effort: labored Respiratory: bilateral: diminished, rhonchi - Cardiovascular Rhythm: regular Heart Sounds: Present: S1 & S2 - Extremities Extremities: no ischemia Peripheral Pulses: within normal limits - Abdominal General gastrointestinal: soft, non-tender, non-distended - Integumentary Integumentary: Present: clear, dry - Psychiatric Psychiatric: appropriate mood/affect, cooperative - Neurologic Neurologic: CNII-XII intact HEART Score - HEART Score Troponin: Troponin T < 0.010 ng/mL (0.00-0.029) 08/27/20 11:56 Results - Labs CBC & Chem 7: 09/06/20 10:20 09/10/20 09:47 Labs: Laboratory Last Values WBC 14.3 K/mm3 (4.5-11.0) H 09/06/20 10:20 RBC 4.97 M/mm3 (3.65-5.03) 09/06/20 10:20 Hgb 14.8 gm/dl (11.8-15.2) 09/06/20 10:20 Hct 44.2 % (35.5-45.6) 09/06/20 10:20 MCV 89 fl (84-94) 09/06/20 10:20 MCH 30 pg (28-32) 09/06/20 10:20 MCHC 33 % (32-34) 09/06/20 10:20 RDW 13.2 % (13.2-15.2) 09/06/20 10:20 Plt Count 327 K/mm3 (140-440) 09/06/20 10:20 Lymph % (Auto) 10.2 % (13.4-35.0) L 09/06/20 10:20 [place] % (Auto) 12.2 % (0.0-7.3) H 09/06/20 10:20 Eos % (Auto) 1.0 % (0.0-4.3) 09/06/20 10:20 Baso % (Auto) 0.2 % (0.0-1.8) 09/06/20 10:20 Lymph # (Auto) 1.5 K/mm3 (1.2-5.4) 09/06/20 10:20 [place] # (Auto) 1.7 K/mm3 (0.0-0.8) H 09/06/20 10:20 Eos # (Auto) 0.1 K/mm3 (0.0-0.4) 09/06/20 10:20 Baso # (Auto) 0.0 K/mm3 (0.0-0.1) 09/06/20 10:20 Seg Neutrophils % 76.4 % (40.0-70.0) H 09/06/20 10:20 Seg Neutrophils # 10.9 K/mm3 (1.8-7.7) H 09/06/20 10:20 D-Dimer 171.18 ng/mlDDU (0-234) 09/07/20 07:37 Sodium 136 mmol/L (137-145) L 09/10/20 09:47 Potassium 4.2 mmol/L (3.6-5.0) 09/10/20 09:47 Chloride 91.9 mmol/L (98-107) L 09/10/20 09:47 Carbon Dioxide 30 mmol/L (22-30) 09/10/20 09:47 Anion Gap 18 mmol/L 09/10/20 09:47 BUN 25 mg/dL (9-20) H 09/10/20 09:47 Creatinine 0.8 mg/dL (0.8-1.3) 09/10/20 09:47 Estimated GFR > 60 ml/min 09/10/20 09:47 BUN/Creatinine Ratio 31 % 09/10/20 09:47 Glucose 245 mg/dL (75-100) H 09/10/20 09:47 Hemoglobin A1c 6.4 % (4-6) H 08/28/20 07:55 Lactic Acid 1.60 mmol/L (0.7-2.0) 08/27/20 16:51 Calcium 9.6 mg/dL (8.4-10.2) 09/10/20 09:47 Ferritin 786.5 ng/mL (30.0-300.0) H 09/07/20 07:37 Total Bilirubin 0.80 mg/dL (0.1-1.2) 09/06/20 10:20 AST 38 units/L (5-40) 09/06/20 10:20 ALT 118 units/L (7-56) H 09/06/20 10:20 Alkaline Phosphatase 72 units/L (35-129) 09/06/20 10:20 Lactate Dehydrogenase 265 units/L (91-180) H 09/07/20 07:59 Troponin T < 0.010 ng/mL (0.00-0.029) 08/27/20 11:56 C-Reactive Protein 1.30 mg/dL (0.00-1.30) 09/07/20 07:59 NT-Pro-B Natriuret Pep < 5 pg/mL (0-450) 08/27/20 11:56 Total Protein 6.9 g/dL (6.3-8.2) 09/06/20 10:20 Albumin 3.1 g/dL (3.9-5) L 09/06/20 10:20 Albumin/Globulin Ratio 0.8 % 09/06/20 10:20 Procalcitonin 0.09 ng/mL (<0.15) 08/27/20 11:56 Urine Color Kim (Yellow) 08/27/20 Unknown Urine Turbidity Clear (Clear) 08/27/20 Unknown Urine pH 5.0 (5.0-7.0) 08/27/20 Unknown Ur Specific [place] 1.040 (1.003-1.030) H 08/27/20 Unknown Urine Protein >500 mg/dL (Negative) 08/27/20 Unknown Urine Glucose (UA) Neg mg/dL (Negative) 08/27/20 Unknown Urine Ketones 20 mg/dL (Negative) 08/27/20 Unknown Urine Blood Mod (Negative) 08/27/20 Unknown Urine Nitrite Neg (Negative) 08/27/20 Unknown Urine Bilirubin Neg (Negative) 08/27/20 Unknown Urine Urobilinogen < 2.0 mg/dL (<2.0) 08/27/20 Unknown Ur Leukocyte Esterase Neg (Negative) 08/27/20 Unknown Urine WBC (Auto) 11.0 /HPF (0.0-6.0) H 08/27/20 Unknown Urine RBC (Auto) 2.0 /HPF (0.0-6.0) 08/27/20 Unknown U Epithel Cells (Auto) 1.0 /HPF (0-13.0) 08/27/20 Unknown Urine Mucus 1+ /HPF 08/27/20 Unknown Coronavirus (PCR) Positive (Negative) A 08/27/20 Unknown [place]/IV: Voiding Method Urinal Active Medications - Current Medications Current Medications: Generic Name Dose Route Start Last Admin Trade Name Freq PRN Reason Stop Dose Admin Acetaminophen 650 mg 08/27/20 17:05 09/03/20 21:41 Acetaminophen 325 Mg Tab PO 650 mg Q4H PRN Administration Pain MILD(1-3)/Fever >100.5/JACOBS Albuterol 2 puff 09/02/20 22:51 Albuterol 8.5 Gm Mdi Inhalation IH Q4HRT PRN Shortness Of Breath Ascorbic Acid 1,000 mg 08/27/20 22:00 09/11/20 09:33 Ascorbic Acid 500 Mg Tab PO 1,000 mg BID [place] Administration Cholecalciferol 5,000 unit 08/27/20 18:00 09/11/20 09:34 Cholecalciferol (Vit D3) 5,000 Unit Tab PO 5,000 unit DAILY [place] Administration Enoxaparin Sodium 100 mg 09/03/20 10:00 09/11/20 09:34 Enoxaparin 100 Mg/1 Ml Inj 1 mg/kg (100 mg) 100 mg SUB-Q Administration Q12HR [facility] Protocol Famotidine 20 mg 08/27/20 22:00 09/11/20 09:34 Famotidine 20 Mg Tab PO 20 mg BID [place] Administration Guaifenesin 200 mg 08/28/20 12:50 09/08/20 22:33 Guaifenesin 100 Mg/5 Ml Oral Liqd PO 200 mg Q4H PRN Administration Cough Methylprednisolone Sodium Succinate 40 mg 09/06/20 12:00 09/11/20 05:28 Methylprednisolone Sod Succinate 40 Mg/1 Ml Inj IV 40 mg Q8HR [place] Administration Morphine Sulfate 2 mg 09/05/20 11:44 09/06/20 17:21 Morphine 2 Mg/1 Ml Inj IV 2 mg Q4H PRN Administration Pain, Moderate (4-6) Ondansetron HCl 4 mg 08/27/20 17:05 09/05/20 11:40 Ondansetron 4 Mg/2 Ml Inj IV 4 mg Q3H PRN Administration Nausea And Vomiting Oxycodone/Acetaminophen 1 tab 08/27/20 17:05 09/09/20 18:03 Oxycodone /Acetaminophen 5-325mg Tab PO 1 tab Q6H PRN Administration Pain, Moderate (4-6) Sodium Chloride 10 ml 08/27/20 22:00 09/11/20 09:34 Sodium Chloride 0.9% 10 Ml Flush Syringe IV 10 ml BID [place] Administration Sodium Chloride 10 ml 08/27/20 17:05 Sodium Chloride 0.9% 10 Ml Flush Syringe IV PRN PRN LINE FLUSH Zinc Sulfate 220 mg 09/05/20 10:00 09/11/20 09:34 Zinc Sulfate 220 Mg Cap PO 220 mg QDAY [place] Administration Nutrition/Malnutrition Assess - Dietary Evaluation Nutrition/Malnutrition Findings: Nutrition Notes Start: 08/28/20 12:26 Freq: Status: Active Protocol: Document 09/08/20 13:55 MK (Rec: 07/28/21 13:56 [id number]) Nutrition Notes Initial or Follow up Brief Note Current Diagnosis Hypertension,Respiratory Failure Other Pertinent Diagnosis COVID-19 (+), bilat pneu, SIRS Current Diet Regular + Ensure Enlive BID Subjective/Other Information Pt hung up phone. Per chart, pt eating 100% of meals yesterday. Nutrition Intervention Follow-Up By: 09/13/20 Additional Comments F/U: intakes (meals, ONS)
--- NOTE | 2020-09-11 13:02 | Progress Note ---
Assessment and Plan 35 y/o male with acute respiratory failure secondary to COVID 19 pneumonia. 09/11/20: Lasix now 40 and then 20 IV at 2100. Please encourage patient to prone. Follow up with CM about LTACH as patient needs prolonged weaning. Continue IV steroids. Guarded prognosis. 09/10/20: Unable to order lasix until recent vitals placed. Labs are stable. Per CM Charlton reviewing clinical. Needs to prone. Took two doses of lasix to achieve net negative state yesterday and would like to do again today if vitals can be confirmed. 09/09/20: More lasix today. Labs stable. Continue proning and steroids. Agree with LTACH referral. Already on anticoagulation. Guarded prognosis. 09/08/20: CXR is slightly better. Continue solumedrol at current dosing. Continue to prone. Lasix again today as he still has a positive fluid balance. 09/07/20: Lasix again today. Continue IV solumedrol. Proning. Repeat CXR today. 09/06/20: Will give lasix now. Put back on steroids but this IV 40q8. Wean FiO2 for sats > 88% and stress the importance of proning. 09/03/20: Lasix 40 now and then will order another dose for 2000 tonight. BMP is stable. Wean FiO2 for sats >88%. Continue to prone nightly and PRN. Finished Remdesivir, still on steroids. 09/02/20: Continue proning at night and during the day as well if possible. Lasix 40 again today. Would check BMP tomorrow. Wean FiO2 and flow for sats >88%. Prognosis still remains guarded. 09/01/20: Documented proning this am with improvement in Sats and oxygen requirement. Lasix again today. Strict I/O. reviewed ID note and appreciate them answering the Actemra inquiry. Guarded prognosis, will continue to follow. 08/31/20: Still no documentation of proning. Lasix again today and ordered strict I/O. Follow up ID recs. Will ask if Actemra is still being used. Guarded prognosis. 08/30. Proning order is in, very important that patient do this. Lasix again today but this time, 40mg IV. Remdesivir and steroids. Guarded prognosis. Please document if patient is refusing to prone. IV steroids Stopped duonebs given nature of disease with concern for spread Lasix 20mg IV x1 today Prone during the day as tolerated and sleep prone at night Guarded prognosis. Subjective Date of service: 09/11/20 Principal diagnosis: COVID-19 Interval history: 30 and 45%, was on 25 and 40 yesterday. Stable sats. Positive today but was overall negative on yesterday. Objective Vital Signs - 12hr 09/11/20 09/11/20 09/11/20 02:00 02:07 10:00 Temperature 98.2 F Pulse Rate 107 H Respiratory 18 Rate Blood Pressure 122/78 O2 Sat by Pulse 95 95 95 Oximetry 09/11/20 11:37 Temperature Pulse Rate Respiratory Rate Blood Pressure O2 Sat by Pulse 92 Oximetry Constitutional: no acute distress ENT: oropharynx moist Neck: supple Ascultation: Bilateral: clear Cardiovascular: regular rate and rhythm Gastrointestinal: normoactive bowel sounds, soft, non-tender Integumentary: normal Extremities: no cyanosis Neurologic: normal mental status Psychiatric: mood appropriate CBC and BMP: 09/06/20 10:20 09/10/20 09:47 ABG, PT/INR, D-dimer: PT/INR, D-dimer D-Dimer 171.18 ng/mlDDU (0-234) 09/07/20 07:37 Abnormal lab findings: Abnormal Labs 08/27/20 08/27/20 08/27/20 11:56 11:56 11:56 WBC RBC Hgb Hct Lymph % (Auto) [place] % (Auto) Lymph # (Auto) [place] # (Auto) Seg Neutrophils % Seg Neutrophils # D-Dimer 291.43 H Sodium Potassium Chloride Carbon Dioxide BUN Creatinine Glucose Hemoglobin A1c Ferritin 572.3 H AST ALT Lactate Dehydrogenase 313 H C-Reactive Protein 4.40 H Albumin Ur Specific [place] Urine WBC (Auto) Coronavirus (PCR) 08/27/20 08/27/20 08/27/20 11:56 11:56 Unknown WBC RBC Hgb Hct Lymph % (Auto) 10.3 L [place] % (Auto) Lymph # (Auto) 0.7 L [place] # (Auto) Seg Neutrophils % 84.6 H Seg Neutrophils # D-Dimer Sodium Potassium 3.4 L Chloride Carbon Dioxide BUN Creatinine Glucose 125 H Hemoglobin A1c Ferritin AST 66 H ALT Lactate Dehydrogenase C-Reactive Protein Albumin Ur Specific [place] Urine WBC (Auto) Coronavirus (PCR) Positive A 08/27/20 08/28/20 08/28/20 Unknown 07:55 07:55 WBC RBC 5.06 H Hgb Hct Lymph % (Auto) 9.7 L [place] % (Auto) Lymph # (Auto) 0.6 L [place] # (Auto) Seg Neutrophils % 84.8 H Seg Neutrophils # D-Dimer Sodium Potassium Chloride Carbon Dioxide BUN Creatinine Glucose 125 H Hemoglobin A1c Ferritin AST 80 H ALT Lactate Dehydrogenase C-Reactive Protein Albumin Ur Specific [place] 1.040 H Urine WBC (Auto) 11.0 H Coronavirus (PCR) 08/28/20 08/30/20 08/30/20 07:55 06:51 06:51 WBC RBC 5.04 H Hgb Hct Lymph % (Auto) [place] % (Auto) Lymph # (Auto) [place] # (Auto) Seg Neutrophils % Seg Neutrophils # D-Dimer Sodium Potassium Chloride Carbon Dioxide BUN Creatinine Glucose 144 H Hemoglobin A1c 6.4 H Ferritin AST 99 H ALT Lactate Dehydrogenase C-Reactive Protein Albumin 3.8 L Ur Specific [place] Urine WBC (Auto) Coronavirus (PCR) 08/30/20 08/30/20 08/31/20 14:18 14:18 05:43 WBC RBC Hgb Hct Lymph % (Auto) [place] % (Auto) Lymph # (Auto) [place] # (Auto) Seg Neutrophils % Seg Neutrophils # D-Dimer Sodium Potassium 5.1 H Chloride Carbon Dioxide 20 L D BUN 25 H Creatinine 0.7 L Glucose 158 H Hemoglobin A1c Ferritin 1166.0 H AST 75 H ALT Lactate Dehydrogenase 529 H C-Reactive Protein 5.90 H Albumin 3.3 L Ur Specific [place] Urine WBC (Auto) Coronavirus (PCR) 09/01/20 09/01/20 09/01/20 06:11 06:11 19:48 WBC RBC 5.11 H Hgb Hct Lymph % (Auto) [place] % (Auto) Lymph # (Auto) [place] # (Auto) Seg Neutrophils % Seg Neutrophils # D-Dimer Sodium Potassium Chloride Carbon Dioxide BUN 27 H Creatinine Glucose 151 H Hemoglobin A1c Ferritin 1859.0 H AST 67 H ALT 69 H Lactate Dehydrogenase C-Reactive Protein Albumin 3.7 L Ur Specific [place] Urine WBC (Auto) Coronavirus (PCR) 09/01/20 09/03/20 09/03/20 19:48 06:17 06:17 WBC RBC Hgb Hct Lymph % (Auto) [place] % (Auto) Lymph # (Auto) [place] # (Auto) Seg Neutrophils % Seg Neutrophils # D-Dimer 566.54 H Sodium Potassium Chloride Carbon Dioxide BUN Creatinine Glucose 149 H Hemoglobin A1c Ferritin AST ALT Lactate Dehydrogenase 558 H 350 H C-Reactive Protein 1.50 H 1.70 H Albumin Ur Specific [place] Urine WBC (Auto) Coronavirus (PCR) 09/03/20 09/03/20 09/05/20 06:17 09:32 07:13 WBC RBC Hgb Hct Lymph % (Auto) [place] % (Auto) Lymph # (Auto) [place] # (Auto) Seg Neutrophils % Seg Neutrophils # D-Dimer 295.00 H Sodium Potassium Chloride Carbon Dioxide BUN 28 H Creatinine Glucose 172 H Hemoglobin A1c Ferritin 1194.0 H AST ALT Lactate Dehydrogenase C-Reactive Protein Albumin Ur Specific [place] Urine WBC (Auto) Coronavirus (PCR) 09/05/20 09/05/20 09/05/20 07:13 07:13 07:13 WBC 19.6 H RBC 5.48 H Hgb 16.1 H Hct 49.5 H Lymph % (Auto) [place] % (Auto) Lymph # (Auto) [place] # (Auto) Seg Neutrophils % Seg Neutrophils # D-Dimer Sodium Potassium Chloride Carbon Dioxide BUN 26 H Creatinine 0.7 L Glucose 140 H Hemoglobin A1c Ferritin 1051.0 H AST 61 H ALT 170 H Lactate Dehydrogenase 399 H C-Reactive Protein 2.30 H Albumin 3.5 L Ur Specific [place] Urine WBC (Auto) Coronavirus (PCR) 09/06/20 09/06/20 09/07/20 10:20 10:20 07:37 WBC 14.3 H RBC Hgb Hct Lymph % (Auto) 10.2 L [place] % (Auto) 12.2 H Lymph # (Auto) [place] # (Auto) 1.7 H Seg Neutrophils % 76.4 H Seg Neutrophils # 10.9 H D-Dimer Sodium 133 L D Potassium 3.5 L Chloride 93.3 L Carbon Dioxide BUN 22 H Creatinine 0.6 L Glucose 147 H Hemoglobin A1c Ferritin 786.5 H AST ALT 118 H Lactate Dehydrogenase C-Reactive Protein Albumin 3.1 L Ur Specific [place] Urine WBC (Auto) Coronavirus (PCR) 09/07/20 09/08/20 09/09/20 07:59 08:22 08:22 WBC RBC Hgb Hct Lymph % (Auto) [place] % (Auto) Lymph # (Auto) [place] # (Auto) Seg Neutrophils % Seg Neutrophils # D-Dimer Sodium 135 L 133 L Potassium Chloride 93.6 L 93.2 L 94.3 L Carbon Dioxide 31 H 33 H BUN 22 H 24 H 21 H Creatinine 0.6 L 0.6 L Glucose 156 H 157 H 158 H Hemoglobin A1c Ferritin AST ALT Lactate Dehydrogenase 265 H C-Reactive Protein Albumin Ur Specific [place] Urine WBC (Auto) Coronavirus (PCR) 09/10/20 09:47 WBC RBC Hgb Hct Lymph % (Auto) [place] % (Auto) Lymph # (Auto) [place] # (Auto) Seg Neutrophils % Seg Neutrophils # D-Dimer Sodium 136 L Potassium Chloride 91.9 L Carbon Dioxide BUN 25 H Creatinine Glucose 245 H Hemoglobin A1c Ferritin AST ALT Lactate Dehydrogenase C-Reactive Protein Albumin Ur Specific [place] Urine WBC (Auto) Coronavirus (PCR)
[2020-09-11] MEDS ORDERED: FUROSEMIDE 40 MG/4 ML INJ IV ONE (14:00)
[2020-09-11] MEDS: oxyCODONE /ACETAMINOPHEN 5-325MG TAB PO PRN (17:38)
[2020-09-11] MEDS ORDERED: FUROSEMIDE 20 MG/2 ML INJ IV ONE (21:00)
[2020-09-12] MEDS: methylPREDNISolone Sod Succinate 40 MG/1 ML INJ IV SCH ×3 (06:40→23:18)
[2020-09-12] MEDS: CHOLECALCIFEROL (VIT D3) 5,000 UNIT TAB PO SCH (11:14)
[2020-09-12] MEDS: FAMOTIDINE 20 MG TAB PO SCH ×2 (11:14→23:17)
[2020-09-12] MEDS: ENOXAPARIN 100 MG/1 ML INJ SUB-Q SCH ×2 (11:14→23:17)
--- NOTE | 2020-09-12 11:14 | Progress Note ---
Assessment and Plan - Patient Problems (1) Acute respiratory failure with hypoxia Current Visit: Yes Status: Acute Plan to address problem: Supplemental oxygen, pulse oximetry, nebulizer therapy, treat coronavirus infection. (2) Coronavirus infection Current Visit: Yes Status: Acute Plan to address problem: Coronavirus protocol: IV antibiotic therapy, IV steroid therapy, vitamin C therapy, vitamin D therapy, zinc therapy, full course remdesivir therapy (3) Obesity hypoventilation syndrome Current Visit: Yes Status: Acute Plan to address problem: Balanced diet, increase physical activity at discharge, outpatient pulmonary follow-up for sleep study. (4) Bilateral pneumonia Current Visit: Yes Status: Acute Plan to address problem: Pneumonia protocol: Chest x-ray, CBC, CMP, IV antibiotic therapy, supplemental oxygen, pulse oximetry, (5) SIRS (systemic inflammatory response syndrome) Current Visit: Yes Status: Acute Plan to address problem: IV antibiotic therapy, supportive care, CBC in a.m. (6) DVT prophylaxis Current Visit: Yes Status: Acute Plan to address problem: SCD to bilateral lower extremities while in bed, continue prophylactic anticoagulation History Interval history: 35 YO Male with Obesity Hypoventilation Syndrome, pneumonia, coronavirus infection, systemic inflammatory response syndrome. Patient knowledges continued shortness of breath. Patient denies pain. No reported nursing events. Patient counseled regarding prone positioning while in bed. Hospitalist Physical - Constitutional Vitals: Temp Pulse Resp BP Pulse Ox 97.8 F 105 H 18 125/87 94 09/11/20 21:59 09/11/20 21:59 09/11/20 16:24 09/11/20 21:59 09/12/20 09:12 General appearance: Present: obese - EENT Eyes: Present: PERRL, EOM intact ENT: hearing intact - Neck Neck: Present: supple - Respiratory Respiratory effort: labored Respiratory: bilateral: diminished, rhonchi - Cardiovascular Rhythm: regular Heart Sounds: Present: S1 & S2 - Extremities Extremities: no ischemia Peripheral Pulses: within normal limits - Abdominal General gastrointestinal: soft, non-tender, non-distended - Integumentary Integumentary: Present: clear, warm, dry - Psychiatric Psychiatric: appropriate mood/affect, cooperative - Neurologic Neurologic: CNII-XII intact HEART Score - HEART Score Troponin: Troponin T < 0.010 ng/mL (0.00-0.029) 08/27/20 11:56 Results - Labs CBC & Chem 7: 09/06/20 10:20 09/10/20 09:47 Labs: Laboratory Last Values WBC 14.3 K/mm3 (4.5-11.0) H 09/06/20 10:20 RBC 4.97 M/mm3 (3.65-5.03) 09/06/20 10:20 Hgb 14.8 gm/dl (11.8-15.2) 09/06/20 10:20 Hct 44.2 % (35.5-45.6) 09/06/20 10:20 MCV 89 fl (84-94) 09/06/20 10:20 MCH 30 pg (28-32) 09/06/20 10:20 MCHC 33 % (32-34) 09/06/20 10:20 RDW 13.2 % (13.2-15.2) 09/06/20 10:20 Plt Count 327 K/mm3 (140-440) 09/06/20 10:20 Lymph % (Auto) 10.2 % (13.4-35.0) L 09/06/20 10:20 [place] % (Auto) 12.2 % (0.0-7.3) H 09/06/20 10:20 Eos % (Auto) 1.0 % (0.0-4.3) 09/06/20 10:20 Baso % (Auto) 0.2 % (0.0-1.8) 09/06/20 10:20 Lymph # (Auto) 1.5 K/mm3 (1.2-5.4) 09/06/20 10:20 [place] # (Auto) 1.7 K/mm3 (0.0-0.8) H 09/06/20 10:20 Eos # (Auto) 0.1 K/mm3 (0.0-0.4) 09/06/20 10:20 Baso # (Auto) 0.0 K/mm3 (0.0-0.1) 09/06/20 10:20 Seg Neutrophils % 76.4 % (40.0-70.0) H 09/06/20 10:20 Seg Neutrophils # 10.9 K/mm3 (1.8-7.7) H 09/06/20 10:20 D-Dimer 171.18 ng/mlDDU (0-234) 09/07/20 07:37 Sodium 136 mmol/L (137-145) L 09/10/20 09:47 Potassium 4.2 mmol/L (3.6-5.0) 09/10/20 09:47 Chloride 91.9 mmol/L (98-107) L 09/10/20 09:47 Carbon Dioxide 30 mmol/L (22-30) 09/10/20 09:47 Anion Gap 18 mmol/L 09/10/20 09:47 BUN 25 mg/dL (9-20) H 09/10/20 09:47 Creatinine 0.8 mg/dL (0.8-1.3) 09/10/20 09:47 Estimated GFR > 60 ml/min 09/10/20 09:47 BUN/Creatinine Ratio 31 % 09/10/20 09:47 Glucose 245 mg/dL (75-100) H 09/10/20 09:47 Hemoglobin A1c 6.4 % (4-6) H 08/28/20 07:55 Lactic Acid 1.60 mmol/L (0.7-2.0) 08/27/20 16:51 Calcium 9.6 mg/dL (8.4-10.2) 09/10/20 09:47 Ferritin 786.5 ng/mL (30.0-300.0) H 09/07/20 07:37 Total Bilirubin 0.80 mg/dL (0.1-1.2) 09/06/20 10:20 AST 38 units/L (5-40) 09/06/20 10:20 ALT 118 units/L (7-56) H 09/06/20 10:20 Alkaline Phosphatase 72 units/L (35-129) 09/06/20 10:20 Lactate Dehydrogenase 265 units/L (91-180) H 09/07/20 07:59 Troponin T < 0.010 ng/mL (0.00-0.029) 08/27/20 11:56 C-Reactive Protein 1.30 mg/dL (0.00-1.30) 09/07/20 07:59 NT-Pro-B Natriuret Pep < 5 pg/mL (0-450) 08/27/20 11:56 Total Protein 6.9 g/dL (6.3-8.2) 09/06/20 10:20 Albumin 3.1 g/dL (3.9-5) L 09/06/20 10:20 Albumin/Globulin Ratio 0.8 % 09/06/20 10:20 Procalcitonin 0.09 ng/mL (<0.15) 08/27/20 11:56 Urine Color Kim (Yellow) 08/27/20 Unknown Urine Turbidity Clear (Clear) 08/27/20 Unknown Urine pH 5.0 (5.0-7.0) 08/27/20 Unknown Ur Specific [place] 1.040 (1.003-1.030) H 08/27/20 Unknown Urine Protein >500 mg/dL (Negative) 08/27/20 Unknown Urine Glucose (UA) Neg mg/dL (Negative) 08/27/20 Unknown Urine Ketones 20 mg/dL (Negative) 08/27/20 Unknown Urine Blood Mod (Negative) 08/27/20 Unknown Urine Nitrite Neg (Negative) 08/27/20 Unknown Urine Bilirubin Neg (Negative) 08/27/20 Unknown Urine Urobilinogen < 2.0 mg/dL (<2.0) 08/27/20 Unknown Ur Leukocyte Esterase Neg (Negative) 08/27/20 Unknown Urine WBC (Auto) 11.0 /HPF (0.0-6.0) H 08/27/20 Unknown Urine RBC (Auto) 2.0 /HPF (0.0-6.0) 08/27/20 Unknown U Epithel Cells (Auto) 1.0 /HPF (0-13.0) 08/27/20 Unknown Urine Mucus 1+ /HPF 08/27/20 Unknown Coronavirus (PCR) Positive (Negative) A 08/27/20 Unknown Traore/IV: Voiding Method Urinal Active Medications - Current Medications Current Medications: Generic Name Dose Route Start Last Admin Trade Name Freq PRN Reason Stop Dose Admin Acetaminophen 650 mg 08/27/20 17:05 09/03/20 21:41 Acetaminophen 325 Mg Tab PO 650 mg Q4H PRN Administration Pain MILD(1-3)/Fever >100.5/JACOBS Albuterol 2 puff 09/02/20 22:51 Albuterol 8.5 Gm Mdi Inhalation IH Q4HRT PRN Shortness Of Breath Ascorbic Acid 1,000 mg 08/27/20 22:00 09/11/20 22:37 Ascorbic Acid 500 Mg Tab PO 1,000 mg BID [place] Administration Cholecalciferol 5,000 unit 08/27/20 18:00 09/11/20 09:34 Cholecalciferol (Vit D3) 5,000 Unit Tab PO 5,000 unit DAILY [place] Administration Enoxaparin Sodium 100 mg 09/03/20 10:00 09/11/20 22:38 Enoxaparin 100 Mg/1 Ml Inj 1 mg/kg (100 mg) 100 mg SUB-Q Administration Q12HR [facility] Protocol Famotidine 20 mg 08/27/20 22:00 09/11/20 22:37 Famotidine 20 Mg Tab PO 20 mg BID [place] Administration Guaifenesin 200 mg 08/28/20 12:50 09/08/20 22:33 Guaifenesin 100 Mg/5 Ml Oral Liqd PO 200 mg Q4H PRN Administration Cough Methylprednisolone Sodium Succinate 40 mg 09/06/20 12:00 09/12/20 06:40 Methylprednisolone Sod Succinate 40 Mg/1 Ml Inj IV 40 mg Q8HR [place] Administration Morphine Sulfate 2 mg 09/05/20 11:44 09/06/20 17:21 Morphine 2 Mg/1 Ml Inj IV 2 mg Q4H PRN Administration Pain, Moderate (4-6) Ondansetron HCl 4 mg 08/27/20 17:05 09/05/20 11:40 Ondansetron 4 Mg/2 Ml Inj IV 4 mg Q3H PRN Administration Nausea And Vomiting Oxycodone/Acetaminophen 1 tab 08/27/20 17:05 09/11/20 17:38 Oxycodone /Acetaminophen 5-325mg Tab PO 1 tab Q6H PRN Administration Pain, Moderate (4-6) Sodium Chloride 10 ml 08/27/20 22:00 09/11/20 22:38 Sodium Chloride 0.9% 10 Ml Flush Syringe IV 10 ml BID [place] Administration Sodium Chloride 10 ml 08/27/20 17:05 Sodium Chloride 0.9% 10 Ml Flush Syringe IV PRN PRN LINE FLUSH Zinc Sulfate 220 mg 09/05/20 10:00 09/11/20 09:34 Zinc Sulfate 220 Mg Cap PO 220 mg QDAY [place] Administration Nutrition/Malnutrition Assess - Dietary Evaluation Nutrition/Malnutrition Findings: Nutrition Notes Start: 08/28/20 12:26 Freq: Status: Active Protocol: Document 09/08/20 13:55 (Rec: 09/08/20 13:56 [email or web address]) Nutrition Notes Initial or Follow up Brief Note Current Diagnosis Hypertension,Respiratory Failure Other Pertinent Diagnosis COVID-19 (+), bilat pneu, SIRS Current Diet Regular + Ensure Enlive BID Subjective/Other Information Pt hung up phone. Per chart, pt eating 100% of meals yesterday. Nutrition Intervention Follow-Up By: 09/13/20 Additional Comments F/U: intakes (meals, ONS)
[2020-09-12] MEDS: ASCORBIC ACID 500 MG TAB PO SCH ×2 (11:15→23:18)
[2020-09-12] MEDS: ZINC SULFATE 220 MG CAP PO SCH (11:15)
--- NOTE | 2020-09-12 12:04 | Progress Note ---
Assessment and Plan 35 y/o male with acute respiratory failure secondary to COVID 19 pneumonia. 09/12/20: repeat chemistry tomorrow. Hold on lasix today. Continue IV steroids and proning. Follow up with CM about LTACH 09/11/20: Lasix now 40 and then 20 IV at 2100. Please encourage patient to prone. Follow up with CM about LTACH as patient needs prolonged weaning. Continue IV steroids. Guarded prognosis. 09/10/20: Unable to order lasix until recent vitals placed. Labs are stable. Per CM [place] reviewing clinical. Needs to prone. Took two doses of lasix to achieve net negative state yesterday and would like to do again today if vitals can be confirmed. 09/09/20: More lasix today. Labs stable. Continue proning and steroids. Agree with LTACH referral. Already on anticoagulation. Guarded prognosis. 09/08/20: CXR is slightly better. Continue solumedrol at current dosing. Continue to prone. Lasix again today as he still has a positive fluid balance. 09/07/20: Lasix again today. Continue IV solumedrol. Proning. Repeat CXR tod ay. 09/06/20: Will give lasix now. Put back on steroids but this IV 40q8. Wean FiO2 for sats > 88% and stress the importance of proning. 09/03/20: Lasix 40 now and then will order another dose for 2000 tonight. BMP is stable. Wean FiO2 for sats >88%. Continue to prone nightly and PRN. Finish ed Remdesivir, still on steroids. 09/02/20: Continue proning at night and during the day as well if possible. Lasix 40 again today. Would check BMP tomorrow. Wean FiO2 and flow for sats >88%. Prognosis still remains guarded. 09/01/20: Documented proning this am with improvement in Sats and oxygen requirement. Lasix again today. Strict I/O. reviewed ID note and appreciate them answering the Actemra inquiry. Guarded prognosis, will continue to follow. 08/31/20: Still no documentation of proning. Lasix again today and ordered strict I/O. Follow up ID recs. Will ask if Actemra is still being used. Guarded prognosis. 08/30. Proning order is in, very important that patient do this. Lasix again today but this time, 40mg IV. Remdesivir and steroids. Guarded prognosis. Please document if patient is refusing to prone. IV steroids Stopped duonebs given nature of disease with concern for spread Lasix 20mg IV x1 today Prone during the day as tolerated and sleep prone at night Guarded prognosis. Subjective Date of service: 09/12/20 Principal diagnosis: COVID-19 Interval history: Still on HFNC. Stable. Sats in the mid 90's. Objective Vital Signs - 12hr 09/12/20 09/12/20 02:00 09:12 O2 Sat by Pulse 98 94 Oximetry Constitutional: no acute distress ENT: oropharynx moist Neck: supple Ascultation: Bilateral: clear Cardiovascular: regular rate and rhythm Gastrointestinal: normoactive bowel sounds, soft, non-tender Integumentary: normal Extremities: no cyanosis Neurologic: normal mental status Psychiatric: mood appropriate CBC and BMP: 09/06/20 10:20 09/10/20 09:47 ABG, PT/INR, D-dimer: PT/INR, D-dimer D-Dimer 171.18 ng/mlDDU (0-234) 09/07/20 07:37 Abnormal lab findings: Abnormal Labs 08/27/20 08/27/20 08/27/20 11:56 11:56 11:56 WBC RBC Hgb Hct Lymph % (Auto) [place] % (Auto) Lymph # (Auto) [place] # (Auto) Seg Neutrophils % Seg Neutrophils # D-Dimer 291.43 H Sodium Potassium Chloride Carbon Dioxide BUN Creatinine Glucose Hemoglobin A1c Ferritin 572.3 H AST ALT Lactate Dehydrogenase 313 H C-Reactive Protein 4.40 H Albumin Ur Specific [place] Urine WBC (Auto) Coronavirus (PCR) 08/27/20 08/27/20 08/27/20 11:56 11:56 Unknown WBC RBC Hgb Hct Lymph % (Auto) 10.3 L [place] % (Auto) Lymph # (Auto) 0.7 L [place] # (Auto) Seg Neutrophils % 84.6 H Seg Neutrophils # D-Dimer Sodium Potassium 3.4 L Chloride Carbon Dioxide BUN Creatinine Glucose 125 H Hemoglobin A1c Ferritin AST 66 H ALT Lactate Dehydrogenase C-Reactive Protein Albumin Ur Specific [place] Urine WBC (Auto) Coronavirus (PCR) Positive A 08/27/20 08/28/20 08/28/20 Unknown 07:55 07:55 WBC RBC 5.06 H Hgb Hct Lymph % (Auto) 9.7 L [place] % (Auto) Lymph # (Auto) 0.6 L [place] # (Auto) Seg Neutrophils % 84.8 H Seg Neutrophils # D-Dimer Sodium Potassium Chloride Carbon Dioxide BUN Creatinine Glucose 125 H Hemoglobin A1c Ferritin AST 80 H ALT Lactate Dehydrogenase C-Reactive Protein Albumin Ur Specific [place] 1.040 H Urine WBC (Auto) 11.0 H Coronavirus (PCR) 08/28/20 08/30/20 08/30/20 07:55 06:51 06:51 WBC RBC 5.04 H Hgb Hct Lymph % (Auto) [place] % (Auto) Lymph # (Auto) [place] # (Auto) Seg Neutrophils % Seg Neutrophils # D-Dimer Sodium Potassium Chloride Carbon Dioxide BUN Creatinine Glucose 144 H Hemoglobin A1c 6.4 H Ferritin AST 99 H ALT Lactate Dehydrogenase C-Reactive Protein Albumin 3.8 L Ur Specific [place] Urine WBC (Auto) Coronavirus (PCR) 08/30/20 08/30/20 08/31/20 14:18 14:18 05:43 WBC RBC Hgb Hct Lymph % (Auto) [place] % (Auto) Lymph # (Auto) [place] # (Auto) Seg Neutrophils % Seg Neutrophils # D-Dimer Sodium Potassium 5.1 H Chloride Carbon Dioxide 20 L D BUN 25 H Creatinine 0.7 L Glucose 158 H Hemoglobin A1c Ferritin 1166.0 H AST 75 H ALT Lactate Dehydrogenase 529 H C-Reactive Protein 5.90 H Albumin 3.3 L Ur Specific [place] Urine WBC (Auto) Coronavirus (PCR) 09/01/20 09/01/20 09/01/20 06:11 06:11 19:48 WBC RBC 5.11 H Hgb Hct Lymph % (Auto) [place] % (Auto) Lymph # (Auto) [place] # (Auto) Seg Neutrophils % Seg Neutrophils # D-Dimer Sodium Potassium Chloride Carbon Dioxide BUN 27 H Creatinine Glucose 151 H Hemoglobin A1c Ferritin 1859.0 H AST 67 H ALT 69 H Lactate Dehydrogenase C-Reactive Protein Albumin 3.7 L Ur Specific [place] Urine WBC (Auto) Coronavirus (PCR) 09/01/20 09/03/20 09/03/20 19:48 06:17 06:17 WBC RBC Hgb Hct Lymph % (Auto) [place] % (Auto) Lymph # (Auto) [place] # (Auto) Seg Neutrophils % Seg Neutrophils # D-Dimer 566.54 H Sodium Potassium Chloride Carbon Dioxide BUN Creatinine Glucose 149 H Hemoglobin A1c Ferritin AST ALT Lactate Dehydrogenase 558 H 350 H C-Reactive Protein 1.50 H 1.70 H Albumin Ur Specific [place] Urine WBC (Auto) Coronavirus (PCR) 09/03/20 09/03/20 09/05/20 06:17 09:32 07:13 WBC RBC Hgb Hct Lymph % (Auto) [place] % (Auto) Lymph # (Auto) [place] # (Auto) Seg Neutrophils % Seg Neutrophils # D-Dimer 295.00 H Sodium Potassium Chloride Carbon Dioxide BUN 28 H Creatinine Glucose 172 H Hemoglobin A1c Ferritin 1194.0 H AST ALT Lactate Dehydrogenase C-Reactive Protein Albumin Ur Specific [place] Urine WBC (Auto) Coronavirus (PCR) 09/05/20 09/05/20 09/05/20 07:13 07:13 07:13 WBC 19.6 H RBC 5.48 H Hgb 16.1 H Hct 49.5 H Lymph % (Auto) [place] % (Auto) Lymph # (Auto) [place] # (Auto) Seg Neutrophils % Seg Neutrophils # D-Dimer Sodium Potassium Chloride Carbon Dioxide BUN 26 H Creatinine 0.7 L Glucose 140 H Hemoglobin A1c Ferritin 1051.0 H AST 61 H ALT 170 H Lactate Dehydrogenase 399 H C-Reactive Protein 2.30 H Albumin 3.5 L Ur Specific [place] Urine WBC (Auto) Coronavirus (PCR) 09/06/20 09/06/20 09/07/20 10:20 10:20 07:37 WBC 14.3 H RBC Hgb Hct Lymph % (Auto) 10.2 L [place] % (Auto) 12.2 H Lymph # (Auto) [place] # (Auto) 1.7 H Seg Neutrophils % 76.4 H Seg Neutrophils # 10.9 H D-Dimer Sodium 133 L D Potassium 3.5 L Chloride 93.3 L Carbon Dioxide BUN 22 H Creatinine 0.6 L Glucose 147 H Hemoglobin A1c Ferritin 786.5 H AST ALT 118 H Lactate Dehydrogenase C-Reactive Protein Albumin 3.1 L Ur Specific [place] Urine WBC (Auto) Coronavirus (PCR) 09/07/20 09/08/20 09/09/20 07:59 08:22 08:22 WBC RBC Hgb Hct Lymph % (Auto) [place] % (Auto) Lymph # (Auto) [place] # (Auto) Seg Neutrophils % Seg Neutrophils # D-Dimer Sodium 135 L 133 L Potassium Chloride 93.6 L 93.2 L 94.3 L Carbon Dioxide 31 H 33 H BUN 22 H 24 H 21 H Creatinine 0.6 L 0.6 L Glucose 156 H 157 H 158 H Hemoglobin A1c Ferritin AST ALT Lactate Dehydrogenase 265 H C-Reactive Protein Albumin Ur Specific [place] Urine WBC (Auto) Coronavirus (PCR) 09/10/20 09:47 WBC RBC Hgb Hct Lymph % (Auto) [place] % (Auto) Lymph # (Auto) [place] # (Auto) Seg Neutrophils % Seg Neutrophils # D-Dimer Sodium 136 L Potassium Chloride 91.9 L Carbon Dioxide BUN 25 H Creatinine Glucose 245 H Hemoglobin A1c Ferritin AST ALT Lactate Dehydrogenase C-Reactive Protein Albumin Ur Specific [place] Urine WBC (Auto) Coronavirus (PCR)
[2020-09-13] MEDS: methylPREDNISolone Sod Succinate 40 MG/1 ML INJ IV SCH ×3 (05:28→22:13)
--- NOTE | 2020-09-13 09:34 | Progress Note ---
Assessment and Plan Assessment and plan: (1) Acute respiratory failure with hypoxia Supplemental oxygen, pulse oximetry, nebulizer therapy, treat coronavirus infection. (2) Coronavirus infection Coronavirus protocol: IV antibiotic therapy, IV steroid therapy, vitamin C therapy, vitamin D therapy, zinc therapy, full course remdesivir therapy. Pulmonary ordered Solu-Medrol 40 mg IV every 8 hours. Continue to monitor inflammatory markers. (3) Obesity hypoventilation syndrome Balanced diet, increase physical activity at discharge, outpatient pulmonary follow-up for sleep study. (4) Bilateral pneumonia Pneumonia protocol: Chest x-ray, CBC, CMP, IV antibiotic therapy, supplemental oxygen, pulse oximetry, (5) SIRS (systemic inflammatory response syndrome) IV antibiotic therapy, supportive care, CBC in a.m. (6) DVT prophylaxis SCD to bilateral lower extremities while in bed, continue prophylactic anticoagulation History Interval history: 35 YO Male with Obesity Hypoventilation Syndrome, pneumonia, coronavirus infection, systemic inflammatory response syndrome. Patient knowledges continued shortness of breath. Patient denies pain. No reported nursing events. Hospitalist Physical - Constitutional Vitals: Temp Pulse Resp BP Pulse Ox 97.8 F 110 H 18 125/87 96 09/11/20 21:59 09/12/20 12:38 09/12/20 22:00 09/11/20 21:59 09/12/20 22:00 General appearance: Present: obese - EENT Eyes: Present: PERRL, EOM intact ENT: hearing intact, clear oral mucosa, dentition normal - Neck Neck: Present: supple, normal ROM - Respiratory Respiratory effort: normal Respiratory: bilateral: CTA - Cardiovascular Rhythm: regular Heart Sounds: Present: S1 & S2. Absent: gallop, rub - Extremities Extremities: no ischemia, No edema, Full ROM - Abdominal General gastrointestinal: soft, non-tender, non-distended, normal bowel sounds - Integumentary Integumentary: Present: clear, warm, dry - Neurologic Neurologic: CNII-XII intact, moves all extremities HEART Score - HEART Score Troponin: Troponin T < 0.010 ng/mL (0.00-0.029) 08/27/20 11:56 Results - Labs CBC & Chem 7: 09/06/20 10:20 09/10/20 09:47 Labs: Laboratory Last Values WBC 14.3 K/mm3 (4.5-11.0) H 09/06/20 10:20 RBC 4.97 M/mm3 (3.65-5.03) 09/06/20 10:20 Hgb 14.8 gm/dl (11.8-15.2) 09/06/20 10:20 Hct 44.2 % (35.5-45.6) 09/06/20 10:20 MCV 89 fl (84-94) 09/06/20 10:20 MCH 30 pg (28-32) 09/06/20 10:20 MCHC 33 % (32-34) 09/06/20 10:20 RDW 13.2 % (13.2-15.2) 09/06/20 10:20 Plt Count 327 K/mm3 (140-440) 09/06/20 10:20 Lymph % (Auto) 10.2 % (13.4-35.0) L 09/06/20 10:20 [place] % (Auto) 12.2 % (0.0-7.3) H 09/06/20 10:20 Eos % (Auto) 1.0 % (0.0-4.3) 09/06/20 10:20 Baso % (Auto) 0.2 % (0.0-1.8) 09/06/20 10:20 Lymph # (Auto) 1.5 K/mm3 (1.2-5.4) 09/06/20 10:20 [place] # (Auto) 1.7 K/mm3 (0.0-0.8) H 09/06/20 10:20 Eos # (Auto) 0.1 K/mm3 (0.0-0.4) 09/06/20 10:20 Baso # (Auto) 0.0 K/mm3 (0.0-0.1) 09/06/20 10:20 Seg Neutrophils % 76.4 % (40.0-70.0) H 09/06/20 10:20 Seg Neutrophils # 10.9 K/mm3 (1.8-7.7) H 09/06/20 10:20 D-Dimer 171.18 ng/mlDDU (0-234) 09/07/20 07:37 Sodium 136 mmol/L (137-145) L 09/10/20 09:47 Potassium 4.2 mmol/L (3.6-5.0) 09/10/20 09:47 Chloride 91.9 mmol/L (98-107) L 09/10/20 09:47 Carbon Dioxide 30 mmol/L (22-30) 09/10/20 09:47 Anion Gap 18 mmol/L 09/10/20 09:47 BUN 25 mg/dL (9-20) H 09/10/20 09:47 Creatinine 0.8 mg/dL (0.8-1.3) 09/10/20 09:47 Estimated GFR > 60 ml/min 09/10/20 09:47 BUN/Creatinine Ratio 31 % 09/10/20 09:47 Glucose 245 mg/dL (75-100) H 09/10/20 09:47 Hemoglobin A1c 6.4 % (4-6) H 08/28/20 07:55 Lactic Acid 1.60 mmol/L (0.7-2.0) 08/27/20 16:51 Calcium 9.6 mg/dL (8.4-10.2) 09/10/20 09:47 Ferritin 786.5 ng/mL (30.0-300.0) H 09/07/20 07:37 Total Bilirubin 0.80 mg/dL (0.1-1.2) 09/06/20 10:20 AST 38 units/L (5-40) 09/06/20 10:20 ALT 118 units/L (7-56) H 09/06/20 10:20 Alkaline Phosphatase 72 units/L (35-129) 09/06/20 10:20 Lactate Dehydrogenase 265 units/L (91-180) H 09/07/20 07:59 Troponin T < 0.010 ng/mL (0.00-0.029) 08/27/20 11:56 C-Reactive Protein 1.30 mg/dL (0.00-1.30) 09/07/20 07:59 NT-Pro-B Natriuret Pep < 5 pg/mL (0-450) 08/27/20 11:56 Total Protein 6.9 g/dL (6.3-8.2) 09/06/20 10:20 Albumin 3.1 g/dL (3.9-5) L 09/06/20 10:20 Albumin/Globulin Ratio 0.8 % 09/06/20 10:20 Procalcitonin 0.09 ng/mL (<0.15) 08/27/20 11:56 Urine Color Kim (Yellow) 08/27/20 Unknown Urine Turbidity Clear (Clear) 08/27/20 Unknown Urine pH 5.0 (5.0-7.0) 08/27/20 Unknown Ur Specific [place] 1.040 (1.003-1.030) H 08/27/20 Unknown Urine Protein >500 mg/dL (Negative) 08/27/20 Unknown Urine Glucose (UA) Neg mg/dL (Negative) 08/27/20 Unknown Urine Ketones 20 mg/dL (Negative) 08/27/20 Unknown Urine Blood Mod (Negative) 08/27/20 Unknown Urine Nitrite Neg (Negative) 08/27/20 Unknown Urine Bilirubin Neg (Negative) 08/27/20 Unknown Urine Urobilinogen < 2.0 mg/dL (<2.0) 08/27/20 Unknown Ur Leukocyte Esterase Neg (Negative) 08/27/20 Unknown Urine WBC (Auto) 11.0 /HPF (0.0-6.0) H 08/27/20 Unknown Urine RBC (Auto) 2.0 /HPF (0.0-6.0) 08/27/20 Unknown U Epithel Cells (Auto) 1.0 /HPF (0-13.0) 08/27/20 Unknown Urine Mucus 1+ /HPF 08/27/20 Unknown Coronavirus (PCR) Positive (Negative) A 08/27/20 Unknown [place]ore/IV: Voiding Method Urinal Active Medications - Current Medications Current Medications: Generic Name Dose Route Start Last Admin Trade Name Freq PRN Reason Stop Dose Admin Acetaminophen 650 mg 08/27/20 17:05 09/03/20 21:41 Acetaminophen 325 Mg Tab PO 650 mg Q4H PRN Administration Pain MILD(1-3)/Fever >100.5/JACOBS Albuterol 2 puff 09/02/20 22:51 Albuterol 8.5 Gm Mdi Inhalation IH Q4HRT PRN Shortness Of Breath Ascorbic Acid 1,000 mg 08/27/20 22:00 09/12/20 23:18 Ascorbic Acid 500 Mg Tab PO 1,000 mg BID [place] Administration Cholecalciferol 5,000 unit 08/27/20 18:00 09/12/20 11:14 Cholecalciferol (Vit D3) 5,000 Unit Tab PO 5,000 unit DAILY [place] Administration Enoxaparin Sodium 100 mg 09/03/20 10:00 09/12/20 23:17 Enoxaparin 100 Mg/1 Ml Inj 1 mg/kg (100 mg) 100 mg SUB-Q Administration Q12HR [facility] Protocol Famotidine 20 mg 08/27/20 22:00 09/12/20 23:17 Famotidine 20 Mg Tab PO 20 mg BID [place] Administration Guaifenesin 200 mg 08/28/20 12:50 09/08/20 22:33 Guaifenesin 100 Mg/5 Ml Oral Liqd PO 200 mg Q4H PRN Administration Cough Methylprednisolone Sodium Succinate 40 mg 09/06/20 12:00 09/13/20 05:28 Methylprednisolone Sod Succinate 40 Mg/1 Ml Inj IV 40 mg Q8HR [place] Administration Morphine Sulfate 2 mg 09/05/20 11:44 09/06/20 17:21 Morphine 2 Mg/1 Ml Inj IV 2 mg Q4H PRN Administration Pain, Moderate (4-6) Ondansetron HCl 4 mg 08/27/20 17:05 09/05/20 11:40 Ondansetron 4 Mg/2 Ml Inj IV 4 mg Q3H PRN Administration Nausea And Vomiting Oxycodone/Acetaminophen 1 tab 08/27/20 17:05 09/11/20 17:38 Oxycodone /Acetaminophen 5-325mg Tab PO 1 tab Q6H PRN Administration Pain, Moderate (4-6) Sodium Chloride 10 ml 08/27/20 22:00 09/12/20 23:18 Sodium Chloride 0.9% 10 Ml Flush Syringe IV 10 ml BID [place] Administration Sodium Chloride 10 ml 08/27/20 17:05 Sodium Chloride 0.9% 10 Ml Flush Syringe IV PRN PRN LINE FLUSH Zinc Sulfate 220 mg 09/05/20 10:00 09/12/20 11:15 Zinc Sulfate 220 Mg Cap PO 220 mg QDAY [place] Administration Nutrition/Malnutrition Assess - Dietary Evaluation Nutrition/Malnutrition Findings: Nutrition Notes Start: 08/28/20 12:26 Freq: Status: Active Protocol: Document 09/08/20 13:55 MK (Rec: 09/08/20 13:56 MK [id number]) Nutrition Notes Initial or Follow up Brief Note Current Diagnosis Hypertension,Respiratory Failure Other Pertinent Diagnosis COVID-19 (+), bilat pneu, SIRS Current Diet Regular + Ensure Enlive BID Subjective/Other Information Pt hung up phone. Per chart, pt eating 100% of meals yesterday. Nutrition Intervention Follow-Up By: 09/13/20 Additional Comments F/U: intakes (meals, ONS)
[2020-09-13] MEDS: FAMOTIDINE 20 MG TAB PO SCH ×2 (09:53→22:12)
[2020-09-13] MEDS: ENOXAPARIN 100 MG/1 ML INJ SUB-Q SCH ×2 (09:53→22:12)
[2020-09-13] MEDS: ASCORBIC ACID 500 MG TAB PO SCH ×2 (09:54→22:12)
[2020-09-13] MEDS: CHOLECALCIFEROL (VIT D3) 5,000 UNIT TAB PO SCH (09:54)
[2020-09-13] MEDS: ZINC SULFATE 220 MG CAP PO SCH (09:55)
--- NOTE | 2020-09-13 11:56 | Progress Note ---
Assessment and Plan 35 y/o male with acute respiratory failure secondary to COVID 19 pneumonia. 09/13/20: Ordered chemistry for today. If renal function and potassium ok, please give lasix 40mg IV. LTACH denied secondary to funding. Continue high dose steroids. Guarded prognosis. 09/12/20: repeat chemistry tomorrow. Hold on lasix today. Continue IV steroids and proning. Follow up with CM about LTACH 09/11/20: Lasix now 40 and then 20 IV at 2100. Please encourage patient to prone. Follow up with CM about LTACH as patient needs prolonged weaning. Continue IV steroids. Guarded prognosis. 09/10/20: Unable to order lasix until recent vitals placed. Labs are stable. Per CM [place] reviewing clinical. Needs to prone. Took two doses of lasix to achieve net negative state yesterday and would like to do again today if vitals can be confirmed. 09/09/20: More lasix today. Labs stable. Continue proning and steroids. Agree with LTACH referral. Already on anticoagulation. Guarded prognosis. 09/08/20: CXR is slightly better. Continue solumedrol at current dosing. Continue to prone. Lasix again today as he still has a positive fluid balance. 09/07/20: Lasix again today. Continue IV solumedrol. Proning. Repeat CXR today. 09/06/20: Will give lasix now. Put back on steroids but this IV 40q8. Wean FiO2 for sats > 88% and stress the importance of proning. 09/03/20: Lasix 40 now and then will order another dose for 2000 tonight. BMP is stable. Wean FiO2 for sats >88%. Continue to prone nightly and PRN. Finished Remdesivir, still on steroids. 09/02/20: Continue proning at night and during the day as well if possible. Lasix 40 again today. Would check BMP tomorrow. Wean FiO2 and flow for sats >88%. Prognosis still remains guarded. 09/01/20: Documented proning this am with improvement in Sats and oxygen require ment. Lasix again today. Strict I/O. reviewed ID note and appreciate them answering the Actemra inquiry. Guarded prognosis, will continue to follow. 08/31/20: Still no documentation of proning. Lasix again today and ordered strict I/O. Follow up ID recs. Will ask if Actemra is still being used. Guarded prognosis. 08/30. Proning order is in, very important that patient do this. Lasix again today but this time, 40mg IV. Remdesivir and steroids. Guarded prognosis. Please document if patient is refusing to prone. IV steroids Stopped duonebs given nature of disease with concern for spread Lasix 20mg IV x1 today Prone during the day as tolerated and sleep prone at night Guarded prognosis. Subjective Date of service: 09/13/20 Principal diagnosis: COVID-19 Interval history: [place] Denied secondary to Medicaid. still on HFNC. Objective Constitutional: no acute distress ENT: oropharynx moist Neck: supple Ascultation: Bilateral: clear Cardiovascular: regular rate and rhythm Gastrointestinal: normoactive bowel sounds, soft, non-tender Integumentary: normal Extremities: no cyanosis Neurologic: normal mental status Psychiatric: mood appropriate CBC and BMP: 09/06/20 10:20 09/10/20 09:47 ABG, PT/INR, D-dimer: PT/INR, D-dimer D-Dimer 171.18 ng/mlDDU (0-234) 09/07/20 07:37 Abnormal lab findings: Abnormal Labs 08/27/20 08/27/20 08/27/20 11:56 11:56 11:56 WBC RBC Hgb Hct Lymph % (Auto) [place] % (Auto) Lymph # (Auto) [place] # (Auto) Seg Neutrophils % Seg Neutrophils # D-Dimer 291.43 H Sodium Potassium Chloride Carbon Dioxide BUN Creatinine Glucose Hemoglobin A1c Ferritin 572.3 H AST ALT Lactate Dehydrogenase 313 H C-Reactive Protein 4.40 H Albumin Ur Specific [place] Urine WBC (Auto) Coronavirus (PCR) 08/27/20 08/27/20 08/27/20 11:56 11:56 Unknown WBC RBC Hgb Hct Lymph % (Auto) 10.3 L [place] % (Auto) Lymph # (Auto) 0.7 L [place] # (Auto) Seg Neutrophils % 84.6 H Seg Neutrophils # D-Dimer Sodium Potassium 3.4 L Chloride Carbon Dioxide BUN Creatinine Glucose 125 H Hemoglobin A1c Ferritin AST 66 H ALT Lactate Dehydrogenase C-Reactive Protein Albumin Ur Specific [place] Urine WBC (Auto) Coronavirus (PCR) Positive A 08/27/20 08/28/2008/28/21 Unknown 07:55 07:55 WBC RBC 5.06 H Hgb Hct Lymph % (Auto) 9.7 L [place] % (Auto) Lymph # (Auto) 0.6 L [place] # (Auto) Seg Neutrophils % 84.8 H Seg Neutrophils # D-Dimer Sodium Potassium Chloride Carbon Dioxide BUN Creatinine Glucose 125 H Hemoglobin A1c Ferritin AST 80 H ALT Lactate Dehydrogenase C-Reactive Protein Albumin Ur Specific [place] 1.040 H Urine WBC (Auto) 11.0 H Coronavirus (PCR) 08/28/20 08/30/20 08/30/20 07:55 06:51 06:51 WBC RBC 5.04 H Hgb Hct Lymph % (Auto) [place] % (Auto) Lymph # (Auto) [place] # (Auto) Seg Neutrophils % Seg Neutrophils # D-Dimer Sodium Potassium Chloride Carbon Dioxide BUN Creatinine Glucose 144 H Hemoglobin A1c 6.4 H Ferritin AST 99 H ALT Lactate Dehydrogenase C-Reactive Protein Albumin 3.8 L Ur Specific [place] Urine WBC (Auto) Coronavirus (PCR) 08/30/20 08/30/20 08/31/20 14:18 14:18 05:43 WBC RBC Hgb Hct Lymph % (Auto) [place] % (Auto) Lymph # (Auto) [place] # (Auto) Seg Neutrophils % Seg Neutrophils # D-Dimer Sodium Potassium 5.1 H Chloride Carbon Dioxide 20 L D BUN 25 H Creatinine 0.7 L Glucose 158 H Hemoglobin A1c Ferritin 1166.0 H AST 75 H ALT Lactate Dehydrogenase 529 H C-Reactive Protein 5.90 H Albumin 3.3 L Ur Specific [place] Urine WBC (Auto) Coronavirus (PCR) 09/01/20 09/01/20 09/01/20 06:11 06:11 19:48 WBC RBC 5.11 H Hgb Hct Lymph % (Auto) [place] % (Auto) Lymph # (Auto) [place] # (Auto) Seg Neutrophils % Seg Neutrophils # D-Dimer Sodium Potassium Chloride Carbon Dioxide BUN 27 H Creatinine Glucose 151 H Hemoglobin A1c Ferritin 1859.0 H AST 67 H ALT 69 H Lactate Dehydrogenase C-Reactive Protein Albumin 3.7 L Ur Specific [place] Urine WBC (Auto) Coronavirus (PCR) 09/01/20 09/03/20 09/03/20 19:48 06:17 06:17 WBC RBC Hgb Hct Lymph % (Auto) [place] % (Auto) Lymph # (Auto) [place] # (Auto) Seg Neutrophils % Seg Neutrophils # D-Dimer 566.54 H Sodium Potassium Chloride Carbon Dioxide BUN Creatinine Glucose 149 H Hemoglobin A1c Ferritin AST ALT Lactate Dehydrogenase 558 H 350 H C-Reactive Protein 1.50 H 1.70 H Albumin Ur Specific [place] Urine WBC (Auto) Coronavirus (PCR) 09/03/20 09/03/20 09/05/20 06:17 09:32 07:13 WBC RBC Hgb Hct Lymph % (Auto) [place] % (Auto) Lymph # (Auto) [place] # (Auto) Seg Neutrophils % Seg Neutrophils # D-Dimer 295.00 H Sodium Potassium Chloride Carbon Dioxide BUN 28 H Creatinine Glucose 172 H Hemoglobin A1c Ferritin 1194.0 H AST ALT Lactate Dehydrogenase C-Reactive Protein Albumin Ur Specific [place] Urine WBC (Auto) Coronavirus (PCR) 09/05/20 09/05/20 09/05/20 07:13 07:13 07:13 WBC 19.6 H RBC 5.48 H Hgb 16.1 H Hct 49.5 H Lymph % (Auto) [place] % (Auto) Lymph # (Auto) [place] # (Auto) Seg Neutrophils % Seg Neutrophils # D-Dimer Sodium Potassium Chloride Carbon Dioxide BUN 26 H Creatinine 0.7 L Glucose 140 H Hemoglobin A1c Ferritin 1051.0 H AST 61 H ALT 170 H Lactate Dehydrogenase 399 H C-Reactive Protein 2.30 H Albumin 3.5 L Ur Specific [place] Urine WBC (Auto) Coronavirus (PCR) 09/06/20 09/06/20 09/07/20 10:20 10:20 07:37 WBC 14.3 H RBC Hgb Hct Lymph % (Auto) 10.2 L [place] % (Auto) 12.2 H Lymph # (Auto) [place] # (Auto) 1.7 H Seg Neutrophils % 76.4 H Seg Neutrophils # 10.9 H D-Dimer Sodium 133 L D Potassium 3.5 L Chloride 93.3 L Carbon Dioxide BUN 22 H Creatinine 0.6 L Glucose 147 H Hemoglobin A1c Ferritin 786.5 H AST ALT 118 H Lactate Dehydrogenase C-Reactive Protein Albumin 3.1 L Ur Specific [place] Urine WBC (Auto) Coronavirus (PCR) 09/07/20 09/08/20 09/09/20 07:59 08:22 08:22 WBC RBC Hgb Hct Lymph % (Auto) [place] % (Auto) Lymph # (Auto) [place] # (Auto) Seg Neutrophils % Seg Neutrophils # D-Dimer Sodium 135 L 133 L Potassium Chloride 93.6 L 93.2 L 94.3 L Carbon Dioxide 31 H 33 H BUN 22 H 24 H 21 H Creatinine 0.6 L 0.6 L Glucose 156 H 157 H 158 H Hemoglobin A1c Ferritin AST ALT Lactate Dehydrogenase 265 H C-Reactive Protein Albumin Ur Specific [place] Urine WBC (Auto) Coronavirus (PCR) 09/10/20 09:47 WBC RBC Hgb Hct Lymph % (Auto) [place] % (Auto) Lymph # (Auto) [place] # (Auto) Seg Neutrophils % Seg Neutrophils # D-Dimer Sodium 136 L Potassium Chloride 91.9 L Carbon Dioxide BUN 25 H Creatinine Glucose 245 H Hemoglobin A1c Ferritin AST ALT Lactate Dehydrogenase C-Reactive Protein Albumin Ur Specific [place] Urine WBC (Auto) Coronavirus (PCR)
[2020-09-13 14:43] LABS: Blood Urea Nitrogen 24 mg/dL (9-20); Hemolysis Index 9
[2020-09-13 14:55] LABS: BUN/Creatinine Ratio 34
[2020-09-14] MEDS: methylPREDNISolone Sod Succinate 40 MG/1 ML INJ IV SCH ×3 (05:46→23:17)
[2020-09-14] MEDS: ASCORBIC ACID 500 MG TAB PO SCH ×2 (09:42→23:17)
[2020-09-14] MEDS: CHOLECALCIFEROL (VIT D3) 5,000 UNIT TAB PO SCH (09:42)
[2020-09-14] MEDS: ZINC SULFATE 220 MG CAP PO SCH (09:42)
[2020-09-14] MEDS: ENOXAPARIN 100 MG/1 ML INJ SUB-Q SCH ×2 (09:43→23:16)
[2020-09-14] MEDS: FAMOTIDINE 20 MG TAB PO SCH ×2 (09:43→23:17)
--- NOTE | 2020-09-14 11:06 | Progress Note ---
Assessment and Plan 35 y/o male with acute respiratory failure secondary to COVID 19 pneumonia. 09/14/20: Chemistry is stable. Improving oxygen state despite not using lasix the last 48 hours. Will hold again today. Continue high dose steroids, not ready to switch to PO just yet. Hopeful discharge in the next 3-4 days. 09/13/20: Ordered chemistry for today. If renal function and potassium ok, please give lasix 40mg IV. LTACH denied secondary to funding. Continue high dose steroids. Guarded prognosis. 09/12/20: repeat chemistry tomorrow. Hold on lasix today. Continue IV steroids and proning. Follow up with CM about LTACH 09/11/20: Lasix now 40 and then 20 IV at 2100. Please encourage patient to prone. Follow up with CM about LTACH as patient needs prolonged weaning. Continue IV steroids. Guarded prognosis. 09/10/20: Unable to order lasix until recent vitals placed. Labs are stable. Per CM [place] reviewing clinical. Needs to prone. Took two doses of lasix to achieve net negative state yesterday and would like to do again today if vitals can be confirmed. 09/09/20: More lasix today. Labs stable. Continue proning and steroids. Agree with LTACH referral. Already on anticoagulation. Guarded prognosis. 09/08/20: CXR is slightly better. Continue solumedrol at current dosing. Continue to prone. Lasix again today as he still has a positive fluid balance. 09/07/20: Lasix again today. Continue IV solumedrol. Proning. Repeat CXR today. 09/06/20: Will give lasix now. Put back on steroids but this IV 40q8. Wean FiO2 for sats > 88% and stress the importance of proning. 09/03/20: Lasix 40 now and then will order another dose for 2000 tonight. BMP is stable. Wean FiO2 for sats >88%. Continue to prone nightly and PRN. Finished Remdesivir, still on steroids. 09/02/20: Continue proning at night and during the day as well if possible. Lasix 40 again today. Would check BMP tomorrow. Wean FiO2 and flow for sats >88%. Prognosis still remains guarded. 09/01/20: Documented proning this am with improvement in Sats and oxygen requirement. Lasix again today. Strict I/O. reviewed ID note and appreciate them answering the Actemra inquiry. Guarded prognosis, will continue to follow. 08/31/20: Still no documentation of proning. Lasix again today and ordered strict I/O. Follow up ID recs. Will ask if Actemra is still being used. Guarded prognosis. 08/30. Proning order is in, very important that patient do this. Lasix again today but this time, 40mg IV. Remdesivir and steroids. Guarded prognosis. Please document if patient is refusing to prone. IV steroids Stopped duonebs given nature of disease with concern for spread Lasix 20mg IV x1 today Prone during the day as tolerated and sleep prone at night Guarded prognosis. Subjective Date of service: 09/14/20 Principal diagnosis: COVID-19 Interval history: Down to 10 liters now. Good sats. Objective Vital Signs - 12hr 09/14/20 09/14/20 09/14/20 00:32 00:34 10:05 Temperature 98 F Pulse Rate 100 H Respiratory 18 Rate Blood Pressure 131/87 [Left] O2 Sat by Pulse 97 91 Oximetry Constitutional: no acute distress ENT: oropharynx moist Neck: supple Ascultation: Bilateral: clear Cardiovascular: regular rate and rhythm Gastrointestinal: normoactive bowel sounds, soft, non-tender Integumentary: normal Extremities: no cyanosis Neurologic: normal mental status Psychiatric: mood appropriate CBC and BMP: 09/06/20 10:20 09/13/20 13:42 ABG, PT/INR, D-dimer: PT/INR, D-dimer D-Dimer 171.18 ng/mlDDU (0-234) 09/07/20 07:37 Abnormal lab findings: Abnormal Labs 08/27/20 08/27/20 08/27/20 11:56 11:56 11:56 WBC RBC Hgb Hct Lymph % (Auto) [place] % (Auto) Lymph # (Auto) [place] # (Auto) Seg Neutrophils % Seg Neutrophils # D-Dimer 291.43 H Sodium Potassium Chloride Carbon Dioxide BUN Creatinine Glucose Hemoglobin A1c Ferritin 572.3 H AST ALT Lactate Dehydrogenase 313 H C-Reactive Protein 4.40 H Albumin Ur Specific [place] Urine WBC (Auto) Coronavirus (PCR) 08/27/20 08/27/20 08/27/20 11:56 11:56 Unknown WBC RBC Hgb Hct Lymph % (Auto) 10.3 L [place] % (Auto) Lymph # (Auto) 0.7 L [place] # (Auto) Seg Neutrophils % 84.6 H Seg Neutrophils # D-Dimer Sodium Potassium 3.4 L Chloride Carbon Dioxide BUN Creatinine Glucose 125 H Hemoglobin A1c Ferritin AST 66 H ALT Lactate Dehydrogenase C-Reactive Protein Albumin Ur Specific [place] Urine WBC (Auto) Coronavirus (PCR) Positive A 08/27/20 08/28/20 08/28/20 Unknown 07:55 07:55 WBC RBC 5.06 H Hgb Hct Lymph % (Auto) 9.7 L [place] % (Auto) Lymph # (Auto) 0.6 L [place] # (Auto) Seg Neutrophils % 84.8 H Seg Neutrophils # D-Dimer Sodium Potassium Chloride Carbon Dioxide BUN Creatinine Glucose 125 H Hemoglobin A1c Ferritin AST 80 H ALT Lactate Dehydrogenase C-Reactive Protein Albumin Ur Specific [place] 1.040 H Urine WBC (Auto) 11.0 H Coronavirus (PCR) 08/28/20 08/30/20 08/30/20 07:55 06:51 06:51 WBC RBC 5.04 H Hgb Hct Lymph % (Auto) [place] % (Auto) Lymph # (Auto) [place] # (Auto) Seg Neutrophils % Seg Neutrophils # D-Dimer Sodium Potassium Chloride Carbon Dioxide BUN Creatinine Glucose 144 H Hemoglobin A1c 6.4 H Ferritin AST 99 H ALT Lactate Dehydrogenase C-Reactive Protein Albumin 3.8 L Ur Specific [place] Urine WBC (Auto) Coronavirus (PCR) 08/30/20 08/30/20 08/31/20 14:18 14:18 05:43 WBC RBC Hgb Hct Lymph % (Auto) [place] % (Auto) Lymph # (Auto) [place] # (Auto) Seg Neutrophils % Seg Neutrophils # D-Dimer Sodium Potassium 5.1 H Chloride Carbon Dioxide 20 L D BUN 25 H Creatinine 0.7 L Glucose 158 H Hemoglobin A1c Ferritin 1166.0 H AST 75 H ALT Lactate Dehydrogenase 529 H C-Reactive Protein 5.90 H Albumin 3.3 L Ur Specific [place] Urine WBC (Auto) Coronavirus (PCR) 09/01/20 09/01/20 09/01/20 06:11 06:11 19:48 WBC RBC 5.11 H Hgb Hct Lymph % (Auto) [place] % (Auto) Lymph # (Auto) [place] # (Auto) Seg Neutrophils % Seg Neutrophils # D-Dimer Sodium Potassium Chloride Carbon Dioxide BUN 27 H Creatinine Glucose 151 H Hemoglobin A1c Ferritin 1859.0 H AST 67 H ALT 69 H Lactate Dehydrogenase C-Reactive Protein Albumin 3.7 L Ur Specific [place] Urine WBC (Auto) Coronavirus (PCR) 09/01/20 09/03/20 09/03/20 19:48 06:17 06:17 WBC RBC Hgb Hct Lymph % (Auto) [place] % (Auto) Lymph # (Auto) [place] # (Auto) Seg Neutrophils % Seg Neutrophils # D-Dimer 566.54 H Sodium Potassium Chloride Carbon Dioxide BUN Creatinine Glucose 149 H Hemoglobin A1c Ferritin AST ALT Lactate Dehydrogenase 558 H 350 H C-Reactive Protein 1.50 H 1.70 H Albumin Ur Specific [place] Urine WBC (Auto) Coronavirus (PCR) 09/03/20 09/03/20 09/05/20 06:17 09:32 07:13 WBC RBC Hgb Hct Lymph % (Auto) [place] % (Auto) Lymph # (Auto) [place] # (Auto) Seg Neutrophils % Seg Neutrophils # D-Dimer 295.00 H Sodium Potassium Chloride Carbon Dioxide BUN 28 H Creatinine Glucose 172 H Hemoglobin A1c Ferritin 1194.0 H AST ALT Lactate Dehydrogenase C-Reactive Protein Albumin Ur Specific [place] Urine WBC (Auto) Coronavirus (PCR) 09/05/20 09/05/20 09/05/20 07:13 07:13 07:13 WBC 19.6 H RBC 5.48 H Hgb 16.1 H Hct 49.5 H Lymph % (Auto) [place] % (Auto) Lymph # (Auto) [place] # (Auto) Seg Neutrophils % Seg Neutrophils # D-Dimer Sodium Potassium Chloride Carbon Dioxide BUN 26 H Creatinine 0.7 L Glucose 140 H Hemoglobin A1c Ferritin 1051.0 H AST 61 H ALT 170 H Lactate Dehydrogenase 399 H C-Reactive Protein 2.30 H Albumin 3.5 L Ur Specific [place] Urine WBC (Auto) Coronavirus (PCR) 09/06/20 09/06/20 09/07/20 10:20 10:20 07:37 WBC 14.3 H RBC Hgb Hct Lymph % (Auto) 10.2 L [place] % (Auto) 12.2 H Lymph # (Auto) [place] # (Auto) 1.7 H Seg Neutrophils % 76.4 H Seg Neutrophils # 10.9 H D-Dimer Sodium 133 L D Potassium 3.5 L Chloride 93.3 L Carbon Dioxide BUN 22 H Creatinine 0.6 L Glucose 147 H Hemoglobin A1c Ferritin 786.5 H AST ALT 118 H Lactate Dehydrogenase C-Reactive Protein Albumin 3.1 L Ur Specific [place] Urine WBC (Auto) Coronavirus (PCR) 09/07/20 09/08/20 09/09/20 07:59 08:22 08:22 WBC RBC Hgb Hct Lymph % (Auto) [place] % (Auto) Lymph # (Auto) [place] # (Auto) Seg Neutrophils % Seg Neutrophils # D-Dimer Sodium 135 L 133 L Potassium Chloride 93.6 L 93.2 L 94.3 L Carbon Dioxide 31 H 33 H BUN 22 H 24 H 21 H Creatinine 0.6 L 0.6 L Glucose 156 H 157 H 158 H Hemoglobin A1c Ferritin AST ALT Lactate Dehydrogenase 265 H C-Reactive Protein Albumin Ur Specific [place] Urine WBC (Auto) Coronavirus (PCR) 09/10/20 09/13/20 09:47 13:42 WBC RBC Hgb Hct Lymph % (Auto) [place] % (Auto) Lymph # (Auto) [place] # (Auto) Seg Neutrophils % Seg Neutrophils # D-Dimer Sodium 136 L 131 L Potassium Chloride 91.9 L 89.9 L Carbon Dioxide BUN 25 H 24 H Creatinine 0.7 L Glucose 245 H 320 H Hemoglobin A1c Ferritin AST ALT Lactate Dehydrogenase C-Reactive Protein Albumin Ur Specific [place] Urine WBC (Auto) Coronavirus (PCR)
--- NOTE | 2020-09-14 13:43 | Progress Note ---
Assessment and Plan - Patient Problems (1) Acute respiratory failure due to COVID-19 Current Visit: Yes Status: Acute Plan to address problem: Patient has had some improvement has weaned down from 30 L to now 10 L. May not require LTAC at this point. Will require walk test prior to discharge. Patient is eating. No diarrhea no arthralgias myalgias pain controlled just hypoxemia. (2) Bilateral pneumonia Current Visit: Yes Status: Acute Plan to address problem: Secondary to Covid 19 virus. (3) Coronavirus infection Current Visit: Yes Status: Acute (4) Obesity hypoventilation syndrome Current Visit: Yes Status: Acute Plan to address problem: Patient require aggressive weight loss, nutrition We will also require sleep study when discharged. Subjective Date of service: 09/14/20 Principal diagnosis: COVID-19 Interval history: Some improvement today. Patient is gone down from 30 L of O2 to 10 L. Patient remains very weak. Difficult to ambulate without hypoxemia. Not ready for discharge. Objective - Constitutional Vitals: Vital Signs - 12hr 09/14/20 09/14/20 09/14/20 10:00 10:05 11:19 Temperature 97.6 F Pulse Rate 89 Respiratory 20 18 Rate Blood Pressure 119/79 O2 Sat by Pulse 98 91 98 Oximetry General appearance: Present: no acute distress, well-nourished - EENT Eyes: PERRL, EOM intact ENT: hearing intact, clear oral mucosa Ears: bilateral: normal - Neck Neck: supple, normal ROM - Respiratory Respiratory effort: normal Respiratory: bilateral: diminished - Breasts Breasts: normal - Cardiovascular Rhythm: regular Heart Sounds: Present: S1 & S2. Absent: gallop, rub Extremities: pulses intact, No edema, normal color, Full ROM - Gastrointestinal General gastrointestinal: Present: soft, non-tender, non-distended, normal bowel sounds - Genitourinary Male genitourinary: normal - Integumentary Integumentary: clear, warm, dry - Musculoskeletal Musculoskeletal: 1, strength equal bilaterally - Neurologic Neurologic: moves all extremities - Psychiatric Psychiatric: memory intact, appropriate mood/affect, intact judgment & insight - Labs CBC & Chem 7: 09/06/20 10:20 09/13/20 13:42 Labs: Abnormal lab results 09/13/20 Range/Units 13:42 Sodium 131 L (137-145) mmol/L Chloride 89.9 L (98-107) mmol/L BUN 24 H (9-20) mg/dL Creatinine 0.7 L (0.8-1.3) mg/dL Glucose 320 H (75-100) mg/dL HEART Score - HEART Score Troponin: Troponin T < 0.010 ng/mL (0.00-0.029) 08/27/20 11:56
[2020-09-15] MEDS: methylPREDNISolone Sod Succinate 40 MG/1 ML INJ IV SCH ×3 (06:20→22:09)
--- NOTE | 2020-09-15 07:34 | Progress Note ---
Assessment and Plan - Patient Problems (1) Acute respiratory failure due to COVID-19 Current Visit: Yes Status: Acute Plan to address problem: Patient has had some improvement has weaned down from 30 L to now 10 L. May not require LTAC at this point. Will require walk test prior to discharge. Patient is eating. No diarrhea no arthralgias myalgias pain controlled just hypoxemia. Continue to wean. Tolerated weaning at this point. Will wean down to 3 L now for potential discharge in a.m. with oxygen after walk test. (2) Bilateral pneumonia Current Visit: Yes Status: Acute Plan to address problem: Secondary to Covid 19 virus. (3) Coronavirus infection Current Visit: Yes Status: Acute (4) Obesity hypoventilation syndrome Current Visit: Yes Status: Acute Plan to address problem: Patient require aggressive weight loss, nutrition We will also require sleep study when discharged. Subjective Date of service: 09/15/20 Principal diagnosis: COVID-19 Interval history: Some improvement today. Patient is gone down from 30 L of O2 to 10 L. Patient remains very weak. Difficult to ambulate without hypoxemia. Not ready for discharge. 09/14/2020--patient much better today tolerated titrating down from 10 L to 6 L without difficulty. Patient is not hypoxic at this time resting comfortably able to talk in full sentences. Will decrease oxygen down to 3 L today with anticipated discharge for tomorrow. With oxygen after walk test Objective - Constitutional Vitals: Vital Signs - 12hr 09/14/20 09/14/20 09/14/20 20:00 23:11 23:25 Temperature 97.5 F L Pulse Rate 96 H Respiratory 20 Rate Blood Pressure 120/79 O2 Sat by Pulse 98 95 95 Oximetry 09/15/20 09/15/20 02:00 06:36 Temperature 97.8 F Pulse Rate 93 H Respiratory 20 Rate Blood Pressure 128/77 O2 Sat by Pulse 95 98 Oximetry General appearance: Present: no acute distress, well-nourished - EENT Eyes: PERRL, EOM intact ENT: hearing intact, clear oral mucosa Ears: bilateral: normal - Neck Neck: supple, normal ROM - Respiratory Respiratory effort: normal Respiratory: bilateral: CTA - Breasts Breasts: normal - Cardiovascular Rhythm: regular Heart Sounds: Present: S1 & S2. Absent: gallop, rub Extremities: pulses intact, No edema, normal color, Full ROM - Gastrointestinal General gastrointestinal: Present: soft, non-tender, non-distended, normal bowel sounds - Genitourinary Male genitourinary: normal - Integumentary Integumentary: clear, warm, dry - Musculoskeletal Musculoskeletal: 1, strength equal bilaterally - Neurologic Neurologic: moves all extremities - Psychiatric Psychiatric: memory intact, appropriate mood/affect, intact judgment & insight - Labs CBC & Chem 7: 09/06/20 10:20 09/13/20 13:42 HEART Score - HEART Score Troponin: Troponin T < 0.010 ng/mL (0.00-0.029) 08/27/20 11:56
[2020-09-15] MEDS: ZINC SULFATE 220 MG CAP PO SCH (12:08)
[2020-09-15] MEDS: ASCORBIC ACID 500 MG TAB PO SCH ×2 (12:08→22:06)
[2020-09-15] MEDS: ENOXAPARIN 100 MG/1 ML INJ SUB-Q SCH ×2 (12:09→22:09)
[2020-09-15] MEDS: CHOLECALCIFEROL (VIT D3) 5,000 UNIT TAB PO SCH (12:09)
[2020-09-15] MEDS: FAMOTIDINE 20 MG TAB PO SCH ×2 (12:09→22:06)
--- NOTE | 2020-09-15 14:29 | Progress Note ---
Assessment and Plan 35 y/o male with acute respiratory failure secondary to COVID 19 pneumonia. 09/15/20: Continue steroids at current dosing until on regular cannula. Continue to prone. hold lasix again today. 09/14/20: Chemistry is stable. Improving oxygen state despite not using lasix the last 48 hours. Will hold again today. Continue high dose steroids, not ready to switch to PO just yet. Hopeful discharge in the next 3-4 days. 09/13/20: Ordered chemistry for today. If renal function and potassium ok, please give lasix 40mg IV. LTACH denied secondary to funding. Continue high dose steroids. Guarded prognosis. 09/12/20: repeat chemistry tomorrow. Hold on lasix today. Continue IV steroids and proning. Follow up with CM about LTACH 09/11/20: Lasix now 40 and then 20 IV at 2100. Please encourage patient to prone. Follow up with CM about LTACH as patient needs prolonged weaning. Continue IV steroids. Guarded prognosis. 09/10/20: Unable to order lasix until recent vitals placed. Labs are stable. Per CM [place] reviewing clinical. Needs to prone. Took two doses of lasix to achieve net negative state yesterday and would like to do again today if vitals can be confirmed. 09/09/20: More lasix today. Labs stable. Continue proning and steroids. Agree with LTACH referral. Already on anticoagulation. Guarded prognosis. 09/08/20: CXR is slightly better. Continue solumedrol at current dosing. Continue to prone. Lasix again today as he still has a positive fluid balance. 09/07/20: Lasix again today. Continue IV solumedrol. Proning. Repeat CXR today. 09/06/20: Will give lasix now. Put back on steroids but this IV 40q8. Wean FiO2 for sats > 88% and stress the importance of proning. 09/03/20: Lasix 40 now and then will order another dose for 2000 tonight. BMP is stable. Wean FiO2 for sats >88%. Continue to prone nightly and PRN. Finished Remdesivir, still on steroids. 09/02/20: Continue proning at night and during the day as well if possible. Lasix 40 again today. Would check BMP tomorrow. Wean FiO2 and flow for sats >88%. Prognosis still remains guarded. 09/01/20: Documented proning this am with improvement in Sats and oxygen requirement. Lasix again today. Strict I/O. reviewed ID note and appreciate them answering the Actemra inquiry. Guarded prognosis, will continue to follow. 08/31/20: Still no documentation of proning. Lasix again today and ordered strict I/O. Follow up ID recs. Will ask if Actemra is still being used. Guarded prognosis. 08/30. Proning order is in, very important that patient do this. Lasix again today but this time, 40mg IV. Remdesivir and steroids. Guarded prognosis. Please document if patient is refusing to prone. IV steroids Stopped duonebs given nature of disease with concern for spread Lasix 20mg IV x1 today Prone during the day as tolerated and sleep prone at night Guarded prognosis. Subjective Date of service: 09/15/20 Principal diagnosis: COVID-19 Interval history: No acute events. Down to 7 liters. Objective Vital Signs - 12hr 09/15/20 09/15/20 09/15/20 06:36 08:43 10:41 Temperature 97.8 F 98.3 F Pulse Rate 93 H 108 H Respiratory 20 24 Rate Blood Pressure 128/77 134/90 O2 Sat by Pulse 98 96 96 Oximetry Constitutional: no acute distress ENT: oropharynx moist Neck: supple Ascultation: Bilateral: clear Cardiovascular: regular rate and rhythm Gastrointestinal: normoactive bowel sounds, soft, non-tender Integumentary: normal Extremities: no cyanosis Neurologic: normal mental status Psychiatric: mood appropriate CBC and BMP: 09/06/20 10:20 09/13/20 13:42 ABG, PT/INR, D-dimer: PT/INR, D-dimer D-Dimer 171.18 ng/mlDDU (0-234) 09/07/20 07:37 Abnormal lab findings: Abnormal Labs 08/27/20 08/27/20 08/27/20 11:56 11:56 11:56 WBC RBC Hgb Hct Lymph % (Auto) [place] % (Auto) Lymph # (Auto) [place] # (Auto) Seg Neutrophils % Seg Neutrophils # D-Dimer 291.43 H Sodium Potassium Chloride Carbon Dioxide BUN Creatinine Glucose Hemoglobin A1c Ferritin 572.3 H AST ALT Lactate Dehydrogenase 313 H C-Reactive Protein 4.40 H Albumin Ur Specific [place] Urine WBC (Auto) Coronavirus (PCR) 08/27/20 08/27/20 08/27/20 11:56 11:56 Unknown WBC RBC Hgb Hct Lymph % (Auto) 10.3 L [place] % (Auto) Lymph # (Auto) 0.7 L [place] # (Auto) Seg Neutrophils % 84.6 H Seg Neutrophils # D-Dimer Sodium Potassium 3.4 L Chloride Carbon Dioxide BUN Creatinine Glucose 125 H Hemoglobin A1c Ferritin AST 66 H ALT Lactate Dehydrogenase C-Reactive Protein Albumin Ur Specific [place] Urine WBC (Auto) Coronavirus (PCR) Positive A 08/27/20 08/28/20 08/28/20 Unknown 07:55 07:55 WBC RBC 5.06 H Hgb Hct Lymph % (Auto) 9.7 L [place] % (Auto) Lymph # (Auto) 0.6 L [place] # (Auto) Seg Neutrophils % 84.8 H Seg Neutrophils # D-Dimer Sodium Potassium Chloride Carbon Dioxide BUN Creatinine Glucose 125 H Hemoglobin A1c Ferritin AST 80 H ALT Lactate Dehydrogenase C-Reactive Protein Albumin Ur Specific [place] 1.040 H Urine WBC (Auto) 11.0 H Coronavirus (PCR) 08/28/20 08/30/20 08/30/20 07:55 06:51 06:51 WBC RBC 5.04 H Hgb Hct Lymph % (Auto) [place] % (Auto) Lymph # (Auto) [place] # (Auto) Seg Neutrophils % Seg Neutrophils # D-Dimer Sodium Potassium Chloride Carbon Dioxide BUN Creatinine Glucose 144 H Hemoglobin A1c 6.4 H Ferritin AST 99 H ALT Lactate Dehydrogenase C-Reactive Protein Albumin 3.8 L Ur Specific [place] Urine WBC (Auto) Coronavirus (PCR) 08/30/20 08/30/20 08/31/20 14:18 14:18 05:43 WBC RBC Hgb Hct Lymph % (Auto) [place] % (Auto) Lymph # (Auto) [place] # (Auto) Seg Neutrophils % Seg Neutrophils # D-Dimer Sodium Potassium 5.1 H Chloride Carbon Dioxide 20 L D BUN 25 H Creatinine 0.7 L Glucose 158 H Hemoglobin A1c Ferritin 1166.0 H AST 75 H ALT Lactate Dehydrogenase 529 H C-Reactive Protein 5.90 H Albumin 3.3 L Ur Specific [place] Urine WBC (Auto) Coronavirus (PCR) 09/01/20 09/01/20 09/01/20 06:11 06:11 19:48 WBC RBC 5.11 H Hgb Hct Lymph % (Auto) [place] % (Auto) Lymph # (Auto) [place] # (Auto) Seg Neutrophils % Seg Neutrophils # D-Dimer Sodium Potassium Chloride Carbon Dioxide BUN 27 H Creatinine Glucose 151 H Hemoglobin A1c Ferritin 1859.0 H AST 67 H ALT 69 H Lactate Dehydrogenase C-Reactive Protein Albumin 3.7 L Ur Specific [place] Urine WBC (Auto) Coronavirus (PCR) 09/01/20 09/03/20 09/03/20 19:48 06:17 06:17 WBC RBC Hgb Hct Lymph % (Auto) [place] % (Auto) Lymph # (Auto) [place] # (Auto) Seg Neutrophils % Seg Neutrophils # D-Dimer 566.54 H Sodium Potassium Chloride Carbon Dioxide BUN Creatinine Glucose 149 H Hemoglobin A1c Ferritin AST ALT Lactate Dehydrogenase 558 H 350 H C-Reactive Protein 1.50 H 1.70 H Albumin Ur Specific [place] Urine WBC (Auto) Coronavirus (PCR) 09/03/20 09/03/20 09/05/20 06:17 09:32 07:13 WBC RBC Hgb Hct Lymph % (Auto) [place] % (Auto) Lymph # (Auto) [place] # (Auto) Seg Neutrophils % Seg Neutrophils # D-Dimer 295.00 H Sodium Potassium Chloride Carbon Dioxide BUN 28 H Creatinine Glucose 172 H Hemoglobin A1c Ferritin 1194.0 H AST ALT Lactate Dehydrogenase C-Reactive Protein Albumin Ur Specific [place] Urine WBC (Auto) Coronavirus (PCR) 09/05/20 09/05/20 09/05/20 07:13 07:13 07:13 WBC 19.6 H RBC 5.48 H Hgb 16.1 H Hct 49.5 H Lymph % (Auto) [place] % (Auto) Lymph # (Auto) [place] # (Auto) Seg Neutrophils % Seg Neutrophils # D-Dimer Sodium Potassium Chloride Carbon Dioxide BUN 26 H Creatinine 0.7 L Glucose 140 H Hemoglobin A1c Ferritin 1051.0 H AST 61 H ALT 170 H Lactate Dehydrogenase 399 H C-Reactive Protein 2.30 H Albumin 3.5 L Ur Specific [place] Urine WBC (Auto) Coronavirus (PCR) 09/06/20 09/06/20 09/07/20 10:20 10:20 07:37 WBC 14.3 H RBC Hgb Hct Lymph % (Auto) 10.2 L [place] % (Auto) 12.2 H Lymph # (Auto) [place] # (Auto) 1.7 H Seg Neutrophils % 76.4 H Seg Neutrophils # 10.9 H D-Dimer Sodium 133 L D Potassium 3.5 L Chloride 93.3 L Carbon Dioxide BUN 22 H Creatinine 0.6 L Glucose 147 H Hemoglobin A1c Ferritin 786.5 H AST ALT 118 H Lactate Dehydrogenase C-Reactive Protein Albumin 3.1 L Ur Specific [place] Urine WBC (Auto) Coronavirus (PCR) 09/07/20 09/08/20 09/09/20 07:59 08:22 08:22 WBC RBC Hgb Hct Lymph % (Auto) [place] % (Auto) Lymph # (Auto) [place] # (Auto) Seg Neutrophils % Seg Neutrophils # D-Dimer Sodium 135 L 133 L Potassium Chloride 93.6 L 93.2 L 94.3 L Carbon Dioxide 31 H 33 H BUN 22 H 24 H 21 H Creatinine 0.6 L 0.6 L Glucose 156 H 157 H 158 H Hemoglobin A1c Ferritin AST ALT Lactate Dehydrogenase 265 H C-Reactive Protein Albumin Ur Specific [place] Urine WBC (Auto) Coronavirus (PCR) 09/10/20 09/13/20 09:47 13:42 WBC RBC Hgb Hct Lymph % (Auto) [place] % (Auto) Lymph # (Auto) [place] # (Auto) Seg Neutrophils % Seg Neutrophils # D-Dimer Sodium 136 L 131 L Potassium Chloride 91.9 L 89.9 L Carbon Dioxide BUN 25 H 24 H Creatinine 0.7 L Glucose 245 H 320 H Hemoglobin A1c Ferritin AST ALT Lactate Dehydrogenase C-Reactive Protein Albumin Ur Specific [place] Urine WBC (Auto) Coronavirus (PCR)
[2020-09-16] MEDS: methylPREDNISolone Sod Succinate 40 MG/1 ML INJ IV SCH ×3 (05:45→23:29)
--- NOTE | 2020-09-16 09:08 | Progress Note ---
Assessment and Plan Assessment and plan: (1) Acute respiratory failure with hypoxia Supplemental oxygen, pulse oximetry, nebulizer therapy, treat coronavirus infection. Patient requiring 7 L of oxygen currently. Continue weaning per protocol (2) Coronavirus infection Coronavirus protocol: IV antibiotic therapy, IV steroid therapy, vitamin C therapy, vitamin D therapy, zinc therapy, full course remdesivir therapy. Continue to monitor inflammatory markers. (3) Obesity hypoventilation syndrome Balanced diet, increase physical activity at discharge, outpatient pulmonary follow-up for sleep study. (4) Bilateral pneumonia Pneumonia protocol: Chest x-ray, CBC, CMP, IV antibiotic therapy, supplemental oxygen, pulse oximetry, (5) SIRS (systemic inflammatory response syndrome) IV antibiotic therapy, supportive care, CBC in a.m. (6) DVT prophylaxis SCD to bilateral lower extremities while in bed, continue prophylactic anticoagulation History Interval history: 35 YO Male with Obesity Hypoventilation Syndrome, pneumonia, coronavirus infection, systemic inflammatory response syndrome. Patient knowledges continued shortness of breath. Patient denies pain. No reported nursing events. Hospitalist Physical - Constitutional Vitals: Temp Pulse Resp BP Pulse Ox 98.0 F 76 20 112/68 99 09/16/20 05:49 09/16/20 05:49 09/16/20 05:49 09/16/20 05:49 09/16/20 05:49 General appearance: Present: no acute distress, well-nourished - EENT Eyes: Present: PERRL, EOM intact ENT: hearing intact, clear oral mucosa, dentition normal - Neck Neck: Present: supple, normal ROM - Respiratory Respiratory effort: normal Respiratory: bilateral: CTA - Cardiovascular Rhythm: regular Heart Sounds: Present: S1 & S2. Absent: gallop, rub - Extremities Extremities: no ischemia, No edema, Full ROM - Abdominal General gastrointestinal: soft, non-tender, non-distended, normal bowel sounds - Integumentary Integumentary: Present: clear, warm, dry - Neurologic Neurologic: CNII-XII intact, moves all extremities HEART Score - HEART Score Troponin: Troponin T < 0.010 ng/mL (0.00-0.029) 08/27/20 11:56 Results - Labs CBC & Chem 7: 09/06/20 10:20 09/13/20 13:42 Labs: Laboratory Last Values WBC 14.3 K/mm3 (4.5-11.0) H 09/06/20 10:20 RBC 4.97 M/mm3 (3.65-5.03) 09/06/20 10:20 Hgb 14.8 gm/dl (11.8-15.2) 09/06/20 10:20 Hct 44.2 % (35.5-45.6) 09/06/20 10:20 MCV 89 fl (84-94) 09/06/20 10:20 MCH 30 pg (28-32) 09/06/20 10:20 MCHC 33 % (32-34) 09/06/20 10:20 RDW 13.2 % (13.2-15.2) 09/06/20 10:20 Plt Count 327 K/mm3 (140-440) 09/06/20 10:20 Lymph % (Auto) 10.2 % (13.4-35.0) L 09/06/20 10:20 [place] % (Auto) 12.2 % (0.0-7.3) H 09/06/20 10:20 Eos % (Auto) 1.0 % (0.0-4.3) 09/06/20 10:20 Baso % (Auto) 0.2 % (0.0-1.8) 09/06/20 10:20 Lymph # (Auto) 1.5 K/mm3 (1.2-5.4) 09/06/20 10:20 [place] # (Auto) 1.7 K/mm3 (0.0-0.8) H 09/06/20 10:20 Eos # (Auto) 0.1 K/mm3 (0.0-0.4) 09/06/20 10:20 Baso # (Auto) 0.0 K/mm3 (0.0-0.1) 09/06/20 10:20 Seg Neutrophils % 76.4 % (40.0-70.0) H 09/06/20 10:20 Seg Neutrophils # 10.9 K/mm3 (1.8-7.7) H 09/06/20 10:20 D-Dimer 171.18 ng/mlDDU (0-234) 09/07/20 07:37 Sodium 131 mmol/L (137-145) L 09/13/20 13:42 Potassium 4.0 mmol/L (3.6-5.0) 09/13/20 13:42 Chloride 89.9 mmol/L (98-107) L 09/13/20 13:42 Carbon Dioxide 30 mmol/L (22-30) 09/13/20 13:42 Anion Gap 15 mmol/L 09/13/20 13:42 BUN 24 mg/dL (9-20) H 09/13/20 13:42 Creatinine 0.7 mg/dL (0.8-1.3) L 09/13/20 13:42 Estimated GFR > 60 ml/min 09/13/20 13:42 BUN/Creatinine Ratio 34 % 09/13/20 13:42 Glucose 320 mg/dL (75-100) H 09/13/20 13:42 Hemoglobin A1c 6.4 % (4-6) H 08/28/20 07:55 Lactic Acid 1.60 mmol/L (0.7-2.0) 08/27/20 16:51 Calcium 10.0 mg/dL (8.4-10.2) 09/13/20 13:42 Ferritin 786.5 ng/mL (30.0-300.0) H 09/07/20 07:37 Total Bilirubin 0.80 mg/dL (0.1-1.2) 09/06/20 10:20 AST 38 units/L (5-40) 09/06/20 10:20 ALT 118 units/L (7-56) H 09/06/20 10:20 Alkaline Phosphatase 72 units/L (35-129) 09/06/20 10:20 Lactate Dehydrogenase 265 units/L (91-180) H 09/07/20 07:59 Troponin T < 0.010 ng/mL (0.00-0.029) 08/27/20 11:56 C-Reactive Protein 1.30 mg/dL (0.00-1.30) 09/07/20 07:59 NT-Pro-B Natriuret Pep < 5 pg/mL (0-450) 08/27/20 11:56 Total Protein 6.9 g/dL (6.3-8.2) 09/06/20 10:20 Albumin 3.1 g/dL (3.9-5) L 09/06/20 10:20 Albumin/Globulin Ratio 0.8 % 09/06/20 10:20 Procalcitonin 0.09 ng/mL (<0.15) 08/27/20 11:56 Urine Color [place] (Yellow) 08/27/20 Unknown Urine Turbidity Clear (Clear) 08/27/20 Unknown Urine pH 5.0 (5.0-7.0) 08/27/20 Unknown Ur Specific [place] 1.040 (1.003-1.030) H 08/27/20 Unknown Urine Protein >500 mg/dL (Negative) 08/27/20 Unknown Urine Glucose (UA) Neg mg/dL (Negative) 08/27/20 Unknown Urine Ketones 20 mg/dL (Negative) 08/27/20 Unknown Urine Blood Mod (Negative) 08/27/20 Unknown Urine Nitrite Neg (Negative) 08/27/20 Unknown Urine Bilirubin Neg (Negative) 08/27/20 Unknown Urine Urobilinogen < 2.0 mg/dL (<2.0) 08/27/20 Unknown Ur Leukocyte Esterase Neg (Negative) 08/27/20 Unknown Urine WBC (Auto) 11.0 /HPF (0.0-6.0) H 08/27/20 Unknown Urine RBC (Auto) 2.0 /HPF (0.0-6.0) 08/27/20 Unknown U Epithel Cells (Auto) 1.0 /HPF (0-13.0) 08/27/20 Unknown Urine Mucus 1+ /HPF 08/27/20 Unknown Coronavirus (PCR) Positive (Negative) A 08/27/20 Unknown [place]/IV: Voiding Method Urinal Active Medications - Current Medications Current Medications: Generic Name Dose Route Start Last Admin Trade Name Sohailq PRN Reason Stop Dose Admin Acetaminophen 650 mg 08/27/20 17:05 09/03/20 21:41 Acetaminophen 325 Mg Tab PO 650 mg Q4H PRN Administration Pain MILD(1-3)/Fever >100.5/JACOBS Albuterol 2 puff 09/02/20 22:51 Albuterol 8.5 Gm Mdi Inhalation IH Q4HRT PRN Shortness Of Breath Ascorbic Acid 1,000 mg 08/27/20 22:00 09/15/20 22:06 Ascorbic Acid 500 Mg Tab PO 1,000 mg BID [place] Administration Cholecalciferol 5,000 unit 08/27/20 18:00 09/15/20 12:09 Cholecalciferol (Vit D3) 5,000 Unit Tab PO 5,000 unit DAILY [place] Administration Enoxaparin Sodium 100 mg 09/03/20 10:00 09/15/20 22:09 Enoxaparin 100 Mg/1 Ml Inj 1 mg/kg (100 mg) 100 mg SUB-Q Administration Q12HR [facility] Protocol Famotidine 20 mg 08/27/20 22:00 09/15/20 22:06 Famotidine 20 Mg Tab PO 20 mg BID [place] Administration Guaifenesin 200 mg 08/28/20 12:50 09/08/20 22:33 Guaifenesin 100 Mg/5 Ml Oral Liqd PO 200 mg Q4H PRN Administration Cough Methylprednisolone Sodium Succinate 40 mg 09/06/20 12:00 09/16/20 05:45 Methylprednisolone Sod Succinate 40 Mg/1 Ml Inj IV 40 mg Q8HR [place] Administration Morphine Sulfate 2 mg 09/05/20 11:44 09/06/20 17:21 Morphine 2 Mg/1 Ml Inj IV 2 mg Q4H PRN Administration Pain, Moderate (4-6) Ondansetron HCl 4 mg 08/27/20 17:05 09/05/20 11:40 Ondansetron 4 Mg/2 Ml Inj IV 4 mg Q3H PRN Administration Nausea And Vomiting Oxycodone/Acetaminophen 1 tab 08/27/20 17:05 09/11/20 17:38 Oxycodone /Acetaminophen 5-325mg Tab PO 1 tab Q6H PRN Administration Pain, Moderate (4-6) Sodium Chloride 10 ml 08/27/20 22:00 09/15/20 22:08 Sodium Chloride 0.9% 10 Ml Flush Syringe IV 10 ml BID [place] Administration Sodium Chloride 10 ml 08/27/20 17:05 Sodium Chloride 0.9% 10 Ml Flush Syringe IV PRN PRN LINE FLUSH Zinc Sulfate 220 mg 09/05/20 10:00 09/15/20 12:08 Zinc Sulfate 220 Mg Cap PO 220 mg QDAY [place] Administration Nutrition/Malnutrition Assess - Dietary Evaluation Nutrition/Malnutrition Findings: Nutrition Notes Start: 08/28/20 12:26 Freq: Status: Active Protocol: Document 09/13/20 14:23 IAN (Rec: 09/13/20 14:26 IAN [email or web address]) Nutrition Notes Initial or Follow up Reassessment Current Diagnosis Hypertension,Respiratory Failure Other Pertinent Diagnosis COVID-19 (+), bilat pneu, SIRS Current Diet Regular + Ensure Enlive BID Labs/Tests reviewed Pertinent Medications reviewed Height 5 ft 9 in Weight 104.5 kg [place] Body Weight (kg) 72.72 BMI 34.0 Subjective/Other Information F/u for intakes. Pt eating 100 % of meals. Percent of energy/protein needs met: 100%/100% Burn Absent Trauma Absent Current % PO Good (75-100%) Minimum of two criteria No physical signs of malnutrition #1 Nutrition Diagnosis Inadequate protein-energy intake As Evidenced by Signs and Symptoms pt meeting 100% of protein/ kcal needs Diagnosis Progress(for reassessment Resolved documentation) Is patient on ventilator? No Is Patient Ambulatory and/or Out of Bed Yes REE-([place]-ambulatory/OOB) [ 2561.494 [id number]] Kcal/Kg value to use for calculation 20 Approximate Energy Requirements Using 2090 kcal/Kg Calculation Used for Recommendations Kcal/kg Additional Notes Pro needs 0.8-1g/kg adjBW: 71- 89g/day Fluid needs 1ml/kcal Nutrition Intervention Change Diet Order: Continue current diet order Add Supplement/Snack (indicate name/kcal Ensure Enlive BID /protein ) Provides kCal: 700 Provides Protein (gm) 40 Goal #1 PO intake of meals plus ONS to meet at least 75% energy and pro needs Revisit per MD consult or patient Sign Off request: Additional Comments self
[2020-09-16 09:13] LABS: Blood Urea Nitrogen 19 mg/dL (9-20); Calcium 9.3 mg/dL (8.4-10.2); Hemolysis Index 19
[2020-09-16] MEDS: ZINC SULFATE 220 MG CAP PO SCH (09:21)
[2020-09-16] MEDS: ENOXAPARIN 100 MG/1 ML INJ SUB-Q SCH ×2 (09:21→23:28)
[2020-09-16] MEDS: CHOLECALCIFEROL (VIT D3) 5,000 UNIT TAB PO SCH (09:21)
[2020-09-16] MEDS: ASCORBIC ACID 500 MG TAB PO SCH ×2 (09:21→23:29)
[2020-09-16 09:22] LABS: BUN/Creatinine Ratio 32
[2020-09-16] MEDS: FAMOTIDINE 20 MG TAB PO SCH ×2 (09:22→23:29)
--- NOTE | 2020-09-16 10:56 | Progress Note ---
Assessment and Plan 35 y/o male with acute respiratory failure secondary to COVID 19 pneumonia. 09/16/20: Will start to wean roids tomorrow. Prone if possible 09/15/20: Continue steroids at current dosing until on regular cannula. Continue to prone. hold lasix again today. 09/14/20: Chemistry is stable. Improving oxygen state despite not using lasix the last 48 hours. Will hold again today. Continue high dose steroids, not ready to switch to PO just yet. Hopeful discharge in the next 3-4 days. 09/13/20: Ordered chemistry for today. If renal function and potassium ok, please give lasix 40mg IV. LTACH denied secondary to funding. Continue high dose steroids. Guarded prognosis. 09/12/20: repeat chemistry tomorrow. Hold on lasix today. Continue IV steroids and proning. Follow up with CM about LTACH 09/11/20: Lasix now 40 and then 20 IV at 2100. Please encourage patient to prone. Follow up with CM about LTACH as patient needs prolonged weaning. Continue IV steroids. Guarded prognosis. 09/10/20: Unable to order lasix until recent vitals placed. Labs are stable. Per CM [place] reviewing clinical. Needs to prone. Took two doses of lasix to achieve net negative state yesterday and would like to do again today if vitals can be confirmed. 09/09/20: More lasix today. Labs stable. Continue proning and steroids. Agree with LTACH referral. Already on anticoagulation. Guarded prognosis. 09/08/20: CXR is slightly better. Continue solumedrol at current dosing. Continue to prone. Lasix again today as he still has a positive fluid balance. 09/07/20: Lasix again today. Continue IV solumedrol. Proning. Repeat CXR toda y. 09/06/20: Will give lasix now. Put back on steroids but this IV 40q8. Wean FiO2 for sats > 88% and stress the importance of proning. 09/03/20: Lasix 40 now and then will order another dose for 2000 tonight. BMP is stable. Wean FiO2 for sats >88%. Continue to prone nightly and PRN. Finished Remdesivir, still on steroids. 09/02/20: Continue proning at night and during the day as well if possible. Lasix 40 again today. Would check BMP tomorrow. Wean FiO2 and flow for sats >88%. Prognosis still remains guarded. 09/01/20: Documented proning this am with improvement in Sats and oxygen requirement. Lasix again today. Strict I/O. reviewed ID note and appreciate them answering the Actemra inquiry. Guarded prognosis, will continue to follow. 08/31/20: Still no documentation of proning. Lasix again today and ordered strict I/O. Follow up ID recs. Will ask if Actemra is still being used. Guarded prognosis. 08/30. Proning order is in, very important that patient do this. Lasix again today but this time, 40mg IV. Remdesivir and steroids. Guarded prognosis. Please document if patient is refusing to prone. IV steroids Stopped duonebs given nature of disease with concern for spread Lasix 20mg IV x1 today Prone during the day as tolerated and sleep prone at night Guarded prognosis. Subjective Date of service: 09/16/20 Principal diagnosis: COVID-19 Interval history: Sats continue to improve and oxygen requirement continues to improve. Objective Vital Signs - 12hr 09/16/20 05:49 Temperature 98.0 F Pulse Rate 76 Respiratory 20 Rate Blood Pressure 112/68 O2 Sat by Pulse 99 Oximetry Constitutional: no acute distress ENT: oropharynx moist Neck: supple Ascultation: Bilateral: clear Cardiovascular: regular rate and rhythm Gastrointestinal: normoactive bowel sounds, soft, non-tender Integumentary: normal Extremities: no cyanosis Neurologic: normal mental status Psychiatric: mood appropriate CBC and BMP: 09/06/20 10:20 09/16/20 07:44 ABG, PT/INR, D-dimer: PT/INR, D-dimer D-Dimer 171.18 ng/mlDDU (0-234) 09/07/20 07:37 Abnormal lab findings: Abnormal Labs 08/27/20 08/27/20 08/27/20 11:56 11:56 11:56 WBC RBC Hgb Hct Lymph % (Auto) Robertson % (Auto) Lymph # (Auto) Robertson # (Auto) Seg Neutrophils % Seg Neutrophils # D-Dimer 291.43 H Sodium Potassium Chloride Carbon Dioxide BUN Creatinine Glucose Hemoglobin A1c Ferritin 572.3 H AST ALT Lactate Dehydrogenase 313 H C-Reactive Protein 4.40 H Albumin Ur Specific [place] Urine WBC (Auto) Coronavirus (PCR) 08/27/20 08/27/20 08/27/20 11:56 11:56 Unknown WBC RBC Hgb Hct Lymph % (Auto) 10.3 L Robertson % (Auto) Lymph # (Auto) 0.7 L Robertson # (Auto) Seg Neutrophils % 84.6 H Seg Neutrophils # D-Dimer Sodium Potassium 3.4 L Chloride Carbon Dioxide BUN Creatinine Glucose 125 H Hemoglobin A1c Ferritin AST 66 H ALT Lactate Dehydrogenase C-Reactive Protein Albumin Ur Specific [place] Urine WBC (Auto) Coronavirus (PCR) Positive A 08/27/20 08/28/20 08/28/20 Unknown 07:55 07:55 WBC RBC 5.06 H Hgb Hct Lymph % (Auto) 9.7 L Robertson % (Auto) Lymph # (Auto) 0.6 L [place] # (Auto) Seg Neutrophils % 84.8 H Seg Neutrophils # D-Dimer Sodium Potassium Chloride Carbon Dioxide BUN Creatinine Glucose 125 H Hemoglobin A1c Ferritin AST 80 H ALT Lactate Dehydrogenase C-Reactive Protein Albumin Ur Specific [place] 1.040 H Urine WBC (Auto) 11.0 H Coronavirus (PCR) 08/28/20 08/30/20 08/30/20 07:55 06:51 06:51 WBC RBC 5.04 H Hgb Hct Lymph % (Auto) [place] % (Auto) Lymph # (Auto) [place] # (Auto) Seg Neutrophils % Seg Neutrophils # D-Dimer Sodium Potassium Chloride Carbon Dioxide BUN Creatinine Glucose 144 H Hemoglobin A1c 6.4 H Ferritin AST 99 H ALT Lactate Dehydrogenase C-Reactive Protein Albumin 3.8 L Ur Specific [place] Urine WBC (Auto) Coronavirus (PCR) 08/30/20 08/30/20 08/31/20 14:18 14:18 05:43 WBC RBC Hgb Hct Lymph % (Auto) [place] % (Auto) Lymph # (Auto) [place] # (Auto) Seg Neutrophils % Seg Neutrophils # D-Dimer Sodium Potassium 5.1 H Chloride Carbon Dioxide 20 L D BUN 25 H Creatinine 0.7 L Glucose 158 H Hemoglobin A1c Ferritin 1166.0 H AST 75 H ALT Lactate Dehydrogenase 529 H C-Reactive Protein 5.90 H Albumin 3.3 L Ur Specific [place] Urine WBC (Auto) Coronavirus (PCR) 09/01/20 09/01/20 09/01/20 06:11 06:11 19:48 WBC RBC 5.11 H Hgb Hct Lymph % (Auto) Robertson % (Auto) Lymph # (Auto) [place] # (Auto) Seg Neutrophils % Seg Neutrophils # D-Dimer Sodium Potassium Chloride Carbon Dioxide BUN 27 H Creatinine Glucose 151 H Hemoglobin A1c Ferritin 1859.0 H AST 67 H ALT 69 H Lactate Dehydrogenase C-Reactive Protein Albumin 3.7 L Ur Specific [place] Urine WBC (Auto) Coronavirus (PCR) 09/01/20 09/03/20 09/03/20 19:48 06:17 06:17 WBC RBC Hgb Hct Lymph % (Auto) Robertson % (Auto) Lymph # (Auto) [place] # (Auto) Seg Neutrophils % Seg Neutrophils # D-Dimer 566.54 H Sodium Potassium Chloride Carbon Dioxide BUN Creatinine Glucose 149 H Hemoglobin A1c Ferritin AST ALT Lactate Dehydrogenase 558 H 350 H C-Reactive Protein 1.50 H 1.70 H Albumin Ur Specific [place] Urine WBC (Auto) Coronavirus (PCR) 09/03/20 09/03/20 09/05/20 06:17 09:32 07:13 WBC RBC Hgb Hct Lymph % (Auto) Robertson % (Auto) Lymph # (Auto) [place] # (Auto) Seg Neutrophils % Seg Neutrophils # D-Dimer 295.00 H Sodium Potassium Chloride Carbon Dioxide BUN 28 H Creatinine Glucose 172 H Hemoglobin A1c Ferritin 1194.0 H AST ALT Lactate Dehydrogenase C-Reactive Protein Albumin Ur Specific [place] Urine WBC (Auto) Coronavirus (PCR) 09/05/20 09/05/20 09/05/20 07:13 07:13 07:13 WBC 19.6 H RBC 5.48 H Hgb 16.1 H Hct 49.5 H Lymph % (Auto) Robertson % (Auto) Lymph # (Auto) [place] # (Auto) Seg Neutrophils % Seg Neutrophils # D-Dimer Sodium Potassium Chloride Carbon Dioxide BUN 26 H Creatinine 0.7 L Glucose 140 H Hemoglobin A1c Ferritin 1051.0 H AST 61 H ALT 170 H Lactate Dehydrogenase 399 H C-Reactive Protein 2.30 H Albumin 3.5 L Ur Specific [place] Urine WBC (Auto) Coronavirus (PCR) 09/06/20 09/06/20 09/07/20 10:20 10:20 07:37 WBC 14.3 H RBC Hgb Hct Lymph % (Auto) 10.2 L [place] % (Auto) 12.2 H Lymph # (Auto) Robertson # (Auto) 1.7 H Seg Neutrophils % 76.4 H Seg Neutrophils # 10.9 H D-Dimer Sodium 133 L D Potassium 3.5 L Chloride 93.3 L Carbon Dioxide BUN 22 H Creatinine 0.6 L Glucose 147 H Hemoglobin A1c Ferritin 786.5 H AST ALT 118 H Lactate Dehydrogenase C-Reactive Protein Albumin 3.1 L Ur Specific [place] Urine WBC (Auto) Coronavirus (PCR) 09/07/20 09/08/20 09/09/20 07:59 08:22 08:22 WBC RBC Hgb Hct Lymph % (Auto) Robertson % (Auto) Lymph # (Auto) [place] # (Auto) Seg Neutrophils % Seg Neutrophils # D-Dimer Sodium 135 L 133 L Potassium Chloride 93.6 L 93.2 L 94.3 L Carbon Dioxide 31 H 33 H BUN 22 H 24 H 21 H Creatinine 0.6 L 0.6 L Glucose 156 H 157 H 158 H Hemoglobin A1c Ferritin AST ALT Lactate Dehydrogenase 265 H C-Reactive Protein Albumin Ur Specific [place] Urine WBC (Auto) Coronavirus (PCR) 09/10/20 09/13/20 09/16/20 09:47 13:42 07:44 WBC RBC Hgb Hct Lymph % (Auto) Robertson % (Auto) Lymph # (Auto) [place] # (Auto) Seg Neutrophils % Seg Neutrophils # D-Dimer Sodium 136 L 131 L Potassium Chloride 91.9 L 89.9 L Carbon Dioxide BUN 25 H 24 H Creatinine 0.7 L 0.6 L Glucose 245 H 320 H 227 H Hemoglobin A1c Ferritin AST ALT Lactate Dehydrogenase C-Reactive Protein Albumin Ur Specific [place] Urine WBC (Auto) Coronavirus (PCR)
[2020-09-17] MEDS: methylPREDNISolone Sod Succinate 40 MG/1 ML INJ IV SCH ×3 (05:51→22:52)
--- NOTE | 2020-09-17 09:51 | Progress Note ---
Assessment and Plan Assessment and plan: (1) Acute respiratory failure with hypoxia Supplemental oxygen, pulse oximetry, nebulizer therapy, treat coronavirus infection. Patient requiring 7 L of oxygen currently. Continue weaning per protocol (2) Coronavirus infection Coronavirus protocol: IV antibiotic therapy, IV steroid therapy, vitamin C therapy, vitamin D therapy, zinc therapy, full course remdesivir therapy. Continue to monitor inflammatory markers. (3) Obesity hypoventilation syndrome Balanced diet, increase physical activity at discharge, outpatient pulmonary follow-up for sleep study. (4) Bilateral pneumonia Pneumonia protocol: Chest x-ray, CBC, CMP, IV antibiotic therapy, supplemental oxygen, pulse oximetry, (5) SIRS (systemic inflammatory response syndrome) IV antibiotic therapy, supportive care, CBC in a.m. (6) DVT prophylaxis SCD to bilateral lower extremities while in bed, continue prophylactic anticoagulation 09/17/20. Patient has been weaned to 4 L of oxygen and tolerating well. Perform exercise pulse oximetry testing today. Patient will likely need home O2. Continue to monitor inflammatory markers. Continue IV steroids per pulmonary. Completed remdesivir per ID. History Interval history: 35 YO Male with Obesity Hypoventilation Syndrome, pneumonia, coronavirus infection, systemic inflammatory response syndrome. Patient knowledges continued shortness of breath. Patient denies pain. No reported nursing events. Hospitalist Physical - Constitutional Vitals: Temp Pulse Resp BP Pulse Ox 98.1 F 98 H 18 124/85 98 09/17/20 05:13 09/17/20 05:13 09/17/20 05:13 09/17/20 05:13 09/17/20 05:13 General appearance: Present: no acute distress, well-nourished - EENT Eyes: Present: PERRL, EOM intact ENT: hearing intact, clear oral mucosa, dentition normal - Neck Neck: Present: supple, normal ROM - Respiratory Respiratory effort: normal Respiratory: bilateral: CTA - Cardiovascular Rhythm: regular Heart Sounds: Present: S1 & S2. Absent: gallop, rub - Extremities Extremities: no ischemia, No edema, Full ROM - Abdominal General gastrointestinal: soft, non-tender, non-distended, normal bowel sounds - Integumentary Integumentary: Present: clear, warm, dry - Neurologic Neurologic: CNII-XII intact, moves all extremities HEART Score - HEART Score Troponin: Troponin T < 0.010 ng/mL (0.00-0.029) 08/27/20 11:56 Results - Labs CBC & Chem 7: 09/06/20 10:20 09/16/20 07:44 Labs: Laboratory Last Values WBC 14.3 K/mm3 (4.5-11.0) H 09/06/20 10:20 RBC 4.97 M/mm3 (3.65-5.03) 09/06/20 10:20 Hgb 14.8 gm/dl (11.8-15.2) 09/06/20 10:20 Hct 44.2 % (35.5-45.6) 09/06/20 10:20 MCV 89 fl (84-94) 09/06/20 10:20 MCH 30 pg (28-32) 09/06/20 10:20 MCHC 33 % (32-34) 09/06/20 10:20 RDW 13.2 % (13.2-15.2) 09/06/20 10:20 Plt Count 327 K/mm3 (140-440) 09/06/20 10:20 Lymph % (Auto) 10.2 % (13.4-35.0) L 09/06/20 10:20 [place] % (Auto) 12.2 % (0.0-7.3) H 09/06/20 10:20 Eos % (Auto) 1.0 % (0.0-4.3) 09/06/20 10:20 Baso % (Auto) 0.2 % (0.0-1.8) 09/06/20 10:20 Lymph # (Auto) 1.5 K/mm3 (1.2-5.4) 09/06/20 10:20 Reagan # (Auto) 1.7 K/mm3 (0.0-0.8) H 09/06/20 10:20 Eos # (Auto) 0.1 K/mm3 (0.0-0.4) 09/06/20 10:20 Baso # (Auto) 0.0 K/mm3 (0.0-0.1) 09/06/20 10:20 Seg Neutrophils % 76.4 % (40.0-70.0) H 09/06/20 10:20 Seg Neutrophils # 10.9 K/mm3 (1.8-7.7) H 09/06/20 10:20 D-Dimer 171.18 ng/mlDDU (0-234) 09/07/20 07:37 Sodium 138 mmol/L (137-145) D 09/16/20 07:44 Potassium 4.8 mmol/L (3.6-5.0) 09/16/20 07:44 Chloride 100.9 mmol/L (98-107) 09/16/20 07:44 Carbon Dioxide 29 mmol/L (22-30) 09/16/20 07:44 Anion Gap 13 mmol/L 09/16/20 07:44 BUN 19 mg/dL (9-20) 09/16/20 07:44 Creatinine 0.6 mg/dL (0.8-1.3) L 09/16/20 07:44 Estimated GFR > 60 ml/min 09/16/20 07:44 BUN/Creatinine Ratio 32 % 09/16/20 07:44 Glucose 227 mg/dL (75-100) H 09/16/20 07:44 Hemoglobin A1c 6.4 % (4-6) H 08/28/20 07:55 Lactic Acid 1.60 mmol/L (0.7-2.0) 08/27/20 16:51 Calcium 9.3 mg/dL (8.4-10.2) 09/16/20 07:44 Ferritin 786.5 ng/mL (30.0-300.0) H 09/07/20 07:37 Total Bilirubin 0.80 mg/dL (0.1-1.2) 09/06/20 10:20 AST 38 units/L (5-40) 09/06/20 10:20 ALT 118 units/L (7-56) H 09/06/20 10:20 Alkaline Phosphatase 72 units/L (35-129) 09/06/20 10:20 Lactate Dehydrogenase 265 units/L (91-180) H 09/07/20 07:59 Troponin T < 0.010 ng/mL (0.00-0.029) 08/27/20 11:56 C-Reactive Protein 1.30 mg/dL (0.00-1.30) 09/07/20 07:59 NT-Pro-B Natriuret Pep < 5 pg/mL (0-450) 08/27/20 11:56 Total Protein 6.9 g/dL (6.3-8.2) 09/06/20 10:20 Albumin 3.1 g/dL (3.9-5) L 09/06/20 10:20 Albumin/Globulin Ratio 0.8 % 09/06/20 10:20 Procalcitonin 0.09 ng/mL (<0.15) 08/27/20 11:56 Urine Color Kim (Yellow) 08/27/20 Unknown Urine Turbidity Clear (Clear) 08/27/20 Unknown Urine pH 5.0 (5.0-7.0) 08/27/20 Unknown Ur Specific [place] 1.040 (1.003-1.030) H 08/27/20 Unknown Urine Protein >500 mg/dL (Negative) 08/27/20 Unknown Urine Glucose (UA) Neg mg/dL (Negative) 08/27/20 Unknown Urine Ketones 20 mg/dL (Negative) 08/27/20 Unknown Urine Blood Mod (Negative) 08/27/20 Unknown Urine Nitrite Neg (Negative) 08/27/20 Unknown Urine Bilirubin Neg (Negative) 08/27/20 Unknown Urine Urobilinogen < 2.0 mg/dL (<2.0) 08/27/20 Unknown Ur Leukocyte Esterase Neg (Negative) 08/27/20 Unknown Urine WBC (Auto) 11.0 /HPF (0.0-6.0) H 08/27/20 Unknown Urine RBC (Auto) 2.0 /HPF (0.0-6.0) 08/27/20 Unknown U Epithel Cells (Auto) 1.0 /HPF (0-13.0) 08/27/20 Unknown Urine Mucus 1+ /HPF 08/27/20 Unknown Coronavirus (PCR) Positive (Negative) A 08/27/20 Unknown Traore/IV: Voiding Method Urinal Active Medications - Current Medications Current Medications: Generic Name Dose Route Start Last Admin Trade Name Freq PRN Reason Stop Dose Admin Acetaminophen 650 mg 08/27/20 17:05 09/03/20 21:41 Acetaminophen 325 Mg Tab PO 650 mg Q4H PRN Administration Pain MILD(1-3)/Fever >100.5/JACOBS Albuterol 2 puff 09/02/20 22:51 Albuterol 8.5 Gm Mdi Inhalation IH Q4HRT PRN Shortness Of Breath Ascorbic Acid 1,000 mg 08/27/20 22:00 09/16/20 23:29 Ascorbic Acid 500 Mg Tab PO 1,000 mg BID [place] Administration Cholecalciferol 5,000 unit 08/27/20 18:00 09/16/20 09:21 Cholecalciferol (Vit D3) 5,000 Unit Tab PO 5,000 unit DAILY [place] Administration Enoxaparin Sodium 100 mg 09/03/20 10:00 09/16/20 23:28 Enoxaparin 100 Mg/1 Ml Inj 1 mg/kg (100 mg) 100 mg SUB-Q Administration Q12HR [facility] Protocol Famotidine 20 mg 08/27/20 22:00 09/16/20 23:29 Famotidine 20 Mg Tab PO 20 mg BID [place] Administration Guaifenesin 200 mg 08/28/20 12:50 09/08/20 22:33 Guaifenesin 100 Mg/5 Ml Oral Liqd PO 200 mg Q4H PRN Administration Cough Methylprednisolone Sodium Succinate 40 mg 09/06/20 12:00 09/17/20 05:51 Methylprednisolone Sod Succinate 40 Mg/1 Ml Inj IV 40 mg Q8HR [place] Administration Morphine Sulfate 2 mg 09/05/20 11:44 09/06/20 17:21 Morphine 2 Mg/1 Ml Inj IV 2 mg Q4H PRN Administration Pain, Moderate (4-6) Ondansetron HCl 4 mg 08/27/20 17:05 09/05/20 11:40 Ondansetron 4 Mg/2 Ml Inj IV 4 mg Q3H PRN Administration Nausea And Vomiting Oxycodone/Acetaminophen 1 tab 08/27/20 17:05 09/11/20 17:38 Oxycodone /Acetaminophen 5-325mg Tab PO 1 tab Q6H PRN Administration Pain, Moderate (4-6) Sodium Chloride 10 ml 08/27/20 22:00 09/16/20 23:29 Sodium Chloride 0.9% 10 Ml Flush Syringe IV 10 ml BID [place] Administration Sodium Chloride 10 ml 08/27/20 17:05 Sodium Chloride 0.9% 10 Ml Flush Syringe IV PRN PRN LINE FLUSH Zinc Sulfate 220 mg 09/05/20 10:00 09/16/20 09:21 Zinc Sulfate 220 Mg Cap PO 220 mg QDAY [place] Administration Nutrition/Malnutrition Assess - Dietary Evaluation Nutrition/Malnutrition Findings: Nutrition Notes Start: 08/28/20 12:26 Freq: Status: Active Protocol: Document 09/13/20 14:23 IAN (Rec: 09/13/20 14:26 [id number]) Nutrition Notes Initial or Follow up Reassessment Current Diagnosis Hypertension,Respiratory Failure Other Pertinent Diagnosis COVID-19 (+), bilat pneu, SIRS Current Diet Regular + Ensure Enlive BID Labs/Tests reviewed Pertinent Medications reviewed Height 5 ft 9 in Weight 104.5 kg Brant Body Weight (kg) 72.72 BMI 34.0 Subjective/Other Information F/u for intakes. Pt eating 100 % of meals. Percent of energy/protein needs met: 100%/100% Burn Absent Trauma Absent Current % PO Good (75-100%) Minimum of two criteria No physical signs of malnutrition #1 Nutrition Diagnosis Inadequate protein-energy intake As Evidenced by Signs and Symptoms pt meeting 100% of protein/ kcal needs Diagnosis Progress(for reassessment Resolved documentation) Is patient on ventilator? No Is Patient Ambulatory and/or Out of Bed Yes REE-([place]-ambulatory/OOB) [ 2561.494 [id number]] Kcal/Kg value to use for calculation 20 Approximate Energy Requirements Using 0 kcal/Kg Calculation Used for Recommendations Kcal/kg Additional Notes Pro needs 0.8-1g/kg adjBW: 71- 89g/day Fluid needs 1ml/kcal Nutrition Intervention Change Diet Order: Continue current diet order Add Supplement/Snack (indicate name/kcal Ensure Enlive BID /protein ) Provides kCal: 700 Provides Protein (gm) 40 Goal #1 PO intake of meals plus ONS to meet at least 75% energy and pro needs Revisit per MD consult or patient Sign Off request: Additional Comments self
[2020-09-17] MEDS: CHOLECALCIFEROL (VIT D3) 5,000 UNIT TAB PO SCH (10:28)
[2020-09-17] MEDS: ENOXAPARIN 100 MG/1 ML INJ SUB-Q SCH ×2 (10:28→22:51)
[2020-09-17] MEDS: ASCORBIC ACID 500 MG TAB PO SCH ×2 (10:28→22:52)
[2020-09-17] MEDS: ZINC SULFATE 220 MG CAP PO SCH (10:28)
[2020-09-17] MEDS: FAMOTIDINE 20 MG TAB PO SCH ×2 (10:28→22:52)
--- NOTE | 2020-09-17 10:48 | Progress Note ---
Assessment and Plan 35 y/o male with acute respiratory failure secondary to COVID 19 pneumonia. 09/17/20: WIll change to Prednisone 60 daily and suggest taper as follows: 60 daily for 4 days, 40 daily for 4 days, 20 daily for 4 days then 10 daily for 4 days then stop. needs walk test prior to discharge. Will continue to follow. 09/16/20: Will start to wean roids tomorrow. Prone if possible 09/15/20: Continue steroids at current dosing until on regular cannula. Continue to prone. hold lasix again today. 09/14/20: Chemistry is stable. Improving oxygen state despite not using lasix the last 48 hours. Will hold again today. Continue high dose steroids, not ready to switch to PO just yet. Hopeful discharge in the next 3-4 days. 09/13/20: Ordered chemistry for today. If renal function and potassium ok, please give lasix 40mg IV. LTACH denied secondary to funding. Continue high dose steroids. Guarded prognosis. 09/12/20: repeat chemistry tomorrow. Hold on lasix today. Continue IV steroids and proning. Follow up with CM about LTACH 09/11/20: Lasix now 40 and then 20 IV at 2100. Please encourage patient to prone. Follow up with CM about LTACH as patient needs prolonged weaning. Continue IV steroids. Guarded prognosis. 09/10/20: Unable to order lasix until recent vitals placed. Labs are stable. Per CM [place] reviewing clinical. Needs to prone. Took two doses of lasix to achieve net negative state yesterday and would like to do again today if vitals can be confirmed. 09/09/20: More lasix today. Labs stable. Continue proning and steroids. Agree with LTACH referral. Already on anticoagulation. Guarded prognosis. 09/08/20: CXR is slightly better. Continue solumedrol at current dosing. Continue to prone. Lasix again today as he still has a positive fluid balance. 09/07/20: Lasix again today. Continue IV solumedrol. Proning. Repeat CXR today. 09/06/20: Will give lasix now. Put back on steroids but this IV 40q8. Wean FiO2 for sats > 88% and stress the importance of proning. 09/03/20: Lasix 40 now and then will order another dose for 2000 tonight. BMP is stable. Wean FiO2 for sats >88%. Continue to prone nightly and PRN. Finished Remdesivir, still on steroids. 09/02/20: Continue proning at night and during the day as well if possible. Lasix 40 again today. Would check BMP tomorrow. Wean FiO2 and flow for sats >88%. Prognosis still remains guarded. 09/01/20: Documented proning this am with improvement in Sats and oxygen requirement. Lasix again today. Strict I/O. reviewed ID note and appreciate them answering the Actemra inquiry. Guarded prognosis, will continue to follow. 08/31/20: Still no documentation of proning. Lasix again today and ordered strict I/O. Follow up ID recs. Will ask if Actemra is still being used. Guarded prognosis. 08/30. Proning order is in, very important that patient do this. Lasix again today but this time, 40mg IV. Remdesivir and steroids. Guarded prognosis. Please document if patient is refusing to prone. IV steroids Stopped duonebs given nature of disease with concern for spread Lasix 20mg IV x1 today Prone during the day as tolerated and sleep prone at night Guarded prognosis. Subjective Date of service: 09/17/20 Principal diagnosis: COVID-19 Interval history: Down to 4 liters. Good sats. Objective Vital Signs - 12hr 09/17/20 05:13 Temperature 98.1 F Pulse Rate 98 H Respiratory 18 Rate Blood Pressure 124/85 O2 Sat by Pulse 98 Oximetry Constitutional: no acute distress ENT: oropharynx moist Neck: supple Ascultation: Bilateral: clear Cardiovascular: regular rate and rhythm Gastrointestinal: normoactive bowel sounds, soft, non-tender Integumentary: normal Extremities: no cyanosis Neurologic: normal mental status Psychiatric: mood appropriate CBC and BMP: 09/06/20 10:20 09/16/20 07:44 ABG, PT/INR, D-dimer: PT/INR, D-dimer D-Dimer 171.18 ng/mlDDU (0-234) 09/07/20 07:37 Abnormal lab findings: Abnormal Labs 08/27/20 08/27/20 08/27/20 11:56 11:56 11:56 WBC RBC Hgb Hct Lymph % (Auto) [place] % (Auto) Lymph # (Auto) [place] # (Auto) Seg Neutrophils % Seg Neutrophils # D-Dimer 291.43 H Sodium Potassium Chloride Carbon Dioxide BUN Creatinine Glucose Hemoglobin A1c Ferritin 572.3 H AST ALT Lactate Dehydrogenase 313 H C-Reactive Protein 4.40 H Albumin Ur Specific [place] Urine WBC (Auto) Coronavirus (PCR) 08/27/20 08/27/20 08/27/20 11:56 11:56 Unknown WBC RBC Hgb Hct Lymph % (Auto) 10.3 L [place] % (Auto) Lymph # (Auto) 0.7 L [place] # (Auto) Seg Neutrophils % 84.6 H Seg Neutrophils # D-Dimer Sodium Potassium 3.4 L Chloride Carbon Dioxide BUN Creatinine Glucose 125 H Hemoglobin A1c Ferritin AST 66 H ALT Lactate Dehydrogenase C-Reactive Protein Albumin Ur Specific [place] Urine WBC (Auto) Coronavirus (PCR) Positive A 08/27/20 08/28/20 08/28/20 Unknown 07:55 07:55 WBC RBC 5.06 H Hgb Hct Lymph % (Auto) 9.7 L [place] % (Auto) Lymph # (Auto) 0.6 L [place] # (Auto) Seg Neutrophils % 84.8 H Seg Neutrophils # D-Dimer Sodium Potassium Chloride Carbon Dioxide BUN Creatinine Glucose 125 H Hemoglobin A1c Ferritin AST 80 H ALT Lactate Dehydrogenase C-Reactive Protein Albumin Ur Specific [place] 1.040 H Urine WBC (Auto) 11.0 H Coronavirus (PCR) 08/28/20 08/30/20 08/30/20 07:55 06:51 06:51 WBC RBC 5.04 H Hgb Hct Lymph % (Auto) [place] % (Auto) Lymph # (Auto) [place] # (Auto) Seg Neutrophils % Seg Neutrophils # D-Dimer Sodium Potassium Chloride Carbon Dioxide BUN Creatinine Glucose 144 H Hemoglobin A1c 6.4 H Ferritin AST 99 H ALT Lactate Dehydrogenase C-Reactive Protein Albumin 3.8 L Ur Specific [place] Urine WBC (Auto) Coronavirus (PCR) 08/30/20 08/30/20 08/31/20 14:18 14:18 05:43 WBC RBC Hgb Hct Lymph % (Auto) [place] % (Auto) Lymph # (Auto) [place] # (Auto) Seg Neutrophils % Seg Neutrophils # D-Dimer Sodium Potassium 5.1 H Chloride Carbon Dioxide 20 L D BUN 25 H Creatinine 0.7 L Glucose 158 H Hemoglobin A1c Ferritin 1166.0 H AST 75 H ALT Lactate Dehydrogenase 529 H C-Reactive Protein 5.90 H Albumin 3.3 L Ur Specific [place] Urine WBC (Auto) Coronavirus (PCR) 09/01/20 09/01/20 09/01/20 06:11 06:11 19:48 WBC RBC 5.11 H Hgb Hct Lymph % (Auto) [place] % (Auto) Lymph # (Auto) [place] # (Auto) Seg Neutrophils % Seg Neutrophils # D-Dimer Sodium Potassium Chloride Carbon Dioxide BUN 27 H Creatinine Glucose 151 H Hemoglobin A1c Ferritin 1859.0 H AST 67 H ALT 69 H Lactate Dehydrogenase C-Reactive Protein Albumin 3.7 L Ur Specific [place] Urine WBC (Auto) Coronavirus (PCR) 09/01/20 09/03/20 09/03/20 19:48 06:17 06:17 WBC RBC Hgb Hct Lymph % (Auto) [place] % (Auto) Lymph # (Auto) [place] # (Auto) Seg Neutrophils % Seg Neutrophils # D-Dimer 566.54 H Sodium Potassium Chloride Carbon Dioxide BUN Creatinine Glucose 149 H Hemoglobin A1c Ferritin AST ALT Lactate Dehydrogenase 558 H 350 H C-Reactive Protein 1.50 H 1.70 H Albumin Ur Specific [place] Urine WBC (Auto) Coronavirus (PCR) 09/03/20 09/03/20 09/05/20 06:17 09:32 07:13 WBC RBC Hgb Hct Lymph % (Auto) [place] % (Auto) Lymph # (Auto) [place] # (Auto) Seg Neutrophils % Seg Neutrophils # D-Dimer 295.00 H Sodium Potassium Chloride Carbon Dioxide BUN 28 H Creatinine Glucose 172 H Hemoglobin A1c Ferritin 1194.0 H AST ALT Lactate Dehydrogenase C-Reactive Protein Albumin Ur Specific [place] Urine WBC (Auto) Coronavirus (PCR) 09/05/20 09/05/20 09/05/20 07:13 07:13 07:13 WBC 19.6 H RBC 5.48 H Hgb 16.1 H Hct 49.5 H Lymph % (Auto) [place] % (Auto) Lymph # (Auto) [place] # (Auto) Seg Neutrophils % Seg Neutrophils # D-Dimer Sodium Potassium Chloride Carbon Dioxide BUN 26 H Creatinine 0.7 L Glucose 140 H Hemoglobin A1c Ferritin 1051.0 H AST 61 H ALT 170 H Lactate Dehydrogenase 399 H C-Reactive Protein 2.30 H Albumin 3.5 L Ur Specific [place] Urine WBC (Auto) Coronavirus (PCR) 09/06/20 09/06/20 09/07/20 10:20 10:20 07:37 WBC 14.3 H RBC Hgb Hct Lymph % (Auto) 10.2 L [place] % (Auto) 12.2 H Lymph # (Auto) [place] # (Auto) 1.7 H Seg Neutrophils % 76.4 H Seg Neutrophils # 10.9 H D-Dimer Sodium 133 L D Potassium 3.5 L Chloride 93.3 L Carbon Dioxide BUN 22 H Creatinine 0.6 L Glucose 147 H Hemoglobin A1c Ferritin 786.5 H AST ALT 118 H Lactate Dehydrogenase C-Reactive Protein Albumin 3.1 L Ur Specific [place] Urine WBC (Auto) Coronavirus (PCR) 09/07/20 09/08/20 09/09/20 07:59 08:22 08:22 WBC RBC Hgb Hct Lymph % (Auto) [place] % (Auto) Lymph # (Auto) [place] # (Auto) Seg Neutrophils % Seg Neutrophils # D-Dimer Sodium 135 L 133 L Potassium Chloride 93.6 L 93.2 L 94.3 L Carbon Dioxide 31 H 33 H BUN 22 H 24 H 21 H Creatinine 0.6 L 0.6 L Glucose 156 H 157 H 158 H Hemoglobin A1c Ferritin AST ALT Lactate Dehydrogenase 265 H C-Reactive Protein Albumin Ur Specific [place] Urine WBC (Auto) Coronavirus (PCR) 09/10/20 09/13/20 09/16/20 09:47 13:42 07:44 WBC RBC Hgb Hct Lymph % (Auto) [place] % (Auto) Lymph # (Auto) [place] # (Auto) Seg Neutrophils % Seg Neutrophils # D-Dimer Sodium 136 L 131 L Potassium Chloride 91.9 L 89.9 L Carbon Dioxide BUN 25 H 24 H Creatinine 0.7 L 0.6 L Glucose 245 H 320 H 227 H Hemoglobin A1c Ferritin AST ALT Lactate Dehydrogenase C-Reactive Protein Albumin Ur Specific [place] Urine WBC (Auto) Coronavirus (PCR)
[2020-09-18] MEDS: methylPREDNISolone Sod Succinate 40 MG/1 ML INJ IV SCH ×3 (05:38→22:10)
--- NOTE | 2020-09-18 07:54 | Progress Note ---
Assessment and Plan Assessment and plan: (1) Acute respiratory failure with hypoxia Supplemental oxygen, pulse oximetry, nebulizer therapy, treat coronavirus infection. Patient requiring 7 L of oxygen currently. Continue weaning per protocol (2) Coronavirus infection Coronavirus protocol: IV antibiotic therapy, IV steroid therapy, vitamin C therapy, vitamin D therapy, zinc therapy, full course remdesivir therapy. Continue to monitor inflammatory markers. (3) Obesity hypoventilation syndrome Balanced diet, increase physical activity at discharge, outpatient pulmonary follow-up for sleep study. (4) Bilateral pneumonia Pneumonia protocol: Chest x-ray, CBC, CMP, IV antibiotic therapy, supplemental oxygen, pulse oximetry, (5) SIRS (systemic inflammatory response syndrome) IV antibiotic therapy, supportive care, CBC in a.m. (6) DVT prophylaxis SCD to bilateral lower extremities while in bed, continue prophylactic anticoagulation 09/17/20. Patient has been weaned to 4 L of oxygen and tolerating well. Perform exercise pulse oximetry testing today. Patient will likely need home O2. Continue to monitor inflammatory markers. Continue IV steroids per pulmonary. Completed remdesivir per ID. 09/18/2020. Patient still requiring 4 L of oxygen and tolerating well. Perform exercise pulse oximetry testing again today. Patient will likely need home O2. Continue to monitor inflammatory markers. Continue IV steroids per pulmonary. Completed remdesivir per ID. History Interval history: 35 YO Male with Obesity Hypoventilation Syndrome, pneumonia, coronavirus infection, systemic inflammatory response syndrome. Patient knowledges continued shortness of breath. Patient denies pain. No reported nursing events. Hospitalist Physical - Constitutional Vitals: Temp Pulse Resp BP Pulse Ox 98.7 F 101 H 18 117/72 96 09/18/20 05:47 09/18/20 05:47 09/18/20 05:47 09/18/20 05:47 09/18/20 05:47 General appearance: Present: no acute distress, well-nourished - EENT Eyes: Present: PERRL, EOM intact ENT: hearing intact, clear oral mucosa, dentition normal - Neck Neck: Present: supple, normal ROM - Respiratory Respiratory effort: normal Respiratory: bilateral: CTA - Cardiovascular Rhythm: regular Heart Sounds: Present: S1 & S2. Absent: gallop, rub - Extremities Extremities: no ischemia, No edema, Full ROM - Abdominal General gastrointestinal: soft, non-tender, non-distended, normal bowel sounds - Integumentary Integumentary: Present: clear, warm, dry - Neurologic Neurologic: CNII-XII intact, moves all extremities HEART Score - HEART Score Troponin: Troponin T < 0.010 ng/mL (0.00-0.029) 08/27/20 11:56 Results - Labs CBC & Chem 7: 09/06/20 10:20 09/16/20 07:44 Labs: Laboratory Last Values WBC 14.3 K/mm3 (4.5-11.0) H 09/06/20 10:20 RBC 4.97 M/mm3 (3.65-5.03) 09/06/20 10:20 Hgb 14.8 gm/dl (11.8-15.2) 09/06/20 10:20 Hct 44.2 % (35.5-45.6) 09/06/20 10:20 MCV 89 fl (84-94) 09/06/20 10:20 MCH 30 pg (28-32) 09/06/20 10:20 MCHC 33 % (32-34) 09/06/20 10:20 RDW 13.2 % (13.2-15.2) 09/06/20 10:20 Plt Count 327 K/mm3 (140-440) 09/06/20 10:20 Lymph % (Auto) 10.2 % (13.4-35.0) L 09/06/20 10:20 [place] % (Auto) 12.2 % (0.0-7.3) H 09/06/20 10:20 Eos % (Auto) 1.0 % (0.0-4.3) 09/06/20 10:20 Baso % (Auto) 0.2 % (0.0-1.8) 09/06/20 10:20 Lymph # (Auto) 1.5 K/mm3 (1.2-5.4) 09/06/20 10:20 [place] # (Auto) 1.7 K/mm3 (0.0-0.8) H 09/06/20 10:20 Eos # (Auto) 0.1 K/mm3 (0.0-0.4) 09/06/20 10:20 Baso # (Auto) 0.0 K/mm3 (0.0-0.1) 09/06/20 10:20 Seg Neutrophils % 76.4 % (40.0-70.0) H 09/06/20 10:20 Seg Neutrophils # 10.9 K/mm3 (1.8-7.7) H 09/06/20 10:20 D-Dimer 171.18 ng/mlDDU (0-234) 09/07/20 07:37 Sodium 138 mmol/L (137-145) D 09/16/20 07:44 Potassium 4.8 mmol/L (3.6-5.0) 09/16/20 07:44 Chloride 100.9 mmol/L (98-107) 09/16/20 07:44 Carbon Dioxide 29 mmol/L (22-30) 09/16/20 07:44 Anion Gap 13 mmol/L 09/16/20 07:44 BUN 19 mg/dL (9-20) 09/16/20 07:44 Creatinine 0.6 mg/dL (0.8-1.3) L 09/16/20 07:44 Estimated GFR > 60 ml/min 09/16/20 07:44 BUN/Creatinine Ratio 32 % 09/16/20 07:44 Glucose 227 mg/dL (75-100) H 09/16/20 07:44 Hemoglobin A1c 6.4 % (4-6) H 08/28/20 07:55 Lactic Acid 1.60 mmol/L (0.7-2.0) 08/27/20 16:51 Calcium 9.3 mg/dL (8.4-10.2) 09/16/20 07:44 Ferritin 786.5 ng/mL (30.0-300.0) H 09/07/20 07:37 Total Bilirubin 0.80 mg/dL (0.1-1.2) 09/06/20 10:20 AST 38 units/L (5-40) 09/06/20 10:20 ALT 118 units/L (7-56) H 09/06/20 10:20 Alkaline Phosphatase 72 units/L (35-129) 09/06/20 10:20 Lactate Dehydrogenase 265 units/L (91-180) H 09/07/20 07:59 Troponin T < 0.010 ng/mL (0.00-0.029) 08/27/20 11:56 C-Reactive Protein 1.30 mg/dL (0.00-1.30) 09/07/20 07:59 NT-Pro-B Natriuret Pep < 5 pg/mL (0-450) 08/27/20 11:56 Total Protein 6.9 g/dL (6.3-8.2) 09/06/20 10:20 Albumin 3.1 g/dL (3.9-5) L 09/06/20 10:20 Albumin/Globulin Ratio 0.8 % 09/06/20 10:20 Procalcitonin 0.09 ng/mL (<0.15) 08/27/20 11:56 Urine Color [place] (Yellow) 08/27/20 Unknown Urine Turbidity Clear (Clear) 08/27/20 Unknown Urine pH 5.0 (5.0-7.0) 08/27/20 Unknown Ur Specific [place] 1.040 (1.003-1.030) H 08/27/20 Unknown Urine Protein >500 mg/dL (Negative) 08/27/20 Unknown Urine Glucose (UA) Neg mg/dL (Negative) 08/27/20 Unknown Urine Ketones 20 mg/dL (Negative) 08/27/20 Unknown Urine Blood Mod (Negative) 08/27/20 Unknown Urine Nitrite Neg (Negative) 08/27/20 Unknown Urine Bilirubin Neg (Negative) 08/27/20 Unknown Urine Urobilinogen < 2.0 mg/dL (<2.0) 08/27/20 Unknown Ur Leukocyte Esterase Neg (Negative) 08/27/20 Unknown Urine WBC (Auto) 11.0 /HPF (0.0-6.0) H 08/27/20 Unknown Urine RBC (Auto) 2.0 /HPF (0.0-6.0) 08/27/20 Unknown U Epithel Cells (Auto) 1.0 /HPF (0-13.0) 08/27/20 Unknown Urine Mucus 1+ /HPF 08/27/20 Unknown Coronavirus (PCR) Positive (Negative) A 08/27/20 Unknown [place]/IV: Voiding Method Urinal Active Medications - Current Medications Current Medications: Generic Name Dose Route Start Last Admin Trade Name Freq PRN Reason Stop Dose Admin Acetaminophen 650 mg 08/27/20 17:05 09/03/20 21:41 Acetaminophen 325 Mg Tab PO 650 mg Q4H PRN Administration Pain MILD(1-3)/Fever >100.5/JACOBS Albuterol 2 puff 09/02/20 22:51 Albuterol 8.5 Gm Mdi Inhalation IH Q4HRT PRN Shortness Of Breath Ascorbic Acid 1,000 mg 08/27/20 22:00 09/17/20 22:52 Ascorbic Acid 500 Mg Tab PO 1,000 mg BID [place] Administration Cholecalciferol 5,000 unit 08/27/20 18:00 09/17/20 10:28 Cholecalciferol (Vit D3) 5,000 Unit Tab PO 5,000 unit DAILY [place] Administration Enoxaparin Sodium 100 mg 09/03/20 10:00 09/17/20 22:51 Enoxaparin 100 Mg/1 Ml Inj 1 mg/kg (100 mg) 100 mg SUB-Q Administration Q12HR [facility] Protocol Famotidine 20 mg 08/27/20 22:00 09/17/20 22:52 Famotidine 20 Mg Tab PO 20 mg BID [place] Administration Guaifenesin 200 mg 08/28/20 12:50 09/08/20 22:33 Guaifenesin 100 Mg/5 Ml Oral Liqd PO 200 mg Q4H PRN Administration Cough Methylprednisolone Sodium Succinate 40 mg 09/06/20 12:00 09/18/20 05:38 Methylprednisolone Sod Succinate 40 Mg/1 Ml Inj IV 40 mg Q8HR [place] Administration Morphine Sulfate 2 mg 09/05/20 11:44 09/06/20 17:21 Morphine 2 Mg/1 Ml Inj IV 2 mg Q4H PRN Administration Pain, Moderate (4-6) Ondansetron HCl 4 mg 08/27/20 17:05 09/05/20 11:40 Ondansetron 4 Mg/2 Ml Inj IV 4 mg Q3H PRN Administration Nausea And Vomiting Oxycodone/Acetaminophen 1 tab 08/27/20 17:05 09/11/20 17:38 Oxycodone /Acetaminophen 5-325mg Tab PO 1 tab Q6H PRN Administration Pain, Moderate (4-6) Sodium Chloride 10 ml 08/27/20 22:00 09/17/20 22:52 Sodium Chloride 0.9% 10 Ml Flush Syringe IV 10 ml BID [place] Administration Sodium Chloride 10 ml 08/27/20 17:05 Sodium Chloride 0.9% 10 Ml Flush Syringe IV PRN PRN LINE FLUSH Zinc Sulfate 220 mg 09/05/20 10:00 09/17/20 10:28 Zinc Sulfate 220 Mg Cap PO 220 mg QDAY [place] Administration Nutrition/Malnutrition Assess - Dietary Evaluation Nutrition/Malnutrition Findings: Nutrition Notes Start: 08/28/20 12:26 Freq: Status: Active Protocol: Document 09/13/20 14:23 (Rec: 09/13/20 14:26 [email or web address]) Nutrition Notes Initial or Follow up Reassessment Current Diagnosis Hypertension,Respiratory Failure Other Pertinent Diagnosis COVID-19 (+), bilat pneu, SIRS Current Diet Regular + Ensure Enlive BID Labs/Tests reviewed Pertinent Medications reviewed Height 5 ft 9 in Weight 104.5 kg [place] Body Weight (kg) 72.72 BMI 34.0 Subjective/Other Information F/u for intakes. Pt eating 100 % of meals. Percent of energy/protein needs met: 100%/100% Burn Absent Trauma Absent Current % PO Good (75-100%) Minimum of two criteria No physical signs of malnutrition #1 Nutrition Diagnosis Inadequate protein-energy intake As Evidenced by Signs and Symptoms pt meeting 100% of protein/ kcal needs Diagnosis Progress(for reassessment Resolved documentation) Is patient on ventilator? No Is Patient Ambulatory and/or Out of Bed Yes REE-([facility]-ambulatory/OOB) [ 2561.494 [id number]] Kcal/Kg value to use for calculation 20 Approximate Energy Requirements Using 0 kcal/Kg Calculation Used for Recommendations Kcal/kg Additional Notes Pro needs 0.8-1g/kg adjBW: 71- 89g/day Fluid needs 1ml/kcal Nutrition Intervention Change Diet Order: Continue current diet order Add Supplement/Snack (indicate name/kcal Ensure Enlive BID /protein ) Provides kCal: 700 Provides Protein (gm) 40 Goal #1 PO intake of meals plus ONS to meet at least 75% energy and pro needs Revisit per MD consult or patient Sign Off request: Additional Comments self
--- NOTE | 2020-09-18 09:20 | Progress Note ---
Assessment and Plan - Patient Problems (1) Acute respiratory failure due to COVID-19 Current Visit: Yes Status: Acute (2) Acute respiratory failure with hypoxia Current Visit: Yes Status: Acute (3) Bilateral pneumonia Current Visit: Yes Status: Acute (4) Hypokalemia Current Visit: Yes Status: Acute (5) Obesity hypoventilation syndrome Current Visit: Yes Status: Acute (6) SIRS (systemic inflammatory response syndrome) Current Visit: Yes Status: Acute Subjective Principal diagnosis: COVID-19 Interval history: wants to go home feels better Objective Vital Signs - 12hr 09/17/20 09/17/20 09/17/20 21:47 22:00 22:25 Temperature 98.9 F Pulse Rate 119 H Pulse Rate [ 119 H Right Radial] Respiratory 20 20 Rate Blood Pressure 150/89 O2 Sat by Pulse 95 95 95 Oximetry 09/18/20 05:47 Temperature 98.7 F Pulse Rate 101 H Pulse Rate [ Right Radial] Respiratory 18 Rate Blood Pressure 117/72 O2 Sat by Pulse 96 Oximetry Constitutional: no acute distress ENT: oropharynx moist Neck: supple Ascultation: Bilateral: clear Cardiovascular: regular rate and rhythm Gastrointestinal: normoactive bowel sounds, soft, non-tender Integumentary: normal Extremities: no cyanosis Neurologic: normal mental status Psychiatric: mood appropriate CBC and BMP: 09/06/20 10:20 09/16/20 07:44 ABG, PT/INR, D-dimer: PT/INR, D-dimer D-Dimer 171.18 ng/mlDDU (0-234) 09/07/20 07:37 Abnormal lab findings: Abnormal Labs 08/27/20 08/27/20 08/27/20 11:56 11:56 11:56 WBC RBC Hgb Hct Lymph % (Auto) [place] % (Auto) Lymph # (Auto) [place] # (Auto) Seg Neutrophils % Seg Neutrophils # D-Dimer 291.43 H Sodium Potassium Chloride Carbon Dioxide BUN Creatinine Glucose Hemoglobin A1c Ferritin 572.3 H AST ALT Lactate Dehydrogenase 313 H C-Reactive Protein 4.40 H Albumin Ur Specific [place] Urine WBC (Auto) Coronavirus (PCR) 08/27/20 08/27/20 08/27/20 11:56 11:56 Unknown WBC RBC Hgb Hct Lymph % (Auto) 10.3 L [place] % (Auto) Lymph # (Auto) 0.7 L [place] # (Auto) Seg Neutrophils % 84.6 H Seg Neutrophils # D-Dimer Sodium Potassium 3.4 L Chloride Carbon Dioxide BUN Creatinine Glucose 125 H Hemoglobin A1c Ferritin AST 66 H ALT Lactate Dehydrogenase C-Reactive Protein Albumin Ur Specific [place] Urine WBC (Auto) Coronavirus (PCR) Positive A 08/27/20 08/28/20 08/28/20 Unknown 07:55 07:55 WBC RBC 5.06 H Hgb Hct Lymph % (Auto) 9.7 L [place] % (Auto) Lymph # (Auto) 0.6 L [place] # (Auto) Seg Neutrophils % 84.8 H Seg Neutrophils # D-Dimer Sodium Potassium Chloride Carbon Dioxide BUN Creatinine Glucose 125 H Hemoglobin A1c Ferritin AST 80 H ALT Lactate Dehydrogenase C-Reactive Protein Albumin Ur Specific [place] 1.040 H Urine WBC (Auto) 11.0 H Coronavirus (PCR) 08/28/20 08/30/20 08/30/20 07:55 06:51 06:51 WBC RBC 5.04 H Hgb Hct Lymph % (Auto) [place] % (Auto) Lymph # (Auto) [place] # (Auto) Seg Neutrophils % Seg Neutrophils # D-Dimer Sodium Potassium Chloride Carbon Dioxide BUN Creatinine Glucose 144 H Hemoglobin A1c 6.4 H Ferritin AST 99 H ALT Lactate Dehydrogenase C-Reactive Protein Albumin 3.8 L Ur Specific [place] Urine WBC (Auto) Coronavirus (PCR) 08/30/20 08/30/20 08/31/20 14:18 14:18 05:43 WBC RBC Hgb Hct Lymph % (Auto) [place] % (Auto) Lymph # (Auto) [place] # (Auto) Seg Neutrophils % Seg Neutrophils # D-Dimer Sodium Potassium 5.1 H Chloride Carbon Dioxide 20 L D BUN 25 H Creatinine 0.7 L Glucose 158 H Hemoglobin A1c Ferritin 1166.0 H AST 75 H ALT Lactate Dehydrogenase 529 H C-Reactive Protein 5.90 H Albumin 3.3 L Ur Specific [place] Urine WBC (Auto) Coronavirus (PCR) 09/01/20 09/01/20 09/01/20 06:11 06:11 19:48 WBC RBC 5.11 H Hgb Hct Lymph % (Auto) [place] % (Auto) Lymph # (Auto) [place] # (Auto) Seg Neutrophils % Seg Neutrophils # D-Dimer Sodium Potassium Chloride Carbon Dioxide BUN 27 H Creatinine Glucose 151 H Hemoglobin A1c Ferritin 1859.0 H AST 67 H ALT 69 H Lactate Dehydrogenase C-Reactive Protein Albumin 3.7 L Ur Specific [place] Urine WBC (Auto) Coronavirus (PCR) 09/01/20 09/03/20 09/03/20 19:48 06:17 06:17 WBC RBC Hgb Hct Lymph % (Auto) [place] % (Auto) Lymph # (Auto) [place] # (Auto) Seg Neutrophils % Seg Neutrophils # D-Dimer 566.54 H Sodium Potassium Chloride Carbon Dioxide BUN Creatinine Glucose 149 H Hemoglobin A1c Ferritin AST ALT Lactate Dehydrogenase 558 H 350 H C-Reactive Protein 1.50 H 1.70 H Albumin Ur Specific [place] Urine WBC (Auto) Coronavirus (PCR) 09/03/20 09/03/20 09/05/20 06:17 09:32 07:13 WBC RBC Hgb Hct Lymph % (Auto) [place] % (Auto) Lymph # (Auto) [place] # (Auto) Seg Neutrophils % Seg Neutrophils # D-Dimer 295.00 H Sodium Potassium Chloride Carbon Dioxide BUN 28 H Creatinine Glucose 172 H Hemoglobin A1c Ferritin 1194.0 H AST ALT Lactate Dehydrogenase C-Reactive Protein Albumin Ur Specific [place] Urine WBC (Auto) Coronavirus (PCR) 09/05/20 09/05/20 09/05/20 07:13 07:13 07:13 WBC 19.6 H RBC 5.48 H Hgb 16.1 H Hct 49.5 H Lymph % (Auto) [place] % (Auto) Lymph # (Auto) [place] # (Auto) Seg Neutrophils % Seg Neutrophils # D-Dimer Sodium Potassium Chloride Carbon Dioxide BUN 26 H Creatinine 0.7 L Glucose 140 H Hemoglobin A1c Ferritin 1051.0 H AST 61 H ALT 170 H Lactate Dehydrogenase 399 H C-Reactive Protein 2.30 H Albumin 3.5 L Ur Specific [place] Urine WBC (Auto) Coronavirus (PCR) 09/06/20 09/06/20 09/07/20 10:20 10:20 07:37 WBC 14.3 H RBC Hgb Hct Lymph % (Auto) 10.2 L [place] % (Auto) 12.2 H Lymph # (Auto) [place] # (Auto) 1.7 H Seg Neutrophils % 76.4 H Seg Neutrophils # 10.9 H D-Dimer Sodium 133 L D Potassium 3.5 L Chloride 93.3 L Carbon Dioxide BUN 22 H Creatinine 0.6 L Glucose 147 H Hemoglobin A1c Ferritin 786.5 H AST ALT 118 H Lactate Dehydrogenase C-Reactive Protein Albumin 3.1 L Ur Specific [place] Urine WBC (Auto) Coronavirus (PCR) 09/07/20 09/08/20 09/09/20 07:59 08:22 08:22 WBC RBC Hgb Hct Lymph % (Auto) [place] % (Auto) Lymph # (Auto) [place] # (Auto) Seg Neutrophils % Seg Neutrophils # D-Dimer Sodium 135 L 133 L Potassium Chloride 93.6 L 93.2 L 94.3 L Carbon Dioxide 31 H 33 H BUN 22 H 24 H 21 H Creatinine 0.6 L 0.6 L Glucose 156 H 157 H 158 H Hemoglobin A1c Ferritin AST ALT Lactate Dehydrogenase 265 H C-Reactive Protein Albumin Ur Specific [place] Urine WBC (Auto) Coronavirus (PCR) 09/10/20 09/13/20 09/16/20 09:47 13:42 07:44 WBC RBC Hgb Hct Lymph % (Auto) [place] % (Auto) Lymph # (Auto) [place] # (Auto) Seg Neutrophils % Seg Neutrophils # D-Dimer Sodium 136 L 131 L Potassium Chloride 91.9 L 89.9 L Carbon Dioxide BUN 25 H 24 H Creatinine 0.7 L 0.6 L Glucose 245 H 320 H 227 H Hemoglobin A1c Ferritin AST ALT Lactate Dehydrogenase C-Reactive Protein Albumin Ur Specific [place] Urine WBC (Auto) Coronavirus (PCR)
[2020-09-18] MEDS: CHOLECALCIFEROL (VIT D3) 5,000 UNIT TAB PO SCH (10:06)
[2020-09-18] MEDS: ENOXAPARIN 100 MG/1 ML INJ SUB-Q SCH ×2 (10:07→22:09)
[2020-09-18] MEDS: FAMOTIDINE 20 MG TAB PO SCH ×2 (10:07→22:10)
[2020-09-18] MEDS: ASCORBIC ACID 500 MG TAB PO SCH ×2 (10:07→22:09)
[2020-09-18] MEDS: ZINC SULFATE 220 MG CAP PO SCH (10:07)
[2020-09-19] MEDS: methylPREDNISolone Sod Succinate 40 MG/1 ML INJ IV SCH ×2 (05:11→15:52)
[2020-09-19 08:33] LABS: Basophils % (Auto) 0.2 % (0.0-1.8); Hematocrit 43.4 % (35.5-45.6); Hemoglobin 14.6 gm/dl (11.8-15.2); Lymphocytes % (Auto) 6.1 % (13.4-35.0); Mean Corpuscular HGB Conc 34 % (32-34); Mean Corpuscular Volume 89 fl (84-94); Monocytes # (Auto) 0.8 K/mm3 (0.0-0.8); Monocytes % (Auto) 4.9 % (0.0-7.3); Platelet Count 168 K/mm3 (140-440); Red Blood Count 4.86 M/mm3 (3.65-5.03); Red Cell Distribution Width 13.9 % (13.2-15.2)
--- NOTE | 2020-09-19 08:34 | Discharge Summary ---
Providers - Providers Date of Admission: 08/27/20 14:21 Date of discharge: 09/19/20 Attending physician: FRAN CAIN 08/27/20 17:05 Consult to Physician [CONS] Routine Comment: Consulting Provider: ELDON TINAJERO Physician Instructions: Bilateral pneumonia, hypoxia Reason For Exam: COVID-19 positive test (U07.1, COVID-19) 08/28/20 12:44 Consult to Physician [CONS] Routine Comment: Consulting Provider: PAMELA RIDER Physician Instructions: Reason For Exam: Acute resp failure, Covid-19 Primary care physician: [employer] Hospitalization Reason for admission: COVID PNA Condition: Fair Hospital course: 35-year-old male with past medical history of morbid obesity who presented to the hospital with complaints of cough cold-like symptoms. Patient was admitted with diagnosis of acute hypoxic respiratory failure secondary to bilateral pneumonia. Patient was later found to have Covid PCR positive on 08/27/2020. The patient was seen by ID in consultation and treated with steroids and remdesivir. The patient will be discharged home with prednisone taper per pulmonary recommendations. The patient underwent exercise pulse oximetry testing prior to discharge and revealed pulse ox resting r/a 100% ambulating r/a 96% no sob. No need for home O2. Dedicated discharge time 35 minutes Hospital course in reverse chronological order below: 09/17/20: WIll change to Prednisone 60 daily and suggest taper as follows: 60 daily for 4 days, 40 daily for 4 days, 20 daily for 4 days then 10 daily for 4 days then stop. needs walk test prior to discharge. Will continue to follow. 09/16/20: Will start to wean roids tomorrow. Prone if possible 09/15/20: Continue steroids at current dosing until on regular cannula. Continue to prone. hold lasix again today. 09/14/20: Chemistry is stable. Improving oxygen state despite not using lasix the last 48 hours. Will hold again today. Continue high dose steroids, not ready to switch to PO just yet. Hopeful discharge in the next 3-4 days. 09/13/20: Ordered chemistry for today. If renal function and potassium ok, please give lasix 40mg IV. LTACH denied secondary to funding. Continue high dose steroids. Guarded prognosis. 09/12/20: repeat chemistry tomorrow. Hold on lasix today. Continue IV steroids and proning. Follow up with CM about LTACH 09/11/20: Lasix now 40 and then 20 IV at 2100. Please encourage patient to prone. Follow up with CM about LTACH as patient needs prolonged weaning. Continue IV steroids. Guarded prognosis. 09/10/20: Unable to order lasix until recent vitals placed. Labs are stable. Per CM [place] reviewing clinical. Needs to prone. Took two doses of lasix to achieve net negative state yesterday and would like to do again today if vitals can be confirmed. 09/09/20: More lasix today. Labs stable. Continue proning and steroids. Agree with LTACH referral. Already on anticoagulation. Guarded prognosis. 09/08/20: CXR is slightly better. Continue solumedrol at current dosing. Continue to prone. Lasix again today as he still has a positive fluid balance. 09/07/20: Lasix again today. Continue IV solumedrol. Proning. Repeat CXR today. 09/06/20: Will give lasix now. Put back on steroids but this IV 40q8. Wean FiO2 for sats > 88% and stress the importance of proning. 09/03/20: Lasix 40 now and then will order another dose for 2000 tonight. BMP is stable. Wean FiO2 for sats >88%. Continue to prone nightly and PRN. Finished Remdesivir, still on steroids. 09/02/20: Continue proning at night and during the day as well if possible. Lasix 40 again today. Would check BMP tomorrow. Wean FiO2 and flow for sats >88%. Prognosis still remains guarded. 09/01/20: Documented proning this am with improvement in Sats and oxygen requirement. Lasix again today. Strict I/O. reviewed ID note and appreciate them answering the Actemra inquiry. Guarded prognosis, will continue to follow. 08/31/20: Still no documentation of proning. Lasix again today and ordered strict I/O. Follow up ID recs. Will ask if Actemra is still being used. Guarded prognosis. 08/30. Proning order is in, very important that patient do this. Lasix again today but this time, 40mg IV. Remdesivir and steroids. Guarded prognosis. Please document if patient is refusing to prone. Disposition: [id number] TO HOME OR SELFCARE Final Discharge Diagnosis (Prints w/discharge instructions): Acute hypoxic respiratory failure, COVID-19 pneumonia, morbid obesity Core Measure Documentation - Palliative Care Palliative Care/ Comfort Measures: Not Applicable - Core Measures Any of the following diagnoses?: none Exam - Constitutional Vitals: Temp Pulse Resp BP Pulse Ox 98.4 F 109 H 20 126/83 92 09/19/20 05:54 09/19/20 05:54 09/19/20 05:54 09/19/20 05:54 09/19/20 05:54 General appearance: Present: no acute distress, well-nourished - EENT Eyes: Present: PERRL ENT: hearing intact, clear oral mucosa - Neck Neck: Present: supple, normal ROM - Respiratory Respiratory effort: normal Respiratory: bilateral: CTA - Cardiovascular Heart Sounds: Present: S1 & S2. Absent: rub, click - Extremities Extremities: pulses symmetrical, No edema Peripheral Pulses: within normal limits - Abdominal General gastrointestinal: Present: soft, non-tender, non-distended, normal bowel sounds Male genitourinary: Present: normal - Integumentary Integumentary: Present: clear, warm, dry - Musculoskeletal Musculoskeletal: gait normal, strength equal bilaterally - Psychiatric Psychiatric: appropriate mood/affect, intact judgment & insight - Neurologic Neurologic: CNII-XII intact, moves all extremities Plan Activity: advance as tolerated Weight Bearing Status: Weight Bear as Tolerated Diet: regular Follow up with: PRIMARY CARE, [Primary Care Provider] - 3-5 Days ELDON TINAJERO MD [Staff Physician] - 7 Days PAMELA RIDER MD [Staff Physician] - 7 Days Prescriptions: predniSONE [Deltasone] 20 mg PO QDAY #26 tab Ascorbic Acid [Vitamin C] 1,000 mg PO BID #60 tablet Cholecalciferol (Vitamin D3) [Vitamin D3] 5,000 unit PO DAILY #30 tablet Zinc Sulfate 220 mg PO QDAY #30 capsule
[2020-09-19 08:56] LABS: Blood Urea Nitrogen 20 mg/dL (9-20); Calcium 9.7 mg/dL (8.4-10.2); Hemolysis Index 21
[2020-09-19 08:59] LABS: BUN/Creatinine Ratio 40
--- NOTE | 2020-09-19 09:55 | Progress Note ---
Assessment and Plan - Patient Problems (1) Acute respiratory failure due to COVID-19 Current Visit: Yes Status: Acute (2) Acute respiratory failure with hypoxia Current Visit: Yes Status: Acute (3) Bilateral pneumonia Current Visit: Yes Status: Acute (4) Hypokalemia Current Visit: Yes Status: Acute (5) Obesity hypoventilation syndrome Current Visit: Yes Status: Acute (6) SIRS (systemic inflammatory response syndrome) Current Visit: Yes Status: Acute (7) Hyperglycemia Current Visit: Yes Status: Acute Subjective Principal diagnosis: COVID-19 Interval history: doing well Objective Vital Signs - 12hr 09/18/20 09/19/20 09/19/20 22:00 05:54 08:00 Temperature 98.4 F Pulse Rate 109 H Pulse Rate [ 121 H Right Radial] Respiratory 20 20 Rate Blood Pressure 126/83 O2 Sat by Pulse 93 92 95 Oximetry Constitutional: no acute distress ENT: oropharynx moist Neck: supple Ascultation: Bilateral: clear Cardiovascular: regular rate and rhythm Gastrointestinal: normoactive bowel sounds, soft, non-tender Integumentary: normal Extremities: no cyanosis Neurologic: normal mental status Psychiatric: mood appropriate CBC and BMP: 09/19/20 07:50 09/19/20 07:50 ABG, PT/INR, D-dimer: PT/INR, D-dimer D-Dimer 171.18 ng/mlDDU (0-234) 09/07/20 07:37 Abnormal lab findings: Abnormal Labs 08/27/20 08/27/20 08/27/20 11:56 11:56 11:56 WBC RBC Hgb Hct Lymph % (Auto) [place] % (Auto) Lymph # (Auto) [place] # (Auto) Seg Neutrophils % Seg Neutrophils # D-Dimer 291.43 H Sodium Potassium Chloride Carbon Dioxide BUN Creatinine Glucose Hemoglobin A1c Ferritin 572.3 H AST ALT Lactate Dehydrogenase 313 H C-Reactive Protein 4.40 H Albumin Ur Specific [place] Urine WBC (Auto) Coronavirus (PCR) 08/27/20 08/27/20 08/27/20 11:56 11:56 Unknown WBC RBC Hgb Hct Lymph % (Auto) 10.3 L [place] % (Auto) Lymph # (Auto) 0.7 L [place] # (Auto) Seg Neutrophils % 84.6 H Seg Neutrophils # D-Dimer Sodium Potassium 3.4 L Chloride Carbon Dioxide BUN Creatinine Glucose 125 H Hemoglobin A1c Ferritin AST 66 H ALT Lactate Dehydrogenase C-Reactive Protein Albumin Ur Specific [place] Urine WBC (Auto) Coronavirus (PCR) Positive A 08/27/20 08/28/20 08/28/20 Unknown 07:55 07:55 WBC RBC 5.06 H Hgb Hct Lymph % (Auto) 9.7 L [place] % (Auto) Lymph # (Auto) 0.6 L [place] # (Auto) Seg Neutrophils % 84.8 H Seg Neutrophils # D-Dimer Sodium Potassium Chloride Carbon Dioxide BUN Creatinine Glucose 125 H Hemoglobin A1c Ferritin AST 80 H ALT Lactate Dehydrogenase C-Reactive Protein Albumin Ur Specific [place] 1.040 H Urine WBC (Auto) 11.0 H Coronavirus (PCR) 08/28/20 08/30/20 08/30/20 07:55 06:51 06:51 WBC RBC 5.04 H Hgb Hct Lymph % (Auto) [place] % (Auto) Lymph # (Auto) [place] # (Auto) Seg Neutrophils % Seg Neutrophils # D-Dimer Sodium Potassium Chloride Carbon Dioxide BUN Creatinine Glucose 144 H Hemoglobin A1c 6.4 H Ferritin AST 99 H ALT Lactate Dehydrogenase C-Reactive Protein Albumin 3.8 L Ur Specific [place] Urine WBC (Auto) Coronavirus (PCR) 08/30/20 08/30/20 08/31/20 14:18 14:18 05:43 WBC RBC Hgb Hct Lymph % (Auto) [place] % (Auto) Lymph # (Auto) [place] # (Auto) Seg Neutrophils % Seg Neutrophils # D-Dimer Sodium Potassium 5.1 H Chloride Carbon Dioxide 20 L D BUN 25 H Creatinine 0.7 L Glucose 158 H Hemoglobin A1c Ferritin 1166.0 H AST 75 H ALT Lactate Dehydrogenase 529 H C-Reactive Protein 5.90 H Albumin 3.3 L Ur Specific [place] Urine WBC (Auto) Coronavirus (PCR) 09/01/20 09/01/20 09/01/20 06:11 06:11 19:48 WBC RBC 5.11 H Hgb Hct Lymph % (Auto) [place] % (Auto) Lymph # (Auto) [place] # (Auto) Seg Neutrophils % Seg Neutrophils # D-Dimer Sodium Potassium Chloride Carbon Dioxide BUN 27 H Creatinine Glucose 151 H Hemoglobin A1c Ferritin 1859.0 H AST 67 H ALT 69 H Lactate Dehydrogenase C-Reactive Protein Albumin 3.7 L Ur Specific [place] Urine WBC (Auto) Coronavirus (PCR) 09/01/20 09/03/20 09/03/20 19:48 06:17 06:17 WBC RBC Hgb Hct Lymph % (Auto) [place] % (Auto) Lymph # (Auto) [place] # (Auto) Seg Neutrophils % Seg Neutrophils # D-Dimer 566.54 H Sodium Potassium Chloride Carbon Dioxide BUN Creatinine Glucose 149 H Hemoglobin A1c Ferritin AST ALT Lactate Dehydrogenase 558 H 350 H C-Reactive Protein 1.50 H 1.70 H Albumin Ur Specific [place] Urine WBC (Auto) Coronavirus (PCR) 09/03/20 09/03/20 09/05/20 06:17 09:32 07:13 WBC RBC Hgb Hct Lymph % (Auto) [place] % (Auto) Lymph # (Auto) [place] # (Auto) Seg Neutrophils % Seg Neutrophils # D-Dimer 295.00 H Sodium Potassium Chloride Carbon Dioxide BUN 28 H Creatinine Glucose 172 H Hemoglobin A1c Ferritin 1194.0 H AST ALT Lactate Dehydrogenase C-Reactive Protein Albumin Ur Specific [place] Urine WBC (Auto) Coronavirus (PCR) 09/05/20 09/05/20 09/05/20 07:13 07:13 07:13 WBC 19.6 H RBC 5.48 H Hgb 16.1 H Hct 49.5 H Lymph % (Auto) [place] % (Auto) Lymph # (Auto) [place] # (Auto) Seg Neutrophils % Seg Neutrophils # D-Dimer Sodium Potassium Chloride Carbon Dioxide BUN 26 H Creatinine 0.7 L Glucose 140 H Hemoglobin A1c Ferritin 1051.0 H AST 61 H ALT 170 H Lactate Dehydrogenase 399 H C-Reactive Protein 2.30 H Albumin 3.5 L Ur Specific [place] Urine WBC (Auto) Coronavirus (PCR) 09/06/20 09/06/20 09/07/20 10:20 10:20 07:37 WBC 14.3 H RBC Hgb Hct Lymph % (Auto) 10.2 L [place] % (Auto) 12.2 H Lymph # (Auto) [place] # (Auto) 1.7 H Seg Neutrophils % 76.4 H Seg Neutrophils # 10.9 H D-Dimer Sodium 133 L D Potassium 3.5 L Chloride 93.3 L Carbon Dioxide BUN 22 H Creatinine 0.6 L Glucose 147 H Hemoglobin A1c Ferritin 786.5 H AST ALT 118 H Lactate Dehydrogenase C-Reactive Protein Albumin 3.1 L Ur Specific [place] Urine WBC (Auto) Coronavirus (PCR) 09/07/20 09/08/20 09/09/20 07:59 08:22 08:22 WBC RBC Hgb Hct Lymph % (Auto) [place] % (Auto) Lymph # (Auto) [place] # (Auto) Seg Neutrophils % Seg Neutrophils # D-Dimer Sodium 135 L 133 L Potassium Chloride 93.6 L 93.2 L 94.3 L Carbon Dioxide 31 H 33 H BUN 22 H 24 H 21 H Creatinine 0.6 L 0.6 L Glucose 156 H 157 H 158 H Hemoglobin A1c Ferritin AST ALT Lactate Dehydrogenase 265 H C-Reactive Protein Albumin Ur Specific [place] Urine WBC (Auto) Coronavirus (PCR) 09/10/20 09/13/20 09/16/20 09:47 13:42 07:44 WBC RBC Hgb Hct Lymph % (Auto) [place] % (Auto) Lymph # (Auto) [place] # (Auto) Seg Neutrophils % Seg Neutrophils # D-Dimer Sodium 136 L 131 L Potassium Chloride 91.9 L 89.9 L Carbon Dioxide BUN 25 H 24 H Creatinine 0.7 L 0.6 L Glucose 245 H 320 H 227 H Hemoglobin A1c Ferritin AST ALT Lactate Dehydrogenase C-Reactive Protein Albumin Ur Specific [place] Urine WBC (Auto) Coronavirus (PCR) 09/19/20 09/19/20 07:50 07:50 WBC 16.1 H RBC Hgb Hct Lymph % (Auto) 6.1 L [place] % (Auto) Lymph # (Auto) 1.0 L [place] # (Auto) Seg Neutrophils % 88.8 H Seg Neutrophils # 14.3 H D-Dimer Sodium 134 L Potassium Chloride 97.9 L Carbon Dioxide BUN Creatinine 0.5 L Glucose 235 H Hemoglobin A1c Ferritin AST ALT Lactate Dehydrogenase C-Reactive Protein Albumin Ur Specific [place] Urine WBC (Auto) Coronavirus (PCR)
[2020-09-19] MEDS: ASCORBIC ACID 500 MG TAB PO SCH (10:56)
[2020-09-19] MEDS: FAMOTIDINE 20 MG TAB PO SCH (10:56)
[2020-09-19] MEDS: ENOXAPARIN 100 MG/1 ML INJ SUB-Q SCH (10:56)
[2020-09-19] MEDS: CHOLECALCIFEROL (VIT D3) 5,000 UNIT TAB PO SCH (10:56)
[2020-09-19] MEDS: ZINC SULFATE 220 MG CAP PO SCH (15:53)
[2020-09-19 16:27] VITALS: BP 148/105
== END 2020-09-19 17:59 | disposition home or self-care (01) | DRG 177 ==
LOC: ED 08:36 → 3A 14:21
PROVIDERS: ADMIT Internal Medicine; ATTEND Hospitalist
PROC: XW033E5 Introduction of Remdesivir Anti-infective into Peripheral Vein, Percutaneous Approach, New Technology Group 5 (ICD-10-PCS; principal; 2020-08-29)
DX: U07.1 COVID-19 (principal); J96.01 Acute respiratory failure with hypoxia; J12.82 Pneumonia due to coronavirus disease 2019; E66.2 Morbid (severe) obesity with alveolar hypoventilation; R65.10 Systemic inflammatory response syndrome (SIRS) of non-infectious origin without acute organ dysfunction; E87.6 Hypokalemia; E87.5 Hyperkalemia; Z68.34 Body mass index [BMI] 34.0-34.9, adult; Z79.899 Other long term (current) drug therapy; Z82.49 Family history of ischemic heart disease and other diseases of the circulatory system
CPT/HCPCS: 36415; 71045; 71275; 74177; 80048; 80053; 81001; 82140; 82728; 82947; 83036; 83615; 83880; 84145; 84484; 85025; 85027; 85379; 86140; 87040; 87086; 93005; 94640; 94644; 94760; G0378; J0456; J0696; J1100; J1170; J1650; J1940; J2270; J2405; J2920; J3370; J7030; J7040; J7050; Q9967; U0003